=== PATIENT | female | born 1965 | race Caucasian/White ===

== ENCOUNTER 2019-04-21 13:43 | Outpatient (CLI) | payer OTHER, SELFPAY ==
[2019-04-21 14:34] LABS: Alanine Aminotransferase 67 U/L (4-35); Albumin Level 4.1 g/dL (3.5-5.1); Alkaline Phosphatase 57 U/L (38-126); Aspartate Amino Transferase 37 U/L (14-36); Bilirubin,Total 0.2 mg/dL (0.2-1.3); Blood Urea Nitrogen 25 mg/dL (7-17); Calcium 8.8 mg/dL (8.4-10.2); Carbon Dioxide 23 mmol/L (22-30); Chloride 107 mmol/L (98-107); Cholesterol 290 mg/dL (0-200); Estimated Glomerular Filt Rate > 60; Glucose 117 mg/dL (65-105); HDL Direct 56 mg/dL; Potassium 4.4 mmol/L (3.4-5.0); Sodium 137 mmol/L (137-145); Triglycerides 234 mg/dL (<150)
[2019-04-21 14:45] LABS: LDL Cholesterol Direct 186 mg/dL
== END 2019-04-21 13:44 | disposition home or self-care (01) ==
PROVIDERS: PCP Emergency Medicine; Visit Provider Internal Medicine Cardiovascular Disease
DX: E78.2 Mixed hyperlipidemia (principal)
CPT/HCPCS: 36415; 80053; 80061

== ENCOUNTER 2019-06-13 10:34 | Outpatient (CLI) | payer OTHER, SELFPAY ==
--- NOTE | 2019-06-13 10:36 | EST_ITS ---
Patient Info Name: Liliana Ruelas Age: 54 years : 1965 Gender: Female Ht: 62 in Wt: 150 lbs BSA: 1.74 m2 HR: 72 bpm BP: 126 / 76 mmHg Heart Rhythm: Sinus Rhythm Exam Date: 06/13/2019 11:26 AM Exam Location: [facility] Stress Admit Date: 06/13/2019 Staff Attending Provider: MATHEUS POLK DO Referring Physician: VANESSA Doyle; Exercise Technologist: Darcie Lehman RDCS Exercise Physician: Matheus Polk DO Exam Type: CA stress test treadmill Study Info Indications R07.9 - Chest pain, unspecified A treadmill exercise stress test was performed. Summary 1. 1. Negative Mane exercise stress test for ischemic ST changes by ECG criteria. 2. 2. Good functional capacity, achieving 10 METs of workload. 3. 3. Appropriate HR response to exercise. 4. 4. Appropriate HR recovery at 1 minute post exercise. 5. 5. No imaging with stress testing. 6. 6. Patient informed of the above results. Protocol: Mane Stress ECG Details Stage: REST Duration (min): 5 min : 24 sec Speed (mph): 0.0 Grade (%): 0 HR (bpm): 71 SBP (mmHg): 126 DBP (mmHg): 76 METS: --- Stage: REST Duration (min): 20 min : 33 sec Speed (mph): 0.0 Grade (%): 0 HR (bpm): 75 SBP (mmHg): 126 DBP (mmHg): 76 METS: --- Stage: STAGE 1 Duration (min): 1 min : 0 sec Speed (mph): 1.7 Grade (%): 10 HR (bpm): 103 SBP (mmHg): 126 DBP (mmHg): 76 METS: --- Stage: STAGE 1 Duration (min): 2 min : 0 sec Speed (mph): 1.7 Grade (%): 10 HR (bpm): 107 SBP (mmHg): 126 DBP (mmHg): 76 METS: --- Stage: STAGE 1 Duration (min): 3 min : 0 sec Speed (mph): 1.7 Grade (%): 10 HR (bpm): 111 SBP (mmHg): 145 DBP (mmHg): 87 METS: --- Stage: STAGE 2 Duration (min): 1 min : 0 sec Speed (mph): 2.5 Grade (%): 12 HR (bpm): 117 SBP (mmHg): 145 DBP (mmHg): 87 METS: --- Stage: STAGE 2 Duration (min): 2 min : 0 sec Speed (mph): 2.5 Grade (%): 12 HR (bpm): 122 SBP (mmHg): 151 DBP (mmHg): 88 METS: --- Stage: STAGE 2 Duration (min): 3 min : 0 sec Speed (mph): 2.5 Grade (%): 12 HR (bpm): 128 SBP (mmHg): 151 DBP (mmHg): 88 METS: --- Stage: STAGE 3 Duration (min): 1 min : 0 sec Speed (mph): 3.4 Grade (%): 14 HR (bpm): 136 SBP (mmHg): 174 DBP (mmHg): 97 METS: --- Stage: STAGE 3 Duration (min): 1 min : 59 sec Speed (mph): 3.4 Grade (%): 14 HR (bpm): 141 SBP (mmHg): 174 DBP (mmHg): 97 METS: --- Stage: RECOVERY Duration (min): 1 min : 0 sec Speed (mph): 0.0 Grade (%): 0 HR (bpm): 120 SBP (mmHg): 174 DBP (mmHg): 97 METS: --- Stage: RECOVERY Duration (min): 2 min : 0 sec Speed (mph): 0.0 Grade (%): 0 HR (bpm): 102 SBP (mmHg): 180 DBP (mmHg): 83 METS: --- Stage: RECOVERY Duration (min): 3 min : 0 sec Sp
[2019-06-13 11:04] LABS: Alanine Aminotransferase 32 U/L (4-35); Albumin Level 4.3 g/dL (3.5-5.1); Alkaline Phosphatase 57 U/L (38-126); Aspartate Amino Transferase 27 U/L (14-36); Bilirubin,Total 0.2 mg/dL (0.2-1.3); Blood Urea Nitrogen 24 mg/dL (7-17); Calcium 9.3 mg/dL (8.4-10.2); Carbon Dioxide 27 mmol/L (22-30); Chloride 107 mmol/L (98-107); Cholesterol 265 mg/dL (0-200); Estimated Glomerular Filt Rate > 60; Glucose 126 mg/dL (65-105); HDL Direct 52 mg/dL; Potassium 4.2 mmol/L (3.4-5.0); Sodium 138 mmol/L (137-145); Triglycerides 121 mg/dL (<150)
[2019-06-13 11:15] LABS: LDL Cholesterol Direct 168 mg/dL
== END 2019-06-13 10:35 | disposition home or self-care (01) ==
PROVIDERS: PCP Emergency Medicine; Visit Provider Internal Medicine Cardiovascular Disease
DX: E78.2 Mixed hyperlipidemia (principal); R07.9 Chest pain, unspecified
CPT/HCPCS: 36415; 80053; 80061; 93017

== ENCOUNTER 2019-12-02 13:52 | Outpatient (CLI) | payer OTHER, SELFPAY | END 2019-12-02 13:53 | disposition home or self-care (01) | LOC: ANHLAB 13:55 | PROVIDERS: PCP Emergency Medicine; Visit Provider Internal Medicine Cardiovascular Disease | DX: E66.3 Overweight (principal) | CPT/HCPCS: 36415; 84443 ==

== ENCOUNTER 2020-01-24 14:18 | Outpatient (CLI) | payer OTHER, SELFPAY ==
--- NOTE | 2020-02-06 15:17 | WPDPFTINT ---
PFT Interpretation PFT Interpretation: DOS: 01/24/2020 REQUESTING: Dr Matheus Mckinnon REASON FOR TESTING: Dyspnea PULMONARY FUNCTION TESTS Results are reliable. Spirometry: FEV1 is 84%, normal. FVC is 89%, normal. FEV/FVC is 71%, normal. XAT86-49% is 50%, decreased. No bronchodilator was given. Lung volumes: TLC 94%, and RV is 100%, both normal. RV/TLC ratio is increased at 38% consistent with mild air trapping. Airway resistance is increased 141%. Diffusion: DLCO is 61%, mildly decreased. Flow volume loop: Inspiratory loop terminates earlier than expected. Nonspecific pattern. IMPRESSION: Small airways pattern, mild air trapping, mild increase in airway resistance, and mild decrease in diffusion. No bronchodilator was given. This is a nonspecific pattern. Clinical correlation is advised. Casandra Morillo MD
== END 2020-01-24 14:19 | disposition home or self-care (01) ==
LOC: ANHPFT 14:19
PROVIDERS: PCP Emergency Medicine; Visit Provider Internal Medicine Cardiovascular Disease
DX: R06.00 Dyspnea, unspecified (principal)
CPT/HCPCS: 94375; 94726; 94729

== ENCOUNTER 2020-03-19 14:24 | Outpatient (CLI) | payer OTHER, SELFPAY ==
[2020-03-19 15:16] LABS: Hemoglobin A1C 6.2 % (<5.7)
[2020-03-19 15:19] LABS: Alanine Aminotransferase 62 U/L (4-35); Albumin Level 4.5 g/dL (3.5-5.1); Alkaline Phosphatase 65 U/L (38-126); Anion Gap 6 mmol/L (8-16); Aspartate Amino Transferase 40 U/L (14-36); Bilirubin,Total 0.3 mg/dL (0.2-1.3); Blood Urea Nitrogen 20 mg/dL (7-17); Calcium 9.6 mg/dL (8.4-10.2); Carbon Dioxide 27 mmol/L (22-30); Chloride 109 mmol/L (98-107); Cholesterol 199 mg/dL (0-200); Estimated Glomerular Filt Rate > 60; Glucose 123 mg/dL (65-105); HDL Direct 46 mg/dL; Potassium 4.3 mmol/L (3.4-5.0); Sodium 142 mmol/L (137-145); Triglycerides 187 mg/dL (<150)
[2020-03-19 15:21] LABS: Rheumatoid Factor < 8.6 IU/ML (<12)
[2020-03-19 15:34] LABS: LDL Cholesterol Direct 115 mg/dL
[2020-03-19 15:42] LABS: Erythrocyte Sedimentation Rate 20 mm/hr (0-20)
[2020-03-22 20:14] LABS: CRP, High Sensitivity 1.3 mg/L (***)
[2020-03-22 22:08] LABS: Anti Cyclic Citrullinated Pept <16 Units (<20)
== END 2020-03-19 14:25 | disposition home or self-care (01) ==
PROVIDERS: PCP Internal Medicine; Referring Provider Internal Medicine Cardiovascular Disease; Visit Provider Nurse Practitioner
DX: E78.5 Hyperlipidemia, unspecified (principal); M25.50 Pain in unspecified joint; Z68.32 Body mass index [BMI] 32.0-32.9, adult
CPT/HCPCS: 36415; 80053; 80061; 83036; 85652; 86038; 86039; 86141; 86200; 86430

== ENCOUNTER 2020-04-23 13:18 | Outpatient (CLI) | payer OTHER, SELFPAY | END 2020-04-23 13:19 | disposition home or self-care (01) | LOC: ANHCOVIDVC 13:18 | PROVIDERS: PCP Internal Medicine | DX: Z23 Encounter for immunization (principal) | CPT/HCPCS: 0001A; 91300 ==

== ENCOUNTER 2020-05-14 13:14 | Outpatient (CLI) | payer OTHER, SELFPAY | END 2020-05-14 13:15 | disposition home or self-care (01) | LOC: ANHCOVIDVC 13:14 | PROVIDERS: PCP Internal Medicine | DX: Z23 Encounter for immunization (principal) | CPT/HCPCS: 0002A; 91300 ==

== ENCOUNTER 2020-08-01 12:57 | Outpatient (CLI) | payer OTHER, SELFPAY ==
--- NOTE | ~2020-08-01 | CT_ITS ---
EXAMINATION: CT abdomen pelvis wo con DATE: 08/01/2020 13:13 INDICATION: Low abdominal pain. TECHNIQUE: Computed tomography (CT) of the abdomen and pelvis was performed without intravenous contr ast. Automated exposure control and iterative reconstruction technique were employed. The dose-length product was 710.61 mGy-cm. COMPARISON: None. FINDINGS: The visualized portions of the lung bases demonstrate minimal atelectasis. No pleural effus ion. The heart size is normal. No pericardial effusion. The liver and gallbladder are normal. Calcifi cations in the spleen are consistent with old granulomatous disease. The pancreas, adrenal glands, an d kidneys are normal. There is no urolithiasis. There are no dilated loops of bowel. The appendix is not visualized. There is focal fat stranding adjacent to the sigmoid colon. There are no pathological ly enlarged lymph nodes. There is no free intraperitoneal fluid. There is severe lower lumbar spondyl osis. IMPRESSION: 1. Focal fat stranding adjacent to the sigmoid colon, consistent with diverticulitis versus epiploic appendagitis. Reviewed, dictated and finalized at location A. IMPRESSION: 1. Focal fat stranding adjacent to the sigmoid colon, consistent with diverticu litis versus epiploic appendagitis.
== END 2020-08-01 12:58 | disposition home or self-care (01) ==
LOC: ANHIMG 12:57
PROVIDERS: PCP Internal Medicine; Visit Provider Internal Medicine
DX: R10.9 Unspecified abdominal pain (principal); R93.5 Abnormal findings on diagnostic imaging of other abdominal regions, including retroperitoneum
CPT/HCPCS: 74176

== ENCOUNTER 2020-08-22 02:02 | Day surgery (SDC) | payer OTHER, SELFPAY ==
[2020-08-10 11:25] VITALS: BMI 30.6
--- NOTE | 2020-08-22 08:36 | WPDANESEPPF ---
Anes - Initial Pre Proc Eval Procedure: Operation Date: 08/22/20 10:30 Proposed Procedures p Colonoscopy - Fredrick Evans MD Date/Time: 08/22/20 08:36 Surgeon: Fredrick Evans MD Pre Op Diagnosis: abdominal pain Patient Data Age: 55 Gender: F Height: 1.57 m Weight: 76 kg Allergies Allergy/AdvReac Type Severity Reaction Status Date / Time cephalexin AdvReac Severe vomiting Verified 08/10/20 11:26 and diarrhea Home Medications Medication Instructions Recorded Confirmed Type omega-3 fatty acids 1,000 mg 1,000 mg PO DAILY 04/26/19 08/10/20 History capsule escitalopram oxalate 20 mg tablet 20 mg PO DAILY #30 tablet 06/04/20 08/10/20 Rx ciprofloxacin HCl 500 mg tablet 500 mg PO Q12H #20 tablet 08/02/20 08/10/20 Rx metronidazole 500 mg tablet 500 mg PO Q8H #30 tablet 08/02/20 08/10/20 Rx diclofenac sodium 75 mg PO TID 08/10/20 08/10/20 History ezetimibe 10 mg PO DAILY 08/10/20 08/10/20 History rosuvastatin 10 mg PO DAILY 08/10/20 08/10/20 History alprazolam 0.5 mg tablet 1 mg PO QHS #30 tablet 08/14/20 Rx Patient hx anesthesia problems: none Family hx anesthesia problems: none PMFSH Past Medical History Medical History (Updated 08/22/20 @ 08:39 by Geremias Ricketts MD) Abnormal mammogram Acute bronchitis, unspecified Anxiety and depression Breast microcalcification, mammographic Essential hypertension Female climacteric state FHx: migraine headaches 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 Generalized arthritis Herpes zoster without complication History of Ania-Unger virus infection Mixed hyperlipidemia Sclerosing adenosis of right breast Tobacco use disorder Surgical History Surgical History (Updated 03/07/20 @ 13:11 by Shaun Byrd APRN) History of appendectomy History of History of carpal tunnel release History of hysterectomy Family History Family History (Updated 05/09/20 @ 07:05 by Ira Ferrer CMA) Mother Family history of diabetes mellitus in first degree relative Sibling Family history of diabetes mellitus in first degree relative Father Alcoholism Grandparent Cancer Social History Social History Smoking packs per day: 1 Smoking cigarettes per day: 20.0 Years smoked: 40 Smoking pack-years: 40.00 Smoking status: Current every day smoker Tobacco type: cigarettes Alcohol intake: never Alcohol use details: Alcoholic. No alcohol in 13 months Substance use: never Substance use type: does not use Living arrangements: with family Gender identity (if verbalized by the patient): Female Spiritual care concerns: No Anes - Eval Final PreProcedure Day of Procedure 08/22/20 08:36 Patient weight: obese Heart: regular rate and rhythm Lungs: clear to auscultation and normal air movement Airway: Mallampati scale class II Neurological: alert and oriented Last oral intake: >/= 8 hours ASA classification: III Emergent: no Anesthetic plan: proceed Anesthesia type and monitoring: general GIVS Informed Consent: The patient's anesthetic plan and its attendant risks and benefits were discussed with the patient/family/POA. Questions were solicited and answers provided to the satisfaction of the patient/family/POA.
[2020-08-22 09:34] VITALS: BP 125/80; PULSE 82; RESP 20; TEMP 35.5; O2SAT 99; BMI 29.9
[2020-08-22] MEDS: LACTATED RINGERS 1,000 ML 150 ML IV CONT (09:47)
--- NOTE | 2020-08-22 10:19 | WPDGICN ---
Assessment and Plan Assessment and plan (1) Encounter for screening colonoscopy: Code(s): Z12.11 - Encounter for screening for malignant neoplasm of colon Status: Acute Assessment and Plan: Patient has never had colonoscopy. Screening colonoscopy advised because of her age this will be performed. (2) Abdominal pain in female: Code(s): R10.9 - Unspecified abdominal pain Status: Acute Assessment and Plan: Patient had recent abdominal pain that is resolved. May be related to irritable bowel syndrome. She was treated empirically for possible diverticulitis. Plan to assess at time of colonoscopy. High-fiber diet advised. Subsequently. GI Consult Note Consult date/time: 08/22/20 10:19 HPI: Liliana Ruelas is a 55 year old female Presents for screening colonoscopy. Patient has never had prior colonoscopy. Patient reports having several month interval of discomfort in her abdomen. Appears rather diffuse. Associated with altered bowel habits. Somewhat worse perhaps with anxiety. Patient was treated for diverticulitis with antibiotics. She feels that pain may have improved after this. Currently abdominal pain has subsided to a great deal. She denies any blood in her stools. Her weight has remained stable. Bowel habits have tended to return point more towards normal. 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 Generalized arthritis Herpes zoster without complication History of Ania-Unger virus infection Mixed hyperlipidemia Sclerosing adenosis of right breast Tobacco use disorder Surgical History Surgical History (Updated 03/07/20 @ 13:11 by Shaun Byrd APRN) History of appendectomy History of History of carpal tunnel release History of hysterectomy Family History Family History (Updated 05/09/20 @ 07:05 by Ira Ferrer [facility]) Mother Family history of diabetes mellitus in first degree relative Sibling Family history of diabetes mellitus in first degree relative Father Alcoholism Grandparent Cancer Social History Social History Smoking packs per day: 1 Smoking cigarettes per day: 20.0 Years smoked: 40 Smoking pack-years: 40.00 Smoking status: Current every day smoker Tobacco type: cigarettes Alcohol intake: never Alcohol use details: Alcoholic. No alcohol in 13 months Substance use: never Substance use type: does not use Living arrangements: with family Gender identity (if verbalized by the patient): Female Spiritual care concerns: No Meds Home Medications and Allergies Home Medications Medication Instructions Recorded Confirmed Type omega-3 fatty acids 1,000 mg 1,000 mg PO DAILY 04/26/19 08/10/20 History capsule escitalopram oxalate 20 mg tablet 20 mg PO DAILY #30 tablet 06/04/20 08/10/20 Rx metronidazole 500 mg tablet 500 mg PO Q8H #30 tablet 08/02/20 08/10/20 Rx diclofenac sodium 75 mg PO TID 08/10/20 08/10/20 History ezetimibe 10 mg PO DAILY 08/10/20 08/10/20 History rosuvastatin 10 mg PO DAILY 08/10/20 08/10/20 History alprazolam 0.5 mg tablet 1 mg PO QHS #30 tablet 08/14/20 08/22/20 Rx Allergies Allergy/AdvReac Type Severity Reaction Status Date / Time cephalexin AdvReac Severe vomiting Verified 08/10/20 11:26 and diarrhea Vital Signs Vital Signs - 24 hr 08/22/20 09:34 Temperature 95.9 F L Pulse Rate 82 Respiratory Rate 20 Blood Pressure 125/80 Pulse Oximetry 99 Exam Narrative: Exam Narrative: Physical exam revea
[2020-08-22 10:47] VITALS: BP 140/85; PULSE 87; RESP 22; O2SAT 95
[2020-08-22 10:57] VITALS: BP 133/81; PULSE 84; RESP 25; O2SAT 100
[2020-08-22 11:07] VITALS: BP 131/88; PULSE 69; RESP 16; O2SAT 98
== END 2020-08-22 11:21 | disposition home or self-care (01) ==
PROVIDERS: PCP Internal Medicine; Visit Provider Internal Medicine Gastroenterology
PROC: 0DJD8ZZ Inspection of Lower Intestinal Tract, Via Natural or Artificial Opening Endoscopic (ICD-10-PCS; CPT 45378; principal; 2020-08-22 10:30)
DX: Z12.11 Encounter for screening for malignant neoplasm of colon (principal); K63.89 Other specified diseases of intestine; R10.84 Generalized abdominal pain; F41.8 Other specified anxiety disorders; I10 Essential (primary) hypertension; E78.2 Mixed hyperlipidemia; F17.210 Nicotine dependence, cigarettes, uncomplicated; F10.21 Alcohol dependence, in remission; E66.9 Obesity, unspecified; Z68.30 Body mass index [BMI] 30.0-30.9, adult
CPT/HCPCS: 45378; J2704; J7120

== ENCOUNTER 2020-09-28 15:43 | Outpatient (CLI) | payer OTHER, SELFPAY ==
[2020-09-28 16:31] LABS: Alanine Aminotransferase 61 U/L (4-35); Albumin Level 4.7 g/dL (3.5-5.1); Alkaline Phosphatase 67 U/L (38-126); Anion Gap 11 mmol/L (8-16); Aspartate Amino Transferase 34 U/L (14-36); Bilirubin,Total 0.2 mg/dL (0.2-1.3); Blood Urea Nitrogen 13 mg/dL (7-17); Calcium 9.9 mg/dL (8.4-10.2); Carbon Dioxide 23 mmol/L (22-30); Chloride 101 mmol/L (98-107); Cholesterol 230 mg/dL (0-200); Estimated Glomerular Filt Rate > 60; Glucose 142 mg/dL (65-110); HDL Direct 53 mg/dL; Potassium 3.9 mmol/L (3.4-5.0); Sodium 135 mmol/L (137-145); Triglycerides 267 mg/dL (<150)
[2020-09-28 16:43] LABS: LDL Cholesterol Direct 117 mg/dL
== END 2020-09-28 15:44 | disposition home or self-care (01) ==
PROVIDERS: PCP Internal Medicine; Visit Provider Internal Medicine
DX: E78.2 Mixed hyperlipidemia (principal); I10 Essential (primary) hypertension
CPT/HCPCS: 36415; 80053; 80061

== ENCOUNTER 2021-01-02 14:07 | Outpatient (CLI) | payer OTHER, SELFPAY | END 2021-01-02 14:08 | disposition home or self-care (01) | LOC: ANHLAB 14:09 | PROVIDERS: PCP Internal Medicine; Visit Provider Internal Medicine | DX: R73.01 Impaired fasting glucose (principal) | CPT/HCPCS: 36415; 83036 ==

== ENCOUNTER → 2021-02-20 02:54 | Outpatient (CLI) | payer OTHER, SELFPAY ==
[2021-02-20 21:18] LABS: SARS-CoV-2 RNA PCR Negative
== END ==
LOC: ANHCOVIDDT 02:54
PROVIDERS: PCP Internal Medicine; Visit Provider Internal Medicine
DX: R68.89 Other general symptoms and signs (principal); Z20.822 Contact with and (suspected) exposure to COVID-19
CPT/HCPCS: C9803; U0003; U0005

== ENCOUNTER 2022-10-28 14:59 | Outpatient (CLI) | payer OTHER, SELFPAY ==
[2022-10-28 15:24] LABS: Basophils Absolute Auto 0.1 K/mm3 (0.0-0.1); Basophils Percent Auto 0.7 % (0.2-1.2); Eosinophils Absolute Auto 0.1 K/mm3 (0-0.3); Eosinophils Percent Auto 0.9 % (0-4.4); Hemoglobin 13.8 g/dL (12.0-15.0); Immature Granulocyte Absolute 0.06 K/mm3 (0.00-0.031); Immature Granulocyte Percent A 0.6 % (0-0.5); Lymphocytes Absolute Auto 2.85 K/mm3 (0.9-3.2); Lymphocytes Percent Auto 28.7 % (18.3-44.2); Mean Corpuscular HGB Conc 33.7 g/dl (32-36); Mean Corpuscular Hemoglobin 31.7 pg (26-34); Mean Corpuscular Volume 94.3 fl (80-100); Mean Platelet Volume 10.3 fl (7.4-10.4); Monocytes Absolute Auto 0.5 K/mm3 (0.1-0.6); Monocytes Percent Auto 5.1 % (2.6-8.5); Neutrophils Absolute Auto 6.3 K/mm3 (1.3-6.7); Platelet Count Result 313 k/mm3 (150-375); Red Blood Count 4.35 M/mm3 (4.2-5.4); Red Cell Distribution Width 12.9 % (11.5-14.5); White Blood Count 9.9 K/mm3 (4.5-10.0)
[2022-10-28 15:41] LABS: Alanine Aminotransferase 34 U/L (6-35); Albumin Level 4.6 g/dL (3.5-5.1); Alkaline Phosphatase 63 U/L (38-126); Anion Gap 9 mmol/L (8-16); Aspartate Amino Transferase 26 U/L (14-36); Bilirubin,Total 0.5 mg/dL (0.2-1.3); Blood Urea Nitrogen 18 mg/dL (7-17); Calcium 9.6 mg/dL (8.4-10.2); Carbon Dioxide 24 mmol/L (22-30); Chloride 108 mmol/L (98-107); Estimated Glomerular Filt Rate > 60; Glucose 104 mg/dL (65-110); HDL Direct 58 mg/dL; Sodium 141 mmol/L (137-145); Triglycerides 318 mg/dL (<150)
[2022-10-28 15:47] LABS: LDL Cholesterol Direct 178 mg/dL
[2022-10-28 21:03] LABS: Hemoglobin A1C 6.1 % (<5.7)
[2022-10-30 03:54] LABS: Cholesterol 338 mg/dL (0-200)
== END 2022-10-28 15:00 | disposition home or self-care (01) ==
LOC: ANHLAB 15:01
PROVIDERS: PCP Nurse Practitioner Family; Visit Provider Nurse Practitioner Family
DX: E78.2 Mixed hyperlipidemia (principal); F32.9 Major depressive disorder, single episode, unspecified; F41.9 Anxiety disorder, unspecified; G47.00 Insomnia, unspecified; I10 Essential (primary) hypertension; R73.03 Prediabetes
CPT/HCPCS: 36415; 80053; 80061; 83036; 84443; 85025

== ENCOUNTER 2023-05-02 17:20 | Emergency (ER) | payer OTHER, SELFPAY ==
[2023-05-02] VITALS (14 sets, daily range): BP systolic 132–157; BP diastolic 84–101; PULSE 84–99; RESP 11–22; TEMP 36.7; O2SAT 98–100
--- NOTE | ~2023-05-02 | CT_ITS ---
EXAMINATION: CTA brain carotid DATE: 05/02/2023 17:42 INDICATION: CVA LT SIDED FACIAL DROOP TECHNIQUE: Computed tomographic angiography (CTA) of the head and neck was performed with 100 mL Omni paque-350 intravenous contrast. Automated exposure control and iterative reconstruction technique wer e employed. The dose-length product was 989.13 mGy-cm. Maximum intensity projection and volume rende red 3D-reconstructions were created by the technologist on a separate workstation. COMPARISON: CT brain, same date. FINDINGS: CT BRAIN: No acute large vessel infarct, intracranial hemorrhage, mass, or hydrocephalus. 2.4 cm heterogeneousl y enhancing right posterior frontal mass. CTA HEAD: No large vessel occlusion, aneurysm, high flow vascular malformation, nidus or extravasation. CTA NECK: Aortic arch and proximal great vessels: Normal arch anatomy. Severe short segment stenosis at the silvio gin of the right vertebral artery. Right common carotid, carotid bifurcation, and internal carotid artery: Calcified and noncalcified pl aque at the bifurcation.There is 0% stenosis of the proximal right internal carotid artery relative t o normal distal artery lumen diameter (NASCET criteria). Left common carotid, carotid bifurcation, and internal carotid artery: Calcified and noncalcified jimena que at the bifurcation.There is 26% stenosis of the proximal left internal carotid artery relative to normal distal artery lumen diameter (NASCET criteria). Vertebral arteries: No significant plaque. No dissection. Vertebral arteries co-dominant. Other findings: Marked mediastinal lymph node enlargement. IMPRESSION: No large vessel intracranial occlusion, high-grade intracranial stenosis, or aneurysm. No carotid artery occlusion, dissection, or significant stenosis. Severe short segment stenosis at the origin of the right vertebral artery. 2.4 cm heterogeneously enhancing right posterior frontal lobe mass, prior recommendation for MRI with out and with contrast is unchanged. Reviewed, dictated and finalized at location K. IMPRESSION: No large vessel intracranial occlusion, high-grade intracranial stenosis, or an eurysm. No carotid artery occlusion, dissection, or significant stenosis. Severe short segment stenosis at the origin of the right vertebral artery. 2.4 cm heterogeneously enhancing right posterior frontal lobe mass, prior recom mendation for MRI without and with contrast is unchanged.
--- NOTE | ~2023-05-02 | XR_ITS ---
EXAMINATION: XR chest 1V portable Exam Date/Time: 05/02/2023 17:45 CDT HISTORY: cva Comparison: CTA brain carotid, same date. RESULT: Lines, tubes, and devices: None. Lungs and pleura: 3.1 cm mass projecting over the right lower lung. Cardiomediastinal silhouette: Fullness to the right paratracheal stripe. Other: No acute osseous or upper abdominal finding. IMPRESSION: Suspected 3.1 cm right lower lung mass. Right paratracheal lymphadenopathy, seen better in the inferi or portions of the prior CTA brain carotid.. Reviewed, dictated and finalized at location K. IMPRESSION: Suspected 3.1 cm right lower lung mass. Right paratracheal lymphadenopathy, see n better in the inferior portions of the prior CTA brain carotid..
--- NOTE | ~2023-05-02 | CT_ITS ---
EXAMINATION: CT brain wo con DATE: 05/02/2023 17:31 INDICATION: cva, LT SIDED FACIAL DROOP . TECHNIQUE: Computed tomography (CT) of the head was performed with intravenous contrast. The mA was a djusted according to patient size. Iterative reconstruction technique was employed. The dose-length p roduct was 605.33 mGy-cm. COMPARISON: None. FINDINGS: No acute intracranial hemorrhage or extra-axial fluid collection. 2.3 x 2.4 x 2.4 cm smoothly marginated, hyperdense, round mass in the right posterior frontal lobe, w ith central low density and surrounding vasogenic edema. No hydrocephalus or herniation. No acute ischemic infarct. Unremarkable dural venous sinus attenuation. No acute osseous abnormality. The aerated spaces are clear. IMPRESSION: 2.4 cm right posterior frontal lobe mass with surrounding vasogenic edema, may represent a meningioma . An intra-axial brain mass is considered less likely but remains possible. Recommend brain MRI witho ut and with contrast for further evaluation. Findings discussed with Dr. Horne at 5:47 PM on 05/02/2023. Reviewed, dictated and finalized at location K. IMPRESSION: 2.4 cm right posterior frontal lobe mass with surrounding vasogenic edema, may represent a meningioma. An intra-axial brain mass is considered less likely but remains possible. Recommend brain MRI without and with contrast for further ev aluation. Findings discussed with Dr. Horne at 5:47 PM on 05/02/2023.
--- NOTE | 2023-05-02 17:23 | ECG_ITS ---
Measurements Intervals [place] Rate: 83 P: 42 [place]: 171 QRS: 70 QRSD: 97 T: 40 QT: 371 QTc: 437 Interpretive Statements SINUS RHYTHM POSSIBLE LEFT ATRIAL ENLARGEMENT BORDERLINE ST-T WAVE ABNORMALITY- INFERIOR LEADS BASELINE ARTIFACT- I, II, III BORDERLINE ECG COMPARED TO ECG 02/14/2019 16:53:38 NO SIGNIFICANT CHANGES Electronically Signed On 05-02-2023 19:17:46 CDT by Matheus Mckinnon D.O.
[2023-05-02 17:42] LABS: Basophils Absolute Auto 0.1 K/mm3 (0.0-0.1); Basophils Percent Auto 1.1 % (0.2-1.2); Eosinophils Absolute Auto 0.1 K/mm3 (0-0.3); Eosinophils Percent Auto 1.6 % (0-4.4); Hematocrit 39.2 % (37.0-47.0); Hemoglobin 13.1 g/dL (12.0-15.0); Immature Granulocyte Absolute 0.03 K/mm3 (0.00-0.031); Immature Granulocyte Percent A 0.4 % (0-0.5); Lymphocytes Absolute Auto 2.43 K/mm3 (0.9-3.2); Mean Corpuscular HGB Conc 33.4 g/dl (32-36); Mean Corpuscular Hemoglobin 32.4 pg (26-34); Mean Platelet Volume 9.7 fl (7.4-10.4); Monocytes Absolute Auto 0.6 K/mm3 (0.1-0.6); Monocytes Percent Auto 6.8 % (2.6-8.5); Neutrophils Absolute Auto 4.9 K/mm3 (1.3-6.7); Neutrophils Percent Auto 60.1 % (45.5-73.1); Platelet Count Result 282 k/mm3 (150-375); Red Blood Count 4.04 M/mm3 (4.2-5.4); Red Cell Distribution Width 13.2 % (11.5-14.5); White Blood Count 8.1 K/mm3 (4.5-10.0)
[2023-05-02 17:45] LABS: Estimated Glomerular Filt Rate > 60
[2023-05-02 17:55] LABS: Alanine Aminotransferase 20 U/L (6-35); Albumin Level 4.6 g/dL (3.5-5.1); Alkaline Phosphatase 48 U/L (38-126); Anion Gap 1 mmol/L (8-16); Aspartate Amino Transferase 30 U/L (14-36); Bilirubin,Total 0.5 mg/dL (0.2-1.3); Blood Urea Nitrogen 15 mg/dL (7-17); Calcium 9.8 mg/dL (8.4-10.2); Carbon Dioxide 31 mmol/L (22-30); Chloride 99 mmol/L (98-107); Estimated Glomerular Filt Rate > 60; Glucose 91 mg/dL (65-110); Potassium 4.7 mmol/L (3.4-5.0); Sodium 131 mmol/L (137-145)
[2023-05-02 17:59] LABS: INR 0.9; Prothrombin Time 12.8 Seconds (11.1-14.7)
[2023-05-02 18:00] LABS: Partial Thromboplastin Time 28.7 Seconds (22.3-36.8)
[2023-05-02 18:06] LABS: Troponin I < 0.012 ng/mL (0.000-0.034)
--- NOTE | 2023-05-02 18:21 | ED.NEUROSD ---
HPI - Neuro Symptoms/Deficit General Chief Complaint: Suspected CVA <Pan Horne MD - Last Filed: 05/02/23 18:37> Stated Complaint: cva <Pan Horne MD - Last Filed: 05/02/23 18:37> Time Seen by Provider: 05/02/23 17:34 <Pan Horne MD - Last Filed: 05/02/23 18:37> Source: patient <Pan Horne MD - Last Filed: 05/02/23 18:37> Mode of arrival: EMS <Pan Horne MD - Last Filed: 05/02/23 18:37> Limitations: no limitations <Pan Horne MD - Last Filed: 05/02/23 18:37> History of Present Illness HPI Narrative: 57-year-old with a history of anxiety, presents to the ER from home with complaints of left-sided facial numbness and tingling sensation which started about 1300 this afternoon, she stated her symptoms lasted for few minutes and again reoccurred while she was walking into her kitchen, she call of conde fluid noticed that she has been having left-sided facial droop call 911 and was brought here to the ER. Patient presently denies having any headache or any motor weakness. No previous history of strokes or TIAs. <Pan Horne MD - Last Filed: 05/02/23 18:37> Onset (ago): minute(s) (5) <Pan Horne MD - Last Filed: 05/02/23 18:37> Location: left face <Pan Horne MD - Last Filed: 05/02/23 18:37> History of same: Yes <Pan Horne MD - Last Filed: 05/02/23 18:37> Context: sudden onset <Pan Horne MD - Last Filed: 05/02/23 18:37> Associated symptoms: denies other symptoms <MD Carmen Joe Last Filed: 05/02/23 18:37> Treatments Prior to Arrival: none <MD Carmen Joe Last Filed: 05/02/23 18:37> Related Data Allergies/Adverse Reactions: Allergies Allergy/AdvReac Type Severity Reaction Status Date / Time cephalexin AdvReac Severe vomiting Verified 10/28/22 13:18 and diarrhea <Pna Horne MD - Last Filed: 05/02/23 18:37> Review of Systems Review of Systems: All systems reviewed & are unremarkable except as noted in HPI and below <Pan Horne MD - Last Filed: 05/02/23 18:37> Constitutional: Constitutional: Reports no additional constitutional complaints <Pan Horne MD - Last Filed: 05/02/23 18:37> Eyes: Eyes: Reports no additional eye complaints <Pan Horne MD - Last Filed: 05/02/23 18:37> ENT: Reports system reviewed and no additional complaints, except as documented <Pan Horne MD - Last Filed: 05/02/23 18:37> Cardiovascular: Cardiovascular: Reports no additional cardiovascular complaints <Pan Horne MD - Last Filed: 05/02/23 18:37> Respiratory: Respiratory: Reports no additional respiratory complaints <Pan Horne MD - Last Filed: 05/02/23 18:37> Gastrointestinal: Gastrointestinal: Reports no additional gastrointestinal complaints <Pan Horne MD - Last Filed: 05/02/23 18:37> Musculoskeletal: Musculoskeletal: Reports no additional musculoskeletal complaints <Pan Horne MD - Last Filed: 05/02/23 18:37> Neurologic: Reports as per HPI <Pan Horne MD - Last Filed: 05/02/23 18:37> Psychiatric: Psychiatric: Reports no additional psychiatric complaints <Pan Horne MD - Last Filed: 05/02/23 18:37> Hematologic/Lymphatic: Hematologic/Lymphatic: Reports no additional hematologic/lymphatic complaints <Pan Horne MD - Last Filed: 05/02/23 18:37> PMFSH Past Medical History Medical History: Medical History Abnormal mammogram Acute bronchitis, unspecified Anxiety and depression Breast microcalcification, mammographic Essential hypertension Female climacteric state FHx: migraine headaches 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
[2023-05-02] MEDS: levETIRAcetam 1000MG/NACL100ML 1,000 MG/100 ML BAG 400 MG IVPB (18:45)
[2023-05-02] MEDS: LORazepam (*CRX) 1 MG TABLET PO (18:45)
--- NOTE | 2023-05-02 18:45 | PC.NURSE ---
Pt extremely anxious about being away from her disabled son. Pt has never been away from her son. This RN spoke with family member currently at home with pt and she states that they do not know how to fully take of him. This RN has attempted to speak with Care coordination but they were gone for the day, spoke with lodging house keeper who was unable to help, and called Rachel in an attempt to help pt plan for care of her son.
--- NOTE | 2023-05-02 19:09 | PC.NURSE ---
Spoke with Nela from Care Coordination and she states she will attempt to help find some resources for family
[2023-05-04 16:49] LABS: Glucose Point of Care 89 mg/dl (65-105)
== END 2023-05-02 21:11 | disposition short-term general hospital (02) ==
PROVIDERS: Emergency Medicine; Family Medicine; Emergency Provider Preventive Medicine Aerospace Medicine; PCP Nurse Practitioner Family
DX: G93.89 Other specified disorders of brain (principal); R91.8 Other nonspecific abnormal finding of lung field; I10 Essential (primary) hypertension; E78.2 Mixed hyperlipidemia; B27.00 Gammaherpesviral mononucleosis without complication; M19.90 Unspecified osteoarthritis, unspecified site; F17.210 Nicotine dependence, cigarettes, uncomplicated; Z90.710 Acquired absence of both cervix and uterus; Z79.85 Long-term (current) use of injectable non-insulin antidiabetic drugs; R94.31 Abnormal electrocardiogram [ECG] [EKG]
CPT/HCPCS: 36415; 70450; 70496; 70498; 71045; 80053; 82948; 84484; 85025; 85610; 85730; 93005; 96365; 99285; A9270; J1953; Q9967

== ENCOUNTER 2024-03-18 16:33 | Emergency (ER) | payer OTHER, SELFPAY ==
--- OUTSIDE RECORDS SUMMARY | 2024-03-18 16:36 | XMS_ITS | Encounter Summary ---
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 Radiation Oncology [address] [facility] Advanced [place] [address] Magi Sands MA Social History Tobacco Use Types Packs/Day Years Used Date Smoking Tobacco: Every Day Smokeless Tobacco: Never Personal Safety Answer Date Recorded Have you ever been in or are you currently in a harmful physical or emotional relationship or is someone making you feel afraid or unsafe? 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 difficile suspected 12/24/2023 12/24/202312/23 6:41 PM LOGGING SHOVEL OPERATOR documented as of this encounter Care Teams Airconditioning Plant Operator Relationship Specialty Start Date End Date Cristela Lei NP [address] [place] [address] PCP - General Nurse Practitioner 05/15/23 [place] [id number] [facility] [address] [place] [address] Rheumatology 11/05/16 Rosy Lyons MD [address] [facility] [address] IM MEDICAL ONCOLOGY, [address] [place] [address] Medical Oncologist/Pharmaceutical Compounding Supervisor Medical Oncology 05/11/23 Jessika Richter, RN [address] [place] [address] Nurse Navigator 09/04/23 10/24/23 Wayne Griffin MD [address] [place] [address] Consulting Physician Neurosurgery 09/04/23 Venu Alejo MD PhD [phone] [facility] [address] [place] [address] Consulting Physician Radiation Oncology 09/04/23 documented as of this encounter
--- OUTSIDE RECORDS SUMMARY | 2024-03-18 16:36 | XMS_ITS | Clinical Summary ---
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 Name Role Phone Unavailable Primary Care Provider Unavailabl e Social History Tobacco Use Types Packs/Day Years Used Date Smoking Tobacco: Never Assessed Comments Unknown Sex and Gender Information Value Date Recorded Sex Assigned at Not on file Legal Sex Female 7:17 PM CDT Gender Identity Not on file Sexual Orientation Not on file Plan of Treatment Health Maintenance Due Date Last Done Comments Cervical Cancer Screening Pa p Smear (Age 30 to 64) Every 3 Years 1965 Colorectal Cancer Screening Colonoscopy (10 Years) 1965 Annual Physical 1968 Hepatitis C 05/26/1983 DTaP, Tdap and Td Vaccines ( 1 - Tdap) 1984 Hepatitis B Vaccines (1 of 3 - 19+ 3-dose series) 1984 Cervical Cancer Screening Pa p with HPV Testing (Age 30 to 64) Every 5 Years 05/26/1995 Cervical Cancer Screening with HPV 05/26/1995 Mammogram Screening 2005 Zoster Vaccines (1 of 2) 05/26/2015 COVID-19 Vaccine (2023-2 5 season) 2023 Influenza Adult (#1) 2023 Meningococcal B Vaccine Aged Out No l onger eligible based on patient's age to complete this topic Meningococcal Vaccine Aged Out No jack dash eligible based on patient's age to complete this topic Pneumococcal Vaccine: Pediat rics (0 to 5 Years) and At-Risk Patients (6 to 64 Years) Aged Out No longer eligible b ased on patient's age to complete this topic RSV Immunizations Under 20 Months Aged Out No longer eligible based on patient's age to complete this topic
--- OUTSIDE RECORDS SUMMARY | 2024-03-18 16:37 | XMS_ITS | Referral Summary ---
Author Organization [facility] [address] Address [address] [place] [address] Phone Care Team Providers Care Wardrobe Specialist Name Role Phone Regina Calderon MD Unavailable Rosy Lyons MD Unavailable Cristela Lei NP Primary Care Provider [phone] Wayne Griffin MD Unavailable Venu Alejo MD PhD Unavailable [phone] Encounters Date Type Department Care Team Description 03/18/2024 Telephone [facility] Radiation Oncology [address] [facility] [place] [address] Lelo Chowdhury RN 03/18/2024 Telephone [facility] Oncology [address] [place] [address] [address] [facility] [place] [address] Tyesha Dan CMA Bloating and swollen 03/14/2024 Telephone [facility] Radiation Oncology [address] [facility] [place] [address] Darrel Hill MD 03/14/2024 Telephone [facility] Oncology [address] [place] [address] [address] [place] [phone] Chloe Martin, JOCELYNN 03/08/2024 10:00 AM EQUIPMENT SCHEDULER Office Visit [facility] Gastroenterology [address] [place] [address] Ce Navarro MD Chronic diarrhea (Primary Dx); Abdominal cramping; Drug-induced constipation 03/03/2024 11:30 AM EQUIPMENT SCHEDULER Office Visit [facility] Radiation Oncology [address] [facility] [place] [address] Venu Alejo MD PhD Malignant neoplasm metastatic to left adrenal gland (HCC) (Primary Dx); Small cell lung cancer, right lower lobe (HCC) 03/03/2024 12:40 PM EQUIPMENT SCHEDULER - 03/03/2024 11:59 PM EQUIPMENT SCHEDULER Hospital Encounter [facility] Radiation Oncology [address] [place] [address] Venu Alejo MD PhD Discharge Disposition: Discharge to home or self care 02/22/2024 Telephone [facility] Gastroenterology [address] [facility] 12th [place] [address] [place] [address] Nery Garrido RMA 02/22/2024 Telephone [facility] Oncology [address] [facility] [address] [place] [address] Bolivar Soares 02/22/2024 Telephone [facility] Radiation Oncology [address] [place] [address] Jacque Garner RN 02/21/2024 Telephone [facility] Gastroenterology [address] [facility] 12th [place] [address] [place] [address] Sadie Frost CMA 02/19/2024 10:45 AM EQUIPMENT SCHEDULER Lab [facility] at [address] [address] Small cell lung cancer, right lower lobe (HCC); Malignant neoplasm metastatic to brain (HCC); Diarrhea, unspecified type 02/19/2024 10:45 AM EQUIPMENT SCHEDULER Lab [facility] Oncology [address] [facility] [address] [place] [phone] Small cell lung cancer, right lower lobe (HCC); Malignant neoplasm metastatic to brain (HCC); Diarrhea, unspecified type 02/19/2024 11:40 AM EQUIPMENT SCHEDULER Office Visit [facility] Oncology [address] [facility] [address] [place] [phone] Rosy Lyons MD Malignant neoplasm metastatic to left adrenal gland (HCC) (Primary Dx); Small cell lung cancer, right lower lobe (HCC); Malignant neoplasm metastatic to brain (HCC); Diarrhea due to drug 02/18/2024 Telephone [facility] Gastroenterology [address] [facility] 12th [place] [address] [place] [address] Allegra Mayers RN 02/16/2024 Orders Only [facility] Oncology [address] [facility] Floor 5 [place] [phone] Janey Mendez NP Diarrhea, unspecified type (Primary Dx) 02/16/2024 Telephone [facility] [address] [place] [address] Catalina Hwang, JOCELYNN 02/09/2024 12:43 PM EQUIPMENT SCHEDULER Anesthesia Event [facility] [address] [address] Johnny Newton MD McCormick, Molly Ann, MD 02/09/2024 2:40 PM EQUIPMENT SCHEDULER - 02/09/2024 3:30 PM EQUIPMENT SCHEDULER Surgery [facility] [address] [address] Julieth Giraldo MD COLON BIOPSY 02/07/2024 3:48 PM EQUIPMENT SCHEDULER - 02/09/2024 4:57 PM EQUIPMENT SCHEDULER Hospital Encounter [address] [address] Rosy Lyons MD Tabagari, David, MD Patel, Rushin Mahesh, MD Ahmed, Marwa Mustafa Mohammed, MD Diarrhea, unspecified type (Primary Dx) Discharge Disposition: Left Against Medical Advice 02/07/2024 3:05 PM EQUIPMENT SCHEDULER - 02/07/2024 11:59 PM EQUIPMENT SCHEDULER Hospital Encounter [facility] ([facility]) [address] [place] [address] Elevated liver enzymes (Primary Dx); Small cell lung cancer, right lower lobe (HCC); Malignant neoplasm metastatic to left adrenal gland (HCC); Diarrhea, unspecified type Discharge Disposition: Discharge to home or self care 02/06/2024 8:38 AM EQUIPMENT SCHEDULER - 02/06/2024 11:59 PM EQUIPMENT SCHEDULER Hospital Encounter [facility] ([facility]) [address] [place] [address] Elevated liver enzymes (Primary Dx); Small cell lung cancer, right lower lobe (HCC); Malignant neoplasm metastatic to left adrenal gland (HCC); Diarrhea, unspecified type Discharge Disposition: Discharge to home or self care 02/05/2024 Telephone [facility] Oncology [address] [place] [address] [place] [phone] Tyesha Dan CMA Admit Questions 02/05/2024 Telephone [facility] Oncology [address] [place] [address] [place] [phone] Chloe Martin RN 02/05/2024 12:30 PM EQUIPMENT SCHEDULER Infusion [facility] at [address] [place] [address] Elevated liver enzymes (Primary Dx); Small cell lung cancer, right lower lobe (HCC); Malignant neoplasm metastatic to brain (HCC); Diarrhea, unspecified type 02/05/2024 10:30 AM EQUIPMENT SCHEDULER Lab [address] [place] [address] Small cell lung cancer, right lower lobe (HCC); Metastasis to brain (HCC); Malignant neoplasm metastatic to left adrenal gland (HCC) 02/05/2024 11:30 AM EQUIPMENT SCHEDULER Office Visit [facility] Oncology [address] [place] [address] [place] [address] Rosy Lyons MD Small cell lung cancer, right lower lobe (HCC) (Primary Dx); Malignant neoplasm metastatic to brain (HCC); Malignant neoplasm metastatic to left adrenal gland (HCC); Metastasis to brain (HCC); Diarrhea, unspecified type; Left adrenal mass (HCC) 02/05/2024 10:30 AM EQUIPMENT SCHEDULER Lab [facility] Oncology [address] [place] [address] [place] [phone] Small cell lung cancer, right lower lobe (HCC); Metastasis to brain (HCC); Malignant neoplasm metastatic to left adrenal gland (HCC) 02/05/2024 9:20 AM EQUIPMENT SCHEDULER - 02/05/2024 11:59 PM EQUIPMENT SCHEDULER [facility] [address] [place] [address] Small cell lung cancer, right lower lobe (HCC); Metastasis to brain (HCC); Malignant neoplasm metastatic to left adrenal gland (HCC) Discharge Disposition: Discharge to home or self care 02/01/2024 Telephone [facility] Oncology [address] [place] [address] [place] [phone] Bolivar Soares 01/29/2024 1:00 PM EQUIPMENT SCHEDULER Lab [facility] at [address] [place] [address] Small cell lung cancer, right lower lobe (HCC); Malignant neoplasm metastatic to brain (HCC) 01/29/2024 2:00 PM EQUIPMENT SCHEDULER Office Visit [facility] On[facility] [address] [place] [address] [place] [phone] Rosy Lyons MD Small cell lung cancer, right lower lobe (HCC) (Primary Dx); Metastasis to brain (HCC); Malignant neoplasm metastatic to left adrenal gland (HCC); Diarrhea, unspecified type 01/29/2024 1:00 PM EQUIPMENT SCHEDULER Lab [facility] [address] [place] [address] [place] [phone] Small cell lung cancer, right lower lobe (HCC); Malignant neoplasm metastatic to brain (HCC) 01/25/2024 12:56 PM EQUIPMENT SCHEDULER - 01/25/2024 11:59 PM EQUIPMENT SCHEDULER Hospital Encounter [facility] [address] [facility] [address], [address] [place] [address] Other chronic pain (Primary Dx); Chronic use of opiate drug for therapeutic purpose Discharge Disposition: Discharge to home or self care 01/22/2024 Telephone [facility] Radiation Oncology [facility] [place] [address] Nimco Torrez RN 01/22/2024 Telephone [facility] [address] [facility] [address] [address], [address] [place] [phone] Julio Cesar Ocampo MD requesting a call back 01/21/2024 6:35 AM EQUIPMENT SCHEDULER - 01/21/2024 11:59 PM EQUIPMENT SCHEDULER Hospital Encounter [facility] Radiation Oncology [address] [place] [address] Venu Alejo MD PhD Discharge Disposition: Discharge to home or self care 01/21/2024 Orders Only RAD ONC TREATMENTS Miscellaneous, Not In File 01/21/2024 Orders Only RAD ONC TREATMENTS Miscellaneous, Not In File 01/21/2024 Orders Only RAD ONC TREATMENTS Miscellaneous, Not In File 01/21/2024 6:29 AM EQUIPMENT SCHEDULER - 01/21/2024 11:59 PM EQUIPMENT SCHEDULER Hospital Encounter [facility] Radiation Oncology [address] [place] [address] Venu Alejo MD PhD Discharge Disposition: Discharge to home or self care 01/21/2024 6:30 AM EQUIPMENT SCHEDULER Procedure visit [facility] Radiation Oncology [address] [place] [address] Venu Alejo MD PhD Rex Moura MD Malignant neoplasm metastatic to brain (HCC) (Primary Dx) 01/20/2024 Telephone [facility] [address] [place] [address] [address], [address] [place] [phone] Julio Cesar Ocampo MD Med Management 01/20/2024 Telephone [facility] Radiation Oncology [address] [facility] [place] [address] Reina Coelho RN 01/18/2024 9:28 AM EQUIPMENT SCHEDULER - 01/18/2024 11:59 PM EQUIPMENT SCHEDULER Hospital Encounter [facility] [address] [facility] 4, [address] [place] [phone] Julio Cesar Ocampo MD High risk medication use (Primary Dx); Chronic bilateral low back pain with right-sided sciatica Discharge Disposition: Discharge to home or self care 01/15/2024 Documentation [facility] Radiation Oncology [address] [facility] [place] [address] Reina Coelho, JOCELYNN [employer] insurance pre-auth 01/15/2024 Telephone [facility] Neurosurgery [facility] 6th [place] [address] [place] [address] Rex Moura MD 01/15/2024 Orders Only [facility] Neurosurgery [address] [place] [address] 6th [place] [address] [place] [address] Jyoti Westbrook NP Brain mass (Primary Dx) 01/15/2024 12:45 PM EQUIPMENT SCHEDULER Lab [facility] at [address] [place] [phone] Diarrhea, unspecified type; Small cell lung cancer, right lower lobe (HCC) 01/15/2024 1:40 PM EQUIPMENT SCHEDULER Office Visit [facility] Oncology [address] [place] [address] [address] [place] [phone] Janey Mendez NP Small cell lung cancer, right lower lobe (HCC) (Primary Dx); Malignant neoplasm metastatic to brain (HCC); Diarrhea, unspecified type; Metastasis to brain (HCC); Adjustment disorder with mixed anxiety and depressed mood 01/15/2024 12:45 PM EQUIPMENT SCHEDULER Lab [facility] On[facility] [address] [facility] [address] [place] [address] Diarrhea, unspecified type; Small cell lung cancer, right lower lobe (HCC) 01/12/2024 1:30 PM EQUIPMENT SCHEDULER Office Visit [facility] Radiation Oncology [address] [facility] [place] [address] Venu Alejo MD PhD Malignant neoplasm metastatic to brain (HCC) (Primary Dx) 01/12/2024 10:15 AM EQUIPMENT SCHEDULER - 01/12/2024 11:59 PM EQUIPMENT SCHEDULER Hospital Encounter [facility] Radiology [address] [place] [address] Brain mass Discharge Disposition: Discharge to home or self care 01/11/2024 Telephone [facility] Oncology [address] [place] [address] [address] [place] [phone] Chloe Martin, RN 01/11/2024 Telephone [facility] On[facility] [address] [facility] [address] [place] [address] Chloe Martin, RN 01/06/2024 Telephone [facility] Gastroenterology [address] [facility] 12th [place] [address] [place] [address] Frida Ruiz, JOCELYNN Gi Pre procedure assessment 01/06/2024 Telephone [facility] [address] [facility] 4, [address] [place] [address] Julio Cesar Ocampo MD 2 WEEK POST PROC CALL 12/29/2023 Telephone [facility] On[facility] [address] [facility] [address] [place] [phone] Sowmya Ruiz CMA 12/29/2023 Telephone [facility] Oncology [address] [facility] Floor 5 [place] [address] Chloe Martin, RN 12/29/2023 Orders Only [facility] Oncology [facility] Floor 5 [place] [phone] Chloe Martin, RN Diarrhea, unspecified type (Primary Dx); Small cell lung cancer, right lower lobe (HCC) 12/29/2023 Telephone [facility] Oncology [address] [place] [address] [address] [place] [phone] Tyesha Dan CMA Diarrhea/Weight loss 12/25/2023 10:20 AM EQUIPMENT SCHEDULER Office Visit [facility] Oncology [address] [place] [address] [place] [phone] Rosy Lyons MD Small cell lung cancer, right lower lobe (HCC) (Primary Dx); Malignant neoplasm metastatic to left adrenal gland (HCC); Malignant neoplasm metastatic to brain (HCC); Diarrhea, unspecified type 12/25/2023 9:15 AM EQUIPMENT SCHEDULER Lab [facility] at [address] [place] [phone] Malignant neoplasm metastatic to left adrenal gland (HCC); Small cell lung cancer, right lower lobe (HCC) 12/24/2023 1:45 PM EQUIPMENT SCHEDULER Lab [facility] at [address] [place] [phone] Malignant neoplasm metastatic to left adrenal gland (HCC); Small cell lung cancer, right lower lobe (HCC) 12/24/2023 1:47 PM EQUIPMENT SCHEDULER - 12/24/2023 11:59 PM EQUIPMENT SCHEDULER Hospital Encounter [facility] [address] [facility] 4, [address] [place] [phone] Julio Cesar Ocampo MD Lumbar radiculopathy Discharge Disposition: Discharge to home or self care 12/21/2023 Telephone [facility] Oncology [address] [place] [address] [address] [place] [phone] Chloe Martin RN 12/18/2023 Telephone [facility] [address] [facility] [address], [address] [place] [phone] Julio Cesar Ocampo MD 12/18/2023 10:30 AM EQUIPMENT SCHEDULER Lab [facility] [address] [facility] [place] [phone] Malignant neoplasm metastatic to left adrenal gland (HCC); Small cell lung cancer, right lower lobe (HCC) 12/18/2023 11:20 AM EQUIPMENT SCHEDULER Office Visit [facility] Oncology [address] [facility] [address] [place] [phone] Rosy Lyons MD Small cell lung cancer, right lower lobe (HCC) (Primary Dx); Malignant neoplasm metastatic to brain (HCC); Malignant neoplasm metastatic to left adrenal gland (HCC); Diarrhea, unspecified type; Opioid withdrawal (HCC) from Last 3 Months Allergies Active Allergy Reactions Criticality Noted Date Comments Cephalexin Nausea & Vomiting Low 05/13/2023 Violent N/V Medications acetaminophen (TYLENOL) 325 mg tablet Take 2 tablets (650 mg total) by mouth every 4 (four) hours as needed for fever or headaches (temperature greater than 38.5 C) 05/05/19 24 Active levETIRAcetam (KEPPRA) 1,000 mg tablet Take 1 tablet (1,000 mg total) by mouth 2 (two) times a day 60 tablet 11 05/21/19 24 025 Active hyoscyamine (LEVSIN) 0.125 mg SL tabletIndication s:Urinary Incontinence Take 1 tablet (0.125 mg total) by mouth every 4 (four) hours as needed for cramping 60 tablet 1 08/14/19 24 Active zolpidem (AMBIEN) 5 mg tabletIndication s:Sleep-Onset Insomnia Take 1 tablet (5 mg total) by mouth nightly as needed for sleep 10 tablet 10/27/19 24 025 Active prochlorperazine (COMPAZINE) 10 mg tablet Take 1 tablet (10 mg total) by mouth every 6 (six) hours as needed for nausea or vomiting 385 tablet 11/13/19 24 Active tiZANidine (ZANAFLEX) 2 mg tablet Take 1 tablet (2 mg total) by mouth every 6 (six) hours as needed for muscle spasms 120 tablet 1 12/18/19 24 Active loperamide (IMODIUM) 2 mg capsule TAKE 1 TABLET BY MOUTH FOUR TIMES DAILY FOR UP TO 10 DAYS NEEDED FOR DIARRHEA 12/18/19 24 Active busPIRone (BUSPAR) 5 mg tablet Take 1 tablet (5 mg total) by mouth 2 (two) times a day 01/27/20 24 Active oxyCODONE (ROXICODONE) 5 mg immediate release tablet Take by mouth every 6 (six) hours as needed 01/27/20 24 Active sulfamethoxazole -trimethoprim (BACTRIM DS) 800-160 mg per tablet Take 1 tablet (160 mg of trimethoprim total) by mouth 3 (three) times a week 12 tablet 1 02/05/20 24 Active Additional Information Patient not taking.Reported on 03/08/2024 escitalopram (LEXAPRO) 20 mg tablet Take 1 tablet (20 mg total) by mouth daily 30 tablet 2 02/15/19 25 Active Additional Information Patient not taking.Reported on 03/08/2024 predniSONE (DELTASONE) 10 mg tablet Take 2 tablets (20 mg) by mouth 2 (two) times a day 120 tablet 1 03/02/19 25 Active predniSONE (DELTASONE) 5 mg tablet Take 8 tablets (40 mg) by mouth 2 (two) times a day for 3 days, THEN 6 tablets (30 mg) 2 (two) times a day for 3 days, THEN 4 tablets (20 mg) 2 (two) times a day for 3 days, THEN 2 tablets (10 mg) 2 (two) times a day for 3 days, THEN 1 tablet (5 mg) 2 (two) times a day for 3 days, THEN 1 tablet (5 mg) daily for 3 days. 129 tablet 02/09/19 25 025 predniSONE (DELTASONE) 10 mg tablet TAKE 6 TABLETS BY MOUTH DAILY X 7 DAYS THEN DECREASE BY 1 TABLET EVERY 7 DAYS UNTIL COMPLETE 147 tablet 03/01/19 25 025 Discontinu ed(Reorder ) Active Problems Problem Noted Date Diagnosed Date Chronic diarrhea 03/08/2024 Small cell lung cancer in adult 02/07/2024 Assessment & Plan (02/09/2024 11:33 AM EQUIPMENT SCHEDULER): Presented in April 2023 after presenting with seizure and was found to have brain metastases. Was diagnosed with small-cell lung cancer on 05/11/2023. She received 4 cycles of treatment with carboplatin, etoposide, atezolizumab followed by maintenance atezolizumab with her last dose on 11/27/2023, following that treatment was held due to concern for immune mediated colitis. -Restaging CT imaging from on 02/04 was notable for interval increase in nodule involving the left adrenal gland, now measuring up to 4.2 cm. Given that there has been interval decrease of previously seen adjacent left adrenal metastasis, this could represent hemorrhage versus additional metastatic lesion. Stable biliary ductal dilatation, recommend correlation with liver function tests. -medical oncology consulted and following -continue Bactrim for PJP prophylaxis -MRI abdomen 02/08- Similar size of a left adrenal gland mass most consistent with an additional site of metastatic disease. Similar mild intrahepatic and extrahepatic biliary duct dilation without underlying mass Left adrenal mass 02/05/2024 Adjustment disorder with mixed anxiety and depre ssed mood 01/18/2024 Screening for colorectal cancer 01/06/2024 Opioid withdrawal 12/18/2023 Abdominal cramping 08/14/2023 Drug-induced constipation 08/14/2023 Elevated liver enzymes 07/17/2023 Skin rash 06/05/2023 Cancer related pain 05/18/2023 Small cell lung cancer, right lower lobe 024 Metastasis to adrenal gland 05/11/2023 Malignant neoplasm metastatic to brain Assessment & Plan (02/07/2024 5:39 PM EQUIPMENT SCHEDULER): Patient reports history of seizure that led to the diagnosis of cancer Per Oncology notes: S/p SRS to the right frontal lobe lesion 05/13/[address] Alejo and Dr. Moura. Follow-up brain MRI on 09/09/2023 showed a 4 mm left cerebellar metastatic lesion and she underwent GK SRS to left cerebellar and left parietal lesions on 10/08/23. MRI on 01/12/2024:new left paramedian frontal lobe lesion treated with GK on 01/21/2024 to the left frontal and right frontal lesions. -Denies any recent seizure episodes -Continue home Keppra -Next brain MRI is scheduled for 04/28/2024 Dermatitis 10/31/2016 Assessment & Plan (10/31/2016 4:57 PM CDT): Likely due to plaquenil. Has stopped med. On prednisone taper. Discussed with Dr. Cabrera but before Dr Cabrera could see patient, she had left the office. Will have MA call patient to have her avoid hcq and diclofenac for now as we are uncertain as to which medication is responsible for her rash. Anxiety 10/31/2016 Assessment & Plan (02/07/2024 5:40 PM EQUIPMENT SCHEDULER): Continue home Lexapro 20 mg daily (recently increased per Onc notes) Assessment & Plan (10/31/2016 5:00 PM CDT): Pt states she has had suicidal ideation but is not currently having those thoughts. Pt left before Dr. Cabrera had a chance to see her but will encourage her to see her pcp about this issue. She had declined to see psychaitry when asked. Improved with alprazolam but may need ssri treatment per pcp or psychiatry. Inflammatory polyarthropathy (CMS/HCC) 7 Assessment & Plan (10/31/2016 4:45 PM CDT): Generalized joint and muscle pain for about 1.5 years. Prolonged morning stiffness, also nighttime awakenings due to pain. Negative serologies. Mild synovitis on ultrasound and DJD on xrays of hands and spine. At the last visit we started plaquenil and I had also given her samples of zorvolex. She felt that the zorvolex was helping and called for prescription but our phones and internet were down and did not get the message. Subsequently she developed diffuse rash and severe anxiety and went to urgent care. Thought to be drug reaction to plaquenil and was given prednisone taper. Chronic pain of multiple joints 09/11/2016 Assessment & Plan (10/31/2016 4:45 PM CDT): Was referred for PT for back pain. She came in for steroid injection in hip under ultrasound and she does report decreased tenderness in the hip. Assessment & Plan (10/03/2016 5:38 PM CDT): Generalized joint and muscle pain for about 1.5 years. Prolonged morning stiffness, also nighttime awakenings due to pain. Hx DDD and saw pain mgmt for injections but ended up not being covered by insurance. Test results for this pt show: This patient currently has normal liver, kidney, and muscle enzymes. The CBC was noted to be normal except her WBC was slightly elevated at 11.1. The ESR and CRP were noted to be normal. There was no evidence of hepatitis B or C. The rheumatoid factor and anti CCP were negative. The HLA B 27 was negative. The uric acid and the ASIYA level were noted to be normal. The JACOBO and the profile were noted to be negative. The ANCA panel was negative. The myositis panel was negative. The antiphospholipid profile was negative. The x rays revealed mild lumbar DDD and facet djd, mild cervical spine DDD, mild djd to the DIP joints of hands, small R heel spur. She had normal xrays of her hips, knees, and SI joints. Also had a probable calcified granuloma in R lung. The US revealed mild synovitis with effusions, synovial thickening on examination which will have to be correlated clinically. In the 5th MCP volar view a foreign object was noted in the form of a plastic tube which maybe consistent with history of previous instrumentation. Discussed that she appears to have a mild inflammatory arthritis along with degenerative arthritis in multiple joints. Will begin plaquenil 200mg BID after checking with her eye doctor. Reviewed ophthalmology guidelines for retinal screening. I also gave her samples of zorvolex 35mg to try in the meantime since I advised that plaquenil takes several months to work. We also discussed trying steroid injections under ultrasound for lateral hip pain which I suspect is bursitis or tendinitis. Will refer to PT for her neck and back pain as she said this helped in the past. We also discussed her poor sleep and that it will be harder to manage pain when she is not sleeping well. Answered all of pt's questions. F/u 1 month. Assessment & Plan (09/11/2016 2:49 PM CDT): Generalized joint and muscle pain for about 1.5 years. Prolonged morning stiffness, also nighttime awakenings due to pain. Hx DDD and saw pain mgmt for injections but ended up not being covered by insurance. She also gives a history of dry eyes and eye redness which could be due to autoimmune process. Discussed differential including RA, connective tissue diseases, osteoarthritis, fibromyalgia. Will check serologies, xrays, and ultrasound of R hand/wrist. F/u 2 weeks to review results. Seen with Dr. Calderon. Chronic bilateral low back pain with bilateral s ciatica 09/11/2016 Assessment & Plan (02/07/2024 5:56 PM EQUIPMENT SCHEDULER): MRI with no evidence of metastases to the spine which showed multilevel DDD She had been on Lyrica which was discontinued -Continue home oxycodone 5 mg q.6 hours -Add lidocaine patch Assessment & Plan (10/30/2016 9:51 PM CDT): Hx DDD but with some inflammatory symptoms. Neg HLA-B27. Xray showed mild lumbar DDD. Will try PT and nsaids. Assessment & Plan (10/03/2016 5:39 PM CDT): Hx DDD but with some inflammatory symptoms. Neg HLA-B27. Xray showed mild lumbar DDD. Will try PT and nsaids. Assessment & Plan (09/11/2016 2:51 PM CDT): Hx DDD but with some inflammatory symptoms. Will check HLA-B27. Consider PT. Pain of both hip joints 09/11/2016 Assessment & Plan (10/30/2016 9:52 PM CDT): Symptoms consistent with trochanteric bursitis. Had ultrasound guided steroid injection of R hip. Can do L side next if desired. Assessment & Plan (10/03/2016 5:40 PM CDT): Symptoms consistent with trochanteric bursitis. Will schedule ultrasound guided steroid injection of R hip since this is a little worse than the L. Can do L side next if desired. Assessment & Plan (09/11/2016 2:51 PM CDT): Appears to be trochanteric bursitis, could also be referred from spine. Consider injections into the bursas. Fatigue 09/11/2016 Assessment & Plan (10/30/2016 9:51 PM CDT): Frequent interruptions in sleep due to pain and taking care of her son. Can contribute to daytime fatigue and chronic pain. Assessment & Plan (10/03/2016 5:40 PM CDT): Frequent interruptions in sleep due to pain and taking care of her son. Can contribute to daytime fatigue and chronic pain. Assessment & Plan (09/11/2016 2:50 PM CDT): Poor sleep due to pain. Myalgia 09/11/2016 Assessment & Plan (10/03/2016 5:40 PM CDT): Normal muscle enzymes and myositis panel. Assessment & Plan (09/11/2016 2:50 PM CDT): Consider fibromyalgia. Check muscle enzymes and myositis panel. Chronic sinusitis 09/11/2016 Assessment & Plan (10/03/2016 5:41 PM CDT): Normal immune globulin level. Still consider seeing ENT due to frequent infections. Assessment & Plan (09/11/2016 2:50 PM CDT): Pt c/o constant sinus drainage and frequent abx. Consider seeing ENT or sonar subsystem equipment operator for eval. We check IgG as part of our workup to look for low immune globulins. Dry eyes 09/11/2016 Assessment & Plan (10/03/2016 5:41 PM CDT): Neg serologies. Assessment & Plan (09/11/2016 2:50 PM CDT): Noted by eye doctor. Using otc drops. 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 -initially treated with prednisone (1 milligram/kilogram daily) with some improvement but her symptoms got worse upon tapering steroids. Symptoms are persistent despite taking Imodium multiple times per day -She was recently started on budesonide 9 mg daily without improvement -DC budesonide -Seen in Oncology office on 02/04, received IV Solu-Medrol 1 milligram/kilogram for the subsequent 2 days (including today) -GI consulted and planning on colonoscopy on 02/08 with biopsy -Continue Imodium and consider adding Lomotil PRN -Start solumedrol 2mg/kg -T-spot test Immunizations Name Administration Dates Next Due Influenza, Trivalent, Preservative Free, Intramu scular 12/27/2015 Social History Tobacco Use Types Packs/Day Years Used Date Smoking Tobacco: Every Day Smokeless Tobacco: Never Tobacco Cessation:Ready to Q uit: Not Asked; Counseling Given: Not Answered [facility] Answer Date Recorded In the past 12 months has [employer], [employer] ([employer]OO[employer]), or water [employer] threatened to shut off services in your home? No 02/08/2024 Social Connection and Isolat ion Panel [NHANES] Answer Date Recorded In a typical week, how many times do you talk on the phone with family, friends, or neighbors? More than three times a week 02/08/2024 How often do you get togethe r with friends or relatives? More than three times a week 02/08/2024 How often do you attend [facility] or latter-day services? Patient declined 02/08/2024 Do you belong to any clubs o r organizations such as judaism groups, unions, fraternal or athletic groups, or school groups? Patient declined 02/08/2024 How often do you attend meet ings of the clubs or organizations you belong to? Patient declined 02/08/2024 Are you , , di vorced, , never , or living with a partner? 02/08/2024 AUDIT-C Answer Date Recorded Q1: How often do you have a drink containing alcohol? Never 01/18/2024 Q2: How many drinks containi ng alcohol do you have on a typical day when you are drinking? Patient does not drink Q3: How often do you have si x or more drinks on one occasion? Never 01/18/2024 Overall Financial Resource Strain (CARDIA) Answe r Date Recorded How hard is it for you to pa y for the very basics like food, housing, medical care, and heating? Not hard at all 02/08/2024 Hunger Vital Sign Answer Date Recorded Within the past 12 months, y ou worried that your food would run out before you got the money to buy more. Never true 02/08/20 24 Within the past 12 months, t he food you bought just didn't last and you didn't have money to get more. Never true 02/08/2024 PRAPARE - Transportation Answer Date Re corded In the past 12 months, has l ack of transportation kept you from medical appointments or from getting medications? No 01/11 In the past 12 months, has l ack of transportation kept you from meetings, work, or from getting things needed for daily living? No 02/08/2024 Housing Stability Vital Sign Answer Ean e Recorded In the last 12 months, was t here a time when you were not able to pay the mortgage or rent on time? No 02/08/2024 In the past 12 months, how m any times have you moved where you were living? 0 02/08/2024 At any time in the past 12 m [facility], were you homeless or living in a longterm (including now)? No 02/08/2024 Personal Safety Answer Date Recorded Have you ever been in or are you currently in a harmful physical or emotional relationship or is someone making you feel afraid or unsafe? Denies 02/09/2024 Comments No Sex and Gender Information Value Date Recorded Sex Assigned at Not on file Legal Sex Female 10:13 AM EQUIPMENT SCHEDULER Gender Identity Female 05/13/2023 6:07 AM CDT Sexual Orientation Straight 05/13/2023 6: 07 AM CDT Last Filed Vital Signs Vital Sign Reading Time Taken Comments Blood Pressure 169/101 03/08/2024 9:57 AM EQUIPMENT SCHEDULER Pulse 78 03/08/2024 9:57 AM EQUIPMENT SCHEDULER Temperature 36.7 C (98 F) 03/08/2024 9:57 AM EQUIPMENT SCHEDULER Respiratory Rate 16 02/19/2024 12:15 PM EQUIPMENT SCHEDULER Oxygen Saturation 98% 03/08/2024 9:57 AM EQUIPMENT SCHEDULER Inhaled Oxygen Concentration - - Weight 68 kg (150 lb) 03/08/2024 9:57 AM EQUIPMENT SCHEDULER Height 157.5 cm (5' 2 ) 03/08/2024 9:57 AM EQUIPMENT SCHEDULER Body Mass Index 27.44 03/08/2024 9:57 AM EQUIPMENT SCHEDULER Plan of Treatment Scheduled Procedures Name Priority Associated Diagnoses Date/Ti me CRANIOTOMY EXCISION TUMOR Metastasis to brain (HCC) SPINAL CORD MONITORING Metastasis to brain (HCC) Goals Goal Patient Goal Type Associated Problems Recent Progress Patient-Stated? Author CCM Chronic Pain Care Plan Chronic Care Management No Lizz Danielson, RN Note: Problem: Chronic Pain Goals: 1. Minimize further functional decline 2. Maximize quality of life 3. Control pain Strategies: - Activity/exercise program recommendation - Conservative stepwise pain medicine strategy with multi-disciplinary approach - Recommend healthy lifestyle strategies and compensatory methods as needed Reduce the likelihood of falling Lifestyle No Lizz Danielson, JOCELYNN Note: Below are four things you can do to prevent falls: Begin an exercise program to improve your leg strength & balance Ask your doctor or pharmacist to review your medicines Get annual eye check-ups & update your eyeglasses Make your home safer by: Removing clutter & tripping hazards Putting railings on all stairs & adding grab bars in the bathroom Having good lighting, especially on stairs Contact your local community or senior center for information on exercise, fall prevention programs, or options for improving home safety. Procedures Procedure Name Priority Date/Time Associated Diagnosis Comments EGFR STAT 02/19/2024 10:49 AM EQUIPMENT SCHEDULER Small cell lung cancer, right lower lobe (HCC) Malignant neoplasm metastatic to brain (HCC) Diarrhea, unspecified type DIFFERENTIAL AUTO Routine 02/19/2024 10:49 AM EQUIPMENT SCHEDULER Small cell lung cancer, right lower lobe (HCC) Malignant neoplasm metastatic to brain (HCC) Diarrhea, unspecified type CBC WITH AUTO DIFFERENTIAL Routine 02/19/2024 10:49 AM EQUIPMENT SCHEDULER Small cell lung cancer, right lower lobe (HCC) Malignant neoplasm metastatic to brain (HCC) Diarrhea, unspecified type COMPREHENSIVE METABOLIC PANEL STAT 02/19/2024 10:49 AM EQUIPMENT SCHEDULER Small cell lung cancer, right lower lobe (HCC) Malignant neoplasm metastatic to brain (HCC) Diarrhea, unspecified type SURGICAL PATHOLOGY Routine 02/09/2024 12:58 PM EQUIPMENT SCHEDULER Diarrhea, unspecified type COLONOSCOPY 02/09/2024 12:48 PM EQUIPMENT SCHEDULER COLON BIOPSY 02/09/2024 12:44 PM EQUIPMENT SCHEDULER Diarrhea, unspecified type EGFR Routine 02/09/2024 1:23 AM EQUIPMENT SCHEDULER DIFFERENTIAL AUTO Routine 02/09/2024 1:2 3 AM EQUIPMENT SCHEDULER PHOSPHORUS Routine 02/09/2024 1:23 AM EQUIPMENT SCHEDULER COMPREHENSIVE METABOLIC PANEL Routine 02/09/2024 1:23 AM EQUIPMENT SCHEDULER MAGNESIUM Routine 02/09/2024 1:23 AM EQUIPMENT SCHEDULER CBC WITH AUTO DIFFERENTIAL Routine 02/09/2024 1:23 AM EQUIPMENT SCHEDULER RPR Routine 02/09/2024 1:23 AM EQUIPMENT SCHEDULER HEPATITIS C ANTIBODY Routine 02/09/2024 1:23 AM EQUIPMENT SCHEDULER HEPATITIS B SURFACE ANTIGEN Routine 02/09/2024 1:23 AM EQUIPMENT SCHEDULER HIV 1/2 ANTIBODY PLUS P24 ANTIGEN Routine 02/09/2024 1:23 AM EQUIPMENT SCHEDULER T-SPOT.TB Routine 02/08/2024 5:05 PM EQUIPMENT SCHEDULER MRI ABDOMEN ADRENALS W CONTRAST IP Routine 02/08/2024 4:04 PM EQUIPMENT SCHEDULER EGFR Routine 02/08/2024 12:47 AM EQUIPMENT SCHEDULER DIFFERENTIAL AUTO Routine 02/08/2024 12:47 AM EQUIPMENT SCHEDULER PROTIME-INR Routine 02/08/2024 12:47 AM EQUIPMENT SCHEDULER APTT Routine 02/08/2024 12:47 AM EQUIPMENT SCHEDULER LACTATE DEHYDROGENASE Routine 02/08/2024 12:47 AM EQUIPMENT SCHEDULER URIC ACID Routine 02/08/2024 12:47 AM EQUIPMENT SCHEDULER TYPE AND SCREEN Timed 02/08/2024 12:47 AM EQUIPMENT SCHEDULER PHOSPHORUS Routine 02/08/2024 12:47 AM EQUIPMENT SCHEDULER COMPREHENSIVE METABOLIC PANEL Routine 02/08/2024 12:47 AM EQUIPMENT SCHEDULER MAGNESIUM Routine 02/08/2024 12:47 AM EQUIPMENT SCHEDULER CBC WITH AUTO DIFFERENTIAL Routine 02/08/2024 12:47 AM EQUIPMENT SCHEDULER EGFR STAT 02/07/2024 5:49 PM EQUIPMENT SCHEDULER DIFFERENTIAL AUTO STAT 02/07/2024 5:4 9 PM EQUIPMENT SCHEDULER TYPE AND SCREEN STAT 02/07/2024 5:49 PM EQUIPMENT SCHEDULER PHOSPHORUS STAT 02/07/2024 5:49 PM EQUIPMENT SCHEDULER MAGNESIUM STAT 02/07/2024 5:49 PM EQUIPMENT SCHEDULER COMPREHENSIVE METABOLIC PANEL STAT 02/07/2024 5:49 PM EQUIPMENT SCHEDULER CBC WITH AUTO DIFFERENTIAL STAT 02/07/2024 5:49 PM EQUIPMENT SCHEDULER EGFR STAT 02/05/2024 10:14 AM EQUIPMENT SCHEDULER Small cell lung cancer, right lower lobe (HCC) Metastasis to brain (HCC) Malignant neoplasm metastatic to left adrenal gland (HCC) DIFFERENTIAL AUTO Routine 02/05/2024 10:14 AM EQUIPMENT SCHEDULER Small cell lung cancer, right lower lobe (HCC) Metastasis to brain (HCC) Malignant neoplasm metastatic to left adrenal gland (HCC) CBC WITH AUTO DIFFERENTIAL Routine 02/05/2024 10:14 AM EQUIPMENT SCHEDULER Small cell lung cancer, right lower lobe (HCC) Metastasis to brain (HCC) Malignant neoplasm metastatic to left adrenal gland (HCC) COMPREHENSIVE METABOLIC PANEL STAT 02/05/2024 10:14 AM EQUIPMENT SCHEDULER Small cell lung cancer, right lower lobe (HCC) Metastasis to brain (HCC) Malignant neoplasm metastatic to left adrenal gland (HCC) CT CHEST ABDOMEN PELVIS W CONTRAST Schedule MARY BETH, Read MARY BETH (Appt Today, Awaiting Results) 02/05/2024 9:52 AM EQUIPMENT SCHEDULER Small cell lung cancer, right lower lobe (HCC) Metastasis to brain (HCC) Malignant neoplasm metastatic to left adrenal gland (HCC) EGFR STAT 01/29/2024 1:04 PM EQUIPMENT SCHEDULER Small cell lung cancer, right lower lobe (HCC) Malignant neoplasm metastatic to brain (HCC) DIFFERENTIAL AUTO Routine 01/29/2024 1:0 4 PM EQUIPMENT SCHEDULER Small cell lung cancer, right lower lobe (HCC) Malignant neoplasm metastatic to brain (HCC) CBC WITH AUTO DIFFERENTIAL Routine 01/29/2024 1:04 PM EQUIPMENT SCHEDULER Small cell lung cancer, right lower lobe (HCC) Malignant neoplasm metastatic to brain (HCC) COMPREHENSIVE METABOLIC PANEL STAT 01/29/2024 1:04 PM EQUIPMENT SCHEDULER Small cell lung cancer, right lower lobe (HCC) Malignant neoplasm metastatic to brain (HCC) TARGET OPIOID SCREEN BY BLEACHER PULP Routine 01/25/2024 10:07 AM EQUIPMENT SCHEDULER DRUGS OF ABUSE SCREEN, URINE WITH REFLEX CONFIRMATION Routine 01/25/2024 10:07 AM EQUIPMENT SCHEDULER RAD ONC ARIA COURSE SUMMARY 01/21/2024 11:58 AM EQUIPMENT SCHEDULER RAD ONC ARIA COURSE SUMMARY 01/21/2024 11:58 AM EQUIPMENT SCHEDULER RAD ONC ARIA COURSE SUMMARY 01/21/2024 11:58 AM EQUIPMENT SCHEDULER RAD ONC ARIA SESSION SUMMARY 01/21/2024 11:55 AM EQUIPMENT SCHEDULER TARGET OPIOID SCREEN BY BLEACHER PULP Routine 01/18/2024 4:38 PM EQUIPMENT SCHEDULER High risk medication use DRUGS OF ABUSE SCREEN, URINE WITH REFLEX CONFIRMATION Routine 01/18/2024 4:38 PM EQUIPMENT SCHEDULER High risk medication use PAIN MANAGEMENT PROFILE Routine 01/18/2024 4:38 PM EQUIPMENT SCHEDULER High risk medication use EGFR STAT 01/15/2024 1:14 PM EQUIPMENT SCHEDULER Diarrhea, unspecified type Small cell lung cancer, right lower lobe (HCC) DIFFERENTIAL AUTO Routine 01/15/2024 1:1 4 PM EQUIPMENT SCHEDULER Diarrhea, unspecified type Small cell lung cancer, right lower lobe (HCC) COMPREHENSIVE METABOLIC PANEL STAT 01/15/2024 1:14 PM EQUIPMENT SCHEDULER Diarrhea, unspecified type Small cell lung cancer, right lower lobe (HCC) CBC WITH AUTO DIFFERENTIAL Routine 01/15/2024 1:14 PM EQUIPMENT SCHEDULER Diarrhea, unspecified type Small cell lung cancer, right lower lobe (HCC) MRI BRAIN TUMOR W WO CONTRAST Schedule Routine, Read Routine (OP Routine) 01/12/2024 11:06 AM EQUIPMENT SCHEDULER Brain mass EGFR STAT 12/25/2023 9:19 AM EQUIPMENT SCHEDULER Malignant neoplasm metastatic to left adrenal gland (HCC) Small cell lung cancer, right lower lobe (HCC) DIFFERENTIAL AUTO STAT 12/25/2023 9:1 9 AM EQUIPMENT SCHEDULER Malignant neoplasm metastatic to left adrenal gland (HCC) Small cell lung cancer, right lower lobe (HCC) CBC WITH AUTO DIFFERENTIAL STAT 12/25/2023 9:19 AM EQUIPMENT SCHEDULER Malignant neoplasm metastatic to left adrenal gland (HCC) Small cell lung cancer, right lower lobe (HCC) THYROID FUNCTION CASCADE Routine 12/25/2023 9:19 AM EQUIPMENT SCHEDULER Malignant neoplasm metastatic to left adrenal gland (HCC) Small cell lung cancer, right lower lobe (HCC) COMPREHENSIVE METABOLIC PANEL STAT 12/25/2023 9:19 AM EQUIPMENT SCHEDULER Malignant neoplasm metastatic to left adrenal gland (HCC) Small cell lung cancer, right lower lobe (HCC) PAIN MGMT IMAGING LUMBAR/CAUDAL EPIDURAL STEROID INJ Schedule Routine, Read Routine (OP Routine) 12/24/2023 3:03 PM EQUIPMENT SCHEDULER Lumbar radiculopathy C. DIFFICILE TESTING Routine 12/24/2023 2:01 PM EQUIPMENT SCHEDULER EGFR STAT 12/18/2023 10:40 AM EQUIPMENT SCHEDULER Malignant neoplasm metastatic to left adrenal gland (HCC) Small cell lung cancer, right lower lobe (HCC) DIFFERENTIAL AUTO STAT 12/18/2023 10:40 AM EQUIPMENT SCHEDULER Malignant neoplasm metastatic to left adrenal gland (HCC) Small cell lung cancer, right lower lobe (HCC) CBC WITH AUTO DIFFERENTIAL STAT 12/18/2023 10:40 AM EQUIPMENT SCHEDULER Malignant neoplasm metastatic to left adrenal gland (HCC) Small cell lung cancer, right lower lobe (HCC) COMPREHENSIVE METABOLIC PANEL STAT 12/18/2023 10:40 AM EQUIPMENT SCHEDULER Malignant neoplasm metastatic to left adrenal gland (HCC) Small cell lung cancer, right lower lobe (HCC) THYROID FUNCTION CASCADE Routine 12/18/2023 10:40 AM EQUIPMENT SCHEDULER Malignant neoplasm metastatic to left adrenal gland (HCC) Small cell lung cancer, right lower lobe (HCC) from Last 3 Months Results * eGFR (02/19/2024 10:49 AM EQUIPMENT SCHEDULER) eGFR 85 >=60 mL/min/1. 73 m2 Comment: Interpretive Data Reference Interval Normal >/= 90 mL/min/1.73m2 Mildly decreased* 60 - 89 mL/min/1.73m2 Mildly to moderately decreased 45 - 59 mL/min/1.73m2 Moderately to severely decreased 30 - 44 mL/min/1.73m2 Severely decreased 15 - 29 mL/min/1.73m2 Kidney Failure < 15 mL/min/1.73m2 *Relative to young adult level Estimated glomerular filtration rate is determined by the 2020 CKD-EPI equation recommended by the National Kidney Foundation (A Unifying Approach to GFR Estimation: Recommendations of the NKF-ASK Task Force on Reassessing the Inclusion of Race in Diagnosing Kidney Disease, JASN 2020). The CKD-EPI equation should not be used for patients with unstable renal function and has not been validated in children and those over 70. Current interpretive data was last reviewed 2020. Testing performed by: [facility], [address] [place] [address] Blood 02/19/2024 10:4 9 AM EQUIPMENT SCHEDULER 02/19/2024 11:04 AM EQUIPMENT SCHEDULER us Rosy Lyons MD LAB BLOOD ORDERABLES Maribell l Result [facility] [id number] Department of Laboratories [place], [place] [id number] * (ABNORMAL) Differential, auto (02/19/2024 10:49 AM EQUIPMENT SCHEDULER) Neutrophil abs 11.8(H) 1.5 - 6.5 K/cumm Comment:Testing performed by : [facility], [facility], [address] [place] [address] Imm gran abs 0.6(H) 0.0 - 0.1 K/cumm AUTUMN MANJARREZ Comment:Testing performed by : [facility], [facility], [address] [place] [address] Lymphocyte abs 1.7 0.8 - 3.3 K/cumm AUTUMN MANJARREZ Comment:Testing performed by : [facility], [facility], [address] [place] [address] Monocyte abs 0.7 0.2 - 0.8 K/cumm CERNER BJWCH Comment:Testing performed by : [facility], [facility], [address] [place] [address] Eosinophil abs 0.0 0.0 - 0.5 K/cumm CERNER BJWCH Comment:Testing performed by : [facility], [facility], [address] [place] [address] Basophil abs 0.1 0.0 - 0.1 K/cumm CERNER BJWCH Comment:Testing performed by : [facility], [facility], [address] [place] [address] Neutrophil pct 79.7 % CERNER BJWCH Comment: Interpretive Data Percent cell count reference ranges are not reported, since discordance with absolute values may lead to misinterpretation of CBC data. Current Interpretive Data was last revised on 2017. Testing performed by: [facility], [facility], [address] [place] [address] Imm gran pct 4.2 % CERNER BJWCH Comment: Interpretive Data Percent cell count reference ranges are not reported, since discordance with absolute values may lead to misinterpretation of CBC data. Current Interpretive Data was last revised on 2017. Testing performed by: [facility], [facility], [address] [place] [address] Lymphocyte pct 11.3 % CERNER BJWCH Comment: Interpretive Data Percent cell count reference ranges are not reported, since discordance with absolute values may lead to misinterpretation of CBC data. Current Interpretive Data was last revised on 2017. Testing performed by: [facility], [facility], [address] [place] [address] Monocyte pct 4.4 % CERNER BJWCH Comment: Interpretive Data Percent cell count reference ranges are not reported, since discordance with absolute values may lead to misinterpretation of CBC data. Current Interpretive Data was last revised on 2017. Testing performed by: [facility], [facility], [address] [place] [address] Eosinophil pct 0.1 % AUTUMN MANJARREZ Comment: Interpretive Data Percent cell count reference ranges are not reported, since discordance with absolute values may lead to misinterpretation of CBC data. Current Interpretive Data was last revised on 2017. Testing performed by: [facility], [address] [place] [address] Basophil pct 0.3 % AUTUMN MANJARREZ Comment: Interpretive Data Percent cell count reference ranges are not reported, since discordance with absolute values may lead to misinterpretation of CBC data. Current Interpretive Data was last revised on 2017. Testing performed by: [facility], [address] [place] [address] Blood 02/19/2024 10:4 9 AM EQUIPMENT SCHEDULER 02/19/2024 10:49 AM EQUIPMENT SCHEDULER Rosy Lyons MD LAB BLOOD ORDERABLES Maribell l Result [facility] [address] [facility]. Department [place] [address] * (ABNORMAL) CBC with auto differential (02/19/2024 10:49 AM EQUIPMENT SCHEDULER) [facility] Signature WBC 14.8(H) 3.8 - 9.9 K/cumm Comment:Testing performed by : [facility], [address] [place] [address] Hgb 14.0 11.9 - 15.5 g/dL AUTUMN MANJARREZ Comment:Testing performed by : [facility], [address] [place] [address] Hct 40.4 35.6 - 45.5 % AUTUMN MANJARREZ Comment:Testing performed by : [facility], [address] [place] [address] Plt 246 150 - 400 K/cumm AUTUMN MANJARREZ Comment:Testing performed by : [facility] 2, [address] [place] [address] MPV 8.9(L) 9.1 - 12.3 fL AUTUMN MANJARREZ Comment:Testing performed by : [facility], [address] [place] [address] RBC 4.32 3.90 - 5.20 M/cumm AUTUMN LYONCH Comment:Testing performed by : [place] [id number], [place] [address] MCV 94 81 - 96 fL AUTUMN LYONCH Comment:Testing performed by : [place] [address] [place] [address] MCH 32.4 27.1 - 33.3 pg AUTUMN MANJARREZ Comment:Testing performed by : [place] [address] [place] [address] MCHC 34.7 32.3 - 35.7 g/dL AUTUMN MANJARREZ Comment:Testing performed by : [place] [address] [place] [address] RDW CV 15.0(H) 11.1 - 14.9 % AUTUMN MANJARREZ Comment:Testing performed by : [address] [place] [address] RDW SD 52.1(H) 35.7 - 48.1 fL AUTUMN MANJARREZ Comment:Testing performed by : [place] [address] [place] [address] Blood 02/19/2024 10:4 9 AM EQUIPMENT SCHEDULER 02/19/2024 10:49 AM EQUIPMENT SCHEDULER us Rosy Lyons MD LAB BLOOD ORDERABLES Maribell quintin Result [facility] [address] [facility] Department [place] [address] * (ABNORMAL) Comprehensive metabolic panel (02/19/2024 10:49 AM EQUIPMENT SCHEDULER) Sodium 136 135 - 145 mmol/L Comment:Testing performed by : [facility], [address], [place] [address] Potassium, pl 4.5 3.3 - 4.9 mmol/L CERNER BJWCH Comment:Testing performed by : [facility], [address], [place] [address] Chloride 95(L) 97 - 110 mmol/L CERNER BJWCH Comment:Testing performed by : [facility], [address], [place] [address] CO2 28 22 - 32 mmol/L C[facility]ER BJWCH Comment:Testing performed by : [facility], [address], [place] [address] Anion gap 13 2 - 15 mmol/L CERNER BJWCH Comment:Testing performed by : [facility], [address], [place] [address] BUN 20 6 - 25 mg/dL CERNER BJWCH Comment:Testing performed by : [facility], [address], [place] [address] Creatinine 0.80 0.60 - 1.10 mg/dL CERNER BJWCH Comment:Testing performed by : [facility], [address], [place] [address] Glucose 123 70 - 199 mg/dL CERNER BJW Comment: Interpretive Data Fasting glucose >/= 126 mg/dl is diagnostic for diabetes. Fasting is defined as no caloric intake for at least 8 hours. Fasting glucose between 100 mg/dl to 125 mg/dl is diagnostic of prediabetes. In a patient with classic symptoms of hyperglycemia or hyperglycemic crisis, a random glucose >/= 200 mg/dl is diagnostic for diabetes. In the absence of unequivocal hyperglycemia, results should be confirmed by repeat testing. The classification and Diagnosis of Diabetes Diabetes Care 2021; 46: S19-S40. Current interpretive data was last revised 2022. Testing performed by: [facility], [address], [place] [address] Calcium 10.3 8.5 - 10.3 mg/dL CERNER BJWCH Comment:Testing performed by : [facility], [address], [place] [address] Bilirubin, total 0.2 0.1 - 1.2 mg/dL CERNER BJWCH Comment:Testing performed by : [facility], [address], [place] [address] Protein, pl 7.0 6.5 - 8.5 g/dL CERNER BJWCH Comment:Testing performed by : [facility], [address], [place] [address] Albumin 4.5 3.5 - 5.0 g/dL CERNER BJWCH Comment:Testing performed by : [facility], [address], [place] [address] Alk phos 59 40 - 130 Units/L [facility]ER [facility] Comment:Testing performed by : [facility], [address], [place] [address] ALT 23 7 - 45 Units/L [facility]ER [facility] Comment:Testing performed by : [facility], [address], [place] [address] AST 19 10 - 45 Units/L CERNER BJWCH Comment:Testing performed by : [facility], [address], [place] [address] Blood 02/19/2024 10:4 9 AM EQUIPMENT SCHEDULER 02/19/2024 11:04 AM EQUIPMENT SCHEDULER us Rosy Lyons MD LAB BLOOD ORDERABLES Maribell l Result [facility] [address] Department [place] [address] * Surgical pathology (02/09/2024 12:58 PM EQUIPMENT SCHEDULER) Tissue (Ileum, Biopsy) 02/09/2024 12:58 PM EQUIPMENT SCHEDULER Tissue (Colon, Biopsy) 02/09/2024 1:01 PM EQUIPMENT SCHEDULER Tissue (Colon, Biopsy) 02/09/2024 1:01 PM EQUIPMENT SCHEDULER Narrative PATHOLOGY [facility] - 02/12/2024 9:36 AM EQUIPMENT SCHEDULER EPIC results best viewed via link to PDF [facility] [place] [address] Note to Patients: This report may contain a detailed description of human tissue sent by a health care provider to the laboratory for pathologic evaluation. The content of this report is essential for diagnosis and may provide important critical findings. This information may be unfamiliar to patients to review without a medical professional present. It is advised that the patient review this report in the presence of a health care provider who can answer questions and explain the details. SURGICAL PATHOLOGY REPORT FINAL Patient Name: LILIANA SUAREZ Gender: F : 1965 (Age: 58) Address: [address] [place], [place] [address] Hospital #: [id number] Taken:02/09/2024 Received:02/09/2024 Reported: 02/12/2024 Patient Type: [facility] Inpatient Service: Oncology Location: [place] [address] Physician(s): Brent Moeller NP Diagnosis: A. Terminal ileum, biopsy - Small intestinal mucosa with diffuse mild intraepithelial lymphocytosis, otherwise unremarkable - Preserved villous architecture and no acute inflammation B. Right colon, biopsies - Scant colonic mucosa with mild reactive changes - The significant acute or chronic inflammation C. Left colon, biopsies - Colonic mucosa with mild intraepithelial lymphocytosis, mildly increased crypt apoptosis, and focal crypt destruction (see comment) - No viral cytopathic changes or infectious microorganisms identified (H&E) cox monett/02/12/2024 09:36 By this signature, I attest that the above diagnosis is based upon my personal examination of the slides(and/or other material indicated in the diagnosis). Marshal Cramer M.D. Report Electronically Reviewed and Signed Out By Marshal Cramer M.D. 02/12/2024 09:36:58 Diagnosis Comment Overall findings demonstrate mild intraepithelial lymphocytosis of the terminal ileum and left colon mucosa along with mildly increased crypt apoptosis and evidence of focal crypt destruction. 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 Additional differential diagnosis for a lymphocytic colitis pattern of injury includes celiac disease, other drug-associated colitis (e.g., H2 blockers, PPIs and statins), viral infection, postinfectious colitis and autoimmune colitis. Clinical correlation is recommended. History: The patient is a 58-year-old woman presenting with diarrhea, unspecified type. Operative procedure: Colon biopsy. Specimen(s) Received: A: Cold biopsies- terminal ileum B: Cold biopsies- right colon C: Cold biopsies- left colon Gross Description: Received in three formalin jars labeled with the patient's identifiers. A. Labeled terminal ileum and consists of three pink-conde fragment(s) of soft tissue measuring 0.3-0.4 cm each in greatest dimension. Labeled A1. Jar 0. B. Labeled right colon and consists of three conde fragment(s) of soft tissue measuring 0.3-0.8 cm each in greatest dimension. Labeled B1. Jar 0. C. Labeled left colon and consists of multiple conde-pink fragment(s) of soft tissue measuring 1.0 x 0.5 x 0.1 cm in aggregate. Labeled C1. Jar 0. sxst/02/09/2024 15:26 PA(s): Sharmaine Rodriguez By this signature, I attest that the above diagnosis is based upon my personal examination of the slides(and/or other material). Addenda/Procedures The performance characteristics of some immunohistochemical stains, fluorescence in-situ hybridization tests and immunophenotyping by flow cytometry cited in this report (if any) were determined by the Surgical Pathology and Flow Cytometry Departments at [facility] as part of an ongoing quality control projectionist program and in compliance with federally mandated regulations drawn from the Clinical Laboratory Improvement Act of 1988 (CLIA '88). Some of these tests rely on the use of analyte specific reagents and are subject to specific labeling requirements by the US Food and Drug Administration. Such diagnostic tests may only be performed in a facility that is certified by the Department of Health and Human Services as a high complexity laboratory under CLIA '88. The FDA has determined that such clearance or approval is not necessary. This test is used for clinical purposes. It should not be regarded as investigational or for research. Nevertheless, federal rules concerning the medical use of analyte specific reagents require that the following disclaimer be attached to the report: This test was developed and its performance characteristics determined by the Surgical Pathology and Flow Cytometry Departments of [facility]. It has not been cleared or approved by the U. S. Food and Drug Administration. IMAGES AND SCANNED DOCUMENTS, IF INCLUDED, ONLY VIEWABLE IN PDF VERSION OF REPORT us Julieth Giraldo MD LAB PATHOLOGY ORDERABLES Final Result PATHOLOGY [facility] 3rd Floor [place], [place] [phone] * Colonoscopy (02/09/2024 12:48 PM EQUIPMENT SCHEDULER) Anatomical Region Laterality Modality Other Narrative Procedure Note Julieth Giraldo MD - 02/09/2024 12:48 PM CST GI ENDOSCOPY [facility] Patient Name: Liliana Suarez Procedure Date: 02/09/2024 12:48PM Date of : 1965 Admit Type: Inpatient Age: 58 Gender: Female Attending MD: Julieth Giraldo M.D. Room: [facility] ENDOSCOPY ROOM 3 Note Status: Finalized Procedure: Colonoscopy Indications: Clinically significant diarrhea of unexplainedorigin Referring MD: Providers: Julieth Giraldo M.D. Medicines: Monitored Anesthesia Care Complications: No immediate complications. Estimated Blood Loss: Estimated blood loss was minimal. Procedure: Pre-Anesthesia Assessment: - Immediately prior to administration ofmedications, the patient was re-assessed for adequacy to receive sedatives. - The risks and benefits of the procedure and the sedation options and risks were discussed with the patient. All questions were answered and informed consent was obtained. The benefits, risks and alternatives of theprocedure and sedation were discussed and informed consentwas obtained. All questions were answered. Please referto the signed informed consent document in the medical record. The scope was passed under direct vision.The [facility] [id number] endoscope was introducedthrough the anus and advanced to the terminal ileum. The colonoscopy was performed without difficulty. The patient tolerated the procedure well. The qualityof the bowel preparation was inadequate. The bowel preparation used was GoLYTELY via split dose instruction. Bowel prep was administered using asplit dose. Findings: The perianal and digital rectal examinations were normal. A moderate amount of stool was found in the entire colon, interfering with visualization. Visualization was limited due to inadequate prep but the colon mucosa appeared normal. Biopsies for histology were taken with a coldforceps from the right colon and left colon. The terminal ileum appeared normal. Biopsies were taken with a cold forceps for histology. The retroflexed view of the distal rectum and anal verge was normaland showed no anal or rectal abnormalities. Impression: - Preparation of the colon was inadequate. - Stool in the entire examined colon. - The entire examined colon is normal. Biopsied. - The examined portion of the ileum was normal. Biopsied. - The distal rectum and anal verge are normal on retroflexion view. Recommendation: - [facility] - Await pathology results. - Can start CLD as tolerated, monitor for melena, trend h/h, Further plan per inpatient GI team Attending Participation: I personally performed the entire procedure. Electronically signed by Julieth Giraldo MD Julieth Giraldo M.D. 02/09/2024 1:10:33 PM . Number of Addenda: 0 Note Initiated On: 02/09/2024 12:48 PM us Julieth Giraldo MD ENDOSCOPY PROCEDURES Final Res ult * eGFR (02/09/2024 1:23 AM EQUIPMENT SCHEDULER) eGFR >90 >=60 mL/min/1. 73 m2 Comment: Interpretive Data Reference Interval Normal >/= 90 mL/min/1.73m2 Mildly decreased* 60 - 89 mL/min/1.73m2 Mildly to moderately decreased 45 - 59 mL/min/1.73m2 Moderately to severely decreased 30 - 44 mL/min/1.73m2 Severely decreased 15 - 29 mL/min/1.73m2 Kidney Failure < 15 mL/min/1.73m2 *Relative to young adult level Estimated glomerular filtration rate is determined by the 2020 CKD-EPI equation recommended by the National Kidney Foundation (A Unifying Approach to GFR Estimation: Recommendations of the NKF-ASK Task Force on Reassessing the Inclusion of Race in Diagnosing Kidney Disease, JASN 202). The CKD-EPI equation should not be used for patients with unstable renal function and has not been validated in children and those over 70. Current interpretive data was last reviewed 2020. Blood 02/09/2024 1:23 AM EQUIPMENT SCHEDULER 02/09/2024 1:39 AM EQUIPMENT SCHEDULER us Monalisa Hernandez MD LAB BLOOD ORDERA BLES Final Result AUTUMN TREJO [facility] Department [place] [address] * (ABNORMAL) Differential, auto (02/09/2024 1:23 AM EQUIPMENT SCHEDULER) Neutrophil abs 7.4(H) 1.5 - 6.5 K/cumm Imm gran abs 0.1 0.0 - 0.1 K/cumm [facility] Lymphocyte abs 1.5 0.8 - 3.3 K/cumm [facility] Monocyte abs 0.6 0.2 - 0.8 K/cumm [facility] Eosinophil abs 0.0 0.0 - 0.5 K/cumm [facility] Basophil abs 0.0 0.0 - 0.1 K/cumm [facility] Neutrophil pct 77.0 % [facility] Comment: Interpretive Data Percent cell count reference ranges are not reported, since discordance with absolute values may lead to misinterpretation of CBC data. Current Interpretive Data was last revised on 2017. Imm gran pct 1.0 % [facility] Comment: Interpretive Data Percent cell count reference ranges are not reported, since discordance with absolute values may lead to misinterpretation of CBC data. Current Interpretive Data was last revised on 2017. Lymphocyte pct 15.2 % [facility] Comment: Interpretive Data Percent cell count reference ranges are not reported, since discordance with absolute values may lead to misinterpretation of CBC data. Current Interpretive Data was last revised on 2017. Monocyte pct 6.6 % [facility] Comment: Interpretive Data Percent cell count reference ranges are not reported, since discordance with absolute values may lead to misinterpretation of CBC data. Current Interpretive Data was last revised on 2017. Eosinophil pct 0.0 % [facility] Comment: Interpretive Data Percent cell count reference ranges are not reported, since discordance with absolute values may lead to misinterpretation of CBC data. Current Interpretive Data was last revised on 2017. Basophil pct 0.2 % [facility] Comment: Interpretive Data Percent cell count reference ranges are not reported, since discordance with absolute values may lead to misinterpretation of CBC data. Current Interpretive Data was last revised on 2017. Blood 02/09/2024 1:23 AM EQUIPMENT SCHEDULER 02/09/2024 1:39 AM EQUIPMENT SCHEDULER us Monalisa Hernandez MD LAB BLOOD ORDERA BLES Final Result [facility] Department [place] [address] * HIV 1/2 Antibody plus p24 Antigen Blood (02/09/2024 1:23 AM EQUIPMENT SCHEDULER) [facility] HIV 1/2 ab + p24 ag Nonreactive Nonreactive Comment:Nonreactive for HIV- 1 antigen and HIV-1/HIV-2 antibodies. No laboratory evidence of HIV infection. If acute HIV infection is suspected, consider testing for HIV-1 RNA. Current interpretive data was last revised on 21. Blood 02/09/2024 1:23 AM EQUIPMENT SCHEDULER 02/09/2024 1:40 AM EQUIPMENT SCHEDULER Shaun Wilkins MD LAB MICROBIOLOGY - GENERAL ORD ERABLES Final Result [facility] [place] [address] * (ABNORMAL) CBC with auto differential (02/09/2024 1:23 AM EQUIPMENT SCHEDULER) [facility] WBC 9.6 3.8 - 9.9 K/cumm Hgb 12.7 11.9 - 15.5 g/dL [facility] Hct 37.2 35.6 - 45.5 % [facility] Plt 259 150 - 400 K/cumm [facility] MPV 9.4 9.1 - 12.3 fL [facility] RBC 3.96 3.90 - 5.20 M/cumm [facility] MCV 93.9 81.3 - 96.4 fL [facility] MCH 32.1 27.1 - 33.3 pg [facility] MCHC 34.1 32.3 - 35.7 g/dL [facility] RDW CV 14.4 11.1 - 14.9 % [facility] RDW SD 50.1(H) 35.7 - 48.1 fL [facility] NRBC abs 0.00 0.00 - 0.01 K/cumm [facility] Blood 02/09/2024 1:23 AM EQUIPMENT SCHEDULER 02/09/2024 1:39 AM EQUIPMENT SCHEDULER us Monalisa Hernandez MD LAB BLOOD ORDERA BLES Final Result Performing Organization Address [facility] Co de Phone Number [facility] [place] [address] * Hepatitis C antibody Blood (02/09/2024 1:23 AM EQUIPMENT SCHEDULER) Hep C Ab Nonreactive Nonreactive Comment:Antibodies to HCV no t detected. Does NOT exclude the possibility of recent exposure to HCV. Current interpretive data was last revised on 21 Blood 02/09/2024 1:23 AM EQUIPMENT SCHEDULER 02/09/2024 1:40 AM EQUIPMENT SCHEDULER us Shaun Wilkins MD LAB MICROBIOLOGY - GENERAL ORD ERABLES Final Result Performing Organization Address [facility] de Phone Number [facility] Department [place] [address] * RPR Blood (02/09/2024 1:23 AM EQUIPMENT SCHEDULER) Pathologist [facility] RPR Nonreactive Nonreactive Blood 02/09/2024 1:23 AM EQUIPMENT SCHEDULER 02/09/2024 1:40 AM EQUIPMENT SCHEDULER Shaun Wilkins MD LAB MICROBIOLOGY - GENERAL ORD ERABLES Final Result Performing Organization Address [facility] Co de Phone Number [facility] [place] [address] * Hepatitis B Surface Antigen Blood (02/09/2024 1:23 AM EQUIPMENT SCHEDULER) Pathologist [facility] HepBsAg Nonreactive Nonreactive Blood 02/09/2024 1:23 AM EQUIPMENT SCHEDULER 02/09/2024 1:40 AM EQUIPMENT SCHEDULER Shaun Wilkins MD LAB MICROBIOLOGY - GENERAL ORD ERABLES Final Result Performing Organization Address City/[facility] Co de Phone Number [facility] Department [place] [address] * Phosphorus (02/09/2024 1:23 AM EQUIPMENT SCHEDULER) [facility] Phosphorus, pl 2.3 2.3 - 4.5 mg/dL Blood 02/09/2024 1:23 AM EQUIPMENT SCHEDULER 02/09/2024 1:39 AM EQUIPMENT SCHEDULER Monalisa Hernandez MD LAB BLOOD ORDERA BLES Final Result Performing Organization Address City/[facility]/ZIP Co de Phone Number [facility] [place] [address] * Magnesium (02/09/2024 1:23 AM EQUIPMENT SCHEDULER) [facility] Magnesium 2.2 1.4 - 2.5 mg/dL Blood 02/09/2024 1:23 AM EQUIPMENT SCHEDULER 02/09/2024 1:39 AM EQUIPMENT SCHEDULER Monalisa Hernandez MD LAB BLOOD ORDERA BLES Final Result Performing Organization Address City/[facility] Co de Phone Number [facility] Department [place] [address] * Comprehensive metabolic panel (02/09/2024 1:23 AM EQUIPMENT SCHEDULER) [facility] Sodium 138 135 - 145 mmol/L Potassium, pl 3.7 3.3 - 4.9 mmol/L [facility] Chloride 104 97 - 110 mmol/L [facility] CO2 23 22 - 32 mmol/L [facility] Anion gap 11 2 - 15 mmol/L [facility] BUN 16 6 - 25 mg/dL [facility] Creatinine 0.64 0.60 - 1.10 mg/dL [facility] Glucose 104 70 - 199 mg/dL [facility] Comment: Interpretive Data Fasting glucose >/= 126 mg/dl is diagnostic for diabetes. Fasting is defined as no caloric intake for at least 8 hours. Fasting glucose between 100 mg/dl to 125 mg/dl is diagnostic of prediabetes. In a patient with classic symptoms of hyperglycemia or hyperglycemic crisis, a random glucose >/= 200 mg/dl is diagnostic for diabetes. In the absence of unequivocal hyperglycemia, results should be confirmed by repeat testing. The classification and Diagnosis of Diabetes Diabetes Care 2021; 46: S19-S40. Current interpretive data was last revised 2022. Calcium 9.0 8.5 - 10.3 mg/dL [facility] Bilirubin, total 0.2 0.1 - 1.2 mg/dL [facility] Comment:Reviewed Protein, pl 6.8 6.5 - 8.5 g/dL [facility] Albumin 4.1 3.5 - 5.0 g/dL [facility] Alk phos 60 40 - 130 Units/L [facility] ALT 19 7 - 45 Units/L [facility] AST 19 10 - 45 Units/L [facility] Blood 02/09/2024 1:23 AM EQUIPMENT SCHEDULER 02/09/2024 1:39 AM EQUIPMENT SCHEDULER Monalisa Hernandez MD LAB BLOOD ORDERA BLES Final Result [facility] Department [place] [address] * T-SPOT.TB Blood (02/08/2024 5:05 PM EQUIPMENT SCHEDULER) [facility] T-SPOT.TB Negative SeeBelow Comment: Normal Value: Negative A negative test result does not exclude the possibility of exposure to or infection with Mycobacterium tuberculosis (M. tuberculosis). Patients with recent exposure to TB infected individuals exhibiting a negative T-SPOT.TB result should be considered for retesting within 6 weeks or if other relevant clinical symptoms indicate. Results from T-SPOT.TB testing must be used in conjunction with each individual's epidemiological history, current medical status, and results of other diagnostic evaluations. The T-SPOT.TB test is qualitative and results are reported as positive, borderline or negative, given that the test controls perform as expected. In line with the Centers for Disease Control and Prevention's 2010 recommendation to report quantitative measurements alongside the qualitative result, the laboratory provides spot counts for informational purposes only. The T-SPOT.TB test should not be interpreted as a quantitative test. T-SPOT.TB Panel A Spot Count 0 [facility] T-SPOT.TB Panel B Spot Count 0 [facility] T-SPOT.TB Negative Control Passed [facility] T-SPOT.TB Positive Control Passed [facility] Comment: Test Performed at: [facility] [address] [place] [phone] KEYUR HARRIS,PHD Blood 02/08/2024 5:05 PM EQUIPMENT SCHEDULER 02/08/2024 7:17 PM EQUIPMENT SCHEDULER us Shaun Wilkins MD LAB MICROBIOLOGY - GENERAL ORD ERABLES Final Result [facility] Department [place] [address] * MRI Abdomen Adrenals W Contrast (02/08/2024 4:04 PM EQUIPMENT SCHEDULER) Anatomical Region Laterality Modality Body N/A Magnetic Resonan ce 02/09/2024 8:22 AM EQUIPMENT SCHEDULER Impressions 02/09/2024 9:18 AM EQUIPMENT SCHEDULER 1. Similar size of a left adrenal gland mass most consistent with an additional site of metastatic disease. 2. Similar mild intrahepatic and extrahepatic biliary duct dilation without underlying mass Dictated by: Olvin Chauhan MD, PHD The radiology attending physician has personally reviewed this study, and had reviewed and/or edited this written report and agrees with it. Electronically signed by: Darrel Sarabia M.D. Narrative 02/09/2024 9:18 AM EQUIPMENT SCHEDULER EXAMINATION: MAGNETIC RESONANCE IMAGING OF THE ABDOMEN WITH AND WITHOUT CONTRAST HISTORY: Small cell lung cancer with enlarging left adrenal mass TECHNIQUE: Magnetic resonance imaging of the abdomen was performed prior to and following the uneventful administration of intravenous Gadolinium contrast. Protocol: Adrenal Contrast: gadoterate 15 mL COMPARISON: CT chest abdomen pelvis 02/05/2024 FINDINGS: Liver: Normal morphology. No steatosis or iron deposition. - Bile ducts: Mild intrahepatic and extrahepatic biliary duct dilation unchanged from prior. There no mass, diffusion restriction, or abnormal enhancement. - Focal liver lesions: None - Vasculature: Patent portal and hepatic veins. Gallbladder: Normal Pancreas: Normal Spleen: Normal Adrenals: In the left adrenal gland, a site of metastatic disease in the lateral limb of the gland measures approximately 2.0 cm (series 22 image 38), with the larger medial limb demonstrating T2, diffusion, and enhancement characteristics which are nearly identical to the existing metastasis, approximately 4.4 x 2.9 cm, not significant changed from prior CT (series 22 image 35). Internally, there is a 12 mm focus of intrinsic T1 hyperintensity and T2 hypointensity (series 17 image 39 and series 12 image 9) that could represent internal hemorrhage. Normal right adrenal gland. Kidneys: Simple cysts, no hydronephrosis. Other Findings: No lymphadenopathy. No ascites. No suspicious osseous lesion. Procedure Note Darrel Sarabia MD - 02/09/2024 EXAMINATION: MAGNETIC RESONANCE IMAGING OF THE ABDOMEN WITH AND WITHOUT CONTRAST HISTORY: Small cell lung cancer with enlarging left adrenal mass TECHNIQUE: Magnetic resonance imaging of the abdomen was performed prior to and following the uneventful administration of intravenous Gadolinium contrast. Protocol: Adrenal Contrast: gadoterate 15 mL COMPARISON: CT chest abdomen pelvis 02/05/2024 FINDINGS: Liver: Normal morphology. No steatosis or iron deposition. - Bile ducts: Mild intrahepatic and extrahepatic biliary duct dilation unchanged from prior. There no mass, diffusion restriction, or abnormal enhancement. - Focal liver lesions: None - Vasculature: Patent portal and hepatic veins. Gallbladder: Normal Pancreas: Normal Spleen: Normal Adrenals: In the left adrenal gland, a site of metastatic disease in the lateral limb of the gland measures approximately 2.0 cm (series 22 image 38), with the larger medial limb demonstrating T2, diffusion, and enhancement characteristics which are nearly identical to the existing metastasis, approximately 4.4 x 2.9 cm, not significant changed from prior CT (series 22 image 35). Internally, there is a 12 mm focus of intrinsic T1 hyperintensity and T2 hypointensity (series 17 image 39 and series 12 image 9) that could represent internal hemorrhage. Normal right adrenal gland. Kidneys: Simple cysts, no hydronephrosis. Other Findings: No lymphadenopathy. No ascites. No suspicious osseous lesion. IMPRESSION: 1. Similar size of a left adrenal gland mass most consistent with an additional site of metastatic disease. 2. Similar mild intrahepatic and extrahepatic biliary duct dilation without underlying mass Dictated by: Olvin Chauhan MD, PHD The radiology attending physician has personally reviewed this study, and had reviewed and/or edited this written report and agrees with it. Electronically signed by: Darrel Sarabia M.D. us Shaun Wilkins MD IMG MRI PROCEDURES Final Resul t * eGFR (02/08/2024 12:47 AM EQUIPMENT SCHEDULER) eGFR >90 >=60 mL/min/1. 73 m2 Comment: Interpretive Data Reference Interval Normal >/= 90 mL/min/1.73m2 Mildly decreased* 60 - 89 mL/min/1.73m2 Mildly to moderately decreased 45 - 59 mL/min/1.73m2 Moderately to severely decreased 30 - 44 mL/min/1.73m2 Severely decreased 15 - 29 mL/min/1.73m2 Kidney Failure < 15 mL/min/1.73m2 *Relative to young adult level Estimated glomerular filtration rate is determined by the 2020 CKD-EPI equation recommended by the National Kidney Foundation (A Unifying Approach to GFR Estimation: Recommendations of the NKF-ASK Task Force on Reassessing the Inclusion of Race in Diagnosing Kidney Disease, JASN 2020). The CKD-EPI equation should not be used for patients with unstable renal function and has not been validated in children and those over 70. Current interpretive data was last reviewed 2020. Blood 02/08/2024 12:4 7 AM EQUIPMENT SCHEDULER 02/08/2024 1:02 AM EQUIPMENT SCHEDULER us Monalisa Hernandez MD LAB BLOOD ORDERA BLES Final Result [facility] Department [place] [address] * (ABNORMAL) Differential, auto (02/08/2024 12:47 AM EQUIPMENT SCHEDULER) Neutrophil abs 6.0 1.5 - 6.5 K/cumm Imm gran abs 0.1 0.0 - 0.1 K/cumm [facility] Lymphocyte abs 0.7(L) 0.8 - 3.3 K/cumm [facility] Monocyte abs 0.2 0.2 - 0.8 K/cumm [facility] Eosinophil abs 0.0 0.0 - 0.5 K/cumm [facility] Basophil abs 0.0 0.0 - 0.1 K/cumm [facility] Neutrophil pct 85.0 % [facility] Comment: Interpretive Data Percent cell count reference ranges are not reported, since discordance with absolute values may lead to misinterpretation of CBC data. Current Interpretive Data was last revised on 2017. Imm gran pct 1.3 % [facility] Comment: Interpretive Data Percent cell count reference ranges are not reported, since discordance with absolute values may lead to misinterpretation of CBC data. Current Interpretive Data was last revised on 2017. Lymphocyte pct 10.4 % [facility] Comment: Interpretive Data Percent cell count reference ranges are not reported, since discordance with absolute values may lead to misinterpretation of CBC data. Current Interpretive Data was last revised on 2017. Monocyte pct 3.0 % [facility] Comment: Interpretive Data Percent cell count reference ranges are not reported, since discordance with absolute values may lead to misinterpretation of CBC data. Current Interpretive Data was last revised on 2017. Eosinophil pct 0.0 % [facility] Comment: Interpretive Data Percent cell count reference ranges are not reported, since discordance with absolute values may lead to misinterpretation of CBC data. Current Interpretive Data was last revised on 2017. Basophil pct 0.3 % [facility] Comment: Interpretive Data Percent cell count reference ranges are not reported, since discordance with absolute values may lead to misinterpretation of CBC data. Current Interpretive Data was last revised on 2017. Blood 02/08/2024 12:4 7 AM EQUIPMENT SCHEDULER 02/08/2024 1:02 AM EQUIPMENT SCHEDULER us Monalisa Hernandez MD LAB BLOOD ORDERA BLES Final Result [facility] Department [place] [address] * (ABNORMAL) CBC with auto differential (02/08/2024 12:47 AM EQUIPMENT SCHEDULER) [facility] WBC 7.1 3.8 - 9.9 K/cumm Hgb 12.8 11.9 - 15.5 g/dL [facility] Hct 37.8 35.6 - 45.5 % [facility] Plt 257 150 - 400 K/cumm [facility] MPV 9.7 9.1 - 12.3 fL [facility] RBC 4.06 3.90 - 5.20 M/cumm [facility] MCV 93.1 81.3 - 96.4 fL [facility] MCH 31.5 27.1 - 33.3 pg [facility] MCHC 33.9 32.3 - 35.7 g/dL [facility] RDW CV 14.6 11.1 - 14.9 % [facility] RDW SD 50.1(H) 35.7 - 48.1 fL [facility] NRBC abs 0.00 0.00 - 0.01 K/cumm [facility] Blood 02/08/2024 12:4 7 AM EQUIPMENT SCHEDULER 02/08/2024 1:02 AM EQUIPMENT SCHEDULER Monalisa Hernandez MD LAB BLOOD ORDERA BLES Final Result [facility] Department [place] [address] * aPTT (02/08/2024 12:47 AM EQUIPMENT SCHEDULER) [facility] aPTT 29 28 - 38 sec Comment: Interpretive Data Heparin therapeutic range: 66.0 - 100.0 seconds. Range based on correlation with therapeutic heparin activity range of 0.3 - 0.7 Units/mL. Current interpretive data was last revised on 2022. Blood 02/08/2024 12:4 7 AM EQUIPMENT SCHEDULER 02/08/2024 1:12 AM EQUIPMENT SCHEDULER Monalisa Hernandez MD LAB BLOOD ORDERA BLES Final Result Performing Organization Address [facility] Co de Phone Number [facility] [place] [address] * Protime-INR (02/08/2024 12:47 AM EQUIPMENT SCHEDULER) PT 9.9 9.7 - 13.0 sec INR 0.92 0.90 - 1.20 [facility] Comment: Interpretive data Oral anticoagulant therapeutic ranges: Venous thromboembolism prophylaxis or treatment: 2.0-3.0 CARDIOLOGY Standard range: 2.0-3.0 High-intensity range: 2.5-3.5 Refer to indication-specific guidelines for appropriate target ranges for prosthetic heart valve replacement. Current interpretive data was last revised on 2019. Blood 02/08/2024 12:4 7 AM EQUIPMENT SCHEDULER 02/08/2024 1:12 AM EQUIPMENT SCHEDULER Monalisa Hernandez MD LAB BLOOD ORDERA BLES Final Result Performing Organization Address [facility] de Phone Number [facility] [place] [address] * Type and screen (02/08/2024 12:47 AM EQUIPMENT SCHEDULER) ABO Rh A Positive Rachel, indirect Negative [facility] Blood 02/08/2024 12:4 7 AM EQUIPMENT SCHEDULER 02/08/2024 1:03 AM EQUIPMENT SCHEDULER Narrative [facility] - 02/08/2024 2:02 AM EQUIPMENT SCHEDULER Has the patient had Daratumumab or Isatuximab in the past 6 months?->Unknown Monalisa Hernandez MD LAB BLOOD BANK T EST ORDERABLES Final Result Performing Organization Address [facility] Co de Phone Number [facility] [place] [address] * Uric acid (02/08/2024 12:47 AM EQUIPMENT SCHEDULER) Uric acid 4.6 2.5 - 7.0 mg/dL Blood 02/08/2024 12:4 7 AM EQUIPMENT SCHEDULER 02/08/2024 1:02 AM EQUIPMENT SCHEDULER Narrative [facility] - 02/08/2024 2:09 AM EQUIPMENT SCHEDULER Thursday and only. Morning draw. . Monalisa Hernandez MD LAB BLOOD ORDERA BLES Final Result [facility] [place] [address] * Phosphorus (02/08/2024 12:47 AM EQUIPMENT SCHEDULER) Phosphorus, pl 2.6 2.3 - 4.5 mg/dL Blood 02/08/2024 12:4 7 AM EQUIPMENT SCHEDULER 02/08/2024 1:02 AM EQUIPMENT SCHEDULER Monalisa Hernandez MD LAB BLOOD ORDERA BLES Final Result Performing Organization Address City/[facility]/ZIP Co de Phone Number [facility] [place] [address] * Magnesium (02/08/2024 12:47 AM EQUIPMENT SCHEDULER) Pathologist [facility] Magnesium 2.4 1.4 - 2.5 mg/dL Blood 02/08/2024 12:4 7 AM EQUIPMENT SCHEDULER 02/08/2024 1:02 AM EQUIPMENT SCHEDULER Monalisa Hernandez MD LAB BLOOD ORDERA BLES Final Result [facility] [place] [address] * Lactate dehydrogenase (LD) (02/08/2024 12:47 AM EQUIPMENT SCHEDULER) Pathologist [facility] Lactate dehydrogenase (LDH) 231 100 - 250 Units/L Blood 02/08/2024 12:4 7 AM EQUIPMENT SCHEDULER 02/08/2024 1:02 AM EQUIPMENT SCHEDULER Narrative [facility] - 02/08/2024 2:09 AM EQUIPMENT SCHEDULER Thursday and only. Morning draw. Monalisa Hernandez MD LAB BLOOD ORDERA BLES Final Result [facility] Department [place] [address] * Comprehensive metabolic panel (02/08/2024 12:47 AM EQUIPMENT SCHEDULER) Pathologist [facility] Sodium 140 135 - 145 mmol/L Potassium, pl 4.5 3.3 - 4.9 mmol/L [facility] Chloride 104 97 - 110 mmol/L [facility] CO2 23 22 - 32 mmol/L [facility] Anion gap 13 2 - 15 mmol/L [facility] BUN 16 6 - 25 mg/dL [facility] Creatinine 0.68 0.60 - 1.10 mg/dL [facility] Glucose 125 70 - 199 mg/dL [facility] Comment: Interpretive Data Fasting glucose >/= 126 mg/dl is diagnostic for diabetes. Fasting is defined as no caloric intake for at least 8 hours. Fasting glucose between 100 mg/dl to 125 mg/dl is diagnostic of prediabetes. In a patient with classic symptoms of hyperglycemia or hyperglycemic crisis, a random glucose >/= 200 mg/dl is diagnostic for diabetes. In the absence of unequivocal hyperglycemia, results should be confirmed by repeat testing. The classification and Diagnosis of Diabetes Diabetes Care 2021; 46: S19-S40. Current interpretive data was last revised 2022. Calcium 8.8 8.5 - 10.3 mg/dL [facility] Bilirubin, total <0.2 0.1 - 1.2 mg/dL [facility] Comment:Reviewed Protein, pl 6.7 6.5 - 8.5 g/dL [facility] Albumin 4.3 3.5 - 5.0 g/dL [facility] Alk phos 65 40 - 130 Units/L [facility] ALT 14 7 - 45 Units/L [facility] AST 16 10 - 45 Units/L [facility] Blood 02/08/2024 12:4 7 AM EQUIPMENT SCHEDULER 02/08/2024 1:02 AM EQUIPMENT SCHEDULER Monalisa Hernandez MD LAB BLOOD ORDERA BLES Final Result Performing Organization Address City/[facility]/ZIP Co de Phone Number [facility] Department [place] [address] * eGFR (02/07/2024 5:49 PM EQUIPMENT SCHEDULER) eGFR >90 >=60 mL/min/1. 73 m2 Comment: Interpretive Data Reference Interval Normal >/= 90 mL/min/1.73m2 Mildly decreased* 60 - 89 mL/min/1.73m2 Mildly to moderately decreased 45 - 59 mL/min/1.73m2 Moderately to severely decreased 30 - 44 mL/min/1.73m2 Severely decreased 15 - 29 mL/min/1.73m2 Kidney Failure < 15 mL/min/1.73m2 *Relative to young adult level Estimated glomerular filtration rate is determined by the 2020 CKD-EPI equation recommended by the National Kidney Foundation (A Unifying Approach to GFR Estimation: Recommendations of the NKF-ASK Task Force on Reassessing the Inclusion of Race in Diagnosing Kidney Disease, JASN 202). The CKD-EPI equation should not be used for patients with unstable renal function and has not been validated in children and those over 70. Current interpretive data was last reviewed 2020. Blood 02/07/2024 5:49 PM EQUIPMENT SCHEDULER 02/07/2024 6:30 PM EQUIPMENT SCHEDULER Monalisa Hernandez MD LAB BLOOD ORDERA BLES Final Result Performing Organization Address City/[facility]/ZIP Co de Phone Number [facility] Department [place] [address] * (ABNORMAL) Differential, auto (02/07/2024 5:49 PM EQUIPMENT SCHEDULER) Neutrophil abs 9.0(H) 1.5 - 6.5 K/cumm Imm gran abs 0.1 0.0 - 0.1 K/cumm [facility] Lymphocyte abs 0.8 0.8 - 3.3 K/cumm [facility] Monocyte abs 0.3 0.2 - 0.8 K/cumm [facility] Eosinophil abs 0.0 0.0 - 0.5 K/cumm [facility] Basophil abs 0.1 0.0 - 0.1 K/cumm [facility] Neutrophil pct 87.4 % [facility] Comment: Interpretive Data Percent cell count reference ranges are not reported, since discordance with absolute values may lead to misinterpretation of CBC data. Current Interpretive Data was last revised on 2017. Imm gran pct 0.9 % [facility] Comment: Interpretive Data Percent cell count reference ranges are not reported, since discordance with absolute values may lead to misinterpretation of CBC data. Current Interpretive Data was last revised on 2017. Lymphocyte pct 7.9 % [facility] Comment: Interpretive Data Percent cell count reference ranges are not reported, since discordance with absolute values may lead to misinterpretation of CBC data. Current Interpretive Data was last revised on 2017. Monocyte pct 3.0 % [facility] Comment: Interpretive Data Percent cell count reference ranges are not reported, since discordance with absolute values may lead to misinterpretation of CBC data. Current Interpretive Data was last revised on 2017. Eosinophil pct 0.2 % [facility] Comment: Interpretive Data Percent cell count reference ranges are not reported, since discordance with absolute values may lead to misinterpretation of CBC data. Current Interpretive Data was last revised on 2017. Basophil pct 0.6 % [facility] Comment: Interpretive Data Percent cell count reference ranges are not reported, since discordance with absolute values may lead to misinterpretation of CBC data. Current Interpretive Data was last revised on 2017. Blood 02/07/2024 5:49 PM EQUIPMENT SCHEDULER 02/07/2024 6:30 PM EQUIPMENT SCHEDULER Monalisa Hernandez MD LAB BLOOD ORDERA BLES Final Result [facility] Department [place] [address] * (ABNORMAL) CBC with auto differential (02/07/2024 5:49 PM EQUIPMENT SCHEDULER) WBC 10.3(H) 3.8 - 9.9 K/cumm Hgb 13.3 11.9 - 15.5 g/dL [facility] Hct 38.6 35.6 - 45.5 % [facility] Plt 242 150 - 400 K/cumm [facility] MPV 9.7 9.1 - 12.3 fL [facility] RBC 4.14 3.90 - 5.20 M/cumm [facility] MCV 93.2 81.3 - 96.4 fL [facility] MCH 32.1 27.1 - 33.3 pg [facility] MCHC 34.5 32.3 - 35.7 g/dL [facility] RDW CV 14.6 11.1 - 14.9 % [facility] RDW SD 50.3(H) 35.7 - 48.1 fL [facility] NRBC abs 0.00 0.00 - 0.01 K/cumm [facility] Blood 02/07/2024 5:49 PM EQUIPMENT SCHEDULER 02/07/2024 6:30 PM EQUIPMENT SCHEDULER Monalisa Hernandez MD LAB BLOOD ORDERA BLES Final Result [facility] Department [place] [address] * Type and screen (02/07/2024 5:49 PM EQUIPMENT SCHEDULER) Rachel, indirect Negative ABO Rh A Positive [facility] Blood 02/07/2024 5:49 PM EQUIPMENT SCHEDULER 02/07/2024 6:30 PM EQUIPMENT SCHEDULER Narrative [facility] - 02/07/2024 7:10 PM EQUIPMENT SCHEDULER Has the patient had Daratumumab or Isatuximab in the past 6 months?->Unknown Monalisa Hernandez MD LAB BLOOD BANK T EST ORDERABLES Final Result Performing Organization Address [facility] Co de Phone Number [facility] [place] [address] * (ABNORMAL) Phosphorus (02/07/2024 5:49 PM EQUIPMENT SCHEDULER) Pathologist [facility] Phosphorus, pl 1.7(L) 2.3 - 4.5 mg/dL Blood 02/07/2024 5:49 PM EQUIPMENT SCHEDULER 02/07/2024 6:30 PM EQUIPMENT SCHEDULER Monalisa Hernandez MD LAB BLOOD ORDERA BLES Final Result Performing Organization Address [facility] Co de Phone Number [facility] Department [place] [address] * Magnesium (02/07/2024 5:49 PM EQUIPMENT SCHEDULER) [facility] Magnesium 2.1 1.4 - 2.5 mg/dL Blood 02/07/2024 5:49 PM EQUIPMENT SCHEDULER 02/07/2024 6:30 PM EQUIPMENT SCHEDULER Monalisa Hernandez MD LAB BLOOD ORDERA BLES Final Result Performing Organization Address City/[facility] Co de Phone Number [facility] [place] [address] * Comprehensive metabolic panel (02/07/2024 5:49 PM EQUIPMENT SCHEDULER) [facility] Sodium 140 135 - 145 mmol/L Potassium, pl 4.1 3.3 - 4.9 mmol/L [facility] Chloride 103 97 - 110 mmol/L [facility] CO2 23 22 - 32 mmol/L [facility] Anion gap 14 2 - 15 mmol/L [facility] BUN 16 6 - 25 mg/dL [facility] Creatinine 0.74 0.60 - 1.10 mg/dL [facility] Glucose 115 70 - 199 mg/dL [facility] Comment: Interpretive Data Fasting glucose >/= 126 mg/dl is diagnostic for diabetes. Fasting is defined as no caloric intake for at least 8 hours. Fasting glucose between 100 mg/dl to 125 mg/dl is diagnostic of prediabetes. In a patient with classic symptoms of hyperglycemia or hyperglycemic crisis, a random glucose >/= 200 mg/dl is diagnostic for diabetes. In the absence of unequivocal hyperglycemia, results should be confirmed by repeat testing. The classification and Diagnosis of Diabetes Diabetes Care 2021; 46: S19-S40. Current interpretive data was last revised 2022. Calcium 9.0 8.5 - 10.3 mg/dL [facility] Bilirubin, total 0.2 0.1 - 1.2 mg/dL [facility] Protein, pl 7.0 6.5 - 8.5 g/dL [facility] Albumin 4.3 3.5 - 5.0 g/dL [facility] Alk phos 65 40 - 130 Units/L [facility] ALT 20 7 - 45 Units/L [facility] AST 12 10 - 45 Units/L [facility] Blood 02/07/2024 5:49 PM EQUIPMENT SCHEDULER 02/07/2024 6:30 PM EQUIPMENT SCHEDULER Monalisa Hernandez MD LAB BLOOD ORDERA BLES Final Result [facility] Department [place] [address] * eGFR (02/05/2024 10:14 AM EQUIPMENT SCHEDULER) eGFR >90 >=60 mL/min/1. 73 m2 Comment: Interpretive Data Reference Interval Normal >/= 90 mL/min/1.73m2 Mildly decreased* 60 - 89 mL/min/1.73m2 Mildly to moderately decreased 45 - 59 mL/min/1.73m2 Moderately to severely decreased 30 - 44 mL/min/1.73m2 Severely decreased 15 - 29 mL/min/1.73m2 Kidney Failure < 15 mL/min/1.73m2 *Relative to young adult level Estimated glomerular filtration rate is determined by the 2020 CKD-EPI equation recommended by the National Kidney Foundation (A Unifying Approach to GFR Estimation: Recommendations of the NKF-ASK Task Force on Reassessing the Inclusion of Race in Diagnosing Kidney Disease, JASN 2020). The CKD-EPI equation should not be used for patients with unstable renal function and has not been validated in children and those over 70. Current interpretive data was last reviewed 2020. Testing performed by: [facility], [address] [place] [address] Blood 02/05/2024 10:1 4 AM EQUIPMENT SCHEDULER 02/05/2024 10:42 AM EQUIPMENT SCHEDULER us Rosy Lyons MD LAB BLOOD ORDERABLES Maribell ribeiro Result [facility] [address] Department [place] [address] * (ABNORMAL) Differential, auto (02/05/2024 10:14 AM EQUIPMENT SCHEDULER) Neutrophil abs 7.9(H) 1.5 - 6.5 K/cumm Comment:Testing performed by : [facility], [facility] , [address] [place] [address] Imm gran abs 0.1 0.0 - 0.1 K/cumm [facility] Comment:Testing performed by : [facility], [address] [place] [address] Lymphocyte abs 2.2 0.8 - 3.3 K/cumm [facility] Comment:Testing performed by : [facility] 2, [address] [place] [address] Monocyte abs 0.8 0.2 - 0.8 K/cumm [facility] Comment:Testing performed by : [facility] 2, [address] [place] [address] [address] Eosinophil abs 0.1 0.0 - 0.5 K/cumm CERNER BJWCH Comment:Testing performed by : [facility], [facility], [address] [place] [address] Basophil abs 0.1 0.0 - 0.1 K/cumm CERNER BJWCH Comment:Testing performed by : [facility], [facility], [address] [place] [address] Neutrophil pct 71.1 % CERNER BJWCH Comment: Interpretive Data Percent cell count reference ranges are not reported, since discordance with absolute values may lead to misinterpretation of CBC data. Current Interpretive Data was last revised on 2017. Testing performed by: [facility], [facility], [address] [place] [address] Imm gran pct 1.0 % CERNER BJWCH Comment: Interpretive Data Percent cell count reference ranges are not reported, since discordance with absolute values may lead to misinterpretation of CBC data. Current Interpretive Data was last revised on 2017. Testing performed by: [facility], [facility], [address] [place] [address] Lymphocyte pct 19.5 % CERNER BJWCH Comment: Interpretive Data Percent cell count reference ranges are not reported, since discordance with absolute values may lead to misinterpretation of CBC data. Current Interpretive Data was last revised on 2017. Testing performed by: [facility], [facility], [address] [place] [address] Monocyte pct 7.3 % CERNER BJWCH Comment: Interpretive Data Percent cell count reference ranges are not reported, since discordance with absolute values may lead to misinterpretation of CBC data. Current Interpretive Data was last revised on 2017. Testing performed by: [facility], [facility], [address] [place] [address] Eosinophil pct 0.5 % CERNER BJWCH Comment: Interpretive Data Percent cell count reference ranges are not reported, since discordance with absolute values may lead to misinterpretation of CBC data. Current Interpretive Data was last revised on 2017. Testing performed by: [place] [address], [address] [place] [address] Basophil pct 0.6 % [facility] MANJARREZ Comment: Interpretive Data Percent cell count reference ranges are not reported, since discordance with absolute values may lead to misinterpretation of CBC data. Current Interpretive Data was last revised on 2017. Testing performed by: [facility] 2, [address] [place] [address] Blood 02/05/2024 10:1 4 AM EQUIPMENT SCHEDULER 02/05/2024 10:15 AM EQUIPMENT SCHEDULER Rosy Lyons MD LAB BLOOD ORDERABLES Maribell ribeiro Result [facility] [id number] [facility] Department [place] [address] * (ABNORMAL) CBC with auto differential (02/05/2024 10:14 AM EQUIPMENT SCHEDULER) WBC 11.1(H) 3.8 - 9.9 K/cumm Comment:Testing performed by : [facility] 2, [address] [place] [address] Hgb 14.4 11.9 - 15.5 g/dL [facility] MANJARREZ Comment:Testing performed by : [place] [address], [address] [place] [address] Hct 42.0 35.6 - 45.5 % [facility]UMN MANJARREZ Comment:Testing performed by : [place] [address], [address] [place] [address] Plt 262 150 - 400 K/cumm [facility] MANJARREZ Comment:Testing performed by : [place] [address], [address] [place] [address] MPV 9.2 9.1 - 12.3 fL [facility] MANJARREZ Comment:Testing performed by : [facility], [facility], [address] [place] [address] RBC 4.47 3.90 - 5.20 M/cumm [facility] MANJARREZ Comment:Testing performed by : [facility], [facility], [address] [place] [address] MCV 94 81 - 96 fL [facility] MANJAR[facility] Comment:Testing performed by : [facility], [facility], [address] [place] [address] MCH 32.2 27.1 - 33.3 pg [facility] MANJARREZ Comment:Testing performed by : [facility], [facility], [address] [place] [address] MCHC 34.3 32.3 - 35.7 g/dL [facility] MANJARREZ Comment:Testing performed by : [facility] 2, [address] [place] [address] RDW CV 14.2 11.1 - 14.9 % [facility]UMN MANJARREZ Comment:Testing performed by : [facility], [facility], [address] [place] [address] RDW SD 48.9(H) 35.7 - 48.1 fL [facility] MANJARRE[facility] Comment:Testing performed by : [facility], [facility], [address] [place] [address] Blood 02/05/2024 10:1 4 AM EQUIPMENT SCHEDULER 02/05/2024 10:15 AM EQUIPMENT SCHEDULER us Rosy Lyons MD LAB BLOOD ORDERABLES Maribell ribeiro Result [facility] [address] [address] Department of Laboratories [place], [place] [id number] * Comprehensive metabolic panel (02/05/2024 10:14 AM EQUIPMENT SCHEDULER) Sodium 136 135 - 145 mmol/L Comment:Testing performed by : [facility], [address], [place] [address] Potassium, pl 4.2 3.3 - 4.9 mmol/L CERNER BJWCH Comment:Testing performed by : [facility], [address], [place] [address] Chloride 98 97 - 110 mmol/L CERNER BJWCH Comment:Testing performed by : [facility], [address], [place] [address] CO2 25 22 - 32 mmol/L CERNER BJWCH Comment:Testing performed by : [facility], [address], [place] [address] Anion gap 14 2 - 15 mmol/L CERNER BJWCH Comment:Testing performed by : [facility], [address], [place] [address] BUN 16 6 - 25 mg/dL CERNER BJWCH Comment:Testing performed by : [facility], [address], [place] [address] Creatinine 0.72 0.60 - 1.10 mg/dL CERNER BJWCH Comment:Testing performed by : [facility], [address], [place] [address] Glucose 91 70 - 199 mg/dL CERNER BJWCH Comment: Interpretive Data Fasting glucose >/= 126 mg/dl is diagnostic for diabetes. Fasting is defined as no caloric intake for at least 8 hours. Fasting glucose between 100 mg/dl to 125 mg/dl is diagnostic of prediabetes. In a patient with classic symptoms of hyperglycemia or hyperglycemic crisis, a random glucose >/= 200 mg/dl is diagnostic for diabetes. In the absence of unequivocal hyperglycemia, results should be confirmed by repeat testing. The classification and Diagnosis of Diabetes Diabetes Care 2021; 46: S19-S40. Current interpretive data was last revised 2022. Testing performed by: [facility], [address], [place] [address] Calcium 10.3 8.5 - 10.3 mg/dL CERNER BJWCH Comment:Testing performed by : [facility], [address], [place] [address] Bilirubin, total 0.3 0.1 - 1.2 mg/dL CERNER BJWCH Comment:Testing performed by : [facility], [address], [place] [address] Protein, pl 7.2 6.5 - 8.5 g/dL CERNER BJWCH Comment:Testing performed by : [facility], [address], [place] [address] Albumin 4.2 3.5 - 5.0 g/dL CERNER BJWCH Comment:Testing performed by : [facility], [address], [place] [address] Alk phos 69 40 - 130 Units/L CERNER BJWCH Comment:Testing performed by : [facility], [address], [place] [address] ALT 20 7 - 45 Units/L CERNER BJWCH Comment:Testing performed by : [facility], [address], [place] [address] AST 16 10 - 45 Units/L CERNER BJWCH Comment:Testing performed by : [facility], [address], [place] [address] Blood 02/05/2024 10:1 4 AM EQUIPMENT SCHEDULER 02/05/2024 10:42 AM EQUIPMENT SCHEDULER Narrative [facility] MANJAR[facility] - 02/05/2024 11:02 AM EQUIPMENT SCHEDULER Has the patient fasted?->No us Rosy Lyons MD LAB BLOOD ORDERABLES Maribell l Result [facility] [address] Department [place] [address] * CT Chest Abdomen Pelvis W Contrast (02/05/2024 9:52 AM EQUIPMENT SCHEDULER) Anatomical Region Laterality Modality Body N/A Computed Tomogra phy 02/05/2024 10:1 3 AM EQUIPMENT SCHEDULER Addenda Addendum by Fredrick Coker MD PhD on 02/17/2024 6:54 AM EQUIPMENT SCHEDULER Follow up adrenal MRI completed 02/08/24. Pearl SWAIN RN. Edited by: Pearl Freeman Electronically signed by: Fredrick Coker M.D., Ph.D Impressions 02/05/2024 2:05 PM EQUIPMENT SCHEDULER 1. Interval increase in nodule involving the left adrenal gland, now measuring up to 4.2 cm. Given that there has been interval decrease of previously seen adjacent left adrenal metastasis, this could represent hemorrhage versus additional metastatic lesion. MRI abdomen can be performed with and without contrast for further evaluation. 2. Stable biliary ductal dilatation, recommend correlation with liver function tests. 3. No metastatic disease within the chest. Recommend follow up of the Incidental adrenal nodule Additional Imaging less than 1 month with MRI abdomen with and without contrast. Dictated by: Wilber Obrien MD The radiology attending physician has personally reviewed this study, and had reviewed and/or edited this written report and agrees with it. Electronically signed by: Fredrick Coker M.D., Ph.D Narrative 02/05/2024 2:05 PM EQUIPMENT SCHEDULER EXAMINATION: Computed tomography of the chest, abdomen and pelvis with intravenous contrast HISTORY: Small cell lung cancer, restaging TECHNIQUE: Transaxial computed tomographic images of the chest, abdomen and pelvis were obtained with intravenous contrast according to the standard protocol after the uneventful administration of 90 mL Opti-Ray 350 intravenous contrast. COMPARISON: Multiple, most recently 11/26/2023 FINDINGS: Chest: Normal thyroid gland. No suspicious thoracic lymphadenopathy. Heart size is normal. No pericardial effusion. Calcified pulmonary nodule within the right lung measures 9 mm (series 3, image 70). No suspicious pulmonary nodule. No consolidation, pleural effusion, or pneumothorax. Abdomen/Pelvis: Liver is normal shape, contour, size. Stable biliary ductal dilatation. No suspicious hepatic lesion. Normal gallbladder. Calcified granulomas seen within the spleen. The right adrenal gland is normal. Enlarged left adrenal gland with interval increase in nodule within the right aspect of the left adrenal gland now measuring 4.2 x 3.1 cm, previously 2.6 x 1.8 cm (series 2, image 137). 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 Pancreas is normal. Kidneys enhance symmetrically. Left renal cyst. Normal urinary bladder. Normal caliber bowel. No bowel wall thickening. No bowel obstruction. No pneumoperitoneum. Normal caliber abdominal aorta with vascular calcifications. No suspicious abdominopelvic lymphadenopathy. No suspicious osseous lesion. Procedure Note Fredrick Coker MD PhD - 02/05/2024 EXAMINATION: Computed tomography of the chest, abdomen and pelvis with intravenous contrast HISTORY: Small cell lung cancer, restaging TECHNIQUE: Transaxial computed tomographic images of the chest, abdomen and pelvis were obtained with intravenous contrast according to the standard protocol after the uneventful administration of 90 mL Opti-Ray 350 intravenous contrast. COMPARISON: Multiple, most recently 11/26/2023 FINDINGS: Chest: Normal thyroid gland. No suspicious thoracic lymphadenopathy. Heart size is normal. No pericardial effusion. Calcified pulmonary nodule within the right lung measures 9 mm (series 3, image 70). No suspicious pulmonary nodule. No consolidation, pleural effusion, or pneumothorax. Abdomen/Pelvis: Liver is normal shape, contour, size. Stable biliary ductal dilatation. No suspicious hepatic lesion. Normal gallbladder. Calcified granulomas seen within the spleen. The right adrenal gland is normal. Enlarged left adrenal gland with interval increase in nodule within the right aspect of the left adrenal gland now measuring 4.2 x 3.1 cm, previously 2.6 x 1.8 cm (series 2, image 137). 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 Pancreas is normal. Kidneys enhance symmetrically. Left renal cyst. Normal urinary bladder. Normal caliber bowel. No bowel wall thickening. No bowel obstruction. No pneumoperitoneum. Normal caliber abdominal aorta with vascular calcifications. No suspicious abdominopelvic lymphadenopathy. No suspicious osseous lesion. IMPRESSION: 1. Interval increase in nodule involving the left adrenal gland, now measuring up to 4.2 cm. Given that there has been interval decrease of previously seen adjacent left adrenal metastasis, this could represent hemorrhage versus additional metastatic lesion. MRI abdomen can be performed with and without contrast for further evaluation. 2. Stable biliary ductal dilatation, recommend correlation with liver function tests. 3. No metastatic disease within the chest. Recommend follow up of the Incidental adrenal nodule Additional Imaging less than 1 month with MRI abdomen with and without contrast. Dictated by: Wilber Obrien MD The radiology attending physician has personally reviewed this study, and had reviewed and/or edited this written report and agrees with it. Electronically signed by: Fredrick Coker M.D., Ph.D Rosy Lyons MD IMG CT PROCEDURES Edited Result - Final * eGFR (01/29/2024 1:04 PM EQUIPMENT SCHEDULER) eGFR 85 >=60 mL/min/1. 73 m2 Comment: Interpretive Data Reference Interval Normal >/= 90 mL/min/1.73m2 Mildly decreased* 60 - 89 mL/min/1.73m2 Mildly to moderately decreased 45 - 59 mL/min/1.73m2 Moderately to severely decreased 30 - 44 mL/min/1.73m2 Severely decreased 15 - 29 mL/min/1.73m2 Kidney Failure < 15 mL/min/1.73m2 *Relative to young adult level Estimated glomerular filtration rate is determined by the 2020 CKD-EPI equation recommended by the National [employer] (A Unifying Approach to GFR Estimation: Recommendations of the NKF-ASK Task Force on Reassessing the Inclusion of Race in Diagnosing Kidney Disease, JASN 2020). The CKD-EPI equation should not be used for patients with unstable renal function and has not been validated in children and those over 70. Current interpretive data was last reviewed 2020. Testing performed by: [facility], [address] [facility], [place] [address] Blood 01/29/2024 1:04 PM EQUIPMENT SCHEDULER 01/29/2024 1:46 PM EQUIPMENT SCHEDULER Rosy Lyons MD LAB BLOOD ORDERABLES Maribell l Result [facility] [address] [facility]. Department [place] [address] * (ABNORMAL) Differential, auto (01/29/2024 1:04 PM EQUIPMENT SCHEDULER) Neutrophil abs 11.9(H) 1.5 - 6.5 K/cumm Comment:Testing performed by : [facility], [facility], [address] [place] [address] Imm gran abs 0.3(H) 0.0 - 0.1 K/cumm CERNER BJWCH Comment:Testing performed by : [facility], [facility], [address] [place] [address] Lymphocyte abs 1.5 0.8 - 3.3 K/cumm CERNER BJWCH Comment:Testing performed by : [facility], [facility], [address] [place] [address] Monocyte abs 0.5 0.2 - 0.8 K/cumm CERNER BJWCH Comment:Testing performed by : [facility], [facility], [address] [place] [address] Eosinophil abs 0.0 0.0 - 0.5 K/cumm CERNER BJWCH Comment:Testing performed by : [facility], [facility], [address] [place] [address] Basophil abs 0.1 0.0 - 0.1 K/cumm CERNER BJWCH Comment:Testing performed by : [facility], [facility], [address] [place] [address] Neutrophil pct 83.6 % CERNER BJWCH Comment: Interpretive Data Percent cell count reference ranges are not reported, since discordance with absolute values may lead to misinterpretation of CBC data. Current Interpretive Data was last revised on 2017. Testing performed by: [facility], [facility], [address] [place] [address] Imm gran pct 2.0 % CERNER BJWCH Comment: Interpretive Data Percent cell count reference ranges are not reported, since discordance with absolute values may lead to misinterpretation of CBC data. Current Interpretive Data was last revised on 2017. Testing performed by: [facility], [facility], [address] [place] [address] Lymphocyte pct 10.3 % CERNER BJWCH Comment: Interpretive Data Percent cell count reference ranges are not reported, since discordance with absolute values may lead to misinterpretation of CBC data. Current Interpretive Data was last revised on 2017. Testing performed by: [facility], [facility], [address] [place] [address] Monocyte pct 3.6 % CERCHEVY MANJARREZ Comment: Interpretive Data Percent cell count reference ranges are not reported, since discordance with absolute values may lead to misinterpretation of CBC data. Current Interpretive Data was last revised on 2017. Testing performed by: [facility], [facility], [address] [place] [address] Eosinophil pct 0.1 % CERCHEVY MANJARREZ Comment: Interpretive Data Percent cell count reference ranges are not reported, since discordance with absolute values may lead to misinterpretation of CBC data. Current Interpretive Data was last revised on 2017. Testing performed by: [facility] 2, [address] [place] [address] Basophil pct 0.4 % [facility]UM[facility] MANJARREZ Comment: Interpretive Data Percent cell count reference ranges are not reported, since discordance with absolute values may lead to misinterpretation of CBC data. Current Interpretive Data was last revised on 2017. Testing performed by: [facility], [facility], [address] [place] [address] Blood 01/29/2024 1:04 PM EQUIPMENT SCHEDULER 01/29/2024 1:08 PM EQUIPMENT SCHEDULER Rosy Lyons MD LAB BLOOD ORDERABLES Maribell l Result [facility] [address] [facility]. Department [place] [address] * (ABNORMAL) CBC with auto differential (01/29/2024 1:04 PM EQUIPMENT SCHEDULER) WBC 14.3(H) 3.8 - 9.9 K/cumm Comment:Testing performed by : [facility] 2, [address], [place] [address] Hgb 13.7 11.9 - 15.5 g/dL CERNER BJWCH Comment:Testing performed by : [facility] 2, [address], [place] [address] Hct 40.9 35.6 - 45.5 % CERNER BJWCH Comment:Testing performed by : [facility] 2, [address], [place] [address] Plt 237 150 - 400 K/cumm CERNER BJWCH Comment:Testing performed by : [facility] 2, [address] [place] [address] MPV 9.0(L) 9.1 - 12.3 fL CERNER BJWCH Comment:Testing performed by : [facility] 2, [address], [place] [address] RBC 4.30 3.90 - 5.20 M/cumm CERNER BJWCH Comment:Testing performed by : [facility] 2, [address] [place] [address] MCV 95 81 - 96 fL CERNER BJWCH Comment:Testing performed by : [place] [address], [address], [place] [address] MCH 31.9 27.1 - 33.3 pg CERNER BJWCH Comment:Testing performed by : [place] [address], [address], [place] [address] MCHC 33.5 32.3 - 35.7 g/dL CERNER BJWCH Comment:Testing performed by : [facility] 2, [address] [place] [address] RDW CV 14.4 11.1 - 14.9 % CERNER BJWCH Comment:Testing performed by : [facility] 2, [address], [place] [address] RDW SD 50.1(H) 35.7 - 48.1 fL CERNER BJWCH Comment:Testing performed by : [facility] 2, [address] [place] [address] Blood 01/29/2024 1:04 PM EQUIPMENT SCHEDULER 01/29/2024 1:08 PM EQUIPMENT SCHEDULER Rosy Lyons MD LAB BLOOD ORDERABLES Maribell ribeiro Result [facility] [address] Department [place] [address] * (ABNORMAL) Comprehensive metabolic panel (01/29/2024 1:04 PM EQUIPMENT SCHEDULER) Sodium 135 135 - 145 mmol/L Comment:Testing performed by : [facility], [address] [place] [address] Potassium, pl 4.6 3.3 - 4.9 mmol/L CERHCEVY BJW Comment:Testing performed by : [facility], [address] [place] [address] Chloride 96(L) 97 - 110 mmol/L CERCHEVY BJW Comment:Testing performed by : [facility], [address] [place] [address] CO2 26 22 - 32 mmol/L CERCHEVY BJW Comment:Testing performed by : [facility], [address] [place] [address] Anion gap 13 2 - 15 mmol/L CERCHEVY BJWCH Comment:Testing performed by : [facility], [address] [place] [address] BUN 15 6 - 25 mg/dL CERNER BJWCH Comment:Testing performed by : [facility], [address] [place] [address] Creatinine 0.80 0.60 - 1.10 mg/dL CERNER BJWCH Comment:Testing performed by : [facility], [address] [place] [address] Glucose 119 70 - 199 mg/dL CERNER BJWCH Comment: Interpretive Data Fasting glucose >/= 126 mg/dl is diagnostic for diabetes. Fasting is defined as no caloric intake for at least 8 hours. Fasting glucose between 100 mg/dl to 125 mg/dl is diagnostic of prediabetes. In a patient with classic symptoms of hyperglycemia or hyperglycemic crisis, a random glucose >/= 200 mg/dl is diagnostic for diabetes. In the absence of unequivocal hyperglycemia, results should be confirmed by repeat testing. The classification and Diagnosis of Diabetes Diabetes Care 2021; 46: S19-S40. Current interpretive data was last revised 2022. Testing performed by: [facility], [address], [place] [address] Calcium 10.3 8.5 - 10.3 mg/dL CERNER BJWCH Comment:Testing performed by : [facility], [address], [place] [address] Bilirubin, total <0.1 0.1 - 1.2 mg/dL CERNER BJWCH Comment:Testing performed by : [facility], [address], [place] [address] Protein, pl 7.2 6.5 - 8.5 g/dL CERNER BJWCH Comment:Testing performed by : [facility], [address], [place] [address] Albumin 4.5 3.5 - 5.0 g/dL CERNER BJWCH Comment:Testing performed by : [facility], [address], [place] [address] Alk phos 67 40 - 130 Units/L CERNER BJWCH Comment:Testing performed by : [facility], [address], [place] [address] ALT 20 7 - 45 Units/L CERNER BJWCH Comment:Testing performed by : [facility], [address], [place] [address] AST 21 10 - 45 Units/L CERNER BJWCH Comment: Hemolyzed; result may be falsely elevated. Testing performed by: [facility], [address], [place] [address] Blood 01/29/2024 1:04 PM EQUIPMENT SCHEDULER 01/29/2024 1:46 PM EQUIPMENT SCHEDULER Narrative [facility] - 01/29/2024 2:08 PM EQUIPMENT SCHEDULER Has the patient fasted?->No Rosy Lyons MD LAB BLOOD ORDERABLES Maribell quintin Result [facility] [address] [facility] [place] [address] * Targeted Opioid Screen, Ur (01/25/2024 10:07 AM EQUIPMENT SCHEDULER) [facility] Pain mgt 6-Acetylmorphine, Ur Not Detected CutOff 10 ng/mL Comment:Testing performed by : [facility], [address] [place] [address]., [address] Pain mgt Buprenorphine, Ur Not Detected CutOff 5 ng/mL [facility] MANJARREZ Comment:Testing performed by : [facility], [address] [place] [address]., [address] Pain mgt Buprenorphine metabolite (Norbuprenorphine), Ur Not Detected CutOff 5 ng/mL [facility] MANJARREZ Comment:Testing performed by : [facility], [address] [place] [address]., [address] Pain mgt Codeine, Ur Not Detected CutOff 25 ng/mL AUTUMN MANJARREZ Comment:Testing performed by : [facility], [address] [place] [address]., [id number] Pain mgt Hydrocodone, Ur Not Detected CutOff 25 ng/mL AUTUMN MANJARREZ Comment:Testing performed by : [facility], [address] [place] [address]., [id number] Pain mgt Hydromorphone, Ur Not Detected CutOff 25 ng/mL AUTUMN MANJARREZ Comment:Testing performed by : [facility], [address] [place] [address]., [id number] Pain mgt Methadone, Ur Not Detected CutOff 25 ng/mL AUTUMN MANJARREZ Comment:Testing performed by : [facility], [address] [place] [address]., [id number] Pain mgt Methadone Metabolite (EDDP), Ur Not Detected CutOff 25 ng/mL CERNER BJWCH Comment:Testing performed by : [facility], [address] [place]., [address] Pain mgt Morphine, Ur Not Detected CutOff 25 ng/mL CERNER BJWCH Comment:Testing performed by : [facility], [address] [place]., [address] Pain mgt Oxycodone, Ur Not Detected CutOff 25 ng/mL CERNER BJWCH Comment:Testing performed by : [facility], [address] [place]., [address] Pain mgt Oxymorphone, Ur Not Detected CutOff 25 ng/mL CERNER BJWCH Comment:Testing performed by : [facility], [address] [place]., [address] Pain mgt Tapentadol, Ur Not Detected CutOff 25 ng/mL CERNER BJWCH Comment:Testing performed by : [facility], [address] [place]., [address] Pain mgt Tramadol, Ur Not Detected CutOff 25 ng/mL CERNER BJWCH Comment:Testing performed by : [facility], [address] [place]., [address] Pain mgt Tramadol metabolite (O-desmethyltramado l), Ur Not Detected CutOff 25 ng/mL CERNER BJWCH Comment: Interpretive Data This test only detects free, unconjugated drugs. The absence of expected drug(s) and/or metabolite(s) may indicate non-compliance, inappropriate timing of specimen collection relative to the time of dosing, variability in absorption, diluted or adulterated urine, or other testing limitations. Questions concerning interpretation should be directed to the laboratory. The results of this test are to be used only for medical purposes and are not suitable for forensic use. This test was developed and its performance characteristics determined by [facility]. It has not been cleared or approved by the U.S. Food and Drug Administration. Current interpretive data was last revised 18. Testing performed by: [facility], [address] [place] [address] [place]., [address] Pain mgt Naloxone, ur Not Detected cutoff 20 ng/ml AUTUMN MANJARREZ Comment:Testing performed by : [facility], [address] [place]., [address] Urine 01/25/2024 10:0 7 AM EQUIPMENT SCHEDULER 01/25/2024 6:55 PM EQUIPMENT SCHEDULER us Notinfile Unknown LAB URINE ORDERABLES Final Res ult FRANKCHEVY LOKI [address] [facility]. [place] [address] * (ABNORMAL) Drugs of Abuse Screen, Urine with Reflex Confirmation (01/25/2024 10:07 AM EQUIPMENT SCHEDULER) Pathologist [facility] Amphetamine, ur Not Detected CutOff 500ng/mL Comment: Interpretive Data - Amphetamines: Samples containing greater than 500 ng/mL d-methamphetamine or other cross-reacting amphetamine compounds are reported as positive. Amphetamine immunoassays are subject to significant false positive rates due to cross-reactivity of non-amphetamine drugs. Confirmatory testing required for definitive results. Current Interpretive Data was last reviewed 2022. Barbiturates, ur Not Detected CutOff 200ng/mL AUTUMN MANJARREZ Comment: Interpretive Data - Barbiturates: Samples containing greater than 200 ng/mL secobarbital or other cross-reacting barbiturate compounds are reported as positive. False positive and false negative results are possible. Confirmatory testing required for definitive results. Current Interpretive Data was last reviewed 2022. Benzodiazepines, ur Screen Positive, presumptive (A) CutOff 100ng/mL AUTUMN MANJARREZ Comment: Interpretive Data - Benzodiazepines: Samples containing greater than 100 ng/mL nordiazepam or other cross-reacting compounds are reported as positive. False positive and false negative results are possible. Confirmatory testing required for definitive results. Current Interpretive Data was last reviewed 2022. Cannabinoids, ur Not Detected CutOff 50 ng/mL AUTUMN MANJARREZ Comment: Interpretive Data - Cannabinoids: Samples containing greater than 50 ng/mL delta-9 THC -COOH or other cross- reacting compounds are reported as positive. False positive and false negative results are possible. Confirmatory testing required for definitive results. Current Interpretive Data was last reviewed 2022. Cocaine, ur Not Detected CutOff 150ng/mL CERCHEVY MANJARREZ Comment: Interpretive Data - Cocaine: Samples containing greater than 150 ng/mL benzoylecgonine or other cross- reacting compounds are reported as positive. False positive and false negative results are possible. Confirmatory testing required for definitive results. Current Interpretive Data was last reviewed 2022. Fentanyl, Ur Not Detected Cutoff 1 ng/mL CERCHEVY MANJARREZ Comment: Interpretive Data - Fentanyl: Samples containing greater than 1 ng/mL fentanyl or other cross-reacting fentanyl compounds are reported as positive. False positive and false negative results are possible. Confirmatory testing required for definitive results. Current Interpretive Data was last reviewed 2022. Methadone, ur Not Detected CutOff 300ng/mL CERCHEVY LYONCH Comment: Interpretive Data - Methadone: Samples containing greater than 300 ng/mL d,l-methadone or other cross-reacting compounds are reported as positive. False positive and false negative results are possible. Confirmatory testing required for definitive results. Current Interpretive Data was last reviewed 2022. Opiates, ur Not Detected CutOff 300ng/mL CERCHEVY MANJARREZ Comment: Interpretive Data - Opiates: Samples containing greater than 300 ng/mL morphine or other cross-reacting compounds are reported as positive. False positive and false negative results are possible. Confirmatory testing required for definitive results. Current Interpretive Data was last reviewed 2022. Oxycodone, ur Not Detected CutOff 100ng/mL CERCHEVY MANJARREZ Comment: Interpretive Data - Oxycodone: Samples containing greater than 100 ng/mL oxycodone or other cross-reacting compounds are reported as positive. False positive and false negative results are possible. Confirmatory testing required for definitive results. Current Interpretive Data was last reviewed 2022. Phencyclidine, ur Not Detected CutOff 25 ng/mL CERCHEVY MANJARREZ Comment: Interpretive Data - Phencyclidine: Samples containing greater than 25 ng/mL phencyclidine or other cross-reacting compounds are reported as positive. False positive and false negative results are possible. Confirmatory testing required for definitive results. Current Interpretive Data was last reviewed 2022. Urine Creatinine 19 mg/dL AUTUMN MANJARREZ Comment: Interpretive Data Urine Creatinine: < 10 mg/dL is extremely dilute = or > 10 but < 20 mg/dL is dilute = or > 20 mg/dL is normal Current Interpretive Data was last revised on 2017. Urine 01/25/2024 10:0 7 AM EQUIPMENT SCHEDULER 01/25/2024 4:47 PM EQUIPMENT SCHEDULER Narrative AUTUMN MANJARREZ - 01/25/2024 5:59 PM EQUIPMENT SCHEDULER Drug of Abuse screening is performed by immunoassay for medical purposes only. This is not to be used for Pain Management purposes. If Detected, confirmation testing will be performed for Amphetamines, Cocaine, Fentanyl, Methadone, Opiates, Oxycodone or Phencyclidine. us Notinfile Unknown LAB URINE ORDERABLES Final Res ult AUTUMN TREJOCH [address] [facility]. [place] [address] * RAD ONC ARIA COURSE SUMMARY (01/21/2024 11:58 AM EQUIPMENT SCHEDULER) Course Name C2 GK 09/2023 ARIA Course Plan Date 10/08/2023 7:21 AM ARIA Elapsed Days 0 ARIA Course Intent Unknown ARIA Treatment Start Date 10/08/2023 ARIA Treatment Site A: GTV3_LtCere be ARIA Dose Given To Date (cGy) 2,000 ARIA Session Dosage Given (cGy) 0 ARIA Treatment Site B: GTV4_LtPari et ARIA Dose Given To Date (cGy) 2,000 ARIA Session Dosage Given (cGy) 0 ARIA Plan ID A: GTV3_LtCer ARIA Fractions Treated 1 ARIA Prescribed Dose Per Fraction (cGy) 2,000 ARIA Prescribed Total Dose (cGy) 2,000 ARIA Plan ID B: GTV4_LtPar ARIA Fractions Treated 1 ARIA Prescribed Dose Per Fraction (cGy) 2,000 ARIA Prescribed Total Dose (cGy) 2,000 ARIA 01/21/2024 11:5 8 AM EQUIPMENT SCHEDULER us Not In File Miscellaneous RADIATION ONCOLOGY ORD ERABLES Edited Result - Final ARIA * RAD ONC ARIA COURSE SUMMARY (01/21/2024 11:58 AM EQUIPMENT SCHEDULER) Course Name C1 GK 05/2023 ARIA Course Plan Date 05/13/2023 9:04 AM ARIA Elapsed Days 0 ARIA Course Intent Unknown ARIA Treatment Start Date 05/13/2023 ARIA Treatment Site A:GTV2_RtCe elba ARIA Dose Given To Date (cGy) 2,000 ARIA Session Dosage Given (cGy) 0 ARIA Treatment Site B:GTV1_RtFr ontal ARIA Dose Given To Date (cGy) 1,600 ARIA Session Dosage Given (cGy) 0 ARIA Plan ID A:GTV2_RtCe re ARIA Fractions Treated 1 ARIA Prescribed Dose Per Fraction (cGy) 2,000 ARIA Prescribed Total Dose (cGy) 2,000 ARIA Plan ID B:GTV1_RtFr on ARIA Fractions Treated 1 ARIA Prescribed Dose Per Fraction (cGy) 1,600 ARIA Prescribed Total Dose (cGy) 1,600 ARIA 01/21/2024 11:5 8 AM EQUIPMENT SCHEDULER us Not In File Miscellaneous RADIATION ONCOLOGY ORD ERABLES Final Result Performing Organization Address City/[facility]/ZIP Co de Phone Number ARIA * RAD ONC ARIA COURSE SUMMARY (01/21/2024 11:58 AM EQUIPMENT SCHEDULER) Course Name C3 01/2024 ARIA Course Plan Date 01/21/2024 9:24 AM ARIA Elapsed Days 0 ARIA Course Intent Unknown ARIA Treatment Start Date 01/21/2024 ARIA Treatment Site A:GTV5_LtFr ontal ARIA Dose Given To Date (cGy) 2,000 ARIA Session Dosage Given (cGy) 0 ARIA Plan ID GTV 5-6 ARIA Fractions Treated 1 ARIA Prescribed Dose Per Fraction (cGy) 2,000 ARIA Prescribed Total Dose (cGy) 2,000 ARIA 01/21/2024 11:5 8 AM EQUIPMENT SCHEDULER us Not In File Miscellaneous RADIATION ONCOLOGY ORD ERABLES Final Result BASSAM * RAD ONC ARIA SESSION SUMMARY (01/21/2024 11:55 AM EQUIPMENT SCHEDULER) Course Name C3 GK 01/2024 ARIA Course Plan Date 01/21/2024 9:24 AM ARIA Elapsed Days 0 ARIA Course Intent Unknown ARIA Treatment Start Date 01/21/2024 ARIA Treatment Site A:GTV5_LtFr ontal ARIA Dose Given To Date (cGy) 2,000 ARIA Session Dosage Given (cGy) 2,000 ARIA Plan ID GTV 5-6 ARIA Fractions Treated 1 ARIA Prescribed Dose Per Fraction (cGy) 2,000 ARIA Prescribed Total Dose (cGy) 2,000 ARIA 01/21/2024 11:5 5 AM EQUIPMENT SCHEDULER us Not In File Miscellaneous RADIATION ONCOLOGY ORD ERABLES Final Result Performing Organization Address [facility] Co de Phone Number BASSAM * Targeted Opioid Screen, Ur (01/18/2024 4:38 PM EQUIPMENT SCHEDULER) Pain mgt 6-Acetylmorphine, Ur Not Detected CutOff 10 ng/mL Comment:Testing performed by : [facility], [address] [place] [address], [place]., [address] Pain mgt Buprenorphine, Ur Not Detected CutOff 5 ng/mL AUTUMN MANJARREZ Comment:Testing performed by : [facility], [address] [facility] [place]., [address] Pain mgt Buprenorphine metabolite (Norbuprenorphine), Ur Not Detected CutOff 5 ng/mL AUTUMN MANJARREZ Comment:Testing performed by : [facility], [address] [place]., [address] Pain mgt Codeine, Ur Not Detected CutOff 25 ng/mL AUTUMN MANJARREZ Comment:Testing performed by : [facility], [address] [facility] [place] [address] Pain mgt Hydrocodone, Ur Not Detected CutOff 25 ng/mL CERNER BJWCH Comment:Testing performed by : [facility], [address] [place]., [address] Pain mgt Hydromorphone, Ur Not Detected CutOff 25 ng/mL CERNER BJWCH Comment:Testing performed by : [facility], [address] [place]., [address] Pain mgt Methadone, Ur Not Detected CutOff 25 ng/mL CERNER BJWCH Comment:Testing performed by : [facility], [address] [facility], [address] Pain mgt Methadone Metabolite (EDDP), Ur Not Detected CutOff 25 ng/mL CERNER BJWCH Comment:Testing performed by : [facility], [address] [place]., [address] Pain mgt Morphine, Ur Not Detected CutOff 25 ng/mL CERNER BJWCH Comment:Testing performed by : [facility], [address] [place]., [address] Pain mgt Oxycodone, Ur Not Detected CutOff 25 ng/mL CERNER BJWCH Comment:Testing performed by : [facility], [address] [place]., [address] Pain mgt Oxymorphone, Ur Not Detected CutOff 25 ng/mL CERNER BJWCH Comment:Testing performed by : [facility], [address] [place]., [address] Pain mgt Tapentadol, Ur Not Detected CutOff 25 ng/mL CERNER BJWCH Comment:Testing performed by : [facility], [address] [place] [address]., [address] Pain mgt Tramadol, Ur Not Detected CutOff 25 ng/mL CERNER BJWCH Comment:Testing performed by : [facility], [address] [place]., [address] Pain mgt Tramadol metabolite (O-desmethyltramado l), Ur Not Detected CutOff 25 ng/mL CERNER BJWCH Comment: Interpretive Data This test only detects free, unconjugated drugs. The absence of expected drug(s) and/or metabolite(s) may indicate non-compliance, inappropriate timing of specimen collection relative to the time of dosing, variability in absorption, diluted or adulterated urine, or other testing limitations. Questions concerning interpretation should be directed to the laboratory. The results of this test are to be used only for medical purposes and are not suitable for forensic use. This test was developed and its performance characteristics determined by [facility]. It has not been cleared or approved by the U.S. Food and Drug Administration. Current interpretive data was last revised 18. Testing performed by: [facility], [address] [place]., [address] Pain mgt Naloxone, ur Not Detected cutoff 20 ng/ml AUTUMN MANJARREZ Comment:Testing performed by : [facility], [address] [place]., [address] Urine 01/18/2024 4:38 PM EQUIPMENT SCHEDULER 01/18/2024 6:32 PM EQUIPMENT SCHEDULER us Jluio Cesar Ocampo MD LAB URINE YAN DERAS Final Result FRANKCHEVY TREJOWCH [address] [facility]. Department [place] [address] * (ABNORMAL) Drugs of Abuse Screen, Urine with Reflex Confirmation (01/18/2024 4:38 PM EQUIPMENT SCHEDULER) [facility] Amphetamine, ur Not Detected CutOff 500ng/mL Comment: Interpretive Data - Amphetamines: Samples containing greater than 500 ng/mL d-methamphetamine or other cross-reacting amphetamine compounds are reported as positive. Amphetamine immunoassays are subject to significant false positive rates due to cross-reactivity of non-amphetamine drugs. Confirmatory testing required for definitive results. Current Interpretive Data was last reviewed 2022. Barbiturates, ur Not Detected CutOff 200ng/mL AUTUMN MANJARREZ Comment: Interpretive Data - Barbiturates: Samples containing greater than 200 ng/mL secobarbital or other cross-reacting barbiturate compounds are reported as positive. False positive and false negative results are possible. Confirmatory testing required for definitive results. Current Interpretive Data was last reviewed 2022. Benzodiazepines, ur Screen Positive, presumptive (A) CutOff 100ng/mL CERNER SONALICH Comment: Interpretive Data - Benzodiazepines: Samples containing greater than 100 ng/mL nordiazepam or other cross-reacting compounds are reported as positive. False positive and false negative results are possible. Confirmatory testing required for definitive results. Current Interpretive Data was last reviewed 2022. Cannabinoids, ur Not Detected CutOff 50 ng/mL CERNER MAYAWCH Comment: Interpretive Data - Cannabinoids: Samples containing greater than 50 ng/mL delta-9 THC -COOH or other cross- reacting compounds are reported as positive. False positive and false negative results are possible. Confirmatory testing required for definitive results. Current Interpretive Data was last reviewed 2022. Cocaine, ur Not Detected CutOff 150ng/mL CERCHEVY MANJARREZ Comment: Interpretive Data - Cocaine: Samples containing greater than 150 ng/mL benzoylecgonine or other cross- reacting compounds are reported as positive. False positive and false negative results are possible. Confirmatory testing required for definitive results. Current Interpretive Data was last reviewed 2022. Fentanyl, Ur Not Detected Cutoff 1 ng/mL CERCHEVY MANJARREZ Comment: Interpretive Data - Fentanyl: Samples containing greater than 1 ng/mL fentanyl or other cross-reacting fentanyl compounds are reported as positive. False positive and false negative results are possible. Confirmatory testing required for definitive results. Current Interpretive Data was last reviewed 2022. Methadone, ur Not Detected CutOff 300ng/mL CERNER SONALICH Comment: Interpretive Data - Methadone: Samples containing greater than 300 ng/mL d,l-methadone or other cross-reacting compounds are reported as positive. False positive and false negative results are possible. Confirmatory testing required for definitive results. Current Interpretive Data was last reviewed 2022. Opiates, ur Not Detected CutOff 300ng/mL CERNER MAYAWCH Comment: Interpretive Data - Opiates: Samples containing greater than 300 ng/mL morphine or other cross-reacting compounds are reported as positive. False positive and false negative results are possible. Confirmatory testing required for definitive results. Current Interpretive Data was last reviewed 2022. Oxycodone, ur Not Detected CutOff 100ng/mL AUTUMN MANJARREZ Comment: Interpretive Data - Oxycodone: Samples containing greater than 100 ng/mL oxycodone or other cross-reacting compounds are reported as positive. False positive and false negative results are possible. Confirmatory testing required for definitive results. Current Interpretive Data was last reviewed 2022. Phencyclidine, ur Not Detected CutOff 25 ng/mL AUTUMN MANJARREZ Comment: Interpretive Data - Phencyclidine: Samples containing greater than 25 ng/mL phencyclidine or other cross-reacting compounds are reported as positive. False positive and false negative results are possible. Confirmatory testing required for definitive results. Current Interpretive Data was last reviewed 2022. Urine Creatinine 12 mg/dL AUTUMN MANJARREZ Comment: Interpretive Data Urine Creatinine: < 10 mg/dL is extremely dilute = or > 10 but < 20 mg/dL is dilute = or > 20 mg/dL is normal Current Interpretive Data was last revised on 2017. Urine 01/18/2024 4:38 PM EQUIPMENT SCHEDULER 01/18/2024 4:47 PM EQUIPMENT SCHEDULER Narrative [facility] - 01/18/2024 5:52 PM EQUIPMENT SCHEDULER Drug of Abuse screening is performed by immunoassay for medical purposes only. This is not to be used for Pain Management purposes. If Detected, confirmation testing will be performed for Amphetamines, Cocaine, Fentanyl, Methadone, Opiates, Oxycodone or Phencyclidine. us Julio Cesar Ocampo MD LAB URINE YAN DERAS Final Result FRANKCHEVY MAYANYU [facility] [address] [facility]. Department [place] [address] * eGFR (01/15/2024 1:14 PM EQUIPMENT SCHEDULER) eGFR 67 >=60 mL/min/1. 73 m2 Comment: Interpretive Data Reference Interval Normal >/= 90 mL/min/1.73m2 Mildly decreased* 60 - 89 mL/min/1.73m2 Mildly to moderately decreased 45 - 59 mL/min/1.73m2 Moderately to severely decreased 30 - 44 mL/min/1.73m2 Severely decreased 15 - 29 mL/min/1.73m2 Kidney Failure < 15 mL/min/1.73m2 *Relative to young adult level Estimated glomerular filtration rate is determined by the 2020 CKD-EPI equation recommended by the National Kidney Foundation (A Unifying Approach to GFR Estimation: Recommendations of the NKF-ASK Task Force on Reassessing the Inclusion of Race in Diagnosing Kidney Disease, JASN 202). The CKD-EPI equation should not be used for patients with unstable renal function and has not been validated in children and those over 70. Current interpretive data was last reviewed 2020. Testing performed by: [facility], [address] [place] [address] Blood 01/15/2024 1:14 PM EQUIPMENT SCHEDULER 01/15/2024 1:34 PM EQUIPMENT SCHEDULER us Rosy Lyons MD LAB BLOOD ORDERABLES Maribell l Result AUTUMN TREJONYU [facility] [id number] [address]. Department [place] [address] * (ABNORMAL) Differential, auto (01/15/2024 1:14 PM EQUIPMENT SCHEDULER) Neutrophil abs 11.3(H) 1.5 - 6.5 K/cumm Comment:Testing performed by : [facility], [facility], [address] [place] [address] Imm gran abs 0.2(H) 0.0 - 0.1 K/cumm AUTUMN MANJARREZ Comment:Testing performed by : [facility], [facility], [address] [place] [address] Lymphocyte abs 0.8 0.8 - 3.3 K/cumm AUTUMN MANJARREZ Comment:Testing performed by : [facility], [address] [place] [address] Monocyte abs 0.4 0.2 - 0.8 K/cumm AUTUMN MANJARREZ Comment:Testing performed by : [facility] 2, [address] [place] [address] Eosinophil abs 0.0 0.0 - 0.5 K/cumm CERNER BJWCH Comment:Testing performed by : [facility], [facility], [address] [place] [address] Basophil abs 0.0 0.0 - 0.1 K/cumm CERNER BJWCH Comment:Testing performed by : [facility], [facility], [address] [place] [address] Neutrophil pct 88.7 % CERNER BJWCH Comment: Interpretive Data Percent cell count reference ranges are not reported, since discordance with absolute values may lead to misinterpretation of CBC data. Current Interpretive Data was last revised on 2017. Testing performed by: [facility], [facility], [address] [place] [address] Imm gran pct 1.2 % CERNER BJWCH Comment: Interpretive Data Percent cell count reference ranges are not reported, since discordance with absolute values may lead to misinterpretation of CBC data. Current Interpretive Data was last revised on 2017. Testing performed by: [facility], [facility], [address] [place] [address] Lymphocyte pct 6.4 % CERNER BJWCH Comment: Interpretive Data Percent cell count reference ranges are not reported, since discordance with absolute values may lead to misinterpretation of CBC data. Current Interpretive Data was last revised on 2017. Testing performed by: [facility], [facility], [address] [place] [address] Monocyte pct 3.3 % CERNER BJWCH Comment: Interpretive Data Percent cell count reference ranges are not reported, since discordance with absolute values may lead to misinterpretation of CBC data. Current Interpretive Data was last revised on 2017. Testing performed by: [facility], [facility], [address] [place] [address] Eosinophil pct 0.2 % CERNER BJWCH Comment: Interpretive Data Percent cell count reference ranges are not reported, since discordance with absolute values may lead to misinterpretation of CBC data. Current Interpretive Data was last revised on 2017. Testing performed by: [place] [address] [place] [address] Basophil pct 0.2 % AUTUMN MANJARREZ Comment: Interpretive Data Percent cell count reference ranges are not reported, since discordance with absolute values may lead to misinterpretation of CBC data. Current Interpretive Data was last revised on 2017. Testing performed by: [place] [address] [place] [address] Blood 01/15/2024 1:14 PM EQUIPMENT SCHEDULER 01/15/2024 1:14 PM EQUIPMENT SCHEDULER Rosy Lyons MD LAB BLOOD ORDERABLES Maribell ribeiro Result AUTUMN TREJONYU [facility] [address] [facility] Department [place] [address] * (ABNORMAL) CBC with auto differential (01/15/2024 1:14 PM EQUIPMENT SCHEDULER) WBC 12.7(H) 3.8 - 9.9 K/cumm Comment:Testing performed by : [place] [address] [place] [address] Hgb 13.4 11.9 - 15.5 g/dL AUTUMN MANJARREZ Comment:Testing performed by : [address] [place] [address] Hct 40.1 35.6 - 45.5 % AUTUMN MANJARREZ Comment:Testing performed by : [place] [address] [place] [address] Plt 219 150 - 400 K/cumm AUTUMN MANJARREZ Comment:Testing performed by : [place] [address] [place] [address] MPV 9.1 9.1 - 12.3 fL AUTUMN MANJARREZ Comment:Testing performed by : [facility], [facility], [address] [place] [address] RBC 4.22 3.90 - 5.20 M/cumm AUTUMN LYONCH Comment:Testing performed by : [facility], [facility], [address] [place] [address] MCV 95 81 - 96 fL AUTUMN LYONCH Comment:Testing performed by : [place] [address], [address] [place] [address] MCH 31.8 27.1 - 33.3 pg [facility] Comment:Testing performed by : [facility], [facility], [address] [place] [address] MCHC 33.4 32.3 - 35.7 g/dL AUTUMN TREJOCH Comment:Testing performed by : [place] [address], [address] [place] [address] RDW CV 13.5 11.1 - 14.9 % [facility] Comment:Testing performed by : [facility], [facility], [address] [place] [address] RDW SD 47.1 35.7 - 48.1 fL [facility] Comment:Testing performed by : [facility] 2, [address] [place] [address] Blood 01/15/2024 1:14 PM EQUIPMENT SCHEDULER 01/15/2024 1:14 PM EQUIPMENT SCHEDULER us Rosy Lyons MD LAB BLOOD ORDERABLES Maribell l Result [facility] [id number] Department of Laboratories [place], [place] [id number] * (ABNORMAL) Comprehensive metabolic panel (01/15/2024 1:14 PM EQUIPMENT SCHEDULER) Sodium 140 135 - 145 mmol/L Comment:Testing performed by : [facility], [address], [place] [address] Potassium, pl 4.9 3.3 - 4.9 mmol/L CERNER BJWCH Comment:Testing performed by : [facility], [address], [place] [address] Chloride 99 97 - 110 mmol/L CERNER BJWCH Comment:Testing performed by : [facility], [address], [place] [address] CO2 30 22 - 32 mmol/L CERNER BJWCH Comment:Testing performed by : [facility], [address], [place] [address] Anion gap 11 2 - 15 mmol/L CERNER BJWCH Comment:Testing performed by : [facility], [address], [place] [address] BUN 19 6 - 25 mg/dL CERNER BJWCH Comment:Testing performed by : [facility], [address], [place] [address] Creatinine 0.98 0.60 - 1.10 mg/dL CERNER BJWCH Comment:Testing performed by : [facility], [address], [place] [address] Glucose 135 70 - 199 mg/dL CERNER BJWCH Comment: Interpretive Data Fasting glucose >/= 126 mg/dl is diagnostic for diabetes. Fasting is defined as no caloric intake for at least 8 hours. Fasting glucose between 100 mg/dl to 125 mg/dl is diagnostic of prediabetes. In a patient with classic symptoms of hyperglycemia or hyperglycemic crisis, a random glucose >/= 200 mg/dl is diagnostic for diabetes. In the absence of unequivocal hyperglycemia, results should be confirmed by repeat testing. The classification and Diagnosis of Diabetes Diabetes Care 2021; 46: S19-S40. Current interpretive data was last revised 2022. Testing performed by: [facility], [address], [place] [address] Calcium 10.4(H) 8.5 - 10.3 mg/dL CERNER BJWCH Comment:Testing performed by : [facility], [address], [place] [address] Bilirubin, total 0.2 0.1 - 1.2 mg/dL CERNER BJWCH Comment:Testing performed by : [facility], [address], [place] [address] Protein, pl 7.1 6.5 - 8.5 g/dL CERNER BJWCH Comment:Testing performed by : [facility], [address], [place] [address] Albumin 4.1 3.5 - 5.0 g/dL CERNER BJWCH Comment:Testing performed by : [facility], [address], [place] [address] Alk phos 60 40 - 130 Units/L CERNER BJWCH Comment:Testing performed by : [facility], [address], [place] [address] ALT 21 7 - 45 Units/L CERNER BJWCH Comment:Testing performed by : [facility], [address], [place] [address] AST 13 10 - 45 Units/L CERNER BJWCH Comment:Testing performed by : [facility], [address], [place] [address] Blood 01/15/2024 1:14 PM EQUIPMENT SCHEDULER 01/15/2024 1:34 PM EQUIPMENT SCHEDULER Narrative AUTUMN MANJARREZ - 01/15/2024 2:04 PM EQUIPMENT SCHEDULER Has the patient fasted?->No us Rosy Lyons MD LAB BLOOD ORDERABLES Maribell l Result [facility] [address] Department [place] [address] * MRI Brain Tumor W WO Contrast (01/12/2024 11:06 AM EQUIPMENT SCHEDULER) Anatomical Region Laterality Modality Head and Neck N/A Magnetic Resonan ce 01/12/2024 12:3 0 PM EQUIPMENT SCHEDULER Addenda Addendum by Sedrick Alaniz MD PhD on 01/20/2024 9:28 AM EQUIPMENT SCHEDULER Upon further review, there is a focus of enhancement along the right cerebral convexity measuring 6 mm (series 92601, image 137). There is superimposed intrinsic T1 hyperintensity and susceptibility artifact. 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 Dictated by: Abe Pagan D.O. The radiology attending physician has personally reviewed this study, and had reviewed and/or edited this written report and agrees with it. Electronically signed by: Sedrick Alaniz M.D. Impressions 01/12/2024 1:20 PM EQUIPMENT SCHEDULER 1. Left paramedian frontal lobe intraparenchymal hemorrhage measuring 18 x 16 mm in transaxial dimension. Mild surrounding FLAIR hyperintense vasogenic edema. Intrinsic T1 hyperintensity limits evaluation for enhancement although central enhancement is suggested. Findings are concerning for hemorrhagic metastasis. 2. Post treatment changes consistent with Gamma knife radiosurgery as described above. Treated lesions demonstrate no significant residual enhancement. Decreased conspicuity of blood products associated with a right frontal lobe treated lesion. No new enhancing lesions are identified. The Critical results were discussed with [place] by Dr. Pagan on 01/12/2024 at 12:30 PM. Dictated by: Abe Pagan D.O. The radiology attending physician has personally reviewed this study, and had reviewed and/or edited this written report and agrees with it. Electronically signed by: Sedrick Alaniz M.D. Narrative 01/12/2024 1:20 PM EQUIPMENT SCHEDULER EXAMINATION: Magnetic resonance imaging (MRI) of the brain and brainstem without and with contrast HISTORY: Small cell lung cancer the right lower lobe initially diagnosed with intracranial metastatic disease 04/2023, adrenal metastatic disease diagnosed 05/11/2023, treated with chemotherapy and immunotherapy with carboplatin, etoposide, and atezolizumab completed 07/26/2023, then maintenance atezolizumab, most recently with cycle 7 on 09/25/2023. Gamma knife 10/08/2023 left cerebellar and left parietal lesions. Gamma knife to right frontal and right cerebellar lesion 05/13/2023. TECHNIQUE: Multiplanar multi-weighted MRI of the brain and brainstem was performed without and with intravenous contrast using the brain tumor protocol. This included high-resolution 3D T1-weighted images without and with intravenous contrast and dynamic susceptibility contrast data for perfusion analysis. Contrast information: 11 mL Gadoterate Meglumine COMPARISON: MRI brain gamma knife 09/29/2023. MRI brain without and with contrast 09/09/2023. FINDINGS: Post treatment changes consistent with Gamma knife radiosurgery to posterior right frontal, right inferior cerebellar, left cerebellar and left parietal lesions. There is no significant enhancement associated with the cerebellar lesions. These lesions demonstrate susceptibility artifact suggestive of blood products. Interval decrease in conspicuity of right frontal lobe lesion and associated intrinsic T1 hyperintense blood products. Interval development of a hemorrhagic focus in the left paramedian frontal lobe measuring 18 x 16 mm in transaxial dimension (series [id number], image 17). Central enhancement is suggested. There is mild associated surrounding are hyperintense vasogenic edema. The scalp and calvarium are normal. The superior sagittal sinus demonstrates normal venous flow. The corpus callosum is normal in shape and signal intensity. The pituitary and sella are normal. The brainstem and craniocervical junction are unremarkable. Diffusion weighted images reveal no hyperintensities to suggest acute cerebral infarction. Mild T2/FLAIR signal hyperintensity in the periventricular deep white matter, nonspecific and most commonly seen with chronic small vessel ischemic disease. The ventricles are normal in size and position without evidence of hydrocephalus. The paranasal sinuses are normal. Trace left greater than right mastoid fluid. The orbits appear normal. Normal flow voids are demonstrated in the carotid arteries and basilar artery. 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 Gamma knife 10/08/2023 left cerebellar and left parietal lesions. Gamma knife to right frontal and right cerebellar lesion 05/13/2023. TECHNIQUE: Multiplanar multi-weighted MRI of the brain and brainstem was performed without and with intravenous contrast using the brain tumor protocol. This included high-resolution 3D T1-weighted images without and with intravenous contrast and dynamic susceptibility contrast data for perfusion analysis. Contrast information: 11 mL Gadoterate Meglumine COMPARISON: MRI brain gamma knife 09/29/2023. MRI brain without and with contrast 09/09/2023. FINDINGS: Post treatment changes consistent with Gamma knife radiosurgery to posterior right frontal, right inferior cerebellar, left cerebellar and left parietal lesions. There is no significant enhancement associated with the cerebellar lesions. These lesions demonstrate susceptibility artifact suggestive of blood products. Interval decrease in conspicuity of right frontal lobe lesion and associated intrinsic T1 hyperintense blood products. Interval development of a hemorrhagic focus in the left paramedian frontal lobe measuring 18 x 16 mm in transaxial dimension (series [id number], image 17). Central enhancement is suggested. There is mild associated surrounding are hyperintense vasogenic edema. The scalp and calvarium are normal. The superior sagittal sinus demonstrates normal venous flow. The corpus callosum is normal in shape and signal intensity. The pituitary and sella are normal. The brainstem and craniocervical junction are unremarkable. Diffusion weighted images reveal no hyperintensities to suggest acute cerebral infarction. Mild T2/FLAIR signal hyperintensity in the periventricular deep white matter, nonspecific and most commonly seen with chronic small vessel ischemic disease. The ventricles are normal in size and position without evidence of hydrocephalus. The paranasal sinuses are normal. Trace left greater than right mastoid fluid. The orbits appear normal. Normal flow voids are demonstrated in the carotid arteries and basilar artery. IMPRESSION: 1. Left paramedian frontal lobe intraparenchymal hemorrhage measuring 18 x 16 mm in transaxial dimension. Mild surrounding FLAIR hyperintense vasogenic edema. Intrinsic T1 hyperintensity limits evaluation for enhancement although central enhancement is suggested. Findings are concerning for hemorrhagic metastasis. 2. Post treatment changes consistent with Gamma knife radiosurgery as described above. Treated lesions demonstrate no significant residual enhancement. Decreased conspicuity of blood products associated with a right frontal lobe treated lesion. No new enhancing lesions are identified. The Critical results were discussed with Zeny by Dr. Pagan on 01/12/2024 at 12:30 PM. Dictated by: Abe aPgan D.O. The radiology attending physician has personally reviewed this study, and had reviewed and/or edited this written report and agrees with it. Electronically signed by: Sedrick Alaniz M.D. Rex Moura MD IMG MRI PROCEDURES Donaldo marsha Result - Final * eGFR (12/25/2023 9:19 AM EQUIPMENT SCHEDULER) eGFR >90 >=60 mL/min/1. 73 m2 Comment: Interpretive Data Reference Interval Normal >/= 90 mL/min/1.73m2 Mildly decreased* 60 - 89 mL/min/1.73m2 Mildly to moderately decreased 45 - 59 mL/min/1.73m2 Moderately to severely decreased 30 - 44 mL/min/1.73m2 Severely decreased 15 - 29 mL/min/1.73m2 Kidney Failure < 15 mL/min/1.73m2 *Relative to young adult level Estimated glomerular filtration rate is determined by the 2020 CKD-EPI equation recommended by the National Kid[employer] (A Unifying Approach to GFR Estimation: Recommendations of the NKF-ASK Task Force on Reassessing the Inclusion of Race in Diagnosing Kidney Disease, JASN 2020). The CKD-EPI equation should not be used for patients with unstable renal function and has not been validated in children and those over 70. Current interpretive data was last reviewed 2020. Testing performed by: [facility], [address] [place] [address] Blood 12/25/2023 9:19 AM EQUIPMENT SCHEDULER 12/25/2023 9:36 AM EQUIPMENT SCHEDULER Janey Mendez NP LAB BLOOD ORDERABLES Final Result [facility] [address] Department of Laboratories [place], [place] [id number] * (ABNORMAL) Differential, auto (12/25/2023 9:19 AM EQUIPMENT SCHEDULER) Pathologist [facility] Neutrophil abs 8.1(H) 1.5 - 6.5 K/cumm Comment:Testing performed by : [facility], [facility], [address] [place] [address] Imm gran abs 0.1 0.0 - 0.1 K/cumm AUTUMN MANJARREZ Comment:Testing performed by : [facility], [facility], [address] [place] [address] Lymphocyte abs 1.8 0.8 - 3.3 K/cumm CERNER BJWCH Comment:Testing performed by : [facility], [facility], [address] [place] [address] Monocyte abs 0.9(H) 0.2 - 0.8 K/cumm CERNER BJWCH Comment:Testing performed by : [facility], [facility], [address] [place] [address] Eosinophil abs 0.0 0.0 - 0.5 K/cumm CERNER BJWCH Comment:Testing performed by : [facility], [facility], [address] [place] [address] Basophil abs 0.0 0.0 - 0.1 K/cumm CERNER BJWCH Comment:Testing performed by : [facility], [facility], [address] [place] [address] Neutrophil pct 74.4 % CERNER BJWCH Comment: Interpretive Data Percent cell count reference ranges are not reported, since discordance with absolute values may lead to misinterpretation of CBC data. Current Interpretive Data was last revised on 2017. Testing performed by: [facility], [facility], [address] [place] [address] Imm gran pct 0.5 % CERNER BJWCH Comment: Interpretive Data Percent cell count reference ranges are not reported, since discordance with absolute values may lead to misinterpretation of CBC data. Current Interpretive Data was last revised on 2017. Testing performed by: [facility], [facility], [address] [place] [address] Lymphocyte pct 16.1 % CERNER BJWCH Comment: Interpretive Data Percent cell count reference ranges are not reported, since discordance with absolute values may lead to misinterpretation of CBC data. Current Interpretive Data was last revised on 2017. Testing performed by: [facility], [facility], [address] [place] [address] Monocyte pct 8.5 % CERNER BJWCH Comment: Interpretive Data Percent cell count reference ranges are not reported, since discordance with absolute values may lead to misinterpretation of CBC data. Current Interpretive Data was last revised on 2017. Testing performed by: [facility], [facility], [address] [place] [address] Eosinophil pct 0.2 % [facility] Comment: Interpretive Data Percent cell count reference ranges are not reported, since discordance with absolute values may lead to misinterpretation of CBC data. Current Interpretive Data was last revised on 2017. Testing performed by: [facility], [facility], [address] [place] [address] Basophil pct 0.3 % [facility] Comment: Interpretive Data Percent cell count reference ranges are not reported, since discordance with absolute values may lead to misinterpretation of CBC data. Current Interpretive Data was last revised on 2017. Testing performed by: [facility], [facility], [address] [place] [address] Blood 12/25/2023 9:19 AM EQUIPMENT SCHEDULER 12/25/2023 9:20 AM EQUIPMENT SCHEDULER Janey eMndez LAP REGULATOR LAB BLOOD ORDERABLES Final Result Performing Organization Address City/[facility]/ZIP Co de Phone Number AUTUM[facility] [address] [facility]. [place] [address] * Thyroid Function Kiel (12/25/2023 9:19 AM EQUIPMENT SCHEDULER) TSH 0.63 0.30 - 4.20 mcIUnit/mL Comment:Testing performed by : [facility], [address] [place] [address] Blood 12/25/2023 9:19 AM EQUIPMENT SCHEDULER 12/25/2023 9:36 AM EQUIPMENT SCHEDULER Janey Mendez LAP REGULATOR LAB BLOOD ORDERABLES Final Result [facility] [address] [facility]. [facility] [place] [address] * (ABNORMAL) CBC with auto differential (12/25/2023 9:19 AM EQUIPMENT SCHEDULER) [facility] Signature WBC 10.9(H) 3.8 - 9.9 K/cumm Comment:Testing performed by : [place] [address], [address], [place] [address] Hgb 12.7 11.9 - 15.5 g/dL CERNER BJWCH Comment:Testing performed by : [place] [address], [address], [place] [address] Hct 37.6 35.6 - 45.5 % CERNER BJWCH Comment:Testing performed by : [place] [address], [address], [place] [address] Plt 243 150 - 400 K/cumm CERNER BJWCH Comment:Testing performed by : [place] [address] [place] [address] MPV 9.6 9.1 - 12.3 fL CERNER BJWCH Comment:Testing performed by : [place] [address] [place] [address] RBC 4.02 3.90 - 5.20 M/cumm CERNER BJWCH Comment:Testing performed by : [place] [address], [address], [place] [address] MCV 94 81 - 96 fL CERNER BJWCH Comment:Testing performed by : [place] [address], [address], [place] [address] MCH 31.6 27.1 - 33.3 pg CERNER BJWCH Comment:Testing performed by : [place] [address], [address] [place] [address] MCHC 33.8 32.3 - 35.7 g/dL CERNER BJWCH Comment:Testing performed by : [place] [address], [address] [place] [address] RDW CV 12.6 11.1 - 14.9 % CERNER BJWCH Comment:Testing performed by : [facility], [facility], [address] [place] [address] RDW SD 43.6 35.7 - 48.1 fL AUTUMN MANJARREZ Comment:Testing performed by : [facility], [facility], [address] [place] [address] Blood 12/25/2023 9:19 AM EQUIPMENT SCHEDULER 12/25/2023 9:20 AM EQUIPMENT SCHEDULER us Janey Mendez LAP REGULATOR LAB BLOOD ORDERABLES Final Result [facility]N [facility] [address]. Department [place] [address] * Comprehensive metabolic panel (12/25/2023 9:19 AM EQUIPMENT SCHEDULER) Sodium 138 135 - 145 mmol/L Comment:Testing performed by : [facility], [address], [place] [address] Potassium, pl 4.3 3.3 - 4.9 mmol/L AUTUMN MANJARREZ Comment:Testing performed by : [facility], [address] [place] [address] Chloride 103 97 - 110 mmol/L AUTUMN MANJARREZ Comment:Testing performed by : [facility], [address], [place] [address] CO2 26 22 - 32 mmol/L AUTUMN MANJARREZ Comment:Testing performed by : [facility], [address], [place] [address] Anion gap 10 2 - 15 mmol/L AUTUMN MANJARREZ Comment:Testing performed by : [facility], [address], [place] [address] BUN 19 6 - 25 mg/dL AUTUMN LYONCH Comment:Testing performed by : [facility], [address], [place] [address] Creatinine 0.75 0.60 - 1.10 mg/dL AUTUMN TREJOWCH Comment:Testing performed by : [facility], [address], [place] [address] Glucose 98 70 - 199 mg/dL CERNER BJWCH Comment: Interpretive Data Fasting glucose >/= 126 mg/dl is diagnostic for diabetes. Fasting is defined as no caloric intake for at least 8 hours. Fasting glucose between 100 mg/dl to 125 mg/dl is diagnostic of prediabetes. In a patient with classic symptoms of hyperglycemia or hyperglycemic crisis, a random glucose >/= 200 mg/dl is diagnostic for diabetes. In the absence of unequivocal hyperglycemia, results should be confirmed by repeat testing. The classification and Diagnosis of Diabetes Diabetes Care 2021; 46: S19-S40. Current interpretive data was last revised 2022. Testing performed by: [facility], [address], [place] [address] Calcium 9.4 8.5 - 10.3 mg/dL CERNER BJWCH Comment:Testing performed by : [facility], [address], [place] [address] Bilirubin, total 0.2 0.1 - 1.2 mg/dL CERNER BJWCH Comment:Testing performed by : [facility], [address], [place] [address] Protein, pl 7.1 6.5 - 8.5 g/dL CERNER BJWCH Comment:Testing performed by : [facility], [address], [place] [address] Albumin 4.4 3.5 - 5.0 g/dL CERNER BJWCH Comment:Testing performed by : [facility], [address], [place] [address] Alk phos 64 40 - 130 Units/L CERNER BJWCH Comment:Testing performed by : [facility], [address], [place] [address] ALT 13 7 - 45 Units/L CERNER BJWCH Comment:Testing performed by : [facility], [address], [place] [address] AST 14 10 - 45 Units/L CERNER BJWCH Comment:Testing performed by : [facility], [address] [place] [address] Blood 12/25/2023 9:19 AM EQUIPMENT SCHEDULER 12/25/2023 9:36 AM EQUIPMENT SCHEDULER Janey Mendez LAP REGULATOR LAB BLOOD ORDERABLES Final Result Performing Organization Address City/[facility]/ZIP Co de Phone Number AUT[facility] [address] [facility]. Department [place] [address] * Imaging Lumbar/Caudal Epidural Steroid INJ ([id number]) (12/24/2023 3:03 PM EQUIPMENT SCHEDULER) Narrative RAD_PACS_BJWCH - 12/24/2023 3:03 PM EQUIPMENT SCHEDULER The images from this study are not interpreted by Radiology. Please refer to the physician's procedure / OR operative note. Julio Cesar Ocampo MD IMG PAIN MGMT PROCEDURES Final Result Performing Organization Address [facility] Co de Phone Number RAD_PACS_BJWCH * C. difficile testing Stool (12/24/2023 2:01 PM EQUIPMENT SCHEDULER) [facility] Result Negative Negative Comment:Testing performed by : [facility], [address] [place] [address]., [id number] Toxin Result Negative Negative AUTUMN MANJARREZ Comment:Testing performed by : [facility], [address] [place] [address]., [address] C. diff result Negative, free toxin Negative, free toxin AUTUMN MANJARREZ Comment:Testing performed by : [facility], [address] [place] [address]., [address] C. diff interp Negative for toxigenic Clostridioides (Clostridium) difficile. Analysis was performed using a glutamate dehydrogenase antigen detection assay combined with a C. difficile toxin detection assay. AUTUMN MANJARREZ Comment:Testing performed by : [facility], [address] [place] [address]., [address] Stool 12/24/2023 2:01 PM EQUIPMENT SCHEDULER 12/24/2023 5:16 PM EQUIPMENT SCHEDULER Rosy Lyons MD LAB MICROBIOLOGY - GENERA L ORDERABLES Final Result Performing Organization Address City/[facility]/ZIP Co de Phone Number AUTUMN TREJONYU [facility] [address] [address]. Department [place] [address] * eGFR (12/18/2023 10:40 AM EQUIPMENT SCHEDULER) eGFR 83 >=60 mL/min/1. 73 m2 Comment: Interpretive Data Reference Interval Normal >/= 90 mL/min/1.73m2 Mildly decreased* 60 - 89 mL/min/1.73m2 Mildly to moderately decreased 45 - 59 mL/min/1.73m2 Moderately to severely decreased 30 - 44 mL/min/1.73m2 Severely decreased 15 - 29 mL/min/1.73m2 Kidney Failure < 15 mL/min/1.73m2 *Relative to young adult level Estimated glomerular filtration rate is determined by the 2020 CKD-EPI equation recommended by the National Kidney Foundation (A Unifying Approach to GFR Estimation: Recommendations of the NKF-ASK Task Force on Reassessing the Inclusion of Race in Diagnosing Kidney Disease, JASN 2020). The CKD-EPI equation should not be used for patients with unstable renal function and has not been validated in children and those over 70. Current interpretive data was last reviewed 2020. Testing performed by: [facility], [address] [place] [address] Blood 12/18/2023 10:4 0 AM EQUIPMENT SCHEDULER 12/18/2023 11:03 AM EQUIPMENT SCHEDULER us Janey Mendez LAP REGULATOR LAB BLOOD ORDERABLES Final Result Performing Organization Address City/[facility]/ZIP Co de Phone Number AUTUMN TREJOCH [address] [facility] [place] [address] * Differential, auto (12/18/2023 10:40 AM EQUIPMENT SCHEDULER) Neutrophil abs 6.1 1.5 - 6.5 K/cumm Comment:Testing performed by : [facility], [facility], [address] [place] [address] Imm gran abs 0.0 0.0 - 0.1 K/cumm CERNER BJWCH Comment:Testing performed by : [facility], [facility], [address] [place] [address] Lymphocyte abs 1.5 0.8 - 3.3 K/cumm CERNER BJWCH Comment:Testing performed by : [facility], [facility], [address], [place] [address] Monocyte abs 0.7 0.2 - 0.8 K/cumm CERNER BJWCH Comment:Testing performed by : [facility], [facility], [address] [place] [address] Eosinophil abs 0.1 0.0 - 0.5 K/cumm CERNER BJWCH Comment:Testing performed by : [facility], [facility], [address] [place] [address] Basophil abs 0.1 0.0 - 0.1 K/cumm CERNER BJWCH Comment:Testing performed by : [facility], [facility], [address] [place] [address] Neutrophil pct 71.2 % CERNER BJWCH Comment: Interpretive Data Percent cell count reference ranges are not reported, since discordance with absolute values may lead to misinterpretation of CBC data. Current Interpretive Data was last revised on 2017. Testing performed by: [facility], [facility], [address] [place] [address] Imm gran pct 0.5 % CERNER BJWCH Comment: Interpretive Data Percent cell count reference ranges are not reported, since discordance with absolute values may lead to misinterpretation of CBC data. Current Interpretive Data was last revised on 2017. Testing performed by: [facility], [facility], [address] [place] [address] Lymphocyte pct 18.1 % CERNER BJWCH Comment: Interpretive Data Percent cell count reference ranges are not reported, since discordance with absolute values may lead to misinterpretation of CBC data. Current Interpretive Data was last revised on 2017. Testing performed by: [facility], [facility], [address] [place] [address] Monocyte pct 7.7 % AUTUMN MANJARREZ Comment: Interpretive Data Percent cell count reference ranges are not reported, since discordance with absolute values may lead to misinterpretation of CBC data. Current Interpretive Data was last revised on 2017. Testing performed by: [facility], [facility], [address] [place] [address] Eosinophil pct 1.6 % AUTUMN MANJARREZ Comment: Interpretive Data Percent cell count reference ranges are not reported, since discordance with absolute values may lead to misinterpretation of CBC data. Current Interpretive Data was last revised on 2017. Testing performed by: [facility], [facility], [address] [place] [address] Basophil pct 0.9 % AUTUMN MANJARREZ Comment: Interpretive Data Percent cell count reference ranges are not reported, since discordance with absolute values may lead to misinterpretation of CBC data. Current Interpretive Data was last revised on 2017. Testing performed by: [facility], [facility], [address] [place] [address] Blood 12/18/2023 10:4 0 AM EQUIPMENT SCHEDULER 12/18/2023 10:42 AM EQUIPMENT SCHEDULER Janey Mendez LAP REGULATOR LAB BLOOD ORDERABLES Final Result AUTUMN TREJOWCH [id number] [address]. Department [place] [address] * Thyroid Function Kiel (12/18/2023 10:40 AM EQUIPMENT SCHEDULER) TSH 2.77 0.30 - 4.20 mcIUnit/mL Comment:Testing performed by : [facility], [address] [place] [address] Blood 12/18/2023 10:4 0 AM EQUIPMENT SCHEDULER 12/18/2023 11:03 AM EQUIPMENT SCHEDULER us Janey Mendez LAP REGULATOR LAB BLOOD ORDERABLES Final Result AUTUMN LYON [address] [facility]. Department [place] [address] * CBC with auto differential (12/18/2023 10:40 AM EQUIPMENT SCHEDULER) WBC 8.5 3.8 - 9.9 K/cumm Comment:Testing performed by : [place] [address], [address] [place] [address] Hgb 13.4 11.9 - 15.5 g/dL AUTUMN MANJARREZ Comment:Testing performed by : [place] [address], [address] [place] [address] Hct 39.9 35.6 - 45.5 % AUTUMN MANJARREZ Comment:Testing performed by : [place] [address], [address] [place] [address] Plt 269 150 - 400 K/cumm AUTUMN MANJARREZ Comment:Testing performed by : [place] [address], [address] [place] [address] MPV 9.5 9.1 - 12.3 fL AUTUMN MANJARREZ Comment:Testing performed by : [place] [address], [address] [place] [address] RBC 4.21 3.90 - 5.20 M/cumm AUTUMN TREJOWDELTA Comment:Testing performed by : [place] [address], [address] [place] [address] MCV 95 81 - 96 fL AUTUMN MANJARREZ Comment:Testing performed by : [facility], [address] [place] [address] MCH 31.8 27.1 - 33.3 pg AUTUMN LYONCH Comment:Testing performed by : [place] [address], [address] [place] [address] MCHC 33.6 32.3 - 35.7 g/dL AUTUMN MANJARREZ Comment:Testing performed by : [facility], [facility], [address] [place] [address] RDW CV 12.7 11.1 - 14.9 % AUTUMN MANJARREZ Comment:Testing performed by : [facility], [facility], [address] [place] [address] RDW SD 43.8 35.7 - 48.1 fL AUTUMN TREJOWDELTA Comment:Testing performed by : [facility], [facility], [address] [place] [address] Blood 12/18/2023 10:4 0 AM EQUIPMENT SCHEDULER 12/18/2023 10:42 AM EQUIPMENT SCHEDULER Janey Mendez LAP REGULATOR LAB BLOOD ORDERABLES Final Result AUTUMN MANJARREZ [id number] [address]. Department [place] [address] * Comprehensive metabolic panel (12/18/2023 10:40 AM EQUIPMENT SCHEDULER) Sodium 138 135 - 145 mmol/L Comment:Testing performed by : [facility], [address] [place] [address] Potassium, pl 4.2 3.3 - 4.9 mmol/L AUTUMN MANJARREZ Comment:Testing performed by : [facility], [address] [place] [address] Chloride 101 97 - 110 mmol/L AUTUMN MANJARREZ Comment:Testing performed by : [facility], [address] [place] [address] CO2 28 22 - 32 mmol/L AUTUMN MANJARREZ Comment:Testing performed by : [facility], [address] [place] [address] Anion gap 9 2 - 15 mmol/L AUTUMN MANJARREZ Comment:Testing performed by : [facility], [address], [place] [address] BUN 14 6 - 25 mg/dL CERNER BJWCH Comment:Testing performed by : [facility], [address], [place] [address] Creatinine 0.82 0.60 - 1.10 mg/dL CERNER BJWCH Comment:Testing performed by : [facility], [address], [place] [address] Glucose 93 70 - 199 mg/dL CERNER BJWCH Comment: Interpretive Data Fasting glucose >/= 126 mg/dl is diagnostic for diabetes. Fasting is defined as no caloric intake for at least 8 hours. Fasting glucose between 100 mg/dl to 125 mg/dl is diagnostic of prediabetes. In a patient with classic symptoms of hyperglycemia or hyperglycemic crisis, a random glucose >/= 200 mg/dl is diagnostic for diabetes. In the absence of unequivocal hyperglycemia, results should be confirmed by repeat testing. The classification and Diagnosis of Diabetes Diabetes Care 2021; 46: S19-S40. Current interpretive data was last revised 2022. Testing performed by: [facility], [address], [place] [address] Calcium 9.3 8.5 - 10.3 mg/dL CERNER BJWCH Comment:Testing performed by : [facility], [address], [place] [address] Bilirubin, total 0.2 0.1 - 1.2 mg/dL CERNER BJWCH Comment:Testing performed by : [facility], [address], [place] [address] Protein, pl 7.0 6.5 - 8.5 g/dL CERNER BJWCH Comment:Testing performed by : [facility], [address], [place] [address] Albumin 4.3 3.5 - 5.0 g/dL CERNER BJWCH Comment:Testing performed by : [facility], [address], [place] [address] Alk phos 73 40 - 130 Units/L CERNER BJWCH Comment:Testing performed by : [facility], [address], [place] [address] ALT 15 7 - 45 Units/L AUTUMN MANJARREZ Comment:Testing performed by : [facility], [address] [place] [address] AST 15 10 - 45 Units/L AUTUMN MANJARREZ Comment:Testing performed by : [facility], [address] [place] [address] Blood 12/18/2023 10:4 0 AM EQUIPMENT SCHEDULER 12/18/2023 11:03 AM EQUIPMENT SCHEDULER us Janey Mendez LAP REGULATOR LAB BLOOD ORDERABLES Final Result AUTUMN MANJARREZ [address] [address]. Department of Laboratories [place] [id number] from Last 3 Months Insurance [employer] PPO POS [employer] OPEN ACCESS [employer] OPEN ACCESS [employer] OPEN ACCESS Advance Directives For more information, please contact: [phone] * Full Code (Latest Code Status on File) Date Activated Date Inactivated Comments 02/09/2024 11:28 AM 02/09/2024 9:03 PM * Full Code Date Activated Date Inactivated Comments 02/07/2024 5:19 PM 02/09/2024 11:28 AM * Full Code Date Activated Date Inactivated Comments 05/05/2023 6:30 AM 05/05/2023 6:26 PM Care Teams Wardrobe Specialist Relationship Specialty Start Date End Date Cristela Lei NP [address] [address] PCP - General Nurse Practitioner 05/15/23 [place] [address] [facility] [address] [place] [address] Rheumatology 11/05/16 Rosy Lyons MD [address] DIV MEDICAL ONCOLOGY, [facility] [address], [address], [address] [place] [address] Medical Oncologist/Operations And Maintenance Manager Medical Oncology 05/11/23 Wayne Griffin MD [address] [facility] [address] [place] [address] Consulting Physician Neurosurgery 09/04/23 Venu Alejo MD PhD [address] [place] [address] Consulting Physician Radiation Oncology 09/04/23
--- OUTSIDE RECORDS SUMMARY | 2024-03-18 16:37 | XMS_ITS | Clinical Summary ---
Author Organization [facility] [employer] Address [address] [place] [address] Care Team Providers Care Floor Broker Name Role Phone Jair Marie MD Primary Care Provider [phone] Source Comments [facility] [employer],non-owned Affiliates and Associated Physician Practices is amultiple site organization consisting of ambulatory clinics and hospital sitesin [place], [place], [place] and [place]. This disclosure is being madepursuant to the Care Everywhere program and may not contain all information available regarding this patient. Last updated 17.[facility] [employer] Social History Tobacco Use Types Packs/Day Years Used Date Smoking Tobacco: Never Assessed Sex and Gender Information Value Date Recorded Sex Assigned at Not on file Gender Identity Not on file Sexual Orientation Not on file Plan of Treatment Health Maintenance Due Date Last Done Comments COLOGUARD (AGES 45-75) - COL ON CA SCREENING 1965 COLON MONITORING 1965 COLONOSCOPY - COLON CA SCREENING 1965 CT COLONOGRAPHY - COLON CA SCREENING 1965 Colorectal Cancer Screening 1965 FIT - COLON CA SCREENING 1965 FLEX SIG - COLON CA SCREENING 1965 LIPID TESTING 1965 MAMMOGRAM 1965 PAP SMEAR 1965 HIV SCREENING 1980 HEPATITIS C SCREENING 05/21/1983 DTAP/TDAP/TD VACCINES (1 - Tdap) 1984 HEPATITIS B VACCINE (1 of 3 - 19+ 3-dose series) 1984 PNEUMOCOCCAL VACCINE 50+ (1 of 1 - PCV) 05/26/2015 ZOSTER VACCINE (1 of 2) 05/26/2015 COVID-19 VACCINE (2023-2 5 season) 2023 INFLUENZA VACCINE (#1) 2023 DEPRESSION SCREENING 02/10/2024 HIB VACCINE Aged Out No longer eligi ble based on patient's age to complete this topic HPV VACCINE Aged Out No longer eligi ble based on patient's age to complete this topic MENINGOCOCCAL (Group B) VACCINE Aged Out No longer eligible based on patient's age to complete this topic MENINGOCOCCAL VACCINE Aged Out No jack dash eligible based on patient's age to complete this topic PNEUMOCOCCAL VACCINE Aged Out No long er eligible based on patient's age to complete this topic Care Teams Floor Broker Relationship Specialty Start Date End Date Jair Marie MD [address] [place] [id number] PCP - General Internal Medicine 09/11/16
--- OUTSIDE RECORDS SUMMARY | 2024-03-18 16:37 | XMS_ITS | Referral Summary ---
Author Organization [facility] Address [address] [place] [address] Care Team Providers Care Hplc Chemist Name Role Phone Jair Marie MD Primary Care Provider [phone] Source Comments [facility],non-owned Affiliates and Associated Physician Practices is amultiple site organization consisting of ambulatory clinics and hospital sitesin [place], [place], [place] and [place]. This disclosure is being madepursuant to the Care Everywhere program and may not contain all information available regarding this patient. Last updated 17.[facility] Social History Tobacco Use Types Packs/Day Years Used Date Smoking Tobacco: Never Assessed Sex and Gender Information Value Date Recorded Sex Assigned at Not on file Gender Identity Not on file Sexual Orientation Not on file Plan of Treatment Not on file Care Teams Hplc Chemist Relationship Specialty Start Date End Date Jair Marie MD [address] [address] PCP - General Internal Medicine 09/11/16
--- OUTSIDE RECORDS SUMMARY | 2024-03-18 16:37 | XMS_ITS | Patient Health Summary ---
Author Organization [facility] Address [address] [place] [address] Care Team Providers Care Java Developer Architect Name Role Phone Jair Marie MD Primary Care Provider [phone] Note from Formerly named [facility],non-owned Affiliates and Associated Physician Practices is amultiple site organization consisting of ambulatory clinics and hospital sitesin [place], [place], [place] and [place]. This disclosure is being madepursuant to the Care Everywhere program and may not contain all information available regarding this patient. Last updated 17.[facility] Social History Tobacco Use Types Packs/Day Years Used Date Smoking Tobacco: Never Assessed Sex and Gender Information Value Date Recorded Sex Assigned at Not on file Gender Identity Not on file Sexual Orientation Not on file Procedures * XR CERVICAL SPINE 2 OR 3VW(Performed 09/11/2016) Performed for Chronic pain of multiple joints * XR ANKLE BILAT 2VW(Performed 09/11/2016) Performed for Chronic pain of multiple joints * XR FOOT BILAT 2VW(Performed 09/11/2016) Performed for Chronic pain of multiple joints * XR HAND BILAT 2VW(Performed 09/11/2016) Performed for Chronic pain of multiple joints * XR WRIST BILAT 2VW(Performed 09/11/2016) Performed for Chronic pain of multiple joints * XR PELVIS W BILAT HIP 2VW(Performed 09/11/2016) Performed for Chronic pain of multiple joints * XR SI JOINTS 2VW OR LESS(Performed 09/11/2016) Performed for Chronic pain of multiple joints * XR CHEST 2VW(Performed 09/11/2016) Performed for Chronic pain of multiple joints Results * XR HANDS BILATERAL 2 VIEWS (09/11/2016 4:41 PM CDT) Anatomical Region Laterality Modality Wrist / Hand, Upper Extremity Ra diographic Imaging 09/11/2016 4:4 4 PM CDT Addenda Addendum by Humza Baker MD on 09/30/2016 2:55 PM CDT Examination: 1. Chest 2 views 2. Sacroiliac joints 3 views 3. Bilateral hips 2 views each with AP pelvis 4. Bilateral wrists 2 views each 5. Bilateral hands 2 views each 6. Bilateral feet 2 views each 7. Bilateral ankles 2 views each 8. Cervical spine 2 or 3 views 9. Lumbar spine 2 or 3 views 10. Bilateral knees AP standing History: Polyarticular joint pain, arthritis Findings: An AP standing view both knees was performed without prior comparison. Medial and lateral compartment joint spaces of both knees are normal. 2 views of each hip and an AP view of the pelvis were performed. Joint spaces of both hips are normal. There is no acute fracture of the pelvis. There is no acute fracture of either hip. 3 views of the sacroiliac joints were performed. The sacroiliac joints are normal. No osseous erosion or evidence of bony ankylosis is noted. AP and lateral views of the lumbar spine were performed. Alignment is normal. There is no lumbar spine compression deformity. There is mild L4-5 as well as L3-4 and L5-S1 degenerative disc disease. Facet osteoarthritis is noted. AP, lateral, and open-mouth views of the cervical spine were performed without comparison. No prevertebral soft tissue swelling is noted. There is mild C5-6 and C6-7 degenerative disc disease. Alignment of C1 on C2 appears normal. 2 views of the chest demonstrated a possible calcified right lung granuloma. There is no pneumonic consolidation, pleural effusion, or pneumothorax. Heart size appears normal. 2 views of both hands were performed. Alignment of both hands is normal. Metacarpophalangeal joint spaces are normal without erosion. There is very mild distal interphalangeal joint osteoarthritis of the hands. 2 views of both wrists were performed. Alignment of the left wrist is normal. There is no osseous erosion. The joint spaces appear normal. Alignment of the right wrist is normal. Joint spaces are normal. No erosion is noted. 2 views of both feet were performed. Left forefoot joint spaces are normal. There is no erosion. Right forefoot joint spaces are normal. There is no erosion. There is a small right heel spur. 2 views of both ankles were performed. The left ankle and posterior subtalar joint spaces appear normal without erosion. Right ankle and posterior subtalar joint spaces appear normal without erosion. There is a right heel spur. Impression: Mild cervical and lumbar spine degenerative disc disease. Mild osteoarthritis of the hands. Addended on 09/16/2016 10:10:10 AM by Humza Baker. Examination: 1. Chest 2 views 2. Sacroiliac joints 3 views 3. Bilateral hips 2 views each with AP pelvis 4. Bilateral wrists 2 views each 5. Bilateral hands 2 views each 6. Bilateral feet 2 views each 7. Bilateral ankles 2 views each 8. Cervical spine 2 or 3 views 9. Lumbar spine 2 or 3 views 10. Bilateral knees AP standing History: Polyarticular joint pain, arthritis Findings: An AP standing view both knees was performed without prior comparison. Medial and lateral compartment joint spaces of both knees are normal. 2 views of each hip and an AP view of the pelvis were performed. Joint spaces of both hips are normal. There is no acute fracture of the pelvis. There is no acute fracture of either hip. 3 views of the sacroiliac joints were performed. The sacroiliac joints are normal. No osseous erosion or evidence of bony ankylosis is noted. AP and lateral views of the lumbar spine were performed. Alignment is normal. There is no lumbar spine compression deformity. There is mild L4-5 as well as L3-4 and L5-S1 degenerative disc disease. Facet osteoarthritis is noted. AP, lateral, and open-mouth views of the cervical spine were performed without comparison. No prevertebral soft tissue swelling is noted. There is mild C5-6 and C6-7 degenerative disc disease. Alignment of C1 on C2 appears normal. 2 views of the chest demonstrated a possible calcified right lung granuloma. There is no pneumonic consolidation, pleural effusion, or pneumothorax. Heart size appears normal. 2 views of both hands were performed. Alignment of both hands is normal. Metacarpophalangeal joint spaces are normal without erosion. There is very mild distal interphalangeal joint osteoarthritis of the hands. 2 views of both wrists were performed. Alignment of the left wrist is normal. There is no osseous erosion. The joint spaces appear normal. Alignment of the right wrist is normal. Joint spaces are normal. No erosion is noted. 2 views of both feet were performed. Left forefoot joint spaces are normal. There is no erosion. Right forefoot joint spaces are normal. There is no erosion. There is a small right heel spur. 2 views of both ankles were performed. The left ankle and posterior subtalar joint spaces appear normal without erosion. Right ankle and posterior subtalar joint spaces appear normal without erosion. There is a right heel spur. Impression: Mild cervical and lumbar spine degenerative disc disease. Mild osteoarthritis of the hands. Addended on 09/17/2016 1:31:57 PM by Humza Baker. Examination: 1. Chest 2 views 2. Sacroiliac joints 3 views 3. Bilateral hips 2 views each with AP pelvis 4. Bilateral wrists 2 views each 5. Bilateral hands 2 views each 6. Bilateral feet 2 views each 7. Bilateral ankles 2 views each 8. Cervical spine 2 or 3 views 9. Lumbar spine 2 or 3 views 10. Bilateral knees AP standing History: Polyarticular joint pain, arthritis Findings: An AP standing view both knees was performed without prior comparison. Medial and lateral compartment joint spaces of both knees are normal. 2 views of each hip and an AP view of the pelvis were performed. Joint spaces of both hips are normal. There is no acute fracture of the pelvis. There is no acute fracture of either hip. 3 views of the sacroiliac joints were performed. The sacroiliac joints are normal. No osseous erosion or evidence of bony ankylosis is noted. AP and lateral views of the lumbar spine were performed. Alignment is normal. There is no lumbar spine compression deformity. There is mild L4-5 as well as L3-4 and L5-S1 degenerative disc disease. Facet osteoarthritis is noted. AP, lateral, and open-mouth views of the cervical spine were performed without comparison. No prevertebral soft tissue swelling is noted. There is mild C5-6 and C6-7 degenerative disc disease. Alignment of C1 on C2 appears normal. 2 views of the chest demonstrated a possible calcified right lung granuloma. There is no pneumonic consolidation, pleural effusion, or pneumothorax. Heart size appears normal. 2 views of both hands were performed. Alignment of both hands is normal. Metacarpophalangeal joint spaces are normal without erosion. There is very mild distal interphalangeal joint osteoarthritis of the hands. 2 views of both wrists were performed. Alignment of the left wrist is normal. There is no osseous erosion. The joint spaces appear normal. Alignment of the right wrist is normal. Joint spaces are normal. No erosion is noted. 2 views of both feet were performed. Left forefoot joint spaces are normal. There is no erosion. Right forefoot joint spaces are normal. There is no erosion. There is a small right heel spur. 2 views of both ankles were performed. The left ankle and posterior subtalar joint spaces appear normal without erosion. Right ankle and posterior subtalar joint spaces appear normal without erosion. There is a right heel spur. Impression: Mild cervical and lumbar spine degenerative disc disease. Mild osteoarthritis of the hands. Addended on 09/16/2016 10:10:10 AM by Humza Baker. Examination: 1. Chest 2 views 2. Sacroiliac joints 3 views 3. Bilateral hips 2 views each with AP pelvis 4. Bilateral wrists 2 views each 5. Bilateral hands 2 views each 6. Bilateral feet 2 views each 7. Bilateral ankles 2 views each 8. Cervical spine 2 or 3 views 9. Lumbar spine 2 or 3 views 10. Bilateral knees AP standing History: Polyarticular joint pain, arthritis Findings: An AP standing view both knees was performed without prior comparison. Medial and lateral compartment joint spaces of both knees are normal. 2 views of each hip and an AP view of the pelvis were performed. Joint spaces of both hips are normal. There is no acute fracture of the pelvis. There is no acute fracture of either hip. 3 views of the sacroiliac joints were performed. The sacroiliac joints are normal. No osseous erosion or evidence of bony ankylosis is noted. AP and lateral views of the lumbar spine were performed. Alignment is normal. There is no lumbar spine compression deformity. There is mild L4-5 as well as L3-4 and L5-S1 degenerative disc disease. Facet osteoarthritis is noted. AP, lateral, and open-mouth views of the cervical spine were performed without comparison. No prevertebral soft tissue swelling is noted. There is mild C5-6 and C6-7 degenerative disc disease. Alignment of C1 on C2 appears normal. 2 views of the chest demonstrated a possible calcified right lung granuloma. There is no pneumonic consolidation, pleural effusion, or pneumothorax. Heart size appears normal. 2 views of both hands were performed. Alignment of both hands is normal. Metacarpophalangeal joint spaces are normal without erosion. There is very mild distal interphalangeal joint osteoarthritis of the hands. 2 views of both wrists were performed. Alignment of the left wrist is normal. There is no osseous erosion. The joint spaces appear normal. Alignment of the right wrist is normal. Joint spaces are normal. No erosion is noted. 2 views of both feet were performed. Left forefoot joint spaces are normal. There is no erosion. Right forefoot joint spaces are normal. There is no erosion. There is a small right heel spur. 2 views of both ankles were performed. The left ankle and posterior subtalar joint spaces appear normal without erosion. Right ankle and posterior subtalar joint spaces appear normal without erosion. There is a right heel spur. Impression: Mild cervical and lumbar spine degenerative disc disease. Mild osteoarthritis of the hands. Addendum by Humza Baker MD on 09/17/2016 1:35 PM CDT Examination: 1. Chest 2 views 2. Sacroiliac joints 3 views 3. Bilateral hips 2 views each with AP pelvis 4. Bilateral wrists 2 views each 5. Bilateral hands 2 views each 6. Bilateral feet 2 views each 7. Bilateral ankles 2 views each 8. Cervical spine 2 or 3 views 9. Lumbar spine 2 or 3 views 10. Bilateral knees AP standing History: Polyarticular joint pain, arthritis Findings: An AP standing view both knees was performed without prior comparison. Medial and lateral compartment joint spaces of both knees are normal. 2 views of each hip and an AP view of the pelvis were performed. Joint spaces of both hips are normal. There is no acute fracture of the pelvis. There is no acute fracture of either hip. 3 views of the sacroiliac joints were performed. The sacroiliac joints are normal. No osseous erosion or evidence of bony ankylosis is noted. AP and lateral views of the lumbar spine were performed. Alignment is normal. There is no lumbar spine compression deformity. There is mild L4-5 as well as L3-4 and L5-S1 degenerative disc disease. Facet osteoarthritis is noted. AP, lateral, and open-mouth views of the cervical spine were performed without comparison. No prevertebral soft tissue swelling is noted. There is mild C5-6 and C6-7 degenerative disc disease. Alignment of C1 on C2 appears normal. 2 views of the chest demonstrated a possible calcified right lung granuloma. There is no pneumonic consolidation, pleural effusion, or pneumothorax. Heart size appears normal. 2 views of both hands were performed. Alignment of both hands is normal. Metacarpophalangeal joint spaces are normal without erosion. There is very mild distal interphalangeal joint osteoarthritis of the hands. 2 views of both wrists were performed. Alignment of the left wrist is normal. There is no osseous erosion. The joint spaces appear normal. Alignment of the right wrist is normal. Joint spaces are normal. No erosion is noted. 2 views of both feet were performed. Left forefoot joint spaces are normal. There is no erosion. Right forefoot joint spaces are normal. There is no erosion. There is a small right heel spur. 2 views of both ankles were performed. The left ankle and posterior subtalar joint spaces appear normal without erosion. Right ankle and posterior subtalar joint spaces appear normal without erosion. There is a right heel spur. Impression: Mild cervical and lumbar spine degenerative disc disease. Mild osteoarthritis of the hands. Addended on 09/16/2016 10:10:10 AM by Humza Baker. Examination: 1. Chest 2 views 2. Sacroiliac joints 3 views 3. Bilateral hips 2 views each with AP pelvis 4. Bilateral wrists 2 views each 5. Bilateral hands 2 views each 6. Bilateral feet 2 views each 7. Bilateral ankles 2 views each 8. Cervical spine 2 or 3 views 9. Lumbar spine 2 or 3 views 10. Bilateral knees AP standing History: Polyarticular joint pain, arthritis Findings: An AP standing view both knees was performed without prior comparison. Medial and lateral compartment joint spaces of both knees are normal. 2 views of each hip and an AP view of the pelvis were performed. Joint spaces of both hips are normal. There is no acute fracture of the pelvis. There is no acute fracture of either hip. 3 views of the sacroiliac joints were performed. The sacroiliac joints are normal. No osseous erosion or evidence of bony ankylosis is noted. AP and lateral views of the lumbar spine were performed. Alignment is normal. There is no lumbar spine compression deformity. There is mild L4-5 as well as L3-4 and L5-S1 degenerative disc disease. Facet osteoarthritis is noted. AP, lateral, and open-mouth views of the cervical spine were performed without comparison. No prevertebral soft tissue swelling is noted. There is mild C5-6 and C6-7 degenerative disc disease. Alignment of C1 on C2 appears normal. 2 views of the chest demonstrated a possible calcified right lung granuloma. There is no pneumonic consolidation, pleural effusion, or pneumothorax. Heart size appears normal. 2 views of both hands were performed. Alignment of both hands is normal. Metacarpophalangeal joint spaces are normal without erosion. There is very mild distal interphalangeal joint osteoarthritis of the hands. 2 views of both wrists were performed. Alignment of the left wrist is normal. There is no osseous erosion. The joint spaces appear normal. Alignment of the right wrist is normal. Joint spaces are normal. No erosion is noted. 2 views of both feet were performed. Left forefoot joint spaces are normal. There is no erosion. Right forefoot joint spaces are normal. There is no erosion. There is a small right heel spur. 2 views of both ankles were performed. The left ankle and posterior subtalar joint spaces appear normal without erosion. Right ankle and posterior subtalar joint spaces appear normal without erosion. There is a right heel spur. Impression: Mild cervical and lumbar spine degenerative disc disease. Mild osteoarthritis of the hands. Addendum by Humza Baker MD on 09/16/2016 10:13 AM CDT Examination: 1. Chest 2 views 2. Sacroiliac joints 3 views 3. Bilateral hips 2 views each with AP pelvis 4. Bilateral wrists 2 views each 5. Bilateral hands 2 views each 6. Bilateral feet 2 views each 7. Bilateral ankles 2 views each 8. Cervical spine 2 or 3 views 9. Lumbar spine 2 or 3 views 10. Bilateral knees AP standing History: Polyarticular joint pain, arthritis Findings: An AP standing view both knees was performed without prior comparison. Medial and lateral compartment joint spaces of both knees are normal. 2 views of each hip and an AP view of the pelvis were performed. Joint spaces of both hips are normal. There is no acute fracture of the pelvis. There is no acute fracture of either hip. 3 views of the sacroiliac joints were performed. The sacroiliac joints are normal. No osseous erosion or evidence of bony ankylosis is noted. AP and lateral views of the lumbar spine were performed. Alignment is normal. There is no lumbar spine compression deformity. There is mild L4-5 as well as L3-4 and L5-S1 degenerative disc disease. Facet osteoarthritis is noted. AP, lateral, and open-mouth views of the cervical spine were performed without comparison. No prevertebral soft tissue swelling is noted. There is mild C5-6 and C6-7 degenerative disc disease. Alignment of C1 on C2 appears normal. 2 views of the chest demonstrated a possible calcified right lung granuloma. There is no pneumonic consolidation, pleural effusion, or pneumothorax. Heart size appears normal. 2 views of both hands were performed. Alignment of both hands is normal. Metacarpophalangeal joint spaces are normal without erosion. There is very mild distal interphalangeal joint osteoarthritis of the hands. 2 views of both wrists were performed. Alignment of the left wrist is normal. There is no osseous erosion. The joint spaces appear normal. Alignment of the right wrist is normal. Joint spaces are normal. No erosion is noted. 2 views of both feet were performed. Left forefoot joint spaces are normal. There is no erosion. Right forefoot joint spaces are normal. There is no erosion. There is a small right heel spur. 2 views of both ankles were performed. The left ankle and posterior subtalar joint spaces appear normal without erosion. Right ankle and posterior subtalar joint spaces appear normal without erosion. There is a right heel spur. Impression: Mild cervical and lumbar spine degenerative disc disease. Mild osteoarthritis of the hands. Impressions 09/11/2016 4:51 PM CDT Mild cervical and lumbar spine degenerative disc disease. Mild osteoarthritis of the hands. Narrative 09/11/2016 4:51 PM CDT Examination: 1. Chest 2 views 2. Sacroiliac joints 3 views 3. Bilateral hips 2 views each with AP pelvis 4. Bilateral wrists 2 views each 5. Bilateral hands 2 views each 6. Bilateral feet 2 views each 7. Bilateral ankles 2 views each 8. Cervical spine 2 or 3 views 9. Lumbar spine 2 or 3 views 10. Bilateral knees AP standing History: Polyarticular joint pain, arthritis Findings: An AP standing view both knees was performed without prior comparison. Medial and lateral compartment joint spaces of both knees are normal. 2 views of each hip and an AP view of the pelvis were performed. Joint spaces of both hips are normal. There is no acute fracture of the pelvis. There is no acute fracture of either hip. 3 views of the sacroiliac joints were performed. The sacroiliac joints are normal. No osseous erosion or evidence of bony ankylosis is noted. AP and lateral views of the lumbar spine were performed. Alignment is normal. There is no lumbar spine compression deformity. There is mild L4-5 as well as L3-4 and L5-S1 degenerative disc disease. Facet osteoarthritis is noted. AP, lateral, and open-mouth views of the cervical spine were performed without comparison. No prevertebral soft tissue swelling is noted. There is mild C5-6 and C6-7 degenerative disc disease. Alignment of C1 on C2 appears normal. 2 views of the chest demonstrated a possible calcified right lung granuloma. There is no pneumonic consolidation, pleural effusion, or pneumothorax. Heart size appears normal. 2 views of both hands were performed. Alignment of both hands is normal. Metacarpophalangeal joint spaces are normal without erosion. There is very mild distal interphalangeal joint osteoarthritis of the hands. 2 views of both wrists were performed. Alignment of the left wrist is normal. There is no osseous erosion. The joint spaces appear normal. Alignment of the right wrist is normal. Joint spaces are normal. No erosion is noted. 2 views of both feet were performed. Left forefoot joint spaces are normal. There is no erosion. Right forefoot joint spaces are normal. There is no erosion. There is a small right heel spur. 2 views of both ankles were performed. The left ankle and posterior subtalar joint spaces appear normal without erosion. Right ankle and posterior subtalar joint spaces appear normal without erosion. There is a right heel spur. Procedure Note Humza Baker MD - 09/11/2016 Examination: 1. Chest 2 views 2. Sacroiliac joints 3 views 3. Bilateral hips 2 views each with AP pelvis 4. Bilateral wrists 2 views each 5. Bilateral hands 2 views each 6. Bilateral feet 2 views each 7. Bilateral ankles 2 views each 8. Cervical spine 2 or 3 views 9. Lumbar spine 2 or 3 views 10. Bilateral knees AP standing History: Polyarticular joint pain, arthritis Findings: An AP standing view both knees was performed without prior comparison. Medial and lateral compartment joint spaces of both knees are normal. 2 views of each hip and an AP view of the pelvis were performed. Joint spaces of both hips are normal. There is no acute fracture of the pelvis. There is no acute fracture of either hip. 3 views of the sacroiliac joints were performed. The sacroiliac joints are normal. No osseous erosion or evidence of bony ankylosis is noted. AP and lateral views of the lumbar spine were performed. Alignment is normal. There is no lumbar spine compression deformity. There is mild L4-5 as well as L3-4 and L5-S1 degenerative disc disease. Facet osteoarthritis is noted. AP, lateral, and open-mouth views of the cervical spine were performed without comparison. No prevertebral soft tissue swelling is noted. There is mild C5-6 and C6-7 degenerative disc disease. Alignment of C1 on C2 appears normal. 2 views of the chest demonstrated a possible calcified right lung granuloma. There is no pneumonic consolidation, pleural effusion, or pneumothorax. Heart size appears normal. 2 views of both hands were performed. Alignment of both hands is normal. Metacarpophalangeal joint spaces are normal without erosion. There is very mild distal interphalangeal joint osteoarthritis of the hands. 2 views of both wrists were performed. Alignment of the left wrist is normal. There is no osseous erosion. The joint spaces appear normal. Alignment of the right wrist is normal. Joint spaces are normal. No erosion is noted. 2 views of both feet were performed. Left forefoot joint spaces are normal. There is no erosion. Right forefoot joint spaces are normal. There is no erosion. There is a small right heel spur. 2 views of both ankles were performed. The left ankle and posterior subtalar joint spaces appear normal without erosion. Right ankle and posterior subtalar joint spaces appear normal without erosion. There is a right heel spur. IMPRESSION Mild cervical and lumbar spine degenerative disc disease. Mild osteoarthritis of the hands. [facility] NG ORDERABLES * XR FOOT BILAT 2 VIEWS (09/11/2016 4:41 PM CDT) Anatomical Region Laterality Modality Lower Extremity, Ankle / Foot Ra diographic Imaging 09/11/2016 4:44 PM CDT Addenda Addendum by Humza Baker MD on 09/30/2016 2:55 PM CDT Examination: 1. Chest 2 views 2. Sacroiliac joints 3 views 3. Bilateral hips 2 views each with AP pelvis 4. Bilateral wrists 2 views each 5. Bilateral hands 2 views each 6. Bilateral feet 2 views each 7. Bilateral ankles 2 views each 8. Cervical spine 2 or 3 views 9. Lumbar spine 2 or 3 views 10. Bilateral knees AP standing History: Polyarticular joint pain, arthritis Findings: An AP standing view both knees was performed without prior comparison. Medial and lateral compartment joint spaces of both knees are normal. 2 views of each hip and an AP view of the pelvis were performed. Joint spaces of both hips are normal. There is no acute fracture of the pelvis. There is no acute fracture of either hip. 3 views of the sacroiliac joints were performed. The sacroiliac joints are normal. No osseous erosion or evidence of bony ankylosis is noted. AP and lateral views of the lumbar spine were performed. Alignment is normal. There is no lumbar spine compression deformity. There is mild L4-5 as well as L3-4 and L5-S1 degenerative disc disease. Facet osteoarthritis is noted. AP, lateral, and open-mouth views of the cervical spine were performed without comparison. No prevertebral soft tissue swelling is noted. There is mild C5-6 and C6-7 degenerative disc disease. Alignment of C1 on C2 appears normal. 2 views of the chest demonstrated a possible calcified right lung granuloma. There is no pneumonic consolidation, pleural effusion, or pneumothorax. Heart size appears normal. 2 views of both hands were performed. Alignment of both hands is normal. Metacarpophalangeal joint spaces are normal without erosion. There is very mild distal interphalangeal joint osteoarthritis of the hands. 2 views of both wrists were performed. Alignment of the left wrist is normal. There is no osseous erosion. The joint spaces appear normal. Alignment of the right wrist is normal. Joint spaces are normal. No erosion is noted. 2 views of both feet were performed. Left forefoot joint spaces are normal. There is no erosion. Right forefoot joint spaces are normal. There is no erosion. There is a small right heel spur. 2 views of both ankles were performed. The left ankle and posterior subtalar joint spaces appear normal without erosion. Right ankle and posterior subtalar joint spaces appear normal without erosion. There is a right heel spur. Impression: Mild cervical and lumbar spine degenerative disc disease. Mild osteoarthritis of the hands. Addended on 09/16/2016 10:10:10 AM by Humza Baker. Examination: 1. Chest 2 views 2. Sacroiliac joints 3 views 3. Bilateral hips 2 views each with AP pelvis 4. Bilateral wrists 2 views each 5. Bilateral hands 2 views each 6. Bilateral feet 2 views each 7. Bilateral ankles 2 views each 8. Cervical spine 2 or 3 views 9. Lumbar spine 2 or 3 views 10. Bilateral knees AP standing History: Polyarticular joint pain, arthritis Findings: An AP standing view both knees was performed without prior comparison. Medial and lateral compartment joint spaces of both knees are normal. 2 views of each hip and an AP view of the pelvis were performed. Joint spaces of both hips are normal. There is no acute fracture of the pelvis. There is no acute fracture of either hip. 3 views of the sacroiliac joints were performed. The sacroiliac joints are normal. No osseous erosion or evidence of bony ankylosis is noted. AP and lateral views of the lumbar spine were performed. Alignment is normal. There is no lumbar spine compression deformity. There is mild L4-5 as well as L3-4 and L5-S1 degenerative disc disease. Facet osteoarthritis is noted. AP, lateral, and open-mouth views of the cervical spine were performed without comparison. No prevertebral soft tissue swelling is noted. There is mild C5-6 and C6-7 degenerative disc disease. Alignment of C1 on C2 appears normal. 2 views of the chest demonstrated a possible calcified right lung granuloma. There is no pneumonic consolidation, pleural effusion, or pneumothorax. Heart size appears normal. 2 views of both hands were performed. Alignment of both hands is normal. Metacarpophalangeal joint spaces are normal without erosion. There is very mild distal interphalangeal joint osteoarthritis of the hands. 2 views of both wrists were performed. Alignment of the left wrist is normal. There is no osseous erosion. The joint spaces appear normal. Alignment of the right wrist is normal. Joint spaces are normal. No erosion is noted. 2 views of both feet were performed. Left forefoot joint spaces are normal. There is no erosion. Right forefoot joint spaces are normal. There is no erosion. There is a small right heel spur. 2 views of both ankles were performed. The left ankle and posterior subtalar joint spaces appear normal without erosion. Right ankle and posterior subtalar joint spaces appear normal without erosion. There is a right heel spur. Impression: Mild cervical and lumbar spine degenerative disc disease. Mild osteoarthritis of the hands. Addended on 09/17/2016 1:31:57 PM by Humza Baker. Examination: 1. Chest 2 views 2. Sacroiliac joints 3 views 3. Bilateral hips 2 views each with AP pelvis 4. Bilateral wrists 2 views each 5. Bilateral hands 2 views each 6. Bilateral feet 2 views each 7. Bilateral ankles 2 views each 8. Cervical spine 2 or 3 views 9. Lumbar spine 2 or 3 views 10. Bilateral knees AP standing History: Polyarticular joint pain, arthritis Findings: An AP standing view both knees was performed without prior comparison. Medial and lateral compartment joint spaces of both knees are normal. 2 views of each hip and an AP view of the pelvis were performed. Joint spaces of both hips are normal. There is no acute fracture of the pelvis. There is no acute fracture of either hip. 3 views of the sacroiliac joints were performed. The sacroiliac joints are normal. No osseous erosion or evidence of bony ankylosis is noted. AP and lateral views of the lumbar spine were performed. Alignment is normal. There is no lumbar spine compression deformity. There is mild L4-5 as well as L3-4 and L5-S1 degenerative disc disease. Facet osteoarthritis is noted. AP, lateral, and open-mouth views of the cervical spine were performed without comparison. No prevertebral soft tissue swelling is noted. There is mild C5-6 and C6-7 degenerative disc disease. Alignment of C1 on C2 appears normal. 2 views of the chest demonstrated a possible calcified right lung granuloma. There is no pneumonic consolidation, pleural effusion, or pneumothorax. Heart size appears normal. 2 views of both hands were performed. Alignment of both hands is normal. Metacarpophalangeal joint spaces are normal without erosion. There is very mild distal interphalangeal joint osteoarthritis of the hands. 2 views of both wrists were performed. Alignment of the left wrist is normal. There is no osseous erosion. The joint spaces appear normal. Alignment of the right wrist is normal. Joint spaces are normal. No erosion is noted. 2 views of both feet were performed. Left forefoot joint spaces are normal. There is no erosion. Right forefoot joint spaces are normal. There is no erosion. There is a small right heel spur. 2 views of both ankles were performed. The left ankle and posterior subtalar joint spaces appear normal without erosion. Right ankle and posterior subtalar joint spaces appear normal without erosion. There is a right heel spur. Impression: Mild cervical and lumbar spine degenerative disc disease. Mild osteoarthritis of the hands. Addended on 09/16/2016 10:10:10 AM by Humza Baker. Examination: 1. Chest 2 views 2. Sacroiliac joints 3 views 3. Bilateral hips 2 views each with AP pelvis 4. Bilateral wrists 2 views each 5. Bilateral hands 2 views each 6. Bilateral feet 2 views each 7. Bilateral ankles 2 views each 8. Cervical spine 2 or 3 views 9. Lumbar spine 2 or 3 views 10. Bilateral knees AP standing History: Polyarticular joint pain, arthritis Findings: An AP standing view both knees was performed without prior comparison. Medial and lateral compartment joint spaces of both knees are normal. 2 views of each hip and an AP view of the pelvis were performed. Joint spaces of both hips are normal. There is no acute fracture of the pelvis. There is no acute fracture of either hip. 3 views of the sacroiliac joints were performed. The sacroiliac joints are normal. No osseous erosion or evidence of bony ankylosis is noted. AP and lateral views of the lumbar spine were performed. Alignment is normal. There is no lumbar spine compression deformity. There is mild L4-5 as well as L3-4 and L5-S1 degenerative disc disease. Facet osteoarthritis is noted. AP, lateral, and open-mouth views of the cervical spine were performed without comparison. No prevertebral soft tissue swelling is noted. There is mild C5-6 and C6-7 degenerative disc disease. Alignment of C1 on C2 appears normal. 2 views of the chest demonstrated a possible calcified right lung granuloma. There is no pneumonic consolidation, pleural effusion, or pneumothorax. Heart size appears normal. 2 views of both hands were performed. Alignment of both hands is normal. Metacarpophalangeal joint spaces are normal without erosion. There is very mild distal interphalangeal joint osteoarthritis of the hands. 2 views of both wrists were performed. Alignment of the left wrist is normal. There is no osseous erosion. The joint spaces appear normal. Alignment of the right wrist is normal. Joint spaces are normal. No erosion is noted. 2 views of both feet were performed. Left forefoot joint spaces are normal. There is no erosion. Right forefoot joint spaces are normal. There is no erosion. There is a small right heel spur. 2 views of both ankles were performed. The left ankle and posterior subtalar joint spaces appear normal without erosion. Right ankle and posterior subtalar joint spaces appear normal without erosion. There is a right heel spur. Impression: Mild cervical and lumbar spine degenerative disc disease. Mild osteoarthritis of the hands. Addendum by Humza Baker MD on 09/17/2016 1:35 PM CDT Examination: 1. Chest 2 views 2. Sacroiliac joints 3 views 3. Bilateral hips 2 views each with AP pelvis 4. Bilateral wrists 2 views each 5. Bilateral hands 2 views each 6. Bilateral feet 2 views each 7. Bilateral ankles 2 views each 8. Cervical spine 2 or 3 views 9. Lumbar spine 2 or 3 views 10. Bilateral knees AP standing History: Polyarticular joint pain, arthritis Findings: An AP standing view both knees was performed without prior comparison. Medial and lateral compartment joint spaces of both knees are normal. 2 views of each hip and an AP view of the pelvis were performed. Joint spaces of both hips are normal. There is no acute fracture of the pelvis. There is no acute fracture of either hip. 3 views of the sacroiliac joints were performed. The sacroiliac joints are normal. No osseous erosion or evidence of bony ankylosis is noted. AP and lateral views of the lumbar spine were performed. Alignment is normal. There is no lumbar spine compression deformity. There is mild L4-5 as well as L3-4 and L5-S1 degenerative disc disease. Facet osteoarthritis is noted. AP, lateral, and open-mouth views of the cervical spine were performed without comparison. No prevertebral soft tissue swelling is noted. There is mild C5-6 and C6-7 degenerative disc disease. Alignment of C1 on C2 appears normal. 2 views of the chest demonstrated a possible calcified right lung granuloma. There is no pneumonic consolidation, pleural effusion, or pneumothorax. Heart size appears normal. 2 views of both hands were performed. Alignment of both hands is normal. Metacarpophalangeal joint spaces are normal without erosion. There is very mild distal interphalangeal joint osteoarthritis of the hands. 2 views of both wrists were performed. Alignment of the left wrist is normal. There is no osseous erosion. The joint spaces appear normal. Alignment of the right wrist is normal. Joint spaces are normal. No erosion is noted. 2 views of both feet were performed. Left forefoot joint spaces are normal. There is no erosion. Right forefoot joint spaces are normal. There is no erosion. There is a small right heel spur. 2 views of both ankles were performed. The left ankle and posterior subtalar joint spaces appear normal without erosion. Right ankle and posterior subtalar joint spaces appear normal without erosion. There is a right heel spur. Impression: Mild cervical and lumbar spine degenerative disc disease. Mild osteoarthritis of the hands. Addended on 09/16/2016 10:10:10 AM by Humza Baker. Examination: 1. Chest 2 views 2. Sacroiliac joints 3 views 3. Bilateral hips 2 views each with AP pelvis 4. Bilateral wrists 2 views each 5. Bilateral hands 2 views each 6. Bilateral feet 2 views each 7. Bilateral ankles 2 views each 8. Cervical spine 2 or 3 views 9. Lumbar spine 2 or 3 views 10. Bilateral knees AP standing History: Polyarticular joint pain, arthritis Findings: An AP standing view both knees was performed without prior comparison. Medial and lateral compartment joint spaces of both knees are normal. 2 views of each hip and an AP view of the pelvis were performed. Joint spaces of both hips are normal. There is no acute fracture of the pelvis. There is no acute fracture of either hip. 3 views of the sacroiliac joints were performed. The sacroiliac joints are normal. No osseous erosion or evidence of bony ankylosis is noted. AP and lateral views of the lumbar spine were performed. Alignment is normal. There is no lumbar spine compression deformity. There is mild L4-5 as well as L3-4 and L5-S1 degenerative disc disease. Facet osteoarthritis is noted. AP, lateral, and open-mouth views of the cervical spine were performed without comparison. No prevertebral soft tissue swelling is noted. There is mild C5-6 and C6-7 degenerative disc disease. Alignment of C1 on C2 appears normal. 2 views of the chest demonstrated a possible calcified right lung granuloma. There is no pneumonic consolidation, pleural effusion, or pneumothorax. Heart size appears normal. 2 views of both hands were performed. Alignment of both hands is normal. Metacarpophalangeal joint spaces are normal without erosion. There is very mild distal interphalangeal joint osteoarthritis of the hands. 2 views of both wrists were performed. Alignment of the left wrist is normal. There is no osseous erosion. The joint spaces appear normal. Alignment of the right wrist is normal. Joint spaces are normal. No erosion is noted. 2 views of both feet were performed. Left forefoot joint spaces are normal. There is no erosion. Right forefoot joint spaces are normal. There is no erosion. There is a small right heel spur. 2 views of both ankles were performed. The left ankle and posterior subtalar joint spaces appear normal without erosion. Right ankle and posterior subtalar joint spaces appear normal without erosion. There is a right heel spur. Impression: Mild cervical and lumbar spine degenerative disc disease. Mild osteoarthritis of the hands. Addendum by Humza Bkaer MD on 09/16/2016 10:13 AM CDT Examination: 1. Chest 2 views 2. Sacroiliac joints 3 views 3. Bilateral hips 2 views each with AP pelvis 4. Bilateral wrists 2 views each 5. Bilateral hands 2 views each 6. Bilateral feet 2 views each 7. Bilateral ankles 2 views each 8. Cervical spine 2 or 3 views 9. Lumbar spine 2 or 3 views 10. Bilateral knees AP standing History: Polyarticular joint pain, arthritis Findings: An AP standing view both knees was performed without prior comparison. Medial and lateral compartment joint spaces of both knees are normal. 2 views of each hip and an AP view of the pelvis were performed. Joint spaces of both hips are normal. There is no acute fracture of the pelvis. There is no acute fracture of either hip. 3 views of the sacroiliac joints were performed. The sacroiliac joints are normal. No osseous erosion or evidence of bony ankylosis is noted. AP and lateral views of the lumbar spine were performed. Alignment is normal. There is no lumbar spine compression deformity. There is mild L4-5 as well as L3-4 and L5-S1 degenerative disc disease. Facet osteoarthritis is noted. AP, lateral, and open-mouth views of the cervical spine were performed without comparison. No prevertebral soft tissue swelling is noted. There is mild C5-6 and C6-7 degenerative disc disease. Alignment of C1 on C2 appears normal. 2 views of the chest demonstrated a possible calcified right lung granuloma. There is no pneumonic consolidation, pleural effusion, or pneumothorax. Heart size appears normal. 2 views of both hands were performed. Alignment of both hands is normal. Metacarpophalangeal joint spaces are normal without erosion. There is very mild distal interphalangeal joint osteoarthritis of the hands. 2 views of both wrists were performed. Alignment of the left wrist is normal. There is no osseous erosion. The joint spaces appear normal. Alignment of the right wrist is normal. Joint spaces are normal. No erosion is noted. 2 views of both feet were performed. Left forefoot joint spaces are normal. There is no erosion. Right forefoot joint spaces are normal. There is no erosion. There is a small right heel spur. 2 views of both ankles were performed. The left ankle and posterior subtalar joint spaces appear normal without erosion. Right ankle and posterior subtalar joint spaces appear normal without erosion. There is a right heel spur. Impression: Mild cervical and lumbar spine degenerative disc disease. Mild osteoarthritis of the hands. Impressions 09/11/2016 4:51 PM CDT Mild cervical and lumbar spine degenerative disc disease. Mild osteoarthritis of the hands. Narrative 09/11/2016 4:51 PM CDT Examination: 1. Chest 2 views 2. Sacroiliac joints 3 views 3. Bilateral hips 2 views each with AP pelvis 4. Bilateral wrists 2 views each 5. Bilateral hands 2 views each 6. Bilateral feet 2 views each 7. Bilateral ankles 2 views each 8. Cervical spine 2 or 3 views 9. Lumbar spine 2 or 3 views 10. Bilateral knees AP standing History: Polyarticular joint pain, arthritis Findings: An AP standing view both knees was performed without prior comparison. Medial and lateral compartment joint spaces of both knees are normal. 2 views of each hip and an AP view of the pelvis were performed. Joint spaces of both hips are normal. There is no acute fracture of the pelvis. There is no acute fracture of either hip. 3 views of the sacroiliac joints were performed. The sacroiliac joints are normal. No osseous erosion or evidence of bony ankylosis is noted. AP and lateral views of the lumbar spine were performed. Alignment is normal. There is no lumbar spine compression deformity. There is mild L4-5 as well as L3-4 and L5-S1 degenerative disc disease. Facet osteoarthritis is noted. AP, lateral, and open-mouth views of the cervical spine were performed without comparison. No prevertebral soft tissue swelling is noted. There is mild C5-6 and C6-7 degenerative disc disease. Alignment of C1 on C2 appears normal. 2 views of the chest demonstrated a possible calcified right lung granuloma. There is no pneumonic consolidation, pleural effusion, or pneumothorax. Heart size appears normal. 2 views of both hands were performed. Alignment of both hands is normal. Metacarpophalangeal joint spaces are normal without erosion. There is very mild distal interphalangeal joint osteoarthritis of the hands. 2 views of both wrists were performed. Alignment of the left wrist is normal. There is no osseous erosion. The joint spaces appear normal. Alignment of the right wrist is normal. Joint spaces are normal. No erosion is noted. 2 views of both feet were performed. Left forefoot joint spaces are normal. There is no erosion. Right forefoot joint spaces are normal. There is no erosion. There is a small right heel spur. 2 views of both ankles were performed. The left ankle and posterior subtalar joint spaces appear normal without erosion. Right ankle and posterior subtalar joint spaces appear normal without erosion. There is a right heel spur. Procedure Note Humza Baker MD - 09/11/2016 Examination: 1. Chest 2 views 2. Sacroiliac joints 3 views 3. Bilateral hips 2 views each with AP pelvis 4. Bilateral wrists 2 views each 5. Bilateral hands 2 views each 6. Bilateral feet 2 views each 7. Bilateral ankles 2 views each 8. Cervical spine 2 or 3 views 9. Lumbar spine 2 or 3 views 10. Bilateral knees AP standing History: Polyarticular joint pain, arthritis Findings: An AP standing view both knees was performed without prior comparison. Medial and lateral compartment joint spaces of both knees are normal. 2 views of each hip and an AP view of the pelvis were performed. Joint spaces of both hips are normal. There is no acute fracture of the pelvis. There is no acute fracture of either hip. 3 views of the sacroiliac joints were performed. The sacroiliac joints are normal. No osseous erosion or evidence of bony ankylosis is noted. AP and lateral views of the lumbar spine were performed. Alignment is normal. There is no lumbar spine compression deformity. There is mild L4-5 as well as L3-4 and L5-S1 degenerative disc disease. Facet osteoarthritis is noted. AP, lateral, and open-mouth views of the cervical spine were performed without comparison. No prevertebral soft tissue swelling is noted. There is mild C5-6 and C6-7 degenerative disc disease. Alignment of C1 on C2 appears normal. 2 views of the chest demonstrated a possible calcified right lung granuloma. There is no pneumonic consolidation, pleural effusion, or pneumothorax. Heart size appears normal. 2 views of both hands were performed. Alignment of both hands is normal. Metacarpophalangeal joint spaces are normal without erosion. There is very mild distal interphalangeal joint osteoarthritis of the hands. 2 views of both wrists were performed. Alignment of the left wrist is normal. There is no osseous erosion. The joint spaces appear normal. Alignment of the right wrist is normal. Joint spaces are normal. No erosion is noted. 2 views of both feet were performed. Left forefoot joint spaces are normal. There is no erosion. Right forefoot joint spaces are normal. There is no erosion. There is a small right heel spur. 2 views of both ankles were performed. The left ankle and posterior subtalar joint spaces appear normal without erosion. Right ankle and posterior subtalar joint spaces appear normal without erosion. There is a right heel spur. IMPRESSION Mild cervical and lumbar spine degenerative disc disease. Mild osteoarthritis of the hands. [facility] NG ORDERABLES * XR WRIST BILAT 2 VIEWS (09/11/2016 4:41 PM CDT) Anatomical Region Laterality Modality Wrist / Hand, Upper Extremity Ra diographic Imaging 09/11/2016 4:44 PM CDT Addenda Addendum by Humza Baker MD on 09/30/2016 2:55 PM CDT Examination: 1. Chest 2 views 2. Sacroiliac joints 3 views 3. Bilateral hips 2 views each with AP pelvis 4. Bilateral wrists 2 views each 5. Bilateral hands 2 views each 6. Bilateral feet 2 views each 7. Bilateral ankles 2 views each 8. Cervical spine 2 or 3 views 9. Lumbar spine 2 or 3 views 10. Bilateral knees AP standing History: Polyarticular joint pain, arthritis Findings: An AP standing view both knees was performed without prior comparison. Medial and lateral compartment joint spaces of both knees are normal. 2 views of each hip and an AP view of the pelvis were performed. Joint spaces of both hips are normal. There is no acute fracture of the pelvis. There is no acute fracture of either hip. 3 views of the sacroiliac joints were performed. The sacroiliac joints are normal. No osseous erosion or evidence of bony ankylosis is noted. AP and lateral views of the lumbar spine were performed. Alignment is normal. There is no lumbar spine compression deformity. There is mild L4-5 as well as L3-4 and L5-S1 degenerative disc disease. Facet osteoarthritis is noted. AP, lateral, and open-mouth views of the cervical spine were performed without comparison. No prevertebral soft tissue swelling is noted. There is mild C5-6 and C6-7 degenerative disc disease. Alignment of C1 on C2 appears normal. 2 views of the chest demonstrated a possible calcified right lung granuloma. There is no pneumonic consolidation, pleural effusion, or pneumothorax. Heart size appears normal. 2 views of both hands were performed. Alignment of both hands is normal. Metacarpophalangeal joint spaces are normal without erosion. There is very mild distal interphalangeal joint osteoarthritis of the hands. 2 views of both wrists were performed. Alignment of the left wrist is normal. There is no osseous erosion. The joint spaces appear normal. Alignment of the right wrist is normal. Joint spaces are normal. No erosion is noted. 2 views of both feet were performed. Left forefoot joint spaces are normal. There is no erosion. Right forefoot joint spaces are normal. There is no erosion. There is a small right heel spur. 2 views of both ankles were performed. The left ankle and posterior subtalar joint spaces appear normal without erosion. Right ankle and posterior subtalar joint spaces appear normal without erosion. There is a right heel spur. Impression: Mild cervical and lumbar spine degenerative disc disease. Mild osteoarthritis of the hands. Addended on 09/16/2016 10:10:10 AM by Humza Baker. Examination: 1. Chest 2 views 2. Sacroiliac joints 3 views 3. Bilateral hips 2 views each with AP pelvis 4. Bilateral wrists 2 views each 5. Bilateral hands 2 views each 6. Bilateral feet 2 views each 7. Bilateral ankles 2 views each 8. Cervical spine 2 or 3 views 9. Lumbar spine 2 or 3 views 10. Bilateral knees AP standing History: Polyarticular joint pain, arthritis Findings: An AP standing view both knees was performed without prior comparison. Medial and lateral compartment joint spaces of both knees are normal. 2 views of each hip and an AP view of the pelvis were performed. Joint spaces of both hips are normal. There is no acute fracture of the pelvis. There is no acute fracture of either hip. 3 views of the sacroiliac joints were performed. The sacroiliac joints are normal. No osseous erosion or evidence of bony ankylosis is noted. AP and lateral views of the lumbar spine were performed. Alignment is normal. There is no lumbar spine compression deformity. There is mild L4-5 as well as L3-4 and L5-S1 degenerative disc disease. Facet osteoarthritis is noted. AP, lateral, and open-mouth views of the cervical spine were performed without comparison. No prevertebral soft tissue swelling is noted. There is mild C5-6 and C6-7 degenerative disc disease. Alignment of C1 on C2 appears normal. 2 views of the chest demonstrated a possible calcified right lung granuloma. There is no pneumonic consolidation, pleural effusion, or pneumothorax. Heart size appears normal. 2 views of both hands were performed. Alignment of both hands is normal. Metacarpophalangeal joint spaces are normal without erosion. There is very mild distal interphalangeal joint osteoarthritis of the hands. 2 views of both wrists were performed. Alignment of the left wrist is normal. There is no osseous erosion. The joint spaces appear normal. Alignment of the right wrist is normal. Joint spaces are normal. No erosion is noted. 2 views of both feet were performed. Left forefoot joint spaces are normal. There is no erosion. Right forefoot joint spaces are normal. There is no erosion. There is a small right heel spur. 2 views of both ankles were performed. The left ankle and posterior subtalar joint spaces appear normal without erosion. Right ankle and posterior subtalar joint spaces appear normal without erosion. There is a right heel spur. Impression: Mild cervical and lumbar spine degenerative disc disease. Mild osteoarthritis of the hands. Addended on 09/17/2016 1:31:57 PM by Humza Baker. Examination: 1. Chest 2 views 2. Sacroiliac joints 3 views 3. Bilateral hips 2 views each with AP pelvis 4. Bilateral wrists 2 views each 5. Bilateral hands 2 views each 6. Bilateral feet 2 views each 7. Bilateral ankles 2 views each 8. Cervical spine 2 or 3 views 9. Lumbar spine 2 or 3 views 10. Bilateral knees AP standing History: Polyarticular joint pain, arthritis Findings: An AP standing view both knees was performed without prior comparison. Medial and lateral compartment joint spaces of both knees are normal. 2 views of each hip and an AP view of the pelvis were performed. Joint spaces of both hips are normal. There is no acute fracture of the pelvis. There is no acute fracture of either hip. 3 views of the sacroiliac joints were performed. The sacroiliac joints are normal. No osseous erosion or evidence of bony ankylosis is noted. AP and lateral views of the lumbar spine were performed. Alignment is normal. There is no lumbar spine compression deformity. There is mild L4-5 as well as L3-4 and L5-S1 degenerative disc disease. Facet osteoarthritis is noted. AP, lateral, and open-mouth views of the cervical spine were performed without comparison. No prevertebral soft tissue swelling is noted. There is mild C5-6 and C6-7 degenerative disc disease. Alignment of C1 on C2 appears normal. 2 views of the chest demonstrated a possible calcified right lung granuloma. There is no pneumonic consolidation, pleural effusion, or pneumothorax. Heart size appears normal. 2 views of both hands were performed. Alignment of both hands is normal. Metacarpophalangeal joint spaces are normal without erosion. There is very mild distal interphalangeal joint osteoarthritis of the hands. 2 views of both wrists were performed. Alignment of the left wrist is normal. There is no osseous erosion. The joint spaces appear normal. Alignment of the right wrist is normal. Joint spaces are normal. No erosion is noted. 2 views of both feet were performed. Left forefoot joint spaces are normal. There is no erosion. Right forefoot joint spaces are normal. There is no erosion. There is a small right heel spur. 2 views of both ankles were performed. The left ankle and posterior subtalar joint spaces appear normal without erosion. Right ankle and posterior subtalar joint spaces appear normal without erosion. There is a right heel spur. Impression: Mild cervical and lumbar spine degenerative disc disease. Mild osteoarthritis of the hands. Addended on 09/16/2016 10:10:10 AM by Humza Baker. Examination: 1. Chest 2 views 2. Sacroiliac joints 3 views 3. Bilateral hips 2 views each with AP pelvis 4. Bilateral wrists 2 views each 5. Bilateral hands 2 views each 6. Bilateral feet 2 views each 7. Bilateral ankles 2 views each 8. Cervical spine 2 or 3 views 9. Lumbar spine 2 or 3 views 10. Bilateral knees AP standing History: Polyarticular joint pain, arthritis Findings: An AP standing view both knees was performed without prior comparison. Medial and lateral compartment joint spaces of both knees are normal. 2 views of each hip and an AP view of the pelvis were performed. Joint spaces of both hips are normal. There is no acute fracture of the pelvis. There is no acute fracture of either hip. 3 views of the sacroiliac joints were performed. The sacroiliac joints are normal. No osseous erosion or evidence of bony ankylosis is noted. AP and lateral views of the lumbar spine were performed. Alignment is normal. There is no lumbar spine compression deformity. There is mild L4-5 as well as L3-4 and L5-S1 degenerative disc disease. Facet osteoarthritis is noted. AP, lateral, and open-mouth views of the cervical spine were performed without comparison. No prevertebral soft tissue swelling is noted. There is mild C5-6 and C6-7 degenerative disc disease. Alignment of C1 on C2 appears normal. 2 views of the chest demonstrated a possible calcified right lung granuloma. There is no pneumonic consolidation, pleural effusion, or pneumothorax. Heart size appears normal. 2 views of both hands were performed. Alignment of both hands is normal. Metacarpophalangeal joint spaces are normal without erosion. There is very mild distal interphalangeal joint osteoarthritis of the hands. 2 views of both wrists were performed. Alignment of the left wrist is normal. There is no osseous erosion. The joint spaces appear normal. Alignment of the right wrist is normal. Joint spaces are normal. No erosion is noted. 2 views of both feet were performed. Left forefoot joint spaces are normal. There is no erosion. Right forefoot joint spaces are normal. There is no erosion. There is a small right heel spur. 2 views of both ankles were performed. The left ankle and posterior subtalar joint spaces appear normal without erosion. Right ankle and posterior subtalar joint spaces appear normal without erosion. There is a right heel spur. Impression: Mild cervical and lumbar spine degenerative disc disease. Mild osteoarthritis of the hands. Addendum by Humza Baker MD on 09/17/2016 1:35 PM CDT Examination: 1. Chest 2 views 2. Sacroiliac joints 3 views 3. Bilateral hips 2 views each with AP pelvis 4. Bilateral wrists 2 views each 5. Bilateral hands 2 views each 6. Bilateral feet 2 views each 7. Bilateral ankles 2 views each 8. Cervical spine 2 or 3 views 9. Lumbar spine 2 or 3 views 10. Bilateral knees AP standing History: Polyarticular joint pain, arthritis Findings: An AP standing view both knees was performed without prior comparison. Medial and lateral compartment joint spaces of both knees are normal. 2 views of each hip and an AP view of the pelvis were performed. Joint spaces of both hips are normal. There is no acute fracture of the pelvis. There is no acute fracture of either hip. 3 views of the sacroiliac joints were performed. The sacroiliac joints are normal. No osseous erosion or evidence of bony ankylosis is noted. AP and lateral views of the lumbar spine were performed. Alignment is normal. There is no lumbar spine compression deformity. There is mild L4-5 as well as L3-4 and L5-S1 degenerative disc disease. Facet osteoarthritis is noted. AP, lateral, and open-mouth views of the cervical spine were performed without comparison. No prevertebral soft tissue swelling is noted. There is mild C5-6 and C6-7 degenerative disc disease. Alignment of C1 on C2 appears normal. 2 views of the chest demonstrated a possible calcified right lung granuloma. There is no pneumonic consolidation, pleural effusion, or pneumothorax. Heart size appears normal. 2 views of both hands were performed. Alignment of both hands is normal. Metacarpophalangeal joint spaces are normal without erosion. There is very mild distal interphalangeal joint osteoarthritis of the hands. 2 views of both wrists were performed. Alignment of the left wrist is normal. There is no osseous erosion. The joint spaces appear normal. Alignment of the right wrist is normal. Joint spaces are normal. No erosion is noted. 2 views of both feet were performed. Left forefoot joint spaces are normal. There is no erosion. Right forefoot joint spaces are normal. There is no erosion. There is a small right heel spur. 2 views of both ankles were performed. The left ankle and posterior subtalar joint spaces appear normal without erosion. Right ankle and posterior subtalar joint spaces appear normal without erosion. There is a right heel spur. Impression: Mild cervical and lumbar spine degenerative disc disease. Mild osteoarthritis of the hands. Addended on 09/16/2016 10:10:10 AM by Humza Baker. Examination: 1. Chest 2 views 2. Sacroiliac joints 3 views 3. Bilateral hips 2 views each with AP pelvis 4. Bilateral wrists 2 views each 5. Bilateral hands 2 views each 6. Bilateral feet 2 views each 7. Bilateral ankles 2 views each 8. Cervical spine 2 or 3 views 9. Lumbar spine 2 or 3 views 10. Bilateral knees AP standing History: Polyarticular joint pain, arthritis Findings: An AP standing view both knees was performed without prior comparison. Medial and lateral compartment joint spaces of both knees are normal. 2 views of each hip and an AP view of the pelvis were performed. Joint spaces of both hips are normal. There is no acute fracture of the pelvis. There is no acute fracture of either hip. 3 views of the sacroiliac joints were performed. The sacroiliac joints are normal. No osseous erosion or evidence of bony ankylosis is noted. AP and lateral views of the lumbar spine were performed. Alignment is normal. There is no lumbar spine compression deformity. There is mild L4-5 as well as L3-4 and L5-S1 degenerative disc disease. Facet osteoarthritis is noted. AP, lateral, and open-mouth views of the cervical spine were performed without comparison. No prevertebral soft tissue swelling is noted. There is mild C5-6 and C6-7 degenerative disc disease. Alignment of C1 on C2 appears normal. 2 views of the chest demonstrated a possible calcified right lung granuloma. There is no pneumonic consolidation, pleural effusion, or pneumothorax. Heart size appears normal. 2 views of both hands were performed. Alignment of both hands is normal. Metacarpophalangeal joint spaces are normal without erosion. There is very mild distal interphalangeal joint osteoarthritis of the hands. 2 views of both wrists were performed. Alignment of the left wrist is normal. There is no osseous erosion. The joint spaces appear normal. Alignment of the right wrist is normal. Joint spaces are normal. No erosion is noted. 2 views of both feet were performed. Left forefoot joint spaces are normal. There is no erosion. Right forefoot joint spaces are normal. There is no erosion. There is a small right heel spur. 2 views of both ankles were performed. The left ankle and posterior subtalar joint spaces appear normal without erosion. Right ankle and posterior subtalar joint spaces appear normal without erosion. There is a right heel spur. Impression: Mild cervical and lumbar spine degenerative disc disease. Mild osteoarthritis of the hands. Addendum by Humza Baker MD on 09/16/2016 10:13 AM CDT Examination: 1. Chest 2 views 2. Sacroiliac joints 3 views 3. Bilateral hips 2 views each with AP pelvis 4. Bilateral wrists 2 views each 5. Bilateral hands 2 views each 6. Bilateral feet 2 views each 7. Bilateral ankles 2 views each 8. Cervical spine 2 or 3 views 9. Lumbar spine 2 or 3 views 10. Bilateral knees AP standing History: Polyarticular joint pain, arthritis Findings: An AP standing view both knees was performed without prior comparison. Medial and lateral compartment joint spaces of both knees are normal. 2 views of each hip and an AP view of the pelvis were performed. Joint spaces of both hips are normal. There is no acute fracture of the pelvis. There is no acute fracture of either hip. 3 views of the sacroiliac joints were performed. The sacroiliac joints are normal. No osseous erosion or evidence of bony ankylosis is noted. AP and lateral views of the lumbar spine were performed. Alignment is normal. There is no lumbar spine compression deformity. There is mild L4-5 as well as L3-4 and L5-S1 degenerative disc disease. Facet osteoarthritis is noted. AP, lateral, and open-mouth views of the cervical spine were performed without comparison. No prevertebral soft tissue swelling is noted. There is mild C5-6 and C6-7 degenerative disc disease. Alignment of C1 on C2 appears normal. 2 views of the chest demonstrated a possible calcified right lung granuloma. There is no pneumonic consolidation, pleural effusion, or pneumothorax. Heart size appears normal. 2 views of both hands were performed. Alignment of both hands is normal. Metacarpophalangeal joint spaces are normal without erosion. There is very mild distal interphalangeal joint osteoarthritis of the hands. 2 views of both wrists were performed. Alignment of the left wrist is normal. There is no osseous erosion. The joint spaces appear normal. Alignment of the right wrist is normal. Joint spaces are normal. No erosion is noted. 2 views of both feet were performed. Left forefoot joint spaces are normal. There is no erosion. Right forefoot joint spaces are normal. There is no erosion. There is a small right heel spur. 2 views of both ankles were performed. The left ankle and posterior subtalar joint spaces appear normal without erosion. Right ankle and posterior subtalar joint spaces appear normal without erosion. There is a right heel spur. Impression: Mild cervical and lumbar spine degenerative disc disease. Mild osteoarthritis of the hands. Impressions 09/11/2016 4:51 PM CDT Mild cervical and lumbar spine degenerative disc disease. Mild osteoarthritis of the hands. Narrative 09/11/2016 4:51 PM CDT Examination: 1. Chest 2 views 2. Sacroiliac joints 3 views 3. Bilateral hips 2 views each with AP pelvis 4. Bilateral wrists 2 views each 5. Bilateral hands 2 views each 6. Bilateral feet 2 views each 7. Bilateral ankles 2 views each 8. Cervical spine 2 or 3 views 9. Lumbar spine 2 or 3 views 10. Bilateral knees AP standing History: Polyarticular joint pain, arthritis Findings: An AP standing view both knees was performed without prior comparison. Medial and lateral compartment joint spaces of both knees are normal. 2 views of each hip and an AP view of the pelvis were performed. Joint spaces of both hips are normal. There is no acute fracture of the pelvis. There is no acute fracture of either hip. 3 views of the sacroiliac joints were performed. The sacroiliac joints are normal. No osseous erosion or evidence of bony ankylosis is noted. AP and lateral views of the lumbar spine were performed. Alignment is normal. There is no lumbar spine compression deformity. There is mild L4-5 as well as L3-4 and L5-S1 degenerative disc disease. Facet osteoarthritis is noted. AP, lateral, and open-mouth views of the cervical spine were performed without comparison. No prevertebral soft tissue swelling is noted. There is mild C5-6 and C6-7 degenerative disc disease. Alignment of C1 on C2 appears normal. 2 views of the chest demonstrated a possible calcified right lung granuloma. There is no pneumonic consolidation, pleural effusion, or pneumothorax. Heart size appears normal. 2 views of both hands were performed. Alignment of both hands is normal. Metacarpophalangeal joint spaces are normal without erosion. There is very mild distal interphalangeal joint osteoarthritis of the hands. 2 views of both wrists were performed. Alignment of the left wrist is normal. There is no osseous erosion. The joint spaces appear normal. Alignment of the right wrist is normal. Joint spaces are normal. No erosion is noted. 2 views of both feet were performed. Left forefoot joint spaces are normal. There is no erosion. Right forefoot joint spaces are normal. There is no erosion. There is a small right heel spur. 2 views of both ankles were performed. The left ankle and posterior subtalar joint spaces appear normal without erosion. Right ankle and posterior subtalar joint spaces appear normal without erosion. There is a right heel spur. Procedure Note Humza Baker MD - 09/11/2016 Examination: 1. Chest 2 views 2. Sacroiliac joints 3 views 3. Bilateral hips 2 views each with AP pelvis 4. Bilateral wrists 2 views each 5. Bilateral hands 2 views each 6. Bilateral feet 2 views each 7. Bilateral ankles 2 views each 8. Cervical spine 2 or 3 views 9. Lumbar spine 2 or 3 views 10. Bilateral knees AP standing History: Polyarticular joint pain, arthritis Findings: An AP standing view both knees was performed without prior comparison. Medial and lateral compartment joint spaces of both knees are normal. 2 views of each hip and an AP view of the pelvis were performed. Joint spaces of both hips are normal. There is no acute fracture of the pelvis. There is no acute fracture of either hip. 3 views of the sacroiliac joints were performed. The sacroiliac joints are normal. No osseous erosion or evidence of bony ankylosis is noted. AP and lateral views of the lumbar spine were performed. Alignment is normal. There is no lumbar spine compression deformity. There is mild L4-5 as well as L3-4 and L5-S1 degenerative disc disease. Facet osteoarthritis is noted. AP, lateral, and open-mouth views of the cervical spine were performed without comparison. No prevertebral soft tissue swelling is noted. There is mild C5-6 and C6-7 degenerative disc disease. Alignment of C1 on C2 appears normal. 2 views of the chest demonstrated a possible calcified right lung granuloma. There is no pneumonic consolidation, pleural effusion, or pneumothorax. Heart size appears normal. 2 views of both hands were performed. Alignment of both hands is normal. Metacarpophalangeal joint spaces are normal without erosion. There is very mild distal interphalangeal joint osteoarthritis of the hands. 2 views of both wrists were performed. Alignment of the left wrist is normal. There is no osseous erosion. The joint spaces appear normal. Alignment of the right wrist is normal. Joint spaces are normal. No erosion is noted. 2 views of both feet were performed. Left forefoot joint spaces are normal. There is no erosion. Right forefoot joint spaces are normal. There is no erosion. There is a small right heel spur. 2 views of both ankles were performed. The left ankle and posterior subtalar joint spaces appear normal without erosion. Right ankle and posterior subtalar joint spaces appear normal without erosion. There is a right heel spur. IMPRESSION Mild cervical and lumbar spine degenerative disc disease. Mild osteoarthritis of the hands. [facility] ORDERABLES * XR ANKLE BILAT 2 VIEWS (09/11/2016 4:41 PM CDT) Anatomical Region Laterality Modality Ankle / Foot, Lower Extremity Ra diographic Imaging 09/11/2016 4:44 PM CDT Addenda Addendum by Humza Baker MD on 09/30/2016 2:55 PM CDT Examination: 1. Chest 2 views 2. Sacroiliac joints 3 views 3. Bilateral hips 2 views each with AP pelvis 4. Bilateral wrists 2 views each 5. Bilateral hands 2 views each 6. Bilateral feet 2 views each 7. Bilateral ankles 2 views each 8. Cervical spine 2 or 3 views 9. Lumbar spine 2 or 3 views 10. Bilateral knees AP standing History: Polyarticular joint pain, arthritis Findings: An AP standing view both knees was performed without prior comparison. Medial and lateral compartment joint spaces of both knees are normal. 2 views of each hip and an AP view of the pelvis were performed. Joint spaces of both hips are normal. There is no acute fracture of the pelvis. There is no acute fracture of either hip. 3 views of the sacroiliac joints were performed. The sacroiliac joints are normal. No osseous erosion or evidence of bony ankylosis is noted. AP and lateral views of the lumbar spine were performed. Alignment is normal. There is no lumbar spine compression deformity. There is mild L4-5 as well as L3-4 and L5-S1 degenerative disc disease. Facet osteoarthritis is noted. AP, lateral, and open-mouth views of the cervical spine were performed without comparison. No prevertebral soft tissue swelling is noted. There is mild C5-6 and C6-7 degenerative disc disease. Alignment of C1 on C2 appears normal. 2 views of the chest demonstrated a possible calcified right lung granuloma. There is no pneumonic consolidation, pleural effusion, or pneumothorax. Heart size appears normal. 2 views of both hands were performed. Alignment of both hands is normal. Metacarpophalangeal joint spaces are normal without erosion. There is very mild distal interphalangeal joint osteoarthritis of the hands. 2 views of both wrists were performed. Alignment of the left wrist is normal. There is no osseous erosion. The joint spaces appear normal. Alignment of the right wrist is normal. Joint spaces are normal. No erosion is noted. 2 views of both feet were performed. Left forefoot joint spaces are normal. There is no erosion. Right forefoot joint spaces are normal. There is no erosion. There is a small right heel spur. 2 views of both ankles were performed. The left ankle and posterior subtalar joint spaces appear normal without erosion. Right ankle and posterior subtalar joint spaces appear normal without erosion. There is a right heel spur. Impression: Mild cervical and lumbar spine degenerative disc disease. Mild osteoarthritis of the hands. Addended on 09/16/2016 10:10:10 AM by Humza Baker. Examination: 1. Chest 2 views 2. Sacroiliac joints 3 views 3. Bilateral hips 2 views each with AP pelvis 4. Bilateral wrists 2 views each 5. Bilateral hands 2 views each 6. Bilateral feet 2 views each 7. Bilateral ankles 2 views each 8. Cervical spine 2 or 3 views 9. Lumbar spine 2 or 3 views 10. Bilateral knees AP standing History: Polyarticular joint pain, arthritis Findings: An AP standing view both knees was performed without prior comparison. Medial and lateral compartment joint spaces of both knees are normal. 2 views of each hip and an AP view of the pelvis were performed. Joint spaces of both hips are normal. There is no acute fracture of the pelvis. There is no acute fracture of either hip. 3 views of the sacroiliac joints were performed. The sacroiliac joints are normal. No osseous erosion or evidence of bony ankylosis is noted. AP and lateral views of the lumbar spine were performed. Alignment is normal. There is no lumbar spine compression deformity. There is mild L4-5 as well as L3-4 and L5-S1 degenerative disc disease. Facet osteoarthritis is noted. AP, lateral, and open-mouth views of the cervical spine were performed without comparison. No prevertebral soft tissue swelling is noted. There is mild C5-6 and C6-7 degenerative disc disease. Alignment of C1 on C2 appears normal. 2 views of the chest demonstrated a possible calcified right lung granuloma. There is no pneumonic consolidation, pleural effusion, or pneumothorax. Heart size appears normal. 2 views of both hands were performed. Alignment of both hands is normal. Metacarpophalangeal joint spaces are normal without erosion. There is very mild distal interphalangeal joint osteoarthritis of the hands. 2 views of both wrists were performed. Alignment of the left wrist is normal. There is no osseous erosion. The joint spaces appear normal. Alignment of the right wrist is normal. Joint spaces are normal. No erosion is noted. 2 views of both feet were performed. Left forefoot joint spaces are normal. There is no erosion. Right forefoot joint spaces are normal. There is no erosion. There is a small right heel spur. 2 views of both ankles were performed. The left ankle and posterior subtalar joint spaces appear normal without erosion. Right ankle and posterior subtalar joint spaces appear normal without erosion. There is a right heel spur. Impression: Mild cervical and lumbar spine degenerative disc disease. Mild osteoarthritis of the hands. Addended on 09/17/2016 1:31:57 PM by Humza Baker. Examination: 1. Chest 2 views 2. Sacroiliac joints 3 views 3. Bilateral hips 2 views each with AP pelvis 4. Bilateral wrists 2 views each 5. Bilateral hands 2 views each 6. Bilateral feet 2 views each 7. Bilateral ankles 2 views each 8. Cervical spine 2 or 3 views 9. Lumbar spine 2 or 3 views 10. Bilateral knees AP standing History: Polyarticular joint pain, arthritis Findings: An AP standing view both knees was performed without prior comparison. Medial and lateral compartment joint spaces of both knees are normal. 2 views of each hip and an AP view of the pelvis were performed. Joint spaces of both hips are normal. There is no acute fracture of the pelvis. There is no acute fracture of either hip. 3 views of the sacroiliac joints were performed. The sacroiliac joints are normal. No osseous erosion or evidence of bony ankylosis is noted. AP and lateral views of the lumbar spine were performed. Alignment is normal. There is no lumbar spine compression deformity. There is mild L4-5 as well as L3-4 and L5-S1 degenerative disc disease. Facet osteoarthritis is noted. AP, lateral, and open-mouth views of the cervical spine were performed without comparison. No prevertebral soft tissue swelling is noted. There is mild C5-6 and C6-7 degenerative disc disease. Alignment of C1 on C2 appears normal. 2 views of the chest demonstrated a possible calcified right lung granuloma. There is no pneumonic consolidation, pleural effusion, or pneumothorax. Heart size appears normal. 2 views of both hands were performed. Alignment of both hands is normal. Metacarpophalangeal joint spaces are normal without erosion. There is very mild distal interphalangeal joint osteoarthritis of the hands. 2 views of both wrists were performed. Alignment of the left wrist is normal. There is no osseous erosion. The joint spaces appear normal. Alignment of the right wrist is normal. Joint spaces are normal. No erosion is noted. 2 views of both feet were performed. Left forefoot joint spaces are normal. There is no erosion. Right forefoot joint spaces are normal. There is no erosion. There is a small right heel spur. 2 views of both ankles were performed. The left ankle and posterior subtalar joint spaces appear normal without erosion. Right ankle and posterior subtalar joint spaces appear normal without erosion. There is a right heel spur. Impression: Mild cervical and lumbar spine degenerative disc disease. Mild osteoarthritis of the hands. Addended on 09/16/2016 10:10:10 AM by Humza Baker. Examination: 1. Chest 2 views 2. Sacroiliac joints 3 views 3. Bilateral hips 2 views each with AP pelvis 4. Bilateral wrists 2 views each 5. Bilateral hands 2 views each 6. Bilateral feet 2 views each 7. Bilateral ankles 2 views each 8. Cervical spine 2 or 3 views 9. Lumbar spine 2 or 3 views 10. Bilateral knees AP standing History: Polyarticular joint pain, arthritis Findings: An AP standing view both knees was performed without prior comparison. Medial and lateral compartment joint spaces of both knees are normal. 2 views of each hip and an AP view of the pelvis were performed. Joint spaces of both hips are normal. There is no acute fracture of the pelvis. There is no acute fracture of either hip. 3 views of the sacroiliac joints were performed. The sacroiliac joints are normal. No osseous erosion or evidence of bony ankylosis is noted. AP and lateral views of the lumbar spine were performed. Alignment is normal. There is no lumbar spine compression deformity. There is mild L4-5 as well as L3-4 and L5-S1 degenerative disc disease. Facet osteoarthritis is noted. AP, lateral, and open-mouth views of the cervical spine were performed without comparison. No prevertebral soft tissue swelling is noted. There is mild C5-6 and C6-7 degenerative disc disease. Alignment of C1 on C2 appears normal. 2 views of the chest demonstrated a possible calcified right lung granuloma. There is no pneumonic consolidation, pleural effusion, or pneumothorax. Heart size appears normal. 2 views of both hands were performed. Alignment of both hands is normal. Metacarpophalangeal joint spaces are normal without erosion. There is very mild distal interphalangeal joint osteoarthritis of the hands. 2 views of both wrists were performed. Alignment of the left wrist is normal. There is no osseous erosion. The joint spaces appear normal. Alignment of the right wrist is normal. Joint spaces are normal. No erosion is noted. 2 views of both feet were performed. Left forefoot joint spaces are normal. There is no erosion. Right forefoot joint spaces are normal. There is no erosion. There is a small right heel spur. 2 views of both ankles were performed. The left ankle and posterior subtalar joint spaces appear normal without erosion. Right ankle and posterior subtalar joint spaces appear normal without erosion. There is a right heel spur. Impression: Mild cervical and lumbar spine degenerative disc disease. Mild osteoarthritis of the hands. Addendum by Humza Baker MD on 09/17/2016 1:35 PM CDT Examination: 1. Chest 2 views 2. Sacroiliac joints 3 views 3. Bilateral hips 2 views each with AP pelvis 4. Bilateral wrists 2 views each 5. Bilateral hands 2 views each 6. Bilateral feet 2 views each 7. Bilateral ankles 2 views each 8. Cervical spine 2 or 3 views 9. Lumbar spine 2 or 3 views 10. Bilateral knees AP standing History: Polyarticular joint pain, arthritis Findings: An AP standing view both knees was performed without prior comparison. Medial and lateral compartment joint spaces of both knees are normal. 2 views of each hip and an AP view of the pelvis were performed. Joint spaces of both hips are normal. There is no acute fracture of the pelvis. There is no acute fracture of either hip. 3 views of the sacroiliac joints were performed. The sacroiliac joints are normal. No osseous erosion or evidence of bony ankylosis is noted. AP and lateral views of the lumbar spine were performed. Alignment is normal. There is no lumbar spine compression deformity. There is mild L4-5 as well as L3-4 and L5-S1 degenerative disc disease. Facet osteoarthritis is noted. AP, lateral, and open-mouth views of the cervical spine were performed without comparison. No prevertebral soft tissue swelling is noted. There is mild C5-6 and C6-7 degenerative disc disease. Alignment of C1 on C2 appears normal. 2 views of the chest demonstrated a possible calcified right lung granuloma. There is no pneumonic consolidation, pleural effusion, or pneumothorax. Heart size appears normal. 2 views of both hands were performed. Alignment of both hands is normal. Metacarpophalangeal joint spaces are normal without erosion. There is very mild distal interphalangeal joint osteoarthritis of the hands. 2 views of both wrists were performed. Alignment of the left wrist is normal. There is no osseous erosion. The joint spaces appear normal. Alignment of the right wrist is normal. Joint spaces are normal. No erosion is noted. 2 views of both feet were performed. Left forefoot joint spaces are normal. There is no erosion. Right forefoot joint spaces are normal. There is no erosion. There is a small right heel spur. 2 views of both ankles were performed. The left ankle and posterior subtalar joint spaces appear normal without erosion. Right ankle and posterior subtalar joint spaces appear normal without erosion. There is a right heel spur. Impression: Mild cervical and lumbar spine degenerative disc disease. Mild osteoarthritis of the hands. Addended on 09/16/2016 10:10:10 AM by Humza Baker. Examination: 1. Chest 2 views 2. Sacroiliac joints 3 views 3. Bilateral hips 2 views each with AP pelvis 4. Bilateral wrists 2 views each 5. Bilateral hands 2 views each 6. Bilateral feet 2 views each 7. Bilateral ankles 2 views each 8. Cervical spine 2 or 3 views 9. Lumbar spine 2 or 3 views 10. Bilateral knees AP standing History: Polyarticular joint pain, arthritis Findings: An AP standing view both knees was performed without prior comparison. Medial and lateral compartment joint spaces of both knees are normal. 2 views of each hip and an AP view of the pelvis were performed. Joint spaces of both hips are normal. There is no acute fracture of the pelvis. There is no acute fracture of either hip. 3 views of the sacroiliac joints were performed. The sacroiliac joints are normal. No osseous erosion or evidence of bony ankylosis is noted. AP and lateral views of the lumbar spine were performed. Alignment is normal. There is no lumbar spine compression deformity. There is mild L4-5 as well as L3-4 and L5-S1 degenerative disc disease. Facet osteoarthritis is noted. AP, lateral, and open-mouth views of the cervical spine were performed without comparison. No prevertebral soft tissue swelling is noted. There is mild C5-6 and C6-7 degenerative disc disease. Alignment of C1 on C2 appears normal. 2 views of the chest demonstrated a possible calcified right lung granuloma. There is no pneumonic consolidation, pleural effusion, or pneumothorax. Heart size appears normal. 2 views of both hands were performed. Alignment of both hands is normal. Metacarpophalangeal joint spaces are normal without erosion. There is very mild distal interphalangeal joint osteoarthritis of the hands. 2 views of both wrists were performed. Alignment of the left wrist is normal. There is no osseous erosion. The joint spaces appear normal. Alignment of the right wrist is normal. Joint spaces are normal. No erosion is noted. 2 views of both feet were performed. Left forefoot joint spaces are normal. There is no erosion. Right forefoot joint spaces are normal. There is no erosion. There is a small right heel spur. 2 views of both ankles were performed. The left ankle and posterior subtalar joint spaces appear normal without erosion. Right ankle and posterior subtalar joint spaces appear normal without erosion. There is a right heel spur. Impression: Mild cervical and lumbar spine degenerative disc disease. Mild osteoarthritis of the hands. Addendum by Humza Baker MD on 09/16/2016 10:13 AM CDT Examination: 1. Chest 2 views 2. Sacroiliac joints 3 views 3. Bilateral hips 2 views each with AP pelvis 4. Bilateral wrists 2 views each 5. Bilateral hands 2 views each 6. Bilateral feet 2 views each 7. Bilateral ankles 2 views each 8. Cervical spine 2 or 3 views 9. Lumbar spine 2 or 3 views 10. Bilateral knees AP standing History: Polyarticular joint pain, arthritis Findings: An AP standing view both knees was performed without prior comparison. Medial and lateral compartment joint spaces of both knees are normal. 2 views of each hip and an AP view of the pelvis were performed. Joint spaces of both hips are normal. There is no acute fracture of the pelvis. There is no acute fracture of either hip. 3 views of the sacroiliac joints were performed. The sacroiliac joints are normal. No osseous erosion or evidence of bony ankylosis is noted. AP and lateral views of the lumbar spine were performed. Alignment is normal. There is no lumbar spine compression deformity. There is mild L4-5 as well as L3-4 and L5-S1 degenerative disc disease. Facet osteoarthritis is noted. AP, lateral, and open-mouth views of the cervical spine were performed without comparison. No prevertebral soft tissue swelling is noted. There is mild C5-6 and C6-7 degenerative disc disease. Alignment of C1 on C2 appears normal. 2 views of the chest demonstrated a possible calcified right lung granuloma. There is no pneumonic consolidation, pleural effusion, or pneumothorax. Heart size appears normal. 2 views of both hands were performed. Alignment of both hands is normal. Metacarpophalangeal joint spaces are normal without erosion. There is very mild distal interphalangeal joint osteoarthritis of the hands. 2 views of both wrists were performed. Alignment of the left wrist is normal. There is no osseous erosion. The joint spaces appear normal. Alignment of the right wrist is normal. Joint spaces are normal. No erosion is noted. 2 views of both feet were performed. Left forefoot joint spaces are normal. There is no erosion. Right forefoot joint spaces are normal. There is no erosion. There is a small right heel spur. 2 views of both ankles were performed. The left ankle and posterior subtalar joint spaces appear normal without erosion. Right ankle and posterior subtalar joint spaces appear normal without erosion. There is a right heel spur. Impression: Mild cervical and lumbar spine degenerative disc disease. Mild osteoarthritis of the hands. Impressions 09/11/2016 4:51 PM CDT Mild cervical and lumbar spine degenerative disc disease. Mild osteoarthritis of the hands. Narrative 09/11/2016 4:51 PM CDT Examination: 1. Chest 2 views 2. Sacroiliac joints 3 views 3. Bilateral hips 2 views each with AP pelvis 4. Bilateral wrists 2 views each 5. Bilateral hands 2 views each 6. Bilateral feet 2 views each 7. Bilateral ankles 2 views each 8. Cervical spine 2 or 3 views 9. Lumbar spine 2 or 3 views 10. Bilateral knees AP standing History: Polyarticular joint pain, arthritis Findings: An AP standing view both knees was performed without prior comparison. Medial and lateral compartment joint spaces of both knees are normal. 2 views of each hip and an AP view of the pelvis were performed. Joint spaces of both hips are normal. There is no acute fracture of the pelvis. There is no acute fracture of either hip. 3 views of the sacroiliac joints were performed. The sacroiliac joints are normal. No osseous erosion or evidence of bony ankylosis is noted. AP and lateral views of the lumbar spine were performed. Alignment is normal. There is no lumbar spine compression deformity. There is mild L4-5 as well as L3-4 and L5-S1 degenerative disc disease. Facet osteoarthritis is noted. AP, lateral, and open-mouth views of the cervical spine were performed without comparison. No prevertebral soft tissue swelling is noted. There is mild C5-6 and C6-7 degenerative disc disease. Alignment of C1 on C2 appears normal. 2 views of the chest demonstrated a possible calcified right lung granuloma. There is no pneumonic consolidation, pleural effusion, or pneumothorax. Heart size appears normal. 2 views of both hands were performed. Alignment of both hands is normal. Metacarpophalangeal joint spaces are normal without erosion. There is very mild distal interphalangeal joint osteoarthritis of the hands. 2 views of both wrists were performed. Alignment of the left wrist is normal. There is no osseous erosion. The joint spaces appear normal. Alignment of the right wrist is normal. Joint spaces are normal. No erosion is noted. 2 views of both feet were performed. Left forefoot joint spaces are normal. There is no erosion. Right forefoot joint spaces are normal. There is no erosion. There is a small right heel spur. 2 views of both ankles were performed. The left ankle and posterior subtalar joint spaces appear normal without erosion. Right ankle and posterior subtalar joint spaces appear normal without erosion. There is a right heel spur. Procedure Note Humza Baker MD - 09/11/2016 Examination: 1. Chest 2 views 2. Sacroiliac joints 3 views 3. Bilateral hips 2 views each with AP pelvis 4. Bilateral wrists 2 views each 5. Bilateral hands 2 views each 6. Bilateral feet 2 views each 7. Bilateral ankles 2 views each 8. Cervical spine 2 or 3 views 9. Lumbar spine 2 or 3 views 10. Bilateral knees AP standing History: Polyarticular joint pain, arthritis Findings: An AP standing view both knees was performed without prior comparison. Medial and lateral compartment joint spaces of both knees are normal. 2 views of each hip and an AP view of the pelvis were performed. Joint spaces of both hips are normal. There is no acute fracture of the pelvis. There is no acute fracture of either hip. 3 views of the sacroiliac joints were performed. The sacroiliac joints are normal. No osseous erosion or evidence of bony ankylosis is noted. AP and lateral views of the lumbar spine were performed. Alignment is normal. There is no lumbar spine compression deformity. There is mild L4-5 as well as L3-4 and L5-S1 degenerative disc disease. Facet osteoarthritis is noted. AP, lateral, and open-mouth views of the cervical spine were performed without comparison. No prevertebral soft tissue swelling is noted. There is mild C5-6 and C6-7 degenerative disc disease. Alignment of C1 on C2 appears normal. 2 views of the chest demonstrated a possible calcified right lung granuloma. There is no pneumonic consolidation, pleural effusion, or pneumothorax. Heart size appears normal. 2 views of both hands were performed. Alignment of both hands is normal. Metacarpophalangeal joint spaces are normal without erosion. There is very mild distal interphalangeal joint osteoarthritis of the hands. 2 views of both wrists were performed. Alignment of the left wrist is normal. There is no osseous erosion. The joint spaces appear normal. Alignment of the right wrist is normal. Joint spaces are normal. No erosion is noted. 2 views of both feet were performed. Left forefoot joint spaces are normal. There is no erosion. Right forefoot joint spaces are normal. There is no erosion. There is a small right heel spur. 2 views of both ankles were performed. The left ankle and posterior subtalar joint spaces appear normal without erosion. Right ankle and posterior subtalar joint spaces appear normal without erosion. There is a right heel spur. IMPRESSION Mild cervical and lumbar spine degenerative disc disease. Mild osteoarthritis of the hands. [facility] ORDERABLES * XR PELVIS W BILAT HIP 2VW (09/11/2016 4:41 PM CDT) Anatomical Region Laterality Modality Pelvis, Lower Extremity [facility] 09/11/2016 4:44 PM CDT Addenda Addendum by Humza Baker MD on 09/30/2016 2:55 PM CDT Examination: 1. Chest 2 views 2. Sacroiliac joints 3 views 3. Bilateral hips 2 views each with AP pelvis 4. Bilateral wrists 2 views each 5. Bilateral hands 2 views each 6. Bilateral feet 2 views each 7. Bilateral ankles 2 views each 8. Cervical spine 2 or 3 views 9. Lumbar spine 2 or 3 views 10. Bilateral knees AP standing History: Polyarticular joint pain, arthritis Findings: An AP standing view both knees was performed without prior comparison. Medial and lateral compartment joint spaces of both knees are normal. 2 views of each hip and an AP view of the pelvis were performed. Joint spaces of both hips are normal. There is no acute fracture of the pelvis. There is no acute fracture of either hip. 3 views of the sacroiliac joints were performed. The sacroiliac joints are normal. No osseous erosion or evidence of bony ankylosis is noted. AP and lateral views of the lumbar spine were performed. Alignment is normal. There is no lumbar spine compression deformity. There is mild L4-5 as well as L3-4 and L5-S1 degenerative disc disease. Facet osteoarthritis is noted. AP, lateral, and open-mouth views of the cervical spine were performed without comparison. No prevertebral soft tissue swelling is noted. There is mild C5-6 and C6-7 degenerative disc disease. Alignment of C1 on C2 appears normal. 2 views of the chest demonstrated a possible calcified right lung granuloma. There is no pneumonic consolidation, pleural effusion, or pneumothorax. Heart size appears normal. 2 views of both hands were performed. Alignment of both hands is normal. Metacarpophalangeal joint spaces are normal without erosion. There is very mild distal interphalangeal joint osteoarthritis of the hands. 2 views of both wrists were performed. Alignment of the left wrist is normal. There is no osseous erosion. The joint spaces appear normal. Alignment of the right wrist is normal. Joint spaces are normal. No erosion is noted. 2 views of both feet were performed. Left forefoot joint spaces are normal. There is no erosion. Right forefoot joint spaces are normal. There is no erosion. There is a small right heel spur. 2 views of both ankles were performed. The left ankle and posterior subtalar joint spaces appear normal without erosion. Right ankle and posterior subtalar joint spaces appear normal without erosion. There is a right heel spur. Impression: Mild cervical and lumbar spine degenerative disc disease. Mild osteoarthritis of the hands. Addended on 09/16/2016 10:10:10 AM by Humza Baker. Examination: 1. Chest 2 views 2. Sacroiliac joints 3 views 3. Bilateral hips 2 views each with AP pelvis 4. Bilateral wrists 2 views each 5. Bilateral hands 2 views each 6. Bilateral feet 2 views each 7. Bilateral ankles 2 views each 8. Cervical spine 2 or 3 views 9. Lumbar spine 2 or 3 views 10. Bilateral knees AP standing History: Polyarticular joint pain, arthritis Findings: An AP standing view both knees was performed without prior comparison. Medial and lateral compartment joint spaces of both knees are normal. 2 views of each hip and an AP view of the pelvis were performed. Joint spaces of both hips are normal. There is no acute fracture of the pelvis. There is no acute fracture of either hip. 3 views of the sacroiliac joints were performed. The sacroiliac joints are normal. No osseous erosion or evidence of bony ankylosis is noted. AP and lateral views of the lumbar spine were performed. Alignment is normal. There is no lumbar spine compression deformity. There is mild L4-5 as well as L3-4 and L5-S1 degenerative disc disease. Facet osteoarthritis is noted. AP, lateral, and open-mouth views of the cervical spine were performed without comparison. No prevertebral soft tissue swelling is noted. There is mild C5-6 and C6-7 degenerative disc disease. Alignment of C1 on C2 appears normal. 2 views of the chest demonstrated a possible calcified right lung granuloma. There is no pneumonic consolidation, pleural effusion, or pneumothorax. Heart size appears normal. 2 views of both hands were performed. Alignment of both hands is normal. Metacarpophalangeal joint spaces are normal without erosion. There is very mild distal interphalangeal joint osteoarthritis of the hands. 2 views of both wrists were performed. Alignment of the left wrist is normal. There is no osseous erosion. The joint spaces appear normal. Alignment of the right wrist is normal. Joint spaces are normal. No erosion is noted. 2 views of both feet were performed. Left forefoot joint spaces are normal. There is no erosion. Right forefoot joint spaces are normal. There is no erosion. There is a small right heel spur. 2 views of both ankles were performed. The left ankle and posterior subtalar joint spaces appear normal without erosion. Right ankle and posterior subtalar joint spaces appear normal without erosion. There is a right heel spur. Impression: Mild cervical and lumbar spine degenerative disc disease. Mild osteoarthritis of the hands. Addended on 09/17/2016 1:31:57 PM by Humza Baker. Examination: 1. Chest 2 views 2. Sacroiliac joints 3 views 3. Bilateral hips 2 views each with AP pelvis 4. Bilateral wrists 2 views each 5. Bilateral hands 2 views each 6. Bilateral feet 2 views each 7. Bilateral ankles 2 views each 8. Cervical spine 2 or 3 views 9. Lumbar spine 2 or 3 views 10. Bilateral knees AP standing History: Polyarticular joint pain, arthritis Findings: An AP standing view both knees was performed without prior comparison. Medial and lateral compartment joint spaces of both knees are normal. 2 views of each hip and an AP view of the pelvis were performed. Joint spaces of both hips are normal. There is no acute fracture of the pelvis. There is no acute fracture of either hip. 3 views of the sacroiliac joints were performed. The sacroiliac joints are normal. No osseous erosion or evidence of bony ankylosis is noted. AP and lateral views of the lumbar spine were performed. Alignment is normal. There is no lumbar spine compression deformity. There is mild L4-5 as well as L3-4 and L5-S1 degenerative disc disease. Facet osteoarthritis is noted. AP, lateral, and open-mouth views of the cervical spine were performed without comparison. No prevertebral soft tissue swelling is noted. There is mild C5-6 and C6-7 degenerative disc disease. Alignment of C1 on C2 appears normal. 2 views of the chest demonstrated a possible calcified right lung granuloma. There is no pneumonic consolidation, pleural effusion, or pneumothorax. Heart size appears normal. 2 views of both hands were performed. Alignment of both hands is normal. Metacarpophalangeal joint spaces are normal without erosion. There is very mild distal interphalangeal joint osteoarthritis of the hands. 2 views of both wrists were performed. Alignment of the left wrist is normal. There is no osseous erosion. The joint spaces appear normal. Alignment of the right wrist is normal. Joint spaces are normal. No erosion is noted. 2 views of both feet were performed. Left forefoot joint spaces are normal. There is no erosion. Right forefoot joint spaces are normal. There is no erosion. There is a small right heel spur. 2 views of both ankles were performed. The left ankle and posterior subtalar joint spaces appear normal without erosion. Right ankle and posterior subtalar joint spaces appear normal without erosion. There is a right heel spur. Impression: Mild cervical and lumbar spine degenerative disc disease. Mild osteoarthritis of the hands. Addended on 09/16/2016 10:10:10 AM by Humza Baker. Examination: 1. Chest 2 views 2. Sacroiliac joints 3 views 3. Bilateral hips 2 views each with AP pelvis 4. Bilateral wrists 2 views each 5. Bilateral hands 2 views each 6. Bilateral feet 2 views each 7. Bilateral ankles 2 views each 8. Cervical spine 2 or 3 views 9. Lumbar spine 2 or 3 views 10. Bilateral knees AP standing History: Polyarticular joint pain, arthritis Findings: An AP standing view both knees was performed without prior comparison. Medial and lateral compartment joint spaces of both knees are normal. 2 views of each hip and an AP view of the pelvis were performed. Joint spaces of both hips are normal. There is no acute fracture of the pelvis. There is no acute fracture of either hip. 3 views of the sacroiliac joints were performed. The sacroiliac joints are normal. No osseous erosion or evidence of bony ankylosis is noted. AP and lateral views of the lumbar spine were performed. Alignment is normal. There is no lumbar spine compression deformity. There is mild L4-5 as well as L3-4 and L5-S1 degenerative disc disease. Facet osteoarthritis is noted. AP, lateral, and open-mouth views of the cervical spine were performed without comparison. No prevertebral soft tissue swelling is noted. There is mild C5-6 and C6-7 degenerative disc disease. Alignment of C1 on C2 appears normal. 2 views of the chest demonstrated a possible calcified right lung granuloma. There is no pneumonic consolidation, pleural effusion, or pneumothorax. Heart size appears normal. 2 views of both hands were performed. Alignment of both hands is normal. Metacarpophalangeal joint spaces are normal without erosion. There is very mild distal interphalangeal joint osteoarthritis of the hands. 2 views of both wrists were performed. Alignment of the left wrist is normal. There is no osseous erosion. The joint spaces appear normal. Alignment of the right wrist is normal. Joint spaces are normal. No erosion is noted. 2 views of both feet were performed. Left forefoot joint spaces are normal. There is no erosion. Right forefoot joint spaces are normal. There is no erosion. There is a small right heel spur. 2 views of both ankles were performed. The left ankle and posterior subtalar joint spaces appear normal without erosion. Right ankle and posterior subtalar joint spaces appear normal without erosion. There is a right heel spur. Impression: Mild cervical and lumbar spine degenerative disc disease. Mild osteoarthritis of the hands. Addendum by Humza Baker MD on 09/17/2016 1:35 PM CDT Examination: 1. Chest 2 views 2. Sacroiliac joints 3 views 3. Bilateral hips 2 views each with AP pelvis 4. Bilateral wrists 2 views each 5. Bilateral hands 2 views each 6. Bilateral feet 2 views each 7. Bilateral ankles 2 views each 8. Cervical spine 2 or 3 views 9. Lumbar spine 2 or 3 views 10. Bilateral knees AP standing History: Polyarticular joint pain, arthritis Findings: An AP standing view both knees was performed without prior comparison. Medial and lateral compartment joint spaces of both knees are normal. 2 views of each hip and an AP view of the pelvis were performed. Joint spaces of both hips are normal. There is no acute fracture of the pelvis. There is no acute fracture of either hip. 3 views of the sacroiliac joints were performed. The sacroiliac joints are normal. No osseous erosion or evidence of bony ankylosis is noted. AP and lateral views of the lumbar spine were performed. Alignment is normal. There is no lumbar spine compression deformity. There is mild L4-5 as well as L3-4 and L5-S1 degenerative disc disease. Facet osteoarthritis is noted. AP, lateral, and open-mouth views of the cervical spine were performed without comparison. No prevertebral soft tissue swelling is noted. There is mild C5-6 and C6-7 degenerative disc disease. Alignment of C1 on C2 appears normal. 2 views of the chest demonstrated a possible calcified right lung granuloma. There is no pneumonic consolidation, pleural effusion, or pneumothorax. Heart size appears normal. 2 views of both hands were performed. Alignment of both hands is normal. Metacarpophalangeal joint spaces are normal without erosion. There is very mild distal interphalangeal joint osteoarthritis of the hands. 2 views of both wrists were performed. Alignment of the left wrist is normal. There is no osseous erosion. The joint spaces appear normal. Alignment of the right wrist is normal. Joint spaces are normal. No erosion is noted. 2 views of both feet were performed. Left forefoot joint spaces are normal. There is no erosion. Right forefoot joint spaces are normal. There is no erosion. There is a small right heel spur. 2 views of both ankles were performed. The left ankle and posterior subtalar joint spaces appear normal without erosion. Right ankle and posterior subtalar joint spaces appear normal without erosion. There is a right heel spur. Impression: Mild cervical and lumbar spine degenerative disc disease. Mild osteoarthritis of the hands. Addended on 09/16/2016 10:10:10 AM by Humza Baker. Examination: 1. Chest 2 views 2. Sacroiliac joints 3 views 3. Bilateral hips 2 views each with AP pelvis 4. Bilateral wrists 2 views each 5. Bilateral hands 2 views each 6. Bilateral feet 2 views each 7. Bilateral ankles 2 views each 8. Cervical spine 2 or 3 views 9. Lumbar spine 2 or 3 views 10. Bilateral knees AP standing History: Polyarticular joint pain, arthritis Findings: An AP standing view both knees was performed without prior comparison. Medial and lateral compartment joint spaces of both knees are normal. 2 views of each hip and an AP view of the pelvis were performed. Joint spaces of both hips are normal. There is no acute fracture of the pelvis. There is no acute fracture of either hip. 3 views of the sacroiliac joints were performed. The sacroiliac joints are normal. No osseous erosion or evidence of bony ankylosis is noted. AP and lateral views of the lumbar spine were performed. Alignment is normal. There is no lumbar spine compression deformity. There is mild L4-5 as well as L3-4 and L5-S1 degenerative disc disease. Facet osteoarthritis is noted. AP, lateral, and open-mouth views of the cervical spine were performed without comparison. No prevertebral soft tissue swelling is noted. There is mild C5-6 and C6-7 degenerative disc disease. Alignment of C1 on C2 appears normal. 2 views of the chest demonstrated a possible calcified right lung granuloma. There is no pneumonic consolidation, pleural effusion, or pneumothorax. Heart size appears normal. 2 views of both hands were performed. Alignment of both hands is normal. Metacarpophalangeal joint spaces are normal without erosion. There is very mild distal interphalangeal joint osteoarthritis of the hands. 2 views of both wrists were performed. Alignment of the left wrist is normal. There is no osseous erosion. The joint spaces appear normal. Alignment of the right wrist is normal. Joint spaces are normal. No erosion is noted. 2 views of both feet were performed. Left forefoot joint spaces are normal. There is no erosion. Right forefoot joint spaces are normal. There is no erosion. There is a small right heel spur. 2 views of both ankles were performed. The left ankle and posterior subtalar joint spaces appear normal without erosion. Right ankle and posterior subtalar joint spaces appear normal without erosion. There is a right heel spur. Impression: Mild cervical and lumbar spine degenerative disc disease. Mild osteoarthritis of the hands. Addendum by Humza Baker MD on 09/16/2016 10:13 AM CDT Examination: 1. Chest 2 views 2. Sacroiliac joints 3 views 3. Bilateral hips 2 views each with AP pelvis 4. Bilateral wrists 2 views each 5. Bilateral hands 2 views each 6. Bilateral feet 2 views each 7. Bilateral ankles 2 views each 8. Cervical spine 2 or 3 views 9. Lumbar spine 2 or 3 views 10. Bilateral knees AP standing History: Polyarticular joint pain, arthritis Findings: An AP standing view both knees was performed without prior comparison. Medial and lateral compartment joint spaces of both knees are normal. 2 views of each hip and an AP view of the pelvis were performed. Joint spaces of both hips are normal. There is no acute fracture of the pelvis. There is no acute fracture of either hip. 3 views of the sacroiliac joints were performed. The sacroiliac joints are normal. No osseous erosion or evidence of bony ankylosis is noted. AP and lateral views of the lumbar spine were performed. Alignment is normal. There is no lumbar spine compression deformity. There is mild L4-5 as well as L3-4 and L5-S1 degenerative disc disease. Facet osteoarthritis is noted. AP, lateral, and open-mouth views of the cervical spine were performed without comparison. No prevertebral soft tissue swelling is noted. There is mild C5-6 and C6-7 degenerative disc disease. Alignment of C1 on C2 appears normal. 2 views of the chest demonstrated a possible calcified right lung granuloma. There is no pneumonic consolidation, pleural effusion, or pneumothorax. Heart size appears normal. 2 views of both hands were performed. Alignment of both hands is normal. Metacarpophalangeal joint spaces are normal without erosion. There is very mild distal interphalangeal joint osteoarthritis of the hands. 2 views of both wrists were performed. Alignment of the left wrist is normal. There is no osseous erosion. The joint spaces appear normal. Alignment of the right wrist is normal. Joint spaces are normal. No erosion is noted. 2 views of both feet were performed. Left forefoot joint spaces are normal. There is no erosion. Right forefoot joint spaces are normal. There is no erosion. There is a small right heel spur. 2 views of both ankles were performed. The left ankle and posterior subtalar joint spaces appear normal without erosion. Right ankle and posterior subtalar joint spaces appear normal without erosion. There is a right heel spur. Impression: Mild cervical and lumbar spine degenerative disc disease. Mild osteoarthritis of the hands. Impressions 09/11/2016 4:51 PM CDT Mild cervical and lumbar spine degenerative disc disease. Mild osteoarthritis of the hands. Narrative 09/11/2016 4:51 PM CDT Examination: 1. Chest 2 views 2. Sacroiliac joints 3 views 3. Bilateral hips 2 views each with AP pelvis 4. Bilateral wrists 2 views each 5. Bilateral hands 2 views each 6. Bilateral feet 2 views each 7. Bilateral ankles 2 views each 8. Cervical spine 2 or 3 views 9. Lumbar spine 2 or 3 views 10. Bilateral knees AP standing History: Polyarticular joint pain, arthritis Findings: An AP standing view both knees was performed without prior comparison. Medial and lateral compartment joint spaces of both knees are normal. 2 views of each hip and an AP view of the pelvis were performed. Joint spaces of both hips are normal. There is no acute fracture of the pelvis. There is no acute fracture of either hip. 3 views of the sacroiliac joints were performed. The sacroiliac joints are normal. No osseous erosion or evidence of bony ankylosis is noted. AP and lateral views of the lumbar spine were performed. Alignment is normal. There is no lumbar spine compression deformity. There is mild L4-5 as well as L3-4 and L5-S1 degenerative disc disease. Facet osteoarthritis is noted. AP, lateral, and open-mouth views of the cervical spine were performed without comparison. No prevertebral soft tissue swelling is noted. There is mild C5-6 and C6-7 degenerative disc disease. Alignment of C1 on C2 appears normal. 2 views of the chest demonstrated a possible calcified right lung granuloma. There is no pneumonic consolidation, pleural effusion, or pneumothorax. Heart size appears normal. 2 views of both hands were performed. Alignment of both hands is normal. Metacarpophalangeal joint spaces are normal without erosion. There is very mild distal interphalangeal joint osteoarthritis of the hands. 2 views of both wrists were performed. Alignment of the left wrist is normal. There is no osseous erosion. The joint spaces appear normal. Alignment of the right wrist is normal. Joint spaces are normal. No erosion is noted. 2 views of both feet were performed. Left forefoot joint spaces are normal. There is no erosion. Right forefoot joint spaces are normal. There is no erosion. There is a small right heel spur. 2 views of both ankles were performed. The left ankle and posterior subtalar joint spaces appear normal without erosion. Right ankle and posterior subtalar joint spaces appear normal without erosion. There is a right heel spur. Procedure Note Humza Baker MD - 09/11/2016 Examination: 1. Chest 2 views 2. Sacroiliac joints 3 views 3. Bilateral hips 2 views each with AP pelvis 4. Bilateral wrists 2 views each 5. Bilateral hands 2 views each 6. Bilateral feet 2 views each 7. Bilateral ankles 2 views each 8. Cervical spine 2 or 3 views 9. Lumbar spine 2 or 3 views 10. Bilateral knees AP standing History: Polyarticular joint pain, arthritis Findings: An AP standing view both knees was performed without prior comparison. Medial and lateral compartment joint spaces of both knees are normal. 2 views of each hip and an AP view of the pelvis were performed. Joint spaces of both hips are normal. There is no acute fracture of the pelvis. There is no acute fracture of either hip. 3 views of the sacroiliac joints were performed. The sacroiliac joints are normal. No osseous erosion or evidence of bony ankylosis is noted. AP and lateral views of the lumbar spine were performed. Alignment is normal. There is no lumbar spine compression deformity. There is mild L4-5 as well as L3-4 and L5-S1 degenerative disc disease. Facet osteoarthritis is noted. AP, lateral, and open-mouth views of the cervical spine were performed without comparison. No prevertebral soft tissue swelling is noted. There is mild C5-6 and C6-7 degenerative disc disease. Alignment of C1 on C2 appears normal. 2 views of the chest demonstrated a possible calcified right lung granuloma. There is no pneumonic consolidation, pleural effusion, or pneumothorax. Heart size appears normal. 2 views of both hands were performed. Alignment of both hands is normal. Metacarpophalangeal joint spaces are normal without erosion. There is very mild distal interphalangeal joint osteoarthritis of the hands. 2 views of both wrists were performed. Alignment of the left wrist is normal. There is no osseous erosion. The joint spaces appear normal. Alignment of the right wrist is normal. Joint spaces are normal. No erosion is noted. 2 views of both feet were performed. Left forefoot joint spaces are normal. There is no erosion. Right forefoot joint spaces are normal. There is no erosion. There is a small right heel spur. 2 views of both ankles were performed. The left ankle and posterior subtalar joint spaces appear normal without erosion. Right ankle and posterior subtalar joint spaces appear normal without erosion. There is a right heel spur. IMPRESSION Mild cervical and lumbar spine degenerative disc disease. Mild osteoarthritis of the hands. [facility] ORDERABLES * XR SACROILIAC JOINTS < 3 VW (09/11/2016 4:41 PM CDT) Anatomical Region Laterality Modality Pelvis, Lower Extremity [facility] 09/11/2016 4:44 PM CDT Addenda Addendum by Humza Baker MD on 09/30/2016 2:55 PM CDT Examination: 1. Chest 2 views 2. Sacroiliac joints 3 views 3. Bilateral hips 2 views each with AP pelvis 4. Bilateral wrists 2 views each 5. Bilateral hands 2 views each 6. Bilateral feet 2 views each 7. Bilateral ankles 2 views each 8. Cervical spine 2 or 3 views 9. Lumbar spine 2 or 3 views 10. Bilateral knees AP standing History: Polyarticular joint pain, arthritis Findings: An AP standing view both knees was performed without prior comparison. Medial and lateral compartment joint spaces of both knees are normal. 2 views of each hip and an AP view of the pelvis were performed. Joint spaces of both hips are normal. There is no acute fracture of the pelvis. There is no acute fracture of either hip. 3 views of the sacroiliac joints were performed. The sacroiliac joints are normal. No osseous erosion or evidence of bony ankylosis is noted. AP and lateral views of the lumbar spine were performed. Alignment is normal. There is no lumbar spine compression deformity. There is mild L4-5 as well as L3-4 and L5-S1 degenerative disc disease. Facet osteoarthritis is noted. AP, lateral, and open-mouth views of the cervical spine were performed without comparison. No prevertebral soft tissue swelling is noted. There is mild C5-6 and C6-7 degenerative disc disease. Alignment of C1 on C2 appears normal. 2 views of the chest demonstrated a possible calcified right lung granuloma. There is no pneumonic consolidation, pleural effusion, or pneumothorax. Heart size appears normal. 2 views of both hands were performed. Alignment of both hands is normal. Metacarpophalangeal joint spaces are normal without erosion. There is very mild distal interphalangeal joint osteoarthritis of the hands. 2 views of both wrists were performed. Alignment of the left wrist is normal. There is no osseous erosion. The joint spaces appear normal. Alignment of the right wrist is normal. Joint spaces are normal. No erosion is noted. 2 views of both feet were performed. Left forefoot joint spaces are normal. There is no erosion. Right forefoot joint spaces are normal. There is no erosion. There is a small right heel spur. 2 views of both ankles were performed. The left ankle and posterior subtalar joint spaces appear normal without erosion. Right ankle and posterior subtalar joint spaces appear normal without erosion. There is a right heel spur. Impression: Mild cervical and lumbar spine degenerative disc disease. Mild osteoarthritis of the hands. Addended on 09/16/2016 10:10:10 AM by Humza Baker. Examination: 1. Chest 2 views 2. Sacroiliac joints 3 views 3. Bilateral hips 2 views each with AP pelvis 4. Bilateral wrists 2 views each 5. Bilateral hands 2 views each 6. Bilateral feet 2 views each 7. Bilateral ankles 2 views each 8. Cervical spine 2 or 3 views 9. Lumbar spine 2 or 3 views 10. Bilateral knees AP standing History: Polyarticular joint pain, arthritis Findings: An AP standing view both knees was performed without prior comparison. Medial and lateral compartment joint spaces of both knees are normal. 2 views of each hip and an AP view of the pelvis were performed. Joint spaces of both hips are normal. There is no acute fracture of the pelvis. There is no acute fracture of either hip. 3 views of the sacroiliac joints were performed. The sacroiliac joints are normal. No osseous erosion or evidence of bony ankylosis is noted. AP and lateral views of the lumbar spine were performed. Alignment is normal. There is no lumbar spine compression deformity. There is mild L4-5 as well as L3-4 and L5-S1 degenerative disc disease. Facet osteoarthritis is noted. AP, lateral, and open-mouth views of the cervical spine were performed without comparison. No prevertebral soft tissue swelling is noted. There is mild C5-6 and C6-7 degenerative disc disease. Alignment of C1 on C2 appears normal. 2 views of the chest demonstrated a possible calcified right lung granuloma. There is no pneumonic consolidation, pleural effusion, or pneumothorax. Heart size appears normal. 2 views of both hands were performed. Alignment of both hands is normal. Metacarpophalangeal joint spaces are normal without erosion. There is very mild distal interphalangeal joint osteoarthritis of the hands. 2 views of both wrists were performed. Alignment of the left wrist is normal. There is no osseous erosion. The joint spaces appear normal. Alignment of the right wrist is normal. Joint spaces are normal. No erosion is noted. 2 views of both feet were performed. Left forefoot joint spaces are normal. There is no erosion. Right forefoot joint spaces are normal. There is no erosion. There is a small right heel spur. 2 views of both ankles were performed. The left ankle and posterior subtalar joint spaces appear normal without erosion. Right ankle and posterior subtalar joint spaces appear normal without erosion. There is a right heel spur. Impression: Mild cervical and lumbar spine degenerative disc disease. Mild osteoarthritis of the hands. Addended on 09/17/2016 1:31:57 PM by Humza Baker. Examination: 1. Chest 2 views 2. Sacroiliac joints 3 views 3. Bilateral hips 2 views each with AP pelvis 4. Bilateral wrists 2 views each 5. Bilateral hands 2 views each 6. Bilateral feet 2 views each 7. Bilateral ankles 2 views each 8. Cervical spine 2 or 3 views 9. Lumbar spine 2 or 3 views 10. Bilateral knees AP standing History: Polyarticular joint pain, arthritis Findings: An AP standing view both knees was performed without prior comparison. Medial and lateral compartment joint spaces of both knees are normal. 2 views of each hip and an AP view of the pelvis were performed. Joint spaces of both hips are normal. There is no acute fracture of the pelvis. There is no acute fracture of either hip. 3 views of the sacroiliac joints were performed. The sacroiliac joints are normal. No osseous erosion or evidence of bony ankylosis is noted. AP and lateral views of the lumbar spine were performed. Alignment is normal. There is no lumbar spine compression deformity. There is mild L4-5 as well as L3-4 and L5-S1 degenerative disc disease. Facet osteoarthritis is noted. AP, lateral, and open-mouth views of the cervical spine were performed without comparison. No prevertebral soft tissue swelling is noted. There is mild C5-6 and C6-7 degenerative disc disease. Alignment of C1 on C2 appears normal. 2 views of the chest demonstrated a possible calcified right lung granuloma. There is no pneumonic consolidation, pleural effusion, or pneumothorax. Heart size appears normal. 2 views of both hands were performed. Alignment of both hands is normal. Metacarpophalangeal joint spaces are normal without erosion. There is very mild distal interphalangeal joint osteoarthritis of the hands. 2 views of both wrists were performed. Alignment of the left wrist is normal. There is no osseous erosion. The joint spaces appear normal. Alignment of the right wrist is normal. Joint spaces are normal. No erosion is noted. 2 views of both feet were performed. Left forefoot joint spaces are normal. There is no erosion. Right forefoot joint spaces are normal. There is no erosion. There is a small right heel spur. 2 views of both ankles were performed. The left ankle and posterior subtalar joint spaces appear normal without erosion. Right ankle and posterior subtalar joint spaces appear normal without erosion. There is a right heel spur. Impression: Mild cervical and lumbar spine degenerative disc disease. Mild osteoarthritis of the hands. Addended on 09/16/2016 10:10:10 AM by Humza Baker. Examination: 1. Chest 2 views 2. Sacroiliac joints 3 views 3. Bilateral hips 2 views each with AP pelvis 4. Bilateral wrists 2 views each 5. Bilateral hands 2 views each 6. Bilateral feet 2 views each 7. Bilateral ankles 2 views each 8. Cervical spine 2 or 3 views 9. Lumbar spine 2 or 3 views 10. Bilateral knees AP standing History: Polyarticular joint pain, arthritis Findings: An AP standing view both knees was performed without prior comparison. Medial and lateral compartment joint spaces of both knees are normal. 2 views of each hip and an AP view of the pelvis were performed. Joint spaces of both hips are normal. There is no acute fracture of the pelvis. There is no acute fracture of either hip. 3 views of the sacroiliac joints were performed. The sacroiliac joints are normal. No osseous erosion or evidence of bony ankylosis is noted. AP and lateral views of the lumbar spine were performed. Alignment is normal. There is no lumbar spine compression deformity. There is mild L4-5 as well as L3-4 and L5-S1 degenerative disc disease. Facet osteoarthritis is noted. AP, lateral, and open-mouth views of the cervical spine were performed without comparison. No prevertebral soft tissue swelling is noted. There is mild C5-6 and C6-7 degenerative disc disease. Alignment of C1 on C2 appears normal. 2 views of the chest demonstrated a possible calcified right lung granuloma. There is no pneumonic consolidation, pleural effusion, or pneumothorax. Heart size appears normal. 2 views of both hands were performed. Alignment of both hands is normal. Metacarpophalangeal joint spaces are normal without erosion. There is very mild distal interphalangeal joint osteoarthritis of the hands. 2 views of both wrists were performed. Alignment of the left wrist is normal. There is no osseous erosion. The joint spaces appear normal. Alignment of the right wrist is normal. Joint spaces are normal. No erosion is noted. 2 views of both feet were performed. Left forefoot joint spaces are normal. There is no erosion. Right forefoot joint spaces are normal. There is no erosion. There is a small right heel spur. 2 views of both ankles were performed. The left ankle and posterior subtalar joint spaces appear normal without erosion. Right ankle and posterior subtalar joint spaces appear normal without erosion. There is a right heel spur. Impression: Mild cervical and lumbar spine degenerative disc disease. Mild osteoarthritis of the hands. Addendum by Humza Baker MD on 09/17/2016 1:35 PM CDT Examination: 1. Chest 2 views 2. Sacroiliac joints 3 views 3. Bilateral hips 2 views each with AP pelvis 4. Bilateral wrists 2 views each 5. Bilateral hands 2 views each 6. Bilateral feet 2 views each 7. Bilateral ankles 2 views each 8. Cervical spine 2 or 3 views 9. Lumbar spine 2 or 3 views 10. Bilateral knees AP standing History: Polyarticular joint pain, arthritis Findings: An AP standing view both knees was performed without prior comparison. Medial and lateral compartment joint spaces of both knees are normal. 2 views of each hip and an AP view of the pelvis were performed. Joint spaces of both hips are normal. There is no acute fracture of the pelvis. There is no acute fracture of either hip. 3 views of the sacroiliac joints were performed. The sacroiliac joints are normal. No osseous erosion or evidence of bony ankylosis is noted. AP and lateral views of the lumbar spine were performed. Alignment is normal. There is no lumbar spine compression deformity. There is mild L4-5 as well as L3-4 and L5-S1 degenerative disc disease. Facet osteoarthritis is noted. AP, lateral, and open-mouth views of the cervical spine were performed without comparison. No prevertebral soft tissue swelling is noted. There is mild C5-6 and C6-7 degenerative disc disease. Alignment of C1 on C2 appears normal. 2 views of the chest demonstrated a possible calcified right lung granuloma. There is no pneumonic consolidation, pleural effusion, or pneumothorax. Heart size appears normal. 2 views of both hands were performed. Alignment of both hands is normal. Metacarpophalangeal joint spaces are normal without erosion. There is very mild distal interphalangeal joint osteoarthritis of the hands. 2 views of both wrists were performed. Alignment of the left wrist is normal. There is no osseous erosion. The joint spaces appear normal. Alignment of the right wrist is normal. Joint spaces are normal. No erosion is noted. 2 views of both feet were performed. Left forefoot joint spaces are normal. There is no erosion. Right forefoot joint spaces are normal. There is no erosion. There is a small right heel spur. 2 views of both ankles were performed. The left ankle and posterior subtalar joint spaces appear normal without erosion. Right ankle and posterior subtalar joint spaces appear normal without erosion. There is a right heel spur. Impression: Mild cervical and lumbar spine degenerative disc disease. Mild osteoarthritis of the hands. Addended on 09/16/2016 10:10:10 AM by Humza Baker. Examination: 1. Chest 2 views 2. Sacroiliac joints 3 views 3. Bilateral hips 2 views each with AP pelvis 4. Bilateral wrists 2 views each 5. Bilateral hands 2 views each 6. Bilateral feet 2 views each 7. Bilateral ankles 2 views each 8. Cervical spine 2 or 3 views 9. Lumbar spine 2 or 3 views 10. Bilateral knees AP standing History: Polyarticular joint pain, arthritis Findings: An AP standing view both knees was performed without prior comparison. Medial and lateral compartment joint spaces of both knees are normal. 2 views of each hip and an AP view of the pelvis were performed. Joint spaces of both hips are normal. There is no acute fracture of the pelvis. There is no acute fracture of either hip. 3 views of the sacroiliac joints were performed. The sacroiliac joints are normal. No osseous erosion or evidence of bony ankylosis is noted. AP and lateral views of the lumbar spine were performed. Alignment is normal. There is no lumbar spine compression deformity. There is mild L4-5 as well as L3-4 and L5-S1 degenerative disc disease. Facet osteoarthritis is noted. AP, lateral, and open-mouth views of the cervical spine were performed without comparison. No prevertebral soft tissue swelling is noted. There is mild C5-6 and C6-7 degenerative disc disease. Alignment of C1 on C2 appears normal. 2 views of the chest demonstrated a possible calcified right lung granuloma. There is no pneumonic consolidation, pleural effusion, or pneumothorax. Heart size appears normal. 2 views of both hands were performed. Alignment of both hands is normal. Metacarpophalangeal joint spaces are normal without erosion. There is very mild distal interphalangeal joint osteoarthritis of the hands. 2 views of both wrists were performed. Alignment of the left wrist is normal. There is no osseous erosion. The joint spaces appear normal. Alignment of the right wrist is normal. Joint spaces are normal. No erosion is noted. 2 views of both feet were performed. Left forefoot joint spaces are normal. There is no erosion. Right forefoot joint spaces are normal. There is no erosion. There is a small right heel spur. 2 views of both ankles were performed. The left ankle and posterior subtalar joint spaces appear normal without erosion. Right ankle and posterior subtalar joint spaces appear normal without erosion. There is a right heel spur. Impression: Mild cervical and lumbar spine degenerative disc disease. Mild osteoarthritis of the hands. Addendum by Humza Baker MD on 09/16/2016 10:13 AM CDT Examination: 1. Chest 2 views 2. Sacroiliac joints 3 views 3. Bilateral hips 2 views each with AP pelvis 4. Bilateral wrists 2 views each 5. Bilateral hands 2 views each 6. Bilateral feet 2 views each 7. Bilateral ankles 2 views each 8. Cervical spine 2 or 3 views 9. Lumbar spine 2 or 3 views 10. Bilateral knees AP standing History: Polyarticular joint pain, arthritis Findings: An AP standing view both knees was performed without prior comparison. Medial and lateral compartment joint spaces of both knees are normal. 2 views of each hip and an AP view of the pelvis were performed. Joint spaces of both hips are normal. There is no acute fracture of the pelvis. There is no acute fracture of either hip. 3 views of the sacroiliac joints were performed. The sacroiliac joints are normal. No osseous erosion or evidence of bony ankylosis is noted. AP and lateral views of the lumbar spine were performed. Alignment is normal. There is no lumbar spine compression deformity. There is mild L4-5 as well as L3-4 and L5-S1 degenerative disc disease. Facet osteoarthritis is noted. AP, lateral, and open-mouth views of the cervical spine were performed without comparison. No prevertebral soft tissue swelling is noted. There is mild C5-6 and C6-7 degenerative disc disease. Alignment of C1 on C2 appears normal. 2 views of the chest demonstrated a possible calcified right lung granuloma. There is no pneumonic consolidation, pleural effusion, or pneumothorax. Heart size appears normal. 2 views of both hands were performed. Alignment of both hands is normal. Metacarpophalangeal joint spaces are normal without erosion. There is very mild distal interphalangeal joint osteoarthritis of the hands. 2 views of both wrists were performed. Alignment of the left wrist is normal. There is no osseous erosion. The joint spaces appear normal. Alignment of the right wrist is normal. Joint spaces are normal. No erosion is noted. 2 views of both feet were performed. Left forefoot joint spaces are normal. There is no erosion. Right forefoot joint spaces are normal. There is no erosion. There is a small right heel spur. 2 views of both ankles were performed. The left ankle and posterior subtalar joint spaces appear normal without erosion. Right ankle and posterior subtalar joint spaces appear normal without erosion. There is a right heel spur. Impression: Mild cervical and lumbar spine degenerative disc disease. Mild osteoarthritis of the hands. Impressions 09/11/2016 4:51 PM CDT Mild cervical and lumbar spine degenerative disc disease. Mild osteoarthritis of the hands. Narrative 09/11/2016 4:51 PM CDT Examination: 1. Chest 2 views 2. Sacroiliac joints 3 views 3. Bilateral hips 2 views each with AP pelvis 4. Bilateral wrists 2 views each 5. Bilateral hands 2 views each 6. Bilateral feet 2 views each 7. Bilateral ankles 2 views each 8. Cervical spine 2 or 3 views 9. Lumbar spine 2 or 3 views 10. Bilateral knees AP standing History: Polyarticular joint pain, arthritis Findings: An AP standing view both knees was performed without prior comparison. Medial and lateral compartment joint spaces of both knees are normal. 2 views of each hip and an AP view of the pelvis were performed. Joint spaces of both hips are normal. There is no acute fracture of the pelvis. There is no acute fracture of either hip. 3 views of the sacroiliac joints were performed. The sacroiliac joints are normal. No osseous erosion or evidence of bony ankylosis is noted. AP and lateral views of the lumbar spine were performed. Alignment is normal. There is no lumbar spine compression deformity. There is mild L4-5 as well as L3-4 and L5-S1 degenerative disc disease. Facet osteoarthritis is noted. AP, lateral, and open-mouth views of the cervical spine were performed without comparison. No prevertebral soft tissue swelling is noted. There is mild C5-6 and C6-7 degenerative disc disease. Alignment of C1 on C2 appears normal. 2 views of the chest demonstrated a possible calcified right lung granuloma. There is no pneumonic consolidation, pleural effusion, or pneumothorax. Heart size appears normal. 2 views of both hands were performed. Alignment of both hands is normal. Metacarpophalangeal joint spaces are normal without erosion. There is very mild distal interphalangeal joint osteoarthritis of the hands. 2 views of both wrists were performed. Alignment of the left wrist is normal. There is no osseous erosion. The joint spaces appear normal. Alignment of the right wrist is normal. Joint spaces are normal. No erosion is noted. 2 views of both feet were performed. Left forefoot joint spaces are normal. There is no erosion. Right forefoot joint spaces are normal. There is no erosion. There is a small right heel spur. 2 views of both ankles were performed. The left ankle and posterior subtalar joint spaces appear normal without erosion. Right ankle and posterior subtalar joint spaces appear normal without erosion. There is a right heel spur. Procedure Note Humza Baker MD - 09/11/2016 Examination: 1. Chest 2 views 2. Sacroiliac joints 3 views 3. Bilateral hips 2 views each with AP pelvis 4. Bilateral wrists 2 views each 5. Bilateral hands 2 views each 6. Bilateral feet 2 views each 7. Bilateral ankles 2 views each 8. Cervical spine 2 or 3 views 9. Lumbar spine 2 or 3 views 10. Bilateral knees AP standing History: Polyarticular joint pain, arthritis Findings: An AP standing view both knees was performed without prior comparison. Medial and lateral compartment joint spaces of both knees are normal. 2 views of each hip and an AP view of the pelvis were performed. Joint spaces of both hips are normal. There is no acute fracture of the pelvis. There is no acute fracture of either hip. 3 views of the sacroiliac joints were performed. The sacroiliac joints are normal. No osseous erosion or evidence of bony ankylosis is noted. AP and lateral views of the lumbar spine were performed. Alignment is normal. There is no lumbar spine compression deformity. There is mild L4-5 as well as L3-4 and L5-S1 degenerative disc disease. Facet osteoarthritis is noted. AP, lateral, and open-mouth views of the cervical spine were performed without comparison. No prevertebral soft tissue swelling is noted. There is mild C5-6 and C6-7 degenerative disc disease. Alignment of C1 on C2 appears normal. 2 views of the chest demonstrated a possible calcified right lung granuloma. There is no pneumonic consolidation, pleural effusion, or pneumothorax. Heart size appears normal. 2 views of both hands were performed. Alignment of both hands is normal. Metacarpophalangeal joint spaces are normal without erosion. There is very mild distal interphalangeal joint osteoarthritis of the hands. 2 views of both wrists were performed. Alignment of the left wrist is normal. There is no osseous erosion. The joint spaces appear normal. Alignment of the right wrist is normal. Joint spaces are normal. No erosion is noted. 2 views of both feet were performed. Left forefoot joint spaces are normal. There is no erosion. Right forefoot joint spaces are normal. There is no erosion. There is a small right heel spur. 2 views of both ankles were performed. The left ankle and posterior subtalar joint spaces appear normal without erosion. Right ankle and posterior subtalar joint spaces appear normal without erosion. There is a right heel spur. IMPRESSION Mild cervical and lumbar spine degenerative disc disease. Mild osteoarthritis of the hands. [facility] ORDERABLES * XR CERVICAL SPINE 2 OR 3 VW (09/11/2016 4:41 PM CDT) Anatomical Region Laterality Modality Spine Radiographic Yenny ging 09/11/2016 4:44 PM CDT Addenda Addendum by Humza Baker MD on 09/30/2016 2:55 PM CDT Examination: 1. Chest 2 views 2. Sacroiliac joints 3 views 3. Bilateral hips 2 views each with AP pelvis 4. Bilateral wrists 2 views each 5. Bilateral hands 2 views each 6. Bilateral feet 2 views each 7. Bilateral ankles 2 views each 8. Cervical spine 2 or 3 views 9. Lumbar spine 2 or 3 views 10. Bilateral knees AP standing History: Polyarticular joint pain, arthritis Findings: An AP standing view both knees was performed without prior comparison. Medial and lateral compartment joint spaces of both knees are normal. 2 views of each hip and an AP view of the pelvis were performed. Joint spaces of both hips are normal. There is no acute fracture of the pelvis. There is no acute fracture of either hip. 3 views of the sacroiliac joints were performed. The sacroiliac joints are normal. No osseous erosion or evidence of bony ankylosis is noted. AP and lateral views of the lumbar spine were performed. Alignment is normal. There is no lumbar spine compression deformity. There is mild L4-5 as well as L3-4 and L5-S1 degenerative disc disease. Facet osteoarthritis is noted. AP, lateral, and open-mouth views of the cervical spine were performed without comparison. No prevertebral soft tissue swelling is noted. There is mild C5-6 and C6-7 degenerative disc disease. Alignment of C1 on C2 appears normal. 2 views of the chest demonstrated a possible calcified right lung granuloma. There is no pneumonic consolidation, pleural effusion, or pneumothorax. Heart size appears normal. 2 views of both hands were performed. Alignment of both hands is normal. Metacarpophalangeal joint spaces are normal without erosion. There is very mild distal interphalangeal joint osteoarthritis of the hands. 2 views of both wrists were performed. Alignment of the left wrist is normal. There is no osseous erosion. The joint spaces appear normal. Alignment of the right wrist is normal. Joint spaces are normal. No erosion is noted. 2 views of both feet were performed. Left forefoot joint spaces are normal. There is no erosion. Right forefoot joint spaces are normal. There is no erosion. There is a small right heel spur. 2 views of both ankles were performed. The left ankle and posterior subtalar joint spaces appear normal without erosion. Right ankle and posterior subtalar joint spaces appear normal without erosion. There is a right heel spur. Impression: Mild cervical and lumbar spine degenerative disc disease. Mild osteoarthritis of the hands. Addended on 09/16/2016 10:10:10 AM by Humza Baker. Examination: 1. Chest 2 views 2. Sacroiliac joints 3 views 3. Bilateral hips 2 views each with AP pelvis 4. Bilateral wrists 2 views each 5. Bilateral hands 2 views each 6. Bilateral feet 2 views each 7. Bilateral ankles 2 views each 8. Cervical spine 2 or 3 views 9. Lumbar spine 2 or 3 views 10. Bilateral knees AP standing History: Polyarticular joint pain, arthritis Findings: An AP standing view both knees was performed without prior comparison. Medial and lateral compartment joint spaces of both knees are normal. 2 views of each hip and an AP view of the pelvis were performed. Joint spaces of both hips are normal. There is no acute fracture of the pelvis. There is no acute fracture of either hip. 3 views of the sacroiliac joints were performed. The sacroiliac joints are normal. No osseous erosion or evidence of bony ankylosis is noted. AP and lateral views of the lumbar spine were performed. Alignment is normal. There is no lumbar spine compression deformity. There is mild L4-5 as well as L3-4 and L5-S1 degenerative disc disease. Facet osteoarthritis is noted. AP, lateral, and open-mouth views of the cervical spine were performed without comparison. No prevertebral soft tissue swelling is noted. There is mild C5-6 and C6-7 degenerative disc disease. Alignment of C1 on C2 appears normal. 2 views of the chest demonstrated a possible calcified right lung granuloma. There is no pneumonic consolidation, pleural effusion, or pneumothorax. Heart size appears normal. 2 views of both hands were performed. Alignment of both hands is normal. Metacarpophalangeal joint spaces are normal without erosion. There is very mild distal interphalangeal joint osteoarthritis of the hands. 2 views of both wrists were performed. Alignment of the left wrist is normal. There is no osseous erosion. The joint spaces appear normal. Alignment of the right wrist is normal. Joint spaces are normal. No erosion is noted. 2 views of both feet were performed. Left forefoot joint spaces are normal. There is no erosion. Right forefoot joint spaces are normal. There is no erosion. There is a small right heel spur. 2 views of both ankles were performed. The left ankle and posterior subtalar joint spaces appear normal without erosion. Right ankle and posterior subtalar joint spaces appear normal without erosion. There is a right heel spur. Impression: Mild cervical and lumbar spine degenerative disc disease. Mild osteoarthritis of the hands. Addended on 09/17/2016 1:31:57 PM by Humza Baker. Examination: 1. Chest 2 views 2. Sacroiliac joints 3 views 3. Bilateral hips 2 views each with AP pelvis 4. Bilateral wrists 2 views each 5. Bilateral hands 2 views each 6. Bilateral feet 2 views each 7. Bilateral ankles 2 views each 8. Cervical spine 2 or 3 views 9. Lumbar spine 2 or 3 views 10. Bilateral knees AP standing History: Polyarticular joint pain, arthritis Findings: An AP standing view both knees was performed without prior comparison. Medial and lateral compartment joint spaces of both knees are normal. 2 views of each hip and an AP view of the pelvis were performed. Joint spaces of both hips are normal. There is no acute fracture of the pelvis. There is no acute fracture of either hip. 3 views of the sacroiliac joints were performed. The sacroiliac joints are normal. No osseous erosion or evidence of bony ankylosis is noted. AP and lateral views of the lumbar spine were performed. Alignment is normal. There is no lumbar spine compression deformity. There is mild L4-5 as well as L3-4 and L5-S1 degenerative disc disease. Facet osteoarthritis is noted. AP, lateral, and open-mouth views of the cervical spine were performed without comparison. No prevertebral soft tissue swelling is noted. There is mild C5-6 and C6-7 degenerative disc disease. Alignment of C1 on C2 appears normal. 2 views of the chest demonstrated a possible calcified right lung granuloma. There is no pneumonic consolidation, pleural effusion, or pneumothorax. Heart size appears normal. 2 views of both hands were performed. Alignment of both hands is normal. Metacarpophalangeal joint spaces are normal without erosion. There is very mild distal interphalangeal joint osteoarthritis of the hands. 2 views of both wrists were performed. Alignment of the left wrist is normal. There is no osseous erosion. The joint spaces appear normal. Alignment of the right wrist is normal. Joint spaces are normal. No erosion is noted. 2 views of both feet were performed. Left forefoot joint spaces are normal. There is no erosion. Right forefoot joint spaces are normal. There is no erosion. There is a small right heel spur. 2 views of both ankles were performed. The left ankle and posterior subtalar joint spaces appear normal without erosion. Right ankle and posterior subtalar joint spaces appear normal without erosion. There is a right heel spur. Impression: Mild cervical and lumbar spine degenerative disc disease. Mild osteoarthritis of the hands. Addended on 09/16/2016 10:10:10 AM by Humza Baker. Examination: 1. Chest 2 views 2. Sacroiliac joints 3 views 3. Bilateral hips 2 views each with AP pelvis 4. Bilateral wrists 2 views each 5. Bilateral hands 2 views each 6. Bilateral feet 2 views each 7. Bilateral ankles 2 views each 8. Cervical spine 2 or 3 views 9. Lumbar spine 2 or 3 views 10. Bilateral knees AP standing History: Polyarticular joint pain, arthritis Findings: An AP standing view both knees was performed without prior comparison. Medial and lateral compartment joint spaces of both knees are normal. 2 views of each hip and an AP view of the pelvis were performed. Joint spaces of both hips are normal. There is no acute fracture of the pelvis. There is no acute fracture of either hip. 3 views of the sacroiliac joints were performed. The sacroiliac joints are normal. No osseous erosion or evidence of bony ankylosis is noted. AP and lateral views of the lumbar spine were performed. Alignment is normal. There is no lumbar spine compression deformity. There is mild L4-5 as well as L3-4 and L5-S1 degenerative disc disease. Facet osteoarthritis is noted. AP, lateral, and open-mouth views of the cervical spine were performed without comparison. No prevertebral soft tissue swelling is noted. There is mild C5-6 and C6-7 degenerative disc disease. Alignment of C1 on C2 appears normal. 2 views of the chest demonstrated a possible calcified right lung granuloma. There is no pneumonic consolidation, pleural effusion, or pneumothorax. Heart size appears normal. 2 views of both hands were performed. Alignment of both hands is normal. Metacarpophalangeal joint spaces are normal without erosion. There is very mild distal interphalangeal joint osteoarthritis of the hands. 2 views of both wrists were performed. Alignment of the left wrist is normal. There is no osseous erosion. The joint spaces appear normal. Alignment of the right wrist is normal. Joint spaces are normal. No erosion is noted. 2 views of both feet were performed. Left forefoot joint spaces are normal. There is no erosion. Right forefoot joint spaces are normal. There is no erosion. There is a small right heel spur. 2 views of both ankles were performed. The left ankle and posterior subtalar joint spaces appear normal without erosion. Right ankle and posterior subtalar joint spaces appear normal without erosion. There is a right heel spur. Impression: Mild cervical and lumbar spine degenerative disc disease. Mild osteoarthritis of the hands. Addendum by Humza Baker MD on 09/17/2016 1:35 PM CDT Examination: 1. Chest 2 views 2. Sacroiliac joints 3 views 3. Bilateral hips 2 views each with AP pelvis 4. Bilateral wrists 2 views each 5. Bilateral hands 2 views each 6. Bilateral feet 2 views each 7. Bilateral ankles 2 views each 8. Cervical spine 2 or 3 views 9. Lumbar spine 2 or 3 views 10. Bilateral knees AP standing History: Polyarticular joint pain, arthritis Findings: An AP standing view both knees was performed without prior comparison. Medial and lateral compartment joint spaces of both knees are normal. 2 views of each hip and an AP view of the pelvis were performed. Joint spaces of both hips are normal. There is no acute fracture of the pelvis. There is no acute fracture of either hip. 3 views of the sacroiliac joints were performed. The sacroiliac joints are normal. No osseous erosion or evidence of bony ankylosis is noted. AP and lateral views of the lumbar spine were performed. Alignment is normal. There is no lumbar spine compression deformity. There is mild L4-5 as well as L3-4 and L5-S1 degenerative disc disease. Facet osteoarthritis is noted. AP, lateral, and open-mouth views of the cervical spine were performed without comparison. No prevertebral soft tissue swelling is noted. There is mild C5-6 and C6-7 degenerative disc disease. Alignment of C1 on C2 appears normal. 2 views of the chest demonstrated a possible calcified right lung granuloma. There is no pneumonic consolidation, pleural effusion, or pneumothorax. Heart size appears normal. 2 views of both hands were performed. Alignment of both hands is normal. Metacarpophalangeal joint spaces are normal without erosion. There is very mild distal interphalangeal joint osteoarthritis of the hands. 2 views of both wrists were performed. Alignment of the left wrist is normal. There is no osseous erosion. The joint spaces appear normal. Alignment of the right wrist is normal. Joint spaces are normal. No erosion is noted. 2 views of both feet were performed. Left forefoot joint spaces are normal. There is no erosion. Right forefoot joint spaces are normal. There is no erosion. There is a small right heel spur. 2 views of both ankles were performed. The left ankle and posterior subtalar joint spaces appear normal without erosion. Right ankle and posterior subtalar joint spaces appear normal without erosion. There is a right heel spur. Impression: Mild cervical and lumbar spine degenerative disc disease. Mild osteoarthritis of the hands. Addended on 09/16/2016 10:10:10 AM by Humza Baker. Examination: 1. Chest 2 views 2. Sacroiliac joints 3 views 3. Bilateral hips 2 views each with AP pelvis 4. Bilateral wrists 2 views each 5. Bilateral hands 2 views each 6. Bilateral feet 2 views each 7. Bilateral ankles 2 views each 8. Cervical spine 2 or 3 views 9. Lumbar spine 2 or 3 views 10. Bilateral knees AP standing History: Polyarticular joint pain, arthritis Findings: An AP standing view both knees was performed without prior comparison. Medial and lateral compartment joint spaces of both knees are normal. 2 views of each hip and an AP view of the pelvis were performed. Joint spaces of both hips are normal. There is no acute fracture of the pelvis. There is no acute fracture of either hip. 3 views of the sacroiliac joints were performed. The sacroiliac joints are normal. No osseous erosion or evidence of bony ankylosis is noted. AP and lateral views of the lumbar spine were performed. Alignment is normal. There is no lumbar spine compression deformity. There is mild L4-5 as well as L3-4 and L5-S1 degenerative disc disease. Facet osteoarthritis is noted. AP, lateral, and open-mouth views of the cervical spine were performed without comparison. No prevertebral soft tissue swelling is noted. There is mild C5-6 and C6-7 degenerative disc disease. Alignment of C1 on C2 appears normal. 2 views of the chest demonstrated a possible calcified right lung granuloma. There is no pneumonic consolidation, pleural effusion, or pneumothorax. Heart size appears normal. 2 views of both hands were performed. Alignment of both hands is normal. Metacarpophalangeal joint spaces are normal without erosion. There is very mild distal interphalangeal joint osteoarthritis of the hands. 2 views of both wrists were performed. Alignment of the left wrist is normal. There is no osseous erosion. The joint spaces appear normal. Alignment of the right wrist is normal. Joint spaces are normal. No erosion is noted. 2 views of both feet were performed. Left forefoot joint spaces are normal. There is no erosion. Right forefoot joint spaces are normal. There is no erosion. There is a small right heel spur. 2 views of both ankles were performed. The left ankle and posterior subtalar joint spaces appear normal without erosion. Right ankle and posterior subtalar joint spaces appear normal without erosion. There is a right heel spur. Impression: Mild cervical and lumbar spine degenerative disc disease. Mild osteoarthritis of the hands. Addendum by Humza Baker MD on 09/16/2016 10:13 AM CDT Examination: 1. Chest 2 views 2. Sacroiliac joints 3 views 3. Bilateral hips 2 views each with AP pelvis 4. Bilateral wrists 2 views each 5. Bilateral hands 2 views each 6. Bilateral feet 2 views each 7. Bilateral ankles 2 views each 8. Cervical spine 2 or 3 views 9. Lumbar spine 2 or 3 views 10. Bilateral knees AP standing History: Polyarticular joint pain, arthritis Findings: An AP standing view both knees was performed without prior comparison. Medial and lateral compartment joint spaces of both knees are normal. 2 views of each hip and an AP view of the pelvis were performed. Joint spaces of both hips are normal. There is no acute fracture of the pelvis. There is no acute fracture of either hip. 3 views of the sacroiliac joints were performed. The sacroiliac joints are normal. No osseous erosion or evidence of bony ankylosis is noted. AP and lateral views of the lumbar spine were performed. Alignment is normal. There is no lumbar spine compression deformity. There is mild L4-5 as well as L3-4 and L5-S1 degenerative disc disease. Facet osteoarthritis is noted. AP, lateral, and open-mouth views of the cervical spine were performed without comparison. No prevertebral soft tissue swelling is noted. There is mild C5-6 and C6-7 degenerative disc disease. Alignment of C1 on C2 appears normal. 2 views of the chest demonstrated a possible calcified right lung granuloma. There is no pneumonic consolidation, pleural effusion, or pneumothorax. Heart size appears normal. 2 views of both hands were performed. Alignment of both hands is normal. Metacarpophalangeal joint spaces are normal without erosion. There is very mild distal interphalangeal joint osteoarthritis of the hands. 2 views of both wrists were performed. Alignment of the left wrist is normal. There is no osseous erosion. The joint spaces appear normal. Alignment of the right wrist is normal. Joint spaces are normal. No erosion is noted. 2 views of both feet were performed. Left forefoot joint spaces are normal. There is no erosion. Right forefoot joint spaces are normal. There is no erosion. There is a small right heel spur. 2 views of both ankles were performed. The left ankle and posterior subtalar joint spaces appear normal without erosion. Right ankle and posterior subtalar joint spaces appear normal without erosion. There is a right heel spur. Impression: Mild cervical and lumbar spine degenerative disc disease. Mild osteoarthritis of the hands. Impressions 09/11/2016 4:51 PM CDT Mild cervical and lumbar spine degenerative disc disease. Mild osteoarthritis of the hands. Narrative 09/11/2016 4:51 PM CDT Examination: 1. Chest 2 views 2. Sacroiliac joints 3 views 3. Bilateral hips 2 views each with AP pelvis 4. Bilateral wrists 2 views each 5. Bilateral hands 2 views each 6. Bilateral feet 2 views each 7. Bilateral ankles 2 views each 8. Cervical spine 2 or 3 views 9. Lumbar spine 2 or 3 views 10. Bilateral knees AP standing History: Polyarticular joint pain, arthritis Findings: An AP standing view both knees was performed without prior comparison. Medial and lateral compartment joint spaces of both knees are normal. 2 views of each hip and an AP view of the pelvis were performed. Joint spaces of both hips are normal. There is no acute fracture of the pelvis. There is no acute fracture of either hip. 3 views of the sacroiliac joints were performed. The sacroiliac joints are normal. No osseous erosion or evidence of bony ankylosis is noted. AP and lateral views of the lumbar spine were performed. Alignment is normal. There is no lumbar spine compression deformity. There is mild L4-5 as well as L3-4 and L5-S1 degenerative disc disease. Facet osteoarthritis is noted. AP, lateral, and open-mouth views of the cervical spine were performed without comparison. No prevertebral soft tissue swelling is noted. There is mild C5-6 and C6-7 degenerative disc disease. Alignment of C1 on C2 appears normal. 2 views of the chest demonstrated a possible calcified right lung granuloma. There is no pneumonic consolidation, pleural effusion, or pneumothorax. Heart size appears normal. 2 views of both hands were performed. Alignment of both hands is normal. Metacarpophalangeal joint spaces are normal without erosion. There is very mild distal interphalangeal joint osteoarthritis of the hands. 2 views of both wrists were performed. Alignment of the left wrist is normal. There is no osseous erosion. The joint spaces appear normal. Alignment of the right wrist is normal. Joint spaces are normal. No erosion is noted. 2 views of both feet were performed. Left forefoot joint spaces are normal. There is no erosion. Right forefoot joint spaces are normal. There is no erosion. There is a small right heel spur. 2 views of both ankles were performed. The left ankle and posterior subtalar joint spaces appear normal without erosion. Right ankle and posterior subtalar joint spaces appear normal without erosion. There is a right heel spur. Procedure Note Humza Baker MD - 09/11/2016 Examination: 1. Chest 2 views 2. Sacroiliac joints 3 views 3. Bilateral hips 2 views each with AP pelvis 4. Bilateral wrists 2 views each 5. Bilateral hands 2 views each 6. Bilateral feet 2 views each 7. Bilateral ankles 2 views each 8. Cervical spine 2 or 3 views 9. Lumbar spine 2 or 3 views 10. Bilateral knees AP standing History: Polyarticular joint pain, arthritis Findings: An AP standing view both knees was performed without prior comparison. Medial and lateral compartment joint spaces of both knees are normal. 2 views of each hip and an AP view of the pelvis were performed. Joint spaces of both hips are normal. There is no acute fracture of the pelvis. There is no acute fracture of either hip. 3 views of the sacroiliac joints were performed. The sacroiliac joints are normal. No osseous erosion or evidence of bony ankylosis is noted. AP and lateral views of the lumbar spine were performed. Alignment is normal. There is no lumbar spine compression deformity. There is mild L4-5 as well as L3-4 and L5-S1 degenerative disc disease. Facet osteoarthritis is noted. AP, lateral, and open-mouth views of the cervical spine were performed without comparison. No prevertebral soft tissue swelling is noted. There is mild C5-6 and C6-7 degenerative disc disease. Alignment of C1 on C2 appears normal. 2 views of the chest demonstrated a possible calcified right lung granuloma. There is no pneumonic consolidation, pleural effusion, or pneumothorax. Heart size appears normal. 2 views of both hands were performed. Alignment of both hands is normal. Metacarpophalangeal joint spaces are normal without erosion. There is very mild distal interphalangeal joint osteoarthritis of the hands. 2 views of both wrists were performed. Alignment of the left wrist is normal. There is no osseous erosion. The joint spaces appear normal. Alignment of the right wrist is normal. Joint spaces are normal. No erosion is noted. 2 views of both feet were performed. Left forefoot joint spaces are normal. There is no erosion. Right forefoot joint spaces are normal. There is no erosion. There is a small right heel spur. 2 views of both ankles were performed. The left ankle and posterior subtalar joint spaces appear normal without erosion. Right ankle and posterior subtalar joint spaces appear normal without erosion. There is a right heel spur. IMPRESSION Mild cervical and lumbar spine degenerative disc disease. Mild osteoarthritis of the hands. Sharmaine Tiardo Ashok [facility] ORDERAB[facility] * XR CHEST PA AND LATERAL (09/11/2016 4:41 PM CDT) Anatomical Region Laterality Modality Chest Radiographic Yenny ging 09/11/2016 4:44 PM CDT Addenda Addendum by Humza Baker MD on 09/30/2016 2:55 PM CDT Examination: 1. Chest 2 views 2. Sacroiliac joints 3 views 3. Bilateral hips 2 views each with AP pelvis 4. Bilateral wrists 2 views each 5. Bilateral hands 2 views each 6. Bilateral feet 2 views each 7. Bilateral ankles 2 views each 8. Cervical spine 2 or 3 views 9. Lumbar spine 2 or 3 views 10. Bilateral knees AP standing History: Polyarticular joint pain, arthritis Findings: An AP standing view both knees was performed without prior comparison. Medial and lateral compartment joint spaces of both knees are normal. 2 views of each hip and an AP view of the pelvis were performed. Joint spaces of both hips are normal. There is no acute fracture of the pelvis. There is no acute fracture of either hip. 3 views of the sacroiliac joints were performed. The sacroiliac joints are normal. No osseous erosion or evidence of bony ankylosis is noted. AP and lateral views of the lumbar spine were performed. Alignment is normal. There is no lumbar spine compression deformity. There is mild L4-5 as well as L3-4 and L5-S1 degenerative disc disease. Facet osteoarthritis is noted. AP, lateral, and open-mouth views of the cervical spine were performed without comparison. No prevertebral soft tissue swelling is noted. There is mild C5-6 and C6-7 degenerative disc disease. Alignment of C1 on C2 appears normal. 2 views of the chest demonstrated a possible calcified right lung granuloma. There is no pneumonic consolidation, pleural effusion, or pneumothorax. Heart size appears normal. 2 views of both hands were performed. Alignment of both hands is normal. Metacarpophalangeal joint spaces are normal without erosion. There is very mild distal interphalangeal joint osteoarthritis of the hands. 2 views of both wrists were performed. Alignment of the left wrist is normal. There is no osseous erosion. The joint spaces appear normal. Alignment of the right wrist is normal. Joint spaces are normal. No erosion is noted. 2 views of both feet were performed. Left forefoot joint spaces are normal. There is no erosion. Right forefoot joint spaces are normal. There is no erosion. There is a small right heel spur. 2 views of both ankles were performed. The left ankle and posterior subtalar joint spaces appear normal without erosion. Right ankle and posterior subtalar joint spaces appear normal without erosion. There is a right heel spur. Impression: Mild cervical and lumbar spine degenerative disc disease. Mild osteoarthritis of the hands. Addended on 09/16/2016 10:10:10 AM by Humza Baker. Examination: 1. Chest 2 views 2. Sacroiliac joints 3 views 3. Bilateral hips 2 views each with AP pelvis 4. Bilateral wrists 2 views each 5. Bilateral hands 2 views each 6. Bilateral feet 2 views each 7. Bilateral ankles 2 views each 8. Cervical spine 2 or 3 views 9. Lumbar spine 2 or 3 views 10. Bilateral knees AP standing History: Polyarticular joint pain, arthritis Findings: An AP standing view both knees was performed without prior comparison. Medial and lateral compartment joint spaces of both knees are normal. 2 views of each hip and an AP view of the pelvis were performed. Joint spaces of both hips are normal. There is no acute fracture of the pelvis. There is no acute fracture of either hip. 3 views of the sacroiliac joints were performed. The sacroiliac joints are normal. No osseous erosion or evidence of bony ankylosis is noted. AP and lateral views of the lumbar spine were performed. Alignment is normal. There is no lumbar spine compression deformity. There is mild L4-5 as well as L3-4 and L5-S1 degenerative disc disease. Facet osteoarthritis is noted. AP, lateral, and open-mouth views of the cervical spine were performed without comparison. No prevertebral soft tissue swelling is noted. There is mild C5-6 and C6-7 degenerative disc disease. Alignment of C1 on C2 appears normal. 2 views of the chest demonstrated a possible calcified right lung granuloma. There is no pneumonic consolidation, pleural effusion, or pneumothorax. Heart size appears normal. 2 views of both hands were performed. Alignment of both hands is normal. Metacarpophalangeal joint spaces are normal without erosion. There is very mild distal interphalangeal joint osteoarthritis of the hands. 2 views of both wrists were performed. Alignment of the left wrist is normal. There is no osseous erosion. The joint spaces appear normal. Alignment of the right wrist is normal. Joint spaces are normal. No erosion is noted. 2 views of both feet were performed. Left forefoot joint spaces are normal. There is no erosion. Right forefoot joint spaces are normal. There is no erosion. There is a small right heel spur. 2 views of both ankles were performed. The left ankle and posterior subtalar joint spaces appear normal without erosion. Right ankle and posterior subtalar joint spaces appear normal without erosion. There is a right heel spur. Impression: Mild cervical and lumbar spine degenerative disc disease. Mild osteoarthritis of the hands. Addended on 09/17/2016 1:31:57 PM by Humza Baker. Examination: 1. Chest 2 views 2. Sacroiliac joints 3 views 3. Bilateral hips 2 views each with AP pelvis 4. Bilateral wrists 2 views each 5. Bilateral hands 2 views each 6. Bilateral feet 2 views each 7. Bilateral ankles 2 views each 8. Cervical spine 2 or 3 views 9. Lumbar spine 2 or 3 views 10. Bilateral knees AP standing History: Polyarticular joint pain, arthritis Findings: An AP standing view both knees was performed without prior comparison. Medial and lateral compartment joint spaces of both knees are normal. 2 views of each hip and an AP view of the pelvis were performed. Joint spaces of both hips are normal. There is no acute fracture of the pelvis. There is no acute fracture of either hip. 3 views of the sacroiliac joints were performed. The sacroiliac joints are normal. No osseous erosion or evidence of bony ankylosis is noted. AP and lateral views of the lumbar spine were performed. Alignment is normal. There is no lumbar spine compression deformity. There is mild L4-5 as well as L3-4 and L5-S1 degenerative disc disease. Facet osteoarthritis is noted. AP, lateral, and open-mouth views of the cervical spine were performed without comparison. No prevertebral soft tissue swelling is noted. There is mild C5-6 and C6-7 degenerative disc disease. Alignment of C1 on C2 appears normal. 2 views of the chest demonstrated a possible calcified right lung granuloma. There is no pneumonic consolidation, pleural effusion, or pneumothorax. Heart size appears normal. 2 views of both hands were performed. Alignment of both hands is normal. Metacarpophalangeal joint spaces are normal without erosion. There is very mild distal interphalangeal joint osteoarthritis of the hands. 2 views of both wrists were performed. Alignment of the left wrist is normal. There is no osseous erosion. The joint spaces appear normal. Alignment of the right wrist is normal. Joint spaces are normal. No erosion is noted. 2 views of both feet were performed. Left forefoot joint spaces are normal. There is no erosion. Right forefoot joint spaces are normal. There is no erosion. There is a small right heel spur. 2 views of both ankles were performed. The left ankle and posterior subtalar joint spaces appear normal without erosion. Right ankle and posterior subtalar joint spaces appear normal without erosion. There is a right heel spur. Impression: Mild cervical and lumbar spine degenerative disc disease. Mild osteoarthritis of the hands. Addended on 09/16/2016 10:10:10 AM by Humza Baker. Examination: 1. Chest 2 views 2. Sacroiliac joints 3 views 3. Bilateral hips 2 views each with AP pelvis 4. Bilateral wrists 2 views each 5. Bilateral hands 2 views each 6. Bilateral feet 2 views each 7. Bilateral ankles 2 views each 8. Cervical spine 2 or 3 views 9. Lumbar spine 2 or 3 views 10. Bilateral knees AP standing History: Polyarticular joint pain, arthritis Findings: An AP standing view both knees was performed without prior comparison. Medial and lateral compartment joint spaces of both knees are normal. 2 views of each hip and an AP view of the pelvis were performed. Joint spaces of both hips are normal. There is no acute fracture of the pelvis. There is no acute fracture of either hip. 3 views of the sacroiliac joints were performed. The sacroiliac joints are normal. No osseous erosion or evidence of bony ankylosis is noted. AP and lateral views of the lumbar spine were performed. Alignment is normal. There is no lumbar spine compression deformity. There is mild L4-5 as well as L3-4 and L5-S1 degenerative disc disease. Facet osteoarthritis is noted. AP, lateral, and open-mouth views of the cervical spine were performed without comparison. No prevertebral soft tissue swelling is noted. There is mild C5-6 and C6-7 degenerative disc disease. Alignment of C1 on C2 appears normal. 2 views of the chest demonstrated a possible calcified right lung granuloma. There is no pneumonic consolidation, pleural effusion, or pneumothorax. Heart size appears normal. 2 views of both hands were performed. Alignment of both hands is normal. Metacarpophalangeal joint spaces are normal without erosion. There is very mild distal interphalangeal joint osteoarthritis of the hands. 2 views of both wrists were performed. Alignment of the left wrist is normal. There is no osseous erosion. The joint spaces appear normal. Alignment of the right wrist is normal. Joint spaces are normal. No erosion is noted. 2 views of both feet were performed. Left forefoot joint spaces are normal. There is no erosion. Right forefoot joint spaces are normal. There is no erosion. There is a small right heel spur. 2 views of both ankles were performed. The left ankle and posterior subtalar joint spaces appear normal without erosion. Right ankle and posterior subtalar joint spaces appear normal without erosion. There is a right heel spur. Impression: Mild cervical and lumbar spine degenerative disc disease. Mild osteoarthritis of the hands. Addendum by Humza Baker MD on 09/17/2016 1:35 PM CDT Examination: 1. Chest 2 views 2. Sacroiliac joints 3 views 3. Bilateral hips 2 views each with AP pelvis 4. Bilateral wrists 2 views each 5. Bilateral hands 2 views each 6. Bilateral feet 2 views each 7. Bilateral ankles 2 views each 8. Cervical spine 2 or 3 views 9. Lumbar spine 2 or 3 views 10. Bilateral knees AP standing History: Polyarticular joint pain, arthritis Findings: An AP standing view both knees was performed without prior comparison. Medial and lateral compartment joint spaces of both knees are normal. 2 views of each hip and an AP view of the pelvis were performed. Joint spaces of both hips are normal. There is no acute fracture of the pelvis. There is no acute fracture of either hip. 3 views of the sacroiliac joints were performed. The sacroiliac joints are normal. No osseous erosion or evidence of bony ankylosis is noted. AP and lateral views of the lumbar spine were performed. Alignment is normal. There is no lumbar spine compression deformity. There is mild L4-5 as well as L3-4 and L5-S1 degenerative disc disease. Facet osteoarthritis is noted. AP, lateral, and open-mouth views of the cervical spine were performed without comparison. No prevertebral soft tissue swelling is noted. There is mild C5-6 and C6-7 degenerative disc disease. Alignment of C1 on C2 appears normal. 2 views of the chest demonstrated a possible calcified right lung granuloma. There is no pneumonic consolidation, pleural effusion, or pneumothorax. Heart size appears normal. 2 views of both hands were performed. Alignment of both hands is normal. Metacarpophalangeal joint spaces are normal without erosion. There is very mild distal interphalangeal joint osteoarthritis of the hands. 2 views of both wrists were performed. Alignment of the left wrist is normal. There is no osseous erosion. The joint spaces appear normal. Alignment of the right wrist is normal. Joint spaces are normal. No erosion is noted. 2 views of both feet were performed. Left forefoot joint spaces are normal. There is no erosion. Right forefoot joint spaces are normal. There is no erosion. There is a small right heel spur. 2 views of both ankles were performed. The left ankle and posterior subtalar joint spaces appear normal without erosion. Right ankle and posterior subtalar joint spaces appear normal without erosion. There is a right heel spur. Impression: Mild cervical and lumbar spine degenerative disc disease. Mild osteoarthritis of the hands. Addended on 09/16/2016 10:10:10 AM by Humza Baker. Examination: 1. Chest 2 views 2. Sacroiliac joints 3 views 3. Bilateral hips 2 views each with AP pelvis 4. Bilateral wrists 2 views each 5. Bilateral hands 2 views each 6. Bilateral feet 2 views each 7. Bilateral ankles 2 views each 8. Cervical spine 2 or 3 views 9. Lumbar spine 2 or 3 views 10. Bilateral knees AP standing History: Polyarticular joint pain, arthritis Findings: An AP standing view both knees was performed without prior comparison. Medial and lateral compartment joint spaces of both knees are normal. 2 views of each hip and an AP view of the pelvis were performed. Joint spaces of both hips are normal. There is no acute fracture of the pelvis. There is no acute fracture of either hip. 3 views of the sacroiliac joints were performed. The sacroiliac joints are normal. No osseous erosion or evidence of bony ankylosis is noted. AP and lateral views of the lumbar spine were performed. Alignment is normal. There is no lumbar spine compression deformity. There is mild L4-5 as well as L3-4 and L5-S1 degenerative disc disease. Facet osteoarthritis is noted. AP, lateral, and open-mouth views of the cervical spine were performed without comparison. No prevertebral soft tissue swelling is noted. There is mild C5-6 and C6-7 degenerative disc disease. Alignment of C1 on C2 appears normal. 2 views of the chest demonstrated a possible calcified right lung granuloma. There is no pneumonic consolidation, pleural effusion, or pneumothorax. Heart size appears normal. 2 views of both hands were performed. Alignment of both hands is normal. Metacarpophalangeal joint spaces are normal without erosion. There is very mild distal interphalangeal joint osteoarthritis of the hands. 2 views of both wrists were performed. Alignment of the left wrist is normal. There is no osseous erosion. The joint spaces appear normal. Alignment of the right wrist is normal. Joint spaces are normal. No erosion is noted. 2 views of both feet were performed. Left forefoot joint spaces are normal. There is no erosion. Right forefoot joint spaces are normal. There is no erosion. There is a small right heel spur. 2 views of both ankles were performed. The left ankle and posterior subtalar joint spaces appear normal without erosion. Right ankle and posterior subtalar joint spaces appear normal without erosion. There is a right heel spur. Impression: Mild cervical and lumbar spine degenerative disc disease. Mild osteoarthritis of the hands. Addendum by Humza Baker MD on 09/16/2016 10:13 AM CDT Examination: 1. Chest 2 views 2. Sacroiliac joints 3 views 3. Bilateral hips 2 views each with AP pelvis 4. Bilateral wrists 2 views each 5. Bilateral hands 2 views each 6. Bilateral feet 2 views each 7. Bilateral ankles 2 views each 8. Cervical spine 2 or 3 views 9. Lumbar spine 2 or 3 views 10. Bilateral knees AP standing History: Polyarticular joint pain, arthritis Findings: An AP standing view both knees was performed without prior comparison. Medial and lateral compartment joint spaces of both knees are normal. 2 views of each hip and an AP view of the pelvis were performed. Joint spaces of both hips are normal. There is no acute fracture of the pelvis. There is no acute fracture of either hip. 3 views of the sacroiliac joints were performed. The sacroiliac joints are normal. No osseous erosion or evidence of bony ankylosis is noted. AP and lateral views of the lumbar spine were performed. Alignment is normal. There is no lumbar spine compression deformity. There is mild L4-5 as well as L3-4 and L5-S1 degenerative disc disease. Facet osteoarthritis is noted. AP, lateral, and open-mouth views of the cervical spine were performed without comparison. No prevertebral soft tissue swelling is noted. There is mild C5-6 and C6-7 degenerative disc disease. Alignment of C1 on C2 appears normal. 2 views of the chest demonstrated a possible calcified right lung granuloma. There is no pneumonic consolidation, pleural effusion, or pneumothorax. Heart size appears normal. 2 views of both hands were performed. Alignment of both hands is normal. Metacarpophalangeal joint spaces are normal without erosion. There is very mild distal interphalangeal joint osteoarthritis of the hands. 2 views of both wrists were performed. Alignment of the left wrist is normal. There is no osseous erosion. The joint spaces appear normal. Alignment of the right wrist is normal. Joint spaces are normal. No erosion is noted. 2 views of both feet were performed. Left forefoot joint spaces are normal. There is no erosion. Right forefoot joint spaces are normal. There is no erosion. There is a small right heel spur. 2 views of both ankles were performed. The left ankle and posterior subtalar joint spaces appear normal without erosion. Right ankle and posterior subtalar joint spaces appear normal without erosion. There is a right heel spur. Impression: Mild cervical and lumbar spine degenerative disc disease. Mild osteoarthritis of the hands. Impressions 09/11/2016 4:51 PM CDT Mild cervical and lumbar spine degenerative disc disease. Mild osteoarthritis of the hands. Narrative 09/11/2016 4:51 PM CDT Examination: 1. Chest 2 views 2. Sacroiliac joints 3 views 3. Bilateral hips 2 views each with AP pelvis 4. Bilateral wrists 2 views each 5. Bilateral hands 2 views each 6. Bilateral feet 2 views each 7. Bilateral ankles 2 views each 8. Cervical spine 2 or 3 views 9. Lumbar spine 2 or 3 views 10. Bilateral knees AP standing History: Polyarticular joint pain, arthritis Findings: An AP standing view both knees was performed without prior comparison. Medial and lateral compartment joint spaces of both knees are normal. 2 views of each hip and an AP view of the pelvis were performed. Joint spaces of both hips are normal. There is no acute fracture of the pelvis. There is no acute fracture of either hip. 3 views of the sacroiliac joints were performed. The sacroiliac joints are normal. No osseous erosion or evidence of bony ankylosis is noted. AP and lateral views of the lumbar spine were performed. Alignment is normal. There is no lumbar spine compression deformity. There is mild L4-5 as well as L3-4 and L5-S1 degenerative disc disease. Facet osteoarthritis is noted. AP, lateral, and open-mouth views of the cervical spine were performed without comparison. No prevertebral soft tissue swelling is noted. There is mild C5-6 and C6-7 degenerative disc disease. Alignment of C1 on C2 appears normal. 2 views of the chest demonstrated a possible calcified right lung granuloma. There is no pneumonic consolidation, pleural effusion, or pneumothorax. Heart size appears normal. 2 views of both hands were performed. Alignment of both hands is normal. Metacarpophalangeal joint spaces are normal without erosion. There is very mild distal interphalangeal joint osteoarthritis of the hands. 2 views of both wrists were performed. Alignment of the left wrist is normal. There is no osseous erosion. The joint spaces appear normal. Alignment of the right wrist is normal. Joint spaces are normal. No erosion is noted. 2 views of both feet were performed. Left forefoot joint spaces are normal. There is no erosion. Right forefoot joint spaces are normal. There is no erosion. There is a small right heel spur. 2 views of both ankles were performed. The left ankle and posterior subtalar joint spaces appear normal without erosion. Right ankle and posterior subtalar joint spaces appear normal without erosion. There is a right heel spur. Procedure Note Humza Baker MD - 09/11/2016 Examination: 1. Chest 2 views 2. Sacroiliac joints 3 views 3. Bilateral hips 2 views each with AP pelvis 4. Bilateral wrists 2 views each 5. Bilateral hands 2 views each 6. Bilateral feet 2 views each 7. Bilateral ankles 2 views each 8. Cervical spine 2 or 3 views 9. Lumbar spine 2 or 3 views 10. Bilateral knees AP standing History: Polyarticular joint pain, arthritis Findings: An AP standing view both knees was performed without prior comparison. Medial and lateral compartment joint spaces of both knees are normal. 2 views of each hip and an AP view of the pelvis were performed. Joint spaces of both hips are normal. There is no acute fracture of the pelvis. There is no acute fracture of either hip. 3 views of the sacroiliac joints were performed. The sacroiliac joints are normal. No osseous erosion or evidence of bony ankylosis is noted. AP and lateral views of the lumbar spine were performed. Alignment is normal. There is no lumbar spine compression deformity. There is mild L4-5 as well as L3-4 and L5-S1 degenerative disc disease. Facet osteoarthritis is noted. AP, lateral, and open-mouth views of the cervical spine were performed without comparison. No prevertebral soft tissue swelling is noted. There is mild C5-6 and C6-7 degenerative disc disease. Alignment of C1 on C2 appears normal. 2 views of the chest demonstrated a possible calcified right lung granuloma. There is no pneumonic consolidation, pleural effusion, or pneumothorax. Heart size appears normal. 2 views of both hands were performed. Alignment of both hands is normal. Metacarpophalangeal joint spaces are normal without erosion. There is very mild distal interphalangeal joint osteoarthritis of the hands. 2 views of both wrists were performed. Alignment of the left wrist is normal. There is no osseous erosion. The joint spaces appear normal. Alignment of the right wrist is normal. Joint spaces are normal. No erosion is noted. 2 views of both feet were performed. Left forefoot joint spaces are normal. There is no erosion. Right forefoot joint spaces are normal. There is no erosion. There is a small right heel spur. 2 views of both ankles were performed. The left ankle and posterior subtalar joint spaces appear normal without erosion. Right ankle and posterior subtalar joint spaces appear normal without erosion. There is a right heel spur. IMPRESSION Mild cervical and lumbar spine degenerative disc disease. Mild osteoarthritis of the hands. Sharmaine BERGERON IMAGI NG ORDERABLES Care Teams Java Developer Architect Relationship Specialty Start Date End Date Jair Marie MD [address] [address] PCP - General Internal Medicine 09/11/16
--- OUTSIDE RECORDS SUMMARY | 2024-03-18 16:37 | XMS_ITS | Encounter Summary ---
Author Organization [facility] Healthcare Address [address] [place] [address] Care Team Providers Care Communications Manager Name Role Phone Regina Calderon MD Unavailable Rosy Lyons MD Unavailable Cristela Lei NP Primary Care Provider [phone] Wayne Griffin MD Unavailable [phone] Venu Alejo MD PhD Unavailable Encounter Details Date Type Department Care Team (Late st Contact Info) Description 03/18/2024 Telephone [facility] Radiation Oncology [address] [facility] [place] [address] Lelo Chowdhury RN Social History Tobacco Use Types Packs/Day Years Used Date Smoking Tobacco: Every Day Smokeless Tobacco: Never [facility] Utilities Answer Date Recorded In the past 12 months has [employer], gas, oil, or water company threatened to shut off services in your [...] week 02/08/2024 How often do you attend formerly [facility] or [facility] services? Patient declined 02/08/2024 Do you belong to any clubs o r organizations such as nondenominational groups, unions, fraternal or athletic groups, or [...] any time in the past [facility], were you homeless or living in a intermediate (including now)? No 02/08/2024 Personal Safety Answer Date Recorded Have you ever been in or are you currently in a harmful physical or emotional relationship or is someone making you feel afraid or unsafe? 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 Author CCM Chronic Pain Care Plan Chronic Care Management No Lizz Danielson RN Note: Problem: Chronic Pain Goals: 1. Minimize further functional decline 2. Maximize quality of life 3. Control pain Strategies: - Activity/exercise program recommendation - Conservative stepwise pain medicine strategy with multi-disciplinary approach - Recommend healthy lifestyle strategies and compensatory methods as needed Reduce the likelihood of falling Lifestyle No Lizz Danielson RN Note: Below are four things you can [...] stairs Contact your local community or [facility] [place] for information on exercise, fall prevention programs, or options for improving home safety. documented as of this encounter Visit Diagnoses Not on filedocumented in this encounter Care Teams Communications Manager Relationship Specialty Start Date End Date Cristela Lei NP [address] [place] [address] PCP - General Nurse Practitioner 05/15/23 [place] [address] [facility] [address] [place] [address] Rheumatology 11/05/16 Rosy Lyons MD [address] [facility] [place] [address] Medical Oncologist/Beam Carrier Hauler Pusher Medical Oncology 05/11/23 Wayne Griffin MD [address] [place] [address] Consulting Physician Neurosurgery 09/04/23 Venu Alejo MD PhD [address] [place] [address] Consulting Physician Radiation Oncology 09/04/23 documented as of this encounter
--- OUTSIDE RECORDS SUMMARY | 2024-03-18 16:37 | XMS_ITS | Data Portability ---
Author Organization [facility] [place] Address [address] [place] [address] [place] [address] Assessment No assessment recorded. Plan of Treatment Reminders Order Date Submit Date Provider Last Modified By Organization Details Last Modified Time Details Appointments None recorded. Lab None recorded. Referral None recorded. Procedures None recorded. Surgeries None recorded. Imaging None recorded. Medication Orders oxybutynin chloride ER 5 mg tablet,ext ended release 24 hr 2019 020 INTERFACE [facility] #[id number], [address] [facility], [place], [place], [id number], 0 12:50:39 Patient TargetsNo targets recorded. Patient InstructionsNo instructions recorded. Reason for Referral None Reported. Results Created Date Observation Date Name Description Value Unit Range Abnormal Flag Note LastModifiedBy Organization Detail LastModifiedTime 08/26/19 20 08/30/2019 surgi madi patho logy study surgical pathology View Report ACCES ESTELA #: [id number] Patie nt Name: GAYLA RUELAS SA Age-S ex-DO B: 54y F [birth year] Proce dure Date: 08/25 Acces estela Date: 2019 Pt Acct# : Repor t Date: 2019 Locat ion: OFFIC E Physi hannah( s): Antonio Cruz MD P A T H O L O G Y R E P O R T DIAGN OSIS: 1. Vulva , labia major a, biops y: Intra derma l nevus , excis ed. 2. Vulva , labia minor a, biops y: Squam ous mucos a with mild hyper kerat osis and hyper granu losis . No squam ous intra epith elial lesio n or malig jeannine is ident ified . Fernanda Carrasco. Mona ventura MD elect tika khan raysa d 08/29 09:45 AM Gross Descr iptio n: 1. The speci men is recei bubba in a conta iner of forma alysha label ed Gayla sa Jessenia , vulva r biops y and consi sts of a conde, eleva marsha and hair- beari ng shave biops y measu ring 0.4 x 0.4 x 0.3 cm. The base is inked blue. The speci men is secti oned and submi tted entir chano in casse tte 1A, 03/12. 2. The speci men is recei bubba in a conta iner of forma alysha label ed Gayla sa Jessenia , vulva r biops y and consi sts of a conde-b rown punch biops y measu ring 0.[address] and excis ed to a depth of 0.5 cm. The luis e ns are inked blue. The speci men is submi tted intac t in casse tte 2A, 02/09. (ANIA, AJC,m bj) Micro scopi c Descr iptio n: Micro scopi c exami natio n is perfo rmed. Proce dure: Vulva r biops y Clini madi Histo ry: Other speci fied nonin flamm atory disor ders of vulva and perin eum (N90. 89) Speci men List: 1. Labia major a 2. Labia minor a End of Repor t Techn ical servi jose juan provi ded by [facility], [address] [place] [address] Gigi Hilario MD, Labor atory Dire tor. Case revie wed and diagn osis rende red at [facility], [address], [place] [address] Mohamud Andrade MD, Labor atory Dire tor. CONFI DENTI AL Not Available [facility]) [address], [place], [address], 08/30/2019 10:47:48 Result Notes None recorded. Procedures Surgical History Date Name Laterality Status Provider Name and Address Organization Details Recorded Time 08/26/19 20 Vulvar Biopsy completed Brian Cruz MD [address], [place], [address], [facility] 08/27/2019 15:13:44 02/09/19 04 Date of Last Pap Smear completed [facility] 08/18/2019 15:54:20 02/09/19 03 section completed [facility] 08/18/2019 15:50:18 02/09/19 03 hysterectomy completed [facility] 08/18/2019 15:55:22 Appendectomy completed [facility] 08/18/2019 15:49:55 Imaging Results None recorded. Procedure Notes None recorded. Medical Equipment None Reported. Allergies No known drug allergies Medications Name Sig Start Date Stop Date Status Note LastModified by Organization Details LastModified Time oxybutynin chloride ER 5 mg tablet,extende d release 24 hr Take 1 tablet every day by oral route. 020 active Not Available Not Available Not Avai lable Effexor active Not Available Not Avail able Not Available rosuvastatin active Not Available Not Available Not Available Vitals Date Recorded Body height Body mass index (BMI) Body weight Systolic blood pressure Diastolic blood pressure Provider Name and Address Organization Details Last Updated DateTime 08/18/2019 157.48 cm 29.4 kg/m2 07436.37 g 144 mm[Hg] 91 mm[Hg] [facility] 0 15:53:29 Date Recorded Body height Body mass index (BMI) Body weight Systolic blood pressure Diastolic blood pressure Provider Name and Address Organization Details Last Updated DateTime 08/26/2019 157.48 cm 30.2 kg/m2 32448.74 g 132 mm[Hg] 88 mm[Hg] Marysol Huang [facility] 0 12:18:42 Date Recorded Body height Body mass index (BMI) Body weight Systolic blood pressure Diastolic blood pressure Provider Name and Address Organization Details Last Updated DateTime 09/03/2019 157.48 cm 30 kg/m2 24066.15 g 159 mm[Hg] 106 mm[Hg] Elizabeth Estrella [facility] 0 12:28:46 Social History None recorded. Functional Status None recorded. Mental Status None recorded. Family History Nothing Reported Notes:Infertility-Brother Medical History Condition Response Hypertension Y High Cholesterol Y Gynecological History Statement/Question Response Date of Last Pap Smear 02/09/2003 Current Control Method Hysterectom y Obstetrics History GPAL:G 2 P 2 0 0 2 Type Value Full Term 2 Living 2 Total 2 Past Encounters Encounter ID Performer Location Encounter Start Date Encounter Closed Date Diagnosis/Indication Diagnosis SNOMED-CT Code Diagnosis ICD10 Code Diagnosis Note [id number] Brian Cruz MD [place] [address] [address] 08/18/2019 15:30:12 08/18/2019 16:10:55 Lesion of vulva 667101850 N90.89 This patient is a 54-year-ol d female presents for tender vulvar lesion and hyperpigme nted area on the vaginal introitus. We agreed for her to return for biopsies of both areas. [id number] Brian Cruz MD [place] [address] [address] 08/26/2019 12:00:10 08/28/2019 12:38:45 Urgent desire to urinate [id number] R39.15 Lesion of vulva 80178972 6 N90.89 This patient is a 54-year-ol d female with 2 vulvar lesions that require biopsy. They were completed and she tolerated the procedure well. She also reports some urinary urge. She is getting up here multiple times a night. She is going to complete a trial of oxybutynin and return in 4 weeks. [id number] Brian Cruz MD [place] [address] [address] 09/03/2019 12:12:38 09/14/2019 14:07:10 Lesion of vulva 759720405 N90.89 This patient is a 54-year-ol d female presents for follow-up onexcision of vulvar lesions. Incisions are clean dry and intact. Thepatient and I discussed herpatholo gy results. She will follow-up as needed Health Concerns Section Related Observation LastModified by Organization Detai ls LastModified Time None Recorded Concern Status LastModified by Organization Details LastModified Time None Recorded Advance Directives Directive None Recorded Payers Encounter Date Sequence Insurance Name Policy Number Policy Martin Covered Member ID Martin Member ID Guarantor Name 08/18/2019 1 [employer] - DOS PRIOR TO 20 - [facility] [employer] Liliana Ruelas [id number] Liliana Ruelas 08/26/2019 1 [employer] - DOS PRIOR TO 20 - [facility] [employer] Liliana Ruelas [id number] Liliana Ruelas 09/03/2019 1 [employer] - DOS PRIOR TO 20 - [facility] [employer] Liliana Ruelas [id number] Liliana Ruelas Notes Date Note Type Note Provider Name and Address Organization Details Recorded Time 08/18/2019 text/html Vaginal/Vulvar ProblemReported bypatient.Location:v ulva; right labia; left labia Onset/Timing:started : (noticed pne week ago) Duration:present for 1-2 weeks Quality:tender Severity:mild Context:sexually active; postmenopausal Aggravating Factors:none Associated Symptoms:no vaginal itching; no vaginal irritation; no vaginal pain; no vulvar itching/irritation; no vulvar pain; no dyspareuniaNotes:The patient also reports some darkly colored areas around the inside of the labia. There is no pain in this area. There is no abnormal bleeding. Brian Cruz MD [address], [place], [address], [facility] 08/19/2019 17:34:12 08/26/2019 text/html This patient a 54-year-old female with 2 vulvar lesions that require biopsy Brian Cruz MD [address], [place], [address], [facility] 08/27/2019 15:15:50 09/03/2019 text/html This patient is a 54-year-old female presents for follow-up on excision of vulvar lesions. Incisions are clean dry and intact. The patient and I discussed her pathology results. She will follow-up as needed Brian Cruz MD [address], [place], [address], [facility] 09/04/2019 21:12:56 OBGyn Episode Ob Episode Information Episode Created Date Number of Fetuses Patient Bloodtype Patient rh Status Prepregnancy Weight lbs Domestic Partner Domestic Partner Phone Father Name Chemistry Technician Status 08/18/19 20 1 CLOSED Fetus Data First Name Last Name Admitted to NICU Weight (g) Sex Living Outcome Pediatric Complications Fetus ID Race Codes Race Delivery Type 2466.17 [id number] Full Term 2821 Vaginal Delivery Steve Calculation Initial Steve Date Initial Exam Date Initial Exam Provider Initial Ultrasound Date Last Menstrual Period Date Ultra Sound Weeks Gestation 0 Eighteen To Twenty Week Steve Update Ultra Sound Date Fundal Height At Umbil Quickening Date Ultra Sound Latest Weeks Gestation Final Steve Confirmed By Final Steve Confirmed Date Final Steve Date Ultra Sound Latest Days Gestation 0 0 Menstrual History Last Menstrual Date Menses Monthly On Bcp Conception Prior Menses Frequency Hcg Plus Date Menarche Onset Age Delivery Information Delivery Date Delivery Type Labor Anesthesia Weeks Gestation Incision Type Labor Labor Length Hrs Delivered By Post Complications Tubal Sterilization Discharge Date Comments 4 Discharge Information Feeding Method Contraceptive Method Maternal HG B and HCT Levels Ob Episode Information Episode Created Date Number of Fetuses Patient Bloodtype Patient rh Status Prepregnancy Weight lbs Domestic Partner Domestic Partner Phone Father Name Chemistry Technician Status 08/18/19 20 1 CLOSED Fetus Data First Name Last Name Admitted to NICU Weight (g) Sex Living Outcome Pediatric Complications Fetus ID Race Codes Race Delivery Type 2919.77 [id number] Primary Steve Calculation Initial Steve Date Initial Exam Date Initial Exam Provider Initial Ultrasound Date Last Menstrual Period Date Ultra Sound Weeks Gestation 0 Eighteen To Twenty Week Steve Update Ultra Sound Date Fundal Height At Umbil Quickening Date Ultra Sound Latest Weeks Gestation Final Steve Confirmed By Final Steve Confirmed Date Final Steve Date Ultra Sound Latest Days Gestation 0 0 Menstrual History Last Menstrual Date Menses Monthly On Bcp Conception Prior Menses Frequency Hcg Plus Date Menarche Onset Age Delivery Information Delivery Date Delivery Type Labor Anesthesia Weeks Gestation Incision Type Labor Labor Length Hrs Delivered By Post Complications Tubal Sterilization Discharge Date Comments 3 Discharge Information Feeding Method Contraceptive Method Maternal HG B and HCT Levels
--- OUTSIDE RECORDS SUMMARY | 2024-03-18 16:37 | XMS_ITS | Encounter Summary ---
Author Organization [facility] Address [address] [place] [address] Phone Care Team Providers Care Color Making Supervisor Name Role Phone Regina Calderon MD Unavailable Rosy Lyons MD Unavailable [phone] Cristela Lei NP Primary Care Provider [phone] Wayne Griffin MD Unavailable [phone] Venu Alejo MD PhD Unavailable [phone] Reason for Visit * Reason Onset Date Comments Bloating and swollen 03/18/2024 Encounter Details Date Type Department Care Team (Late st Contact Info) Description 03/18/2024 Telephone [facility] [address] [facility] [address] [place] [address] Tyesha Dan CMA Bloating and swollen Social History Tobacco Use Types Packs/Day Years Used Date Smoking Tobacco: Every Day Smokeless Tobacco: Never [facility] Utilities Answer Date Recorded In the past 12 months has e electric, gas, oil, or water company threatened [...] week 02/08/2024 How often do you attend chur ch or zoroastrian services? Patient declined 02/08/2024 Do you belong to any clubs o r organizations such as methodist groups, unions, fraternal or athletic groups, or [...] any time in the past 12 m [facility], were you homeless or living in a senior care (including now)? No 02/08/2024 Personal Safety Answer Date Recorded Have you ever been in or are you currently in a harmful physical or emotional relationship or is someone making you feel afraid or unsafe? Denies 02/09/2024 Comments No Sex and Gender Information Value Date Recorded Sex Assigned at Not on file Legal Sex Female 10:13 AM FINISHING AND SHIPPING SUPERVISOR Gender Identity Female 05/13/2023 6:07 AM CDT Sexual Orientation Straight 05/13/2023 6: 07 AM CDT documented as of this encounter Miscellaneous Notes * Telephone Encounter - Tyesha Dan CMA - 03/18/2024 1:59 PM FINISHING AND SHIPPING SUPERVISOR Patient reports that she has been having issues with high BP. She also reports her face is 2x bigger than usual due to swelling, now eyes are sunken in. She feels she looks 7/8mo due to bloating. Called for BP reads; Around 189/102 or 112 Should be in MyChart. She is thinking she isnt breathing well at night She feels like her mouth is smaller due to cheeks swelling She said she looked up [place] and she has every symptom Rashes - She says they're not bad, but they have been bad and popped up fast. Has sent pictures. She is taking her steroids as prescribed 20mg BID Prednisone Has seen her GI doctor. Patient advised that Dr Lyons suggests ER. Patient states she will consider, may go to Urgent care, SHING AND SHIPPING SUPERVISOR documented in this encounter Plan of Treatment Scheduled Procedures Name Priority Associated Diagnoses Date/Ti sc CRANIOTOMY EXCISION TUMOR Metastasis to brain (HCC) [...] on stairs Contact your local community or [facility] for information on exercise, fall prevention programs, or options for improving home safety. documented as of this encounter Visit Diagnoses Not on filedocumented in this encounter Care Teams Color Making Supervisor Relationship Specialty Start Date End Date WinterCristela NP [address] [place] [address] PCP - General Nurse Practitioner 05/15/23 [place] [address] [facility] [address] [place] [address] Rheumatology 11/05/16 Rosy Lyons MD [address] DIV MEDICAL ONCOLOGY, [facility] [address] [place] [address] Medical Oncologist/Outbound Sales Specialist Medical Oncology 05/11/23 Wayne Griffin MD [address] [place] [address] Consulting Physician Neurosurgery 09/04/23 Venu Alejo MD PhD [address] [facility] [address] [place] [address] Consulting Physician Radiation Oncology 09/04/23 documented as of this encounter
--- OUTSIDE RECORDS SUMMARY | 2024-03-18 16:37 | XMS_ITS | Clinical Summary ---
Author Organization [facility] [address] Address [address] [place] [address] Phone Care Team Providers Care [facility] Name Role Phone Regina Calderon MD Unavailable Rosy Lyons MD Unavailable Cristela Lei NP Primary Care Provider [phone] Wayne Griffin MD Unavailable [phone] Venu Alejo MD PhD Unavailable Allergies Active Allergy Reactions Criticality Noted Date [...] 02/07/2024 Assessment & Plan (02/09/2024 11:33 AM HEADING AND PRIMING OPERATOR): Presented in April 2023 after presenting with [...] brain Assessment & Plan (02/07/2024 5:39 PM HEADING AND PRIMING OPERATOR): Patient reports history of seizure that led [...] 10/31/2016 Assessment & Plan (02/07/2024 5:40 PM HEADING AND PRIMING OPERATOR): Continue home Lexapro 20 mg daily (recently [...] 09/11/2016 Assessment & Plan (02/07/2024 5:56 PM HEADING AND PRIMING OPERATOR): MRI with no evidence of metastases to [...] and frequent abx. Consider seeing ENT or cytogenetic technician for eval. We check IgG as part of our workup to look for low immune globulins. Dry eyes 09/11/2016 Assessment & Plan (10/03/2016 5:41 PM CDT): Neg serologies. Assessment & Plan (09/11/2016 2:50 PM CDT): Noted by eye doctor. Using otc drops. Resolved Problems Problem Noted Date Diagnosed Date Resolved Date Diarrhea 12/18/2023 03/08/2024 Assessment & Plan (02/09/2024 11:32 AM HEADING AND PRIMING OPERATOR): Concern for immune mediated colitis Had been [...] Lomotil PRN -Start solumedrol 2mg/kg -T-spot test Encounters Date Type Department Care Team Description 03/18/2024 Telephone [facility] Radiation Oncology [address] [place] [address] Lelo Chowdhury RN 03/18/2024 Telephone [facility] Oncology [address] [place] [address] [address] [place] [address] Tyesha Dan CMA Bloating and swollen 03/14/2024 Telephone [facility] Radiation Oncology [address] [facility] [place] [address] Darrel Hill MD 03/14/2024 Telephone [facility] Oncology [address] [place] [address] [address] [place] [address] Chloe Martin RN 03/08/2024 10:00 AM HEADING AND PRIMING OPERATOR Office Visit [facility] Gastroenterology [address] [facility] 2nd Floor [address] [place] [address] Ce Navarro MD Chronic diarrhea (Primary Dx); Abdominal cramping; Drug-induced constipation 03/03/2024 12:40 PM HEADING AND PRIMING OPERATOR - 03/03/2024 11:59 PM HEADING AND PRIMING OPERATOR Hospital Encounter [facility] Radiation Oncology [address] [facility] [place] [address] Venu Alejo MD PhD Discharge Disposition: Discharge to home or self care 03/03/2024 11:30 AM HEADING AND PRIMING OPERATOR Office Visit [facility] Radiation Oncology [address] [facility] [place] [address] Venu Alejo MD PhD Malignant neoplasm metastatic to left adrenal gland (HCC) (Primary Dx); Small cell lung cancer, right lower lobe (HCC) 02/22/2024 Telephone [facility] Gastroenterology [address] [place] [address] Advanced Medicine 12th [place] [address] [place] [address] Emil GarridoiceANGELA 02/22/2024 Telephone [facility] Oncology [address] [place] [address] [address] [place] [address] Bolivar Soares 02/22/2024 Telephone [facility] Advanced Medicine Radiation Oncology [facility] [place] [address] Jacque Garner RN 02/21/2024 Telephone [facility] Gastroenterology [address] [place] [address] Medicine 12th [place] [address] [place] [address] Sadie Frost CMA 02/19/2024 11:40 AM HEADING AND PRIMING OPERATOR Office Visit [facility] Oncology [address] [facility] [address] [place] [address] Rosy Lyons MD Malignant neoplasm metastatic to left adrenal gland (HCC) (Primary Dx); Small cell lung cancer, right lower lobe (HCC); Malignant neoplasm metastatic to brain (HCC); Diarrhea due to drug 02/19/2024 10:45 AM HEADING AND PRIMING OPERATOR Lab [facility] at [address] [place] [address] Small cell lung cancer, right lower lobe (HCC); Malignant neoplasm metastatic to brain (HCC); Diarrhea, unspecified type 02/19/2024 10:45 AM HEADING AND PRIMING OPERATOR Lab [facility] Oncology [address] [facility] [address] [place] [phone] Small cell lung cancer, right lower lobe (HCC); Malignant neoplasm metastatic to brain (HCC); Diarrhea, unspecified type 02/18/2024 Telephone [facility] Gastroenterology [address] [facility] Advanced Medicine 12th [place] [address] [place] [address] Allegra Mayers RN 02/16/2024 Orders Only [facility] Oncology [address] [facility] Floor 5 [place] [address] Janey Mendez NP Diarrhea, unspecified type (Primary Dx) 02/16/2024 Telephone [facility] Specialty Services [address] [place] [address] Catalina Hwang RN 02/09/2024 2:40 PM HEADING AND PRIMING OPERATOR - 02/09/2024 3:30 PM HEADING AND PRIMING OPERATOR Surgery [facility] Digestive Disease [address] [address] Julieth Giraldo MD COLON BIOPSY 02/09/2024 12:43 PM HEADING AND PRIMING OPERATOR Anesthesia Event [address] [address] Johnny Newton MD McCormick, Molly Ann, MD 02/07/2024 3:48 PM HEADING AND PRIMING OPERATOR - 02/09/2024 4:57 PM HEADING AND PRIMING OPERATOR Hospital Encounter [facility] [address] [place] [address] Rosy Lyons MD Tabagari, David, MD Patel, Rushin Mahesh, MD Ahmed, Marwa Mustafa Mohammed, MD Diarrhea, unspecified type (Primary Dx) Discharge Disposition: Left Against Medical Advice 02/07/2024 3:05 PM HEADING AND PRIMING OPERATOR - 02/07/2024 11:59 PM HEADING AND PRIMING OPERATOR Hospital Encounter [facility] [address] [place] [address] Elevated liver enzymes (Primary Dx); Small cell lung cancer, right lower lobe (HCC); Malignant neoplasm metastatic to left adrenal gland (HCC); Diarrhea, unspecified type Discharge Disposition: Discharge to home or self care 02/06/2024 8:38 AM HEADING AND PRIMING OPERATOR - 02/06/2024 11:59 PM HEADING AND PRIMING OPERATOR Hospital Encounter [facility] ([facility]) [address] [place] [address] Elevated liver enzymes (Primary Dx); Small cell lung cancer, right lower lobe (HCC); Malignant neoplasm metastatic to left adrenal gland (HCC); Diarrhea, unspecified type Discharge Disposition: Discharge to home or self care 02/05/2024 12:30 PM HEADING AND PRIMING OPERATOR Infusion [address] [place] [address] Elevated liver enzymes (Primary Dx); Small cell lung cancer, right lower lobe (HCC); Malignant neoplasm metastatic to brain (HCC); Diarrhea, unspecified type 02/05/2024 11:30 AM HEADING AND PRIMING OPERATOR Office Visit [facility] Oncology [address] [place] [address] [place] [address] Rosy Lyons MD Small cell lung cancer, right lower lobe (HCC) (Primary Dx); Malignant neoplasm metastatic to brain (HCC); Malignant neoplasm metastatic to left adrenal gland (HCC); Metastasis to brain (HCC); Diarrhea, unspecified type; Left adrenal mass (HCC) 02/05/2024 10:30 AM HEADING AND PRIMING OPERATOR Lab [address] [place] [address] Small cell lung cancer, right lower lobe (HCC); Metastasis to brain (HCC); Malignant neoplasm metastatic to left adrenal gland (HCC) 02/05/2024 10:30 AM HEADING AND PRIMING OPERATOR Lab [facility] Oncology [address] [place] [address] [place] [address] Small cell lung cancer, right lower lobe (HCC); Metastasis to brain (HCC); Malignant neoplasm metastatic to left adrenal gland (HCC) 02/05/2024 9:20 AM HEADING AND PRIMING OPERATOR - 02/05/2024 11:59 PM HEADING AND PRIMING OPERATOR Hospital Encounter [facility] Imaging [address] [place], [place] [address] Small cell lung cancer, right lower lobe (HCC); Metastasis to brain (HCC); Malignant neoplasm metastatic to left adrenal gland (HCC) Discharge Disposition: Discharge to home or self care 02/05/2024 Telephone [facility] Oncology [address] [place] [address] [address] [place], [place] [phone] Tyesha Dan CMA Admit Questions 02/05/2024 Telephone [facility] Oncology [address] [place] [address] [address] [place], [place] [phone] Chloe Martin RN 02/01/2024 Telephone [facility] Oncology [address] [place] [address] [address] [place], [place] [phone] Bolivar Soares 01/29/2024 2:00 PM HEADING AND PRIMING OPERATOR Office Visit [facility] Oncology [address] [place] [address] [address] [place] [phone] Rosy Lyons MD Small cell lung cancer, right lower lobe (HCC) (Primary Dx); Metastasis to brain (HCC); Malignant neoplasm metastatic to left adrenal gland (HCC); Diarrhea, unspecified type 01/29/2024 1:00 PM HEADING AND PRIMING OPERATOR Lab [facility] at [address] [place] [address] Small cell lung cancer, right lower lobe (HCC); Malignant neoplasm metastatic to brain (HCC) 01/29/2024 1:00 PM HEADING AND PRIMING OPERATOR Lab [facility] Oncology [address] [place] [address] [address] [place] [phone] Small cell lung cancer, right lower lobe (HCC); Malignant neoplasm metastatic to brain (HCC) 01/25/2024 12:56 PM HEADING AND PRIMING OPERATOR - 01/25/2024 11:59 PM HEADING AND PRIMING OPERATOR Hospital Encounter [facility] [address] [facility] 4, [address] [place] [phone] Other chronic pain (Primary Dx); Chronic use of opiate drug for therapeutic purpose Discharge Disposition: Discharge to home or self care 01/22/2024 Telephone [facility] Radiation Oncology [address] [place] [address] [place] [address] Nimco Torrez RN 01/22/2024 Telephone [facility] at [address], [address] [place] [phone] Julio Cesar Ocampo MD requesting a call back 01/21/2024 6:35 AM HEADING AND PRIMING OPERATOR - 01/21/2024 11:59 PM HEADING AND PRIMING OPERATOR Hospital Encounter [facility] Radiation Oncology [address] [place] [address] Venu Alejo MD PhD Discharge Disposition: Discharge to home or self care 01/21/2024 6:30 AM HEADING AND PRIMING OPERATOR Procedure visit [facility] Radiation Oncology [address] [place] [address] Venu Alejo MD PhD Rex Moura MD Malignant neoplasm metastatic to brain (HCC) (Primary Dx) 01/21/2024 6:29 AM HEADING AND PRIMING OPERATOR - 01/21/2024 11:59 PM HEADING AND PRIMING OPERATOR Hospital Encounter [facility] Radiation Oncology [address] [place] [address] Venu Alejo MD PhD Discharge Disposition: Discharge to home or self care 01/21/2024 Orders Only RAD ONC TREATMENTS Miscellaneous, Not In File 01/21/2024 Orders Only RAD ONC TREATMENTS Miscellaneous, Not In File 01/21/2024 Orders Only RAD ONC TREATMENTS Miscellaneous, Not In File 01/20/2024 Telephone [facility] at [address], [address] [place] [address] Julio Cesar Ocampo MD Med Management 01/20/2024 Telephone [facility] Radiation Oncology [address] [facility] Advanced [place] [address] Reina Coelho RN 01/18/2024 9:28 AM HEADING AND PRIMING OPERATOR - 01/18/2024 11:59 PM HEADING AND PRIMING OPERATOR Hospital Encounter [facility] [address] [place] [address], [address] [place] [phone] Julio Cesar Ocampo MD High risk medication use (Primary Dx); Chronic bilateral low back pain with right-sided sciatica Discharge Disposition: Discharge to home or self care 01/15/2024 1:40 PM HEADING AND PRIMING OPERATOR Office Visit [facility] Oncology [address] [place] [address] [address] [place] [phone] Janey Mendez NP Small cell lung cancer, right lower lobe (HCC) (Primary Dx); Malignant neoplasm metastatic to brain (HCC); Diarrhea, unspecified type; Metastasis to brain (HCC); Adjustment disorder with mixed anxiety and depressed mood 01/15/2024 12:45 PM HEADING AND PRIMING OPERATOR Lab [facility] at [address] [place] [phone] Diarrhea, unspecified type; Small cell lung cancer, right lower lobe (HCC) 01/15/2024 12:45 PM HEADING AND PRIMING OPERATOR Lab [facility] Oncology [address] [place] [address] [address] [place] [phone] Diarrhea, unspecified type; Small cell lung cancer, right lower lobe (HCC) 01/15/2024 Documentation [facility] Radiation Oncology [address] [facility] [place] [address] Reina Coelho, RN [employer] insurance pre-auth 01/15/2024 Telephone [facility] Neurosurgery [facility] Medicine 6th [place] [address] [place] [address] Rex Moura MD 01/15/2024 Orders Only [facility] Neurosurgery [facility] 6th [place] [address] [place] [phone] Jyoti Westbrook NP Brain mass (Primary Dx) 01/12/2024 1:30 PM HEADING AND PRIMING OPERATOR Office Visit [facility] Radiation Oncology [address] [facility] [place] [address] Venu Alejo MD PhD Malignant neoplasm metastatic to brain (HCC) (Primary Dx) 01/12/2024 10:15 AM HEADING AND PRIMING OPERATOR - 01/12/2024 11:59 PM HEADING AND PRIMING OPERATOR Hospital Encounter [facility] 1 [place] [address] Brain mass Discharge Disposition: Discharge to home or self care 01/11/2024 Telephone [facility] Oncology [address] [place] [address] [address] [place] [phone] Chloe Martin, JOCELYNN 01/11/2024 Telephone [facility] Oncology [address] [place] [address] [address] [place] [phone] Chloe Martin, RN 01/06/2024 Telephone [facility] Gastroenterology [address] [facility] 12th [place] [address] [place] [address] Frida Ruiz RN Gi Pre procedure assessment 01/06/2024 Telephone [facility] [address] [place] [address], [address] [place] [phone] Julio Cesar Ocampo MD 2 WEEK POST PROC CALL 12/29/2023 Telephone [facility] Oncology [address] [place] [address] [address] [place] [phone] Sowmya Ruiz CMA 12/29/2023 Telephone [facility] Oncology [facility] Floor 5 [place] [address] Chloe Martin, RN 12/29/2023 Orders Only [facility] Oncology [facility] Floor 5 [place] [phone] Chloe Martin, RN Diarrhea, unspecified type (Primary Dx); Small cell lung cancer, right lower lobe (HCC) 12/29/2023 Telephone [facility] Oncology [address] [place] [address] [place] [phone] Tyesha Dan CMA Diarrhea/Weight loss 12/25/2023 10:20 AM HEADING AND PRIMING OPERATOR Office Visit [facility] Oncology [address] [place] [address] [place] [phone] Rosy Lyons MD Small cell lung cancer, right lower lobe (HCC) (Primary Dx); Malignant neoplasm metastatic to left adrenal gland (HCC); Malignant neoplasm metastatic to brain (HCC); Diarrhea, unspecified type 12/25/2023 9:15 AM HEADING AND PRIMING OPERATOR Lab [facility] at [address] [place] [phone] Malignant neoplasm metastatic to left adrenal gland (HCC); Small cell lung cancer, right lower lobe (HCC) 12/24/2023 1:47 PM HEADING AND PRIMING OPERATOR - 12/24/2023 11:59 PM HEADING AND PRIMING OPERATOR Hospital Encounter [facility] [address] [place] [address], [address] [place] [phone] Julio Cesar Ocampo MD Lumbar radiculopathy Discharge Disposition: Discharge to home or self care 12/24/2023 1:45 PM HEADING AND PRIMING OPERATOR Lab [facility] at [address] [place] [address] Malignant neoplasm metastatic to left adrenal gland (HCC); Small cell lung cancer, right lower lobe (HCC) 12/21/2023 Telephone [facility] Oncology [address] [place] [address] [place] [phone] Chloe Martin RN 12/18/2023 11:20 AM HEADING AND PRIMING OPERATOR Office Visit [facility] Oncology [address] [place] [address] [place] [phone] oRsy Lyons MD Small cell lung cancer, right lower lobe (HCC) (Primary Dx); Malignant neoplasm metastatic to brain (HCC); Malignant neoplasm metastatic to left adrenal gland (HCC); Diarrhea, unspecified type; Opioid withdrawal (HCC) 12/18/2023 10:30 AM HEADING AND PRIMING OPERATOR [facility] [address] [facility] [place] [phone] Malignant neoplasm metastatic to left adrenal gland (HCC); Small cell lung cancer, right lower lobe (HCC) 12/18/2023 Telephone [facility] [address] [facility] 4, [address] [place] [phone] Julio Cesar Ocampo MD from Last 3 Months Immunizations Name Administration Dates Next Due Influenza, Trivalent, Preservative Free, Intramu scular 12/27/2015 Surgical History Surgery Date Site/Laterality Comments APPENDECTOMY CARPAL TUNNEL RELEASE Left SECTION Family History Medical History Relation Name Comments Cancer Paternal Grandfather Relation Name Status Comments Paternal Grandfather Social History Tobacco Use Types Packs/Day Years Used Date Smoking Tobacco: Every Day Smokeless Tobacco: Never Tobacco Cessation:Ready to Q uit: Not Asked; Counseling Given: Not Answered [facility] Utilities Answer Date Recorded In the past 12 months has [employer], gas, oil, or water [employer] threatened to shut off services in your [...] often do you attend chur ch or confucianism services? Patient declined 02/08/2024 Do you belong to any clubs o r organizations such as anabaptism groups, unions, fraternal or athletic groups, or [...] any time in the past 12 m [facility], were you homeless or living in a usp (including now)? No 02/08/2024 Personal Safety Answer Date Recorded Have you ever been in or are you currently in a harmful physical or emotional relationship or is someone making you feel afraid or unsafe? Denies 02/09/2024 Comments No Sex and Gender Information Value Date Recorded Sex Assigned at Not on file Legal Sex Female 10:13 AM HEADING AND PRIMING OPERATOR Gender Identity Female 05/13/2023 6:07 AM CDT Sexual Orientation Straight 05/13/2023 6: 07 AM CDT Obstetrics History Last Filed Vital Signs Vital Sign Reading Time Taken Comments Blood Pressure 169/101 03/08/2024 9:57 AM HEADING AND PRIMING OPERATOR Pulse 78 03/08/2024 9:57 AM HEADING AND PRIMING OPERATOR Temperature 36.7 C (98 F) 03/08/2024 9:57 AM HEADING AND PRIMING OPERATOR Respiratory Rate 16 02/19/2024 12:15 PM HEADING AND PRIMING OPERATOR Oxygen Saturation 98% 03/08/2024 9:57 AM HEADING AND PRIMING OPERATOR Inhaled Oxygen Concentration - - Weight 68 kg (150 lb) 03/08/2024 9:57 AM HEADING AND PRIMING OPERATOR Height 157.5 cm (5' 2 ) 03/08/2024 9:57 AM HEADING AND PRIMING OPERATOR Body Mass Index 27.44 03/08/2024 9:57 AM HEADING AND PRIMING OPERATOR Plan of Treatment Scheduled Procedures Name Priority Associated Diagnoses Date/Ti me CRANIOTOMY EXCISION TUMOR Metastasis to brain (HCC) SPINAL CORD MONITORING Metastasis to brain (HCC) Health Maintenance Due Date Last Done Comments Breast Cancer Screening-Mammogram 1965 Depression Screening 1965 Pneumococcal vaccine <65 (1 of 2 - PCV) 05/26/1971 DTaP/Tdap/Td Vaccine (1 - Tdap) 1976 Hepatitis B Screening 05/26/1983 Regular Well Visit/Exam 18-64 05/26/1983 Zoster Vaccine (1 of 2) 1984 Influenza Vaccine (#1) 2023 12/27/2015 Colon Cancer Screening-Colonoscopy 02/08/20342023 Colon Cancer Screening-CT Colonography Discontinued 02/09/2024 Colon Cancer Screening-DNA Stool Discontinued 02/09/20 Colon Cancer Screening-FIT Discontinued 02/09/2024 Colon Cancer Screening-Sigmoidoscopy Discontinued 01/11 Hepatitis C Screening Completed 02/09/2024 , 07/17/2023, 09/11/2016 Goals Goal Patient Goal Type Associated Problems [...] likelihood of falling Lifestyle No Lizz Danielson, RN Note: Below are four things you [...] Diagnosis Comments EGFR STAT 02/19/2024 10:49 AM HEADING AND PRIMING OPERATOR Small cell lung cancer, right lower lobe (HCC) Malignant neoplasm metastatic to brain (HCC) Diarrhea, unspecified type DIFFERENTIAL AUTO Routine 02/19/2024 10:49 AM HEADING AND PRIMING OPERATOR Small cell lung cancer, right lower lobe (HCC) Malignant neoplasm metastatic to brain (HCC) Diarrhea, unspecified type CBC WITH AUTO DIFFERENTIAL Routine 02/19/2024 10:49 AM HEADING AND PRIMING OPERATOR Small cell lung cancer, right lower lobe (HCC) Malignant neoplasm metastatic to brain (HCC) Diarrhea, unspecified type COMPREHENSIVE METABOLIC PANEL STAT 02/19/2024 10:49 AM HEADING AND PRIMING OPERATOR Small cell lung cancer, right lower lobe (HCC) Malignant neoplasm metastatic to brain (HCC) Diarrhea, unspecified type SURGICAL PATHOLOGY Routine 02/09/2024 12:58 PM HEADING AND PRIMING OPERATOR Diarrhea, unspecified type COLONOSCOPY 02/09/2024 12:48 PM HEADING AND PRIMING OPERATOR COLON BIOPSY 02/09/2024 12:44 PM HEADING AND PRIMING OPERATOR Diarrhea, unspecified type EGFR Routine 02/09/2024 1:23 AM HEADING AND PRIMING OPERATOR DIFFERENTIAL AUTO Routine 02/09/2024 1:2 3 AM HEADING AND PRIMING OPERATOR PHOSPHORUS Routine 02/09/2024 1:23 AM HEADING AND PRIMING OPERATOR COMPREHENSIVE METABOLIC PANEL Routine 02/09/2024 1:23 AM HEADING AND PRIMING OPERATOR MAGNESIUM Routine 02/09/2024 1:23 AM HEADING AND PRIMING OPERATOR CBC WITH AUTO DIFFERENTIAL Routine 02/09/2024 1:23 AM HEADING AND PRIMING OPERATOR RPR Routine 02/09/2024 1:23 AM HEADING AND PRIMING OPERATOR HEPATITIS C ANTIBODY Routine 02/09/2024 1:23 AM HEADING AND PRIMING OPERATOR HEPATITIS B SURFACE ANTIGEN Routine 02/09/2024 1:23 AM HEADING AND PRIMING OPERATOR HIV 1/2 ANTIBODY PLUS P24 ANTIGEN Routine 02/09/2024 1:23 AM HEADING AND PRIMING OPERATOR T-SPOT.TB Routine 02/08/2024 5:05 PM HEADING AND PRIMING OPERATOR MRI ABDOMEN ADRENALS W CONTRAST IP Routine 02/08/2024 4:04 PM HEADING AND PRIMING OPERATOR EGFR Routine 02/08/2024 12:47 AM HEADING AND PRIMING OPERATOR DIFFERENTIAL AUTO Routine 02/08/2024 12:47 AM HEADING AND PRIMING OPERATOR PROTIME-INR Routine 02/08/2024 12:47 AM HEADING AND PRIMING OPERATOR APTT Routine 02/08/2024 12:47 AM HEADING AND PRIMING OPERATOR LACTATE DEHYDROGENASE Routine 02/08/2024 12:47 AM HEADING AND PRIMING OPERATOR URIC ACID Routine 02/08/2024 12:47 AM HEADING AND PRIMING OPERATOR TYPE AND SCREEN Timed 02/08/2024 12:47 AM HEADING AND PRIMING OPERATOR PHOSPHORUS Routine 02/08/2024 12:47 AM HEADING AND PRIMING OPERATOR COMPREHENSIVE METABOLIC PANEL Routine 02/08/2024 12:47 AM HEADING AND PRIMING OPERATOR MAGNESIUM Routine 02/08/2024 12:47 AM HEADING AND PRIMING OPERATOR CBC WITH AUTO DIFFERENTIAL Routine 02/08/2024 12:47 AM HEADING AND PRIMING OPERATOR EGFR STAT 02/07/2024 5:49 PM HEADING AND PRIMING OPERATOR DIFFERENTIAL AUTO STAT 02/07/2024 5:4 9 PM HEADING AND PRIMING OPERATOR TYPE AND SCREEN STAT 02/07/2024 5:49 PM HEADING AND PRIMING OPERATOR PHOSPHORUS STAT 02/07/2024 5:49 PM HEADING AND PRIMING OPERATOR MAGNESIUM STAT 02/07/2024 5:49 PM HEADING AND PRIMING OPERATOR COMPREHENSIVE METABOLIC PANEL STAT 02/07/2024 5:49 PM HEADING AND PRIMING OPERATOR CBC WITH AUTO DIFFERENTIAL STAT 02/07/2024 5:49 PM HEADING AND PRIMING OPERATOR EGFR STAT 02/05/2024 10:14 AM HEADING AND PRIMING OPERATOR Small cell lung cancer, right lower lobe (HCC) Metastasis to brain (HCC) Malignant neoplasm metastatic to left adrenal gland (HCC) DIFFERENTIAL AUTO Routine 02/05/2024 10:14 AM HEADING AND PRIMING OPERATOR Small cell lung cancer, right lower lobe (HCC) Metastasis to brain (HCC) Malignant neoplasm metastatic to left adrenal gland (HCC) CBC WITH AUTO DIFFERENTIAL Routine 02/05/2024 10:14 AM HEADING AND PRIMING OPERATOR Small cell lung cancer, right lower lobe (HCC) Metastasis to brain (HCC) Malignant neoplasm metastatic to left adrenal gland (HCC) COMPREHENSIVE METABOLIC PANEL STAT 02/05/2024 10:14 AM HEADING AND PRIMING OPERATOR Small cell lung cancer, right lower lobe (HCC) Metastasis to brain (HCC) Malignant neoplasm metastatic to left adrenal gland (HCC) CT CHEST ABDOMEN PELVIS W CONTRAST Schedule MARY BETH, Read MARY BETH (Appt Today, Awaiting Results) 02/05/2024 9:52 AM HEADING AND PRIMING OPERATOR Small cell lung cancer, right lower lobe (HCC) Metastasis to brain (HCC) Malignant neoplasm metastatic to left adrenal gland (HCC) EGFR STAT 01/29/2024 1:04 PM HEADING AND PRIMING OPERATOR Small cell lung cancer, right lower lobe (HCC) Malignant neoplasm metastatic to brain (HCC) DIFFERENTIAL AUTO Routine 01/29/2024 1:0 4 PM HEADING AND PRIMING OPERATOR Small cell lung cancer, right lower lobe (HCC) Malignant neoplasm metastatic to brain (HCC) CBC WITH AUTO DIFFERENTIAL Routine 01/29/2024 1:04 PM HEADING AND PRIMING OPERATOR Small cell lung cancer, right lower lobe (HCC) Malignant neoplasm metastatic to brain (HCC) COMPREHENSIVE METABOLIC PANEL STAT 01/29/2024 1:04 PM HEADING AND PRIMING OPERATOR Small cell lung cancer, right lower lobe (HCC) Malignant neoplasm metastatic to brain (HCC) TARGET OPIOID SCREEN BY CTE TEACHER Routine 01/25/2024 10:07 AM HEADING AND PRIMING OPERATOR DRUGS OF ABUSE SCREEN, URINE WITH REFLEX CONFIRMATION Routine 01/25/2024 10:07 AM HEADING AND PRIMING OPERATOR RAD ONC ARIA COURSE SUMMARY 01/21/2024 11:58 AM HEADING AND PRIMING OPERATOR RAD ONC ARIA COURSE SUMMARY 01/21/2024 11:58 AM HEADING AND PRIMING OPERATOR RAD ONC ARIA COURSE SUMMARY 01/21/2024 11:58 AM HEADING AND PRIMING OPERATOR RAD ONC ARIA SESSION SUMMARY 01/21/2024 11:55 AM HEADING AND PRIMING OPERATOR TARGET OPIOID SCREEN BY CTE TEACHER Routine 01/18/2024 4:38 PM HEADING AND PRIMING OPERATOR High risk medication use DRUGS OF ABUSE SCREEN, URINE WITH REFLEX CONFIRMATION Routine 01/18/2024 4:38 PM HEADING AND PRIMING OPERATOR High risk medication use PAIN MANAGEMENT PROFILE Routine 01/18/2024 4:38 PM HEADING AND PRIMING OPERATOR High risk medication use EGFR STAT 01/15/2024 1:14 PM HEADING AND PRIMING OPERATOR Diarrhea, unspecified type Small cell lung cancer, right lower lobe (HCC) DIFFERENTIAL AUTO Routine 01/15/2024 1:1 4 PM HEADING AND PRIMING OPERATOR Diarrhea, unspecified type Small cell lung cancer, right lower lobe (HCC) COMPREHENSIVE METABOLIC PANEL STAT 01/15/2024 1:14 PM HEADING AND PRIMING OPERATOR Diarrhea, unspecified type Small cell lung cancer, right lower lobe (HCC) CBC WITH AUTO DIFFERENTIAL Routine 01/15/2024 1:14 PM HEADING AND PRIMING OPERATOR Diarrhea, unspecified type Small cell lung cancer, right lower lobe (HCC) MRI BRAIN TUMOR W WO CONTRAST Schedule Routine, Read Routine (OP Routine) 01/12/2024 11:06 AM HEADING AND PRIMING OPERATOR Brain mass EGFR STAT 12/25/2023 9:19 AM HEADING AND PRIMING OPERATOR Malignant neoplasm metastatic to left adrenal gland (HCC) Small cell lung cancer, right lower lobe (HCC) DIFFERENTIAL AUTO STAT 12/25/2023 9:1 9 AM HEADING AND PRIMING OPERATOR Malignant neoplasm metastatic to left adrenal gland (HCC) Small cell lung cancer, right lower lobe (HCC) CBC WITH AUTO DIFFERENTIAL STAT 12/25/2023 9:19 AM HEADING AND PRIMING OPERATOR Malignant neoplasm metastatic to left adrenal gland (HCC) Small cell lung cancer, right lower lobe (HCC) THYROID FUNCTION CASCADE Routine 12/25/2023 9:19 AM HEADING AND PRIMING OPERATOR Malignant neoplasm metastatic to left adrenal gland (HCC) Small cell lung cancer, right lower lobe (HCC) COMPREHENSIVE METABOLIC PANEL STAT 12/25/2023 9:19 AM HEADING AND PRIMING OPERATOR Malignant neoplasm metastatic to left adrenal gland (HCC) Small cell lung cancer, right lower lobe (HCC) PAIN MGMT IMAGING LUMBAR/CAUDAL EPIDURAL STEROID INJ Schedule Routine, Read Routine (OP Routine) 12/24/2023 3:03 PM HEADING AND PRIMING OPERATOR Lumbar radiculopathy C. DIFFICILE TESTING Routine 12/24/2023 2:01 PM HEADING AND PRIMING OPERATOR EGFR STAT 12/18/2023 10:40 AM HEADING AND PRIMING OPERATOR Malignant neoplasm metastatic to left adrenal gland (HCC) Small cell lung cancer, right lower lobe (HCC) DIFFERENTIAL AUTO STAT 12/18/2023 10:40 AM HEADING AND PRIMING OPERATOR Malignant neoplasm metastatic to left adrenal gland (HCC) Small cell lung cancer, right lower lobe (HCC) CBC WITH AUTO DIFFERENTIAL STAT 12/18/2023 10:40 AM HEADING AND PRIMING OPERATOR Malignant neoplasm metastatic to left adrenal gland (HCC) Small cell lung cancer, right lower lobe (HCC) COMPREHENSIVE METABOLIC PANEL STAT 12/18/2023 10:40 AM HEADING AND PRIMING OPERATOR Malignant neoplasm metastatic to left adrenal gland (HCC) Small cell lung cancer, right lower lobe (HCC) THYROID FUNCTION CASCADE Routine 12/18/2023 10:40 AM HEADING AND PRIMING OPERATOR Malignant neoplasm metastatic to left adrenal gland (HCC) Small cell lung cancer, right lower lobe (HCC) from Last 3 Months Results * eGFR (02/19/2024 10:49 AM HEADING AND PRIMING OPERATOR) eGFR 85 >=60 mL/min/1. 73 m2 Comment: [...] was last reviewed 2020. Testing performed by: [facility], [address] [place] [address] Blood 02/19/2024 10:4 9 AM HEADING AND PRIMING OPERATOR 02/19/2024 11:04 AM HEADING AND PRIMING OPERATOR Rosy Lyons MD LAB BLOOD ORDERABLES Maribell ribeiro Result [facility] [address] [facility]. Department of Laboratories [place], [place] [id number] * (ABNORMAL) Differential, auto (02/19/2024 10:49 AM HEADING AND PRIMING OPERATOR) Neutrophil abs 11.8(H) 1.5 - 6.5 K/cumm Comment:Testing performed by : [facility] 2, [address] [place] [address] Imm gran abs 0.6(H) 0.0 - 0.1 K/cumm [facility] Comment:Testing performed by : [place] [address], [address] [place] [address] Lymphocyte abs 1.7 0.8 - 3.3 K/cumm [facility] Comment:Testing performed by : [place] [address], [address] [place] [address] Monocyte abs 0.7 0.2 - 0.8 K/cumm [facility] Comment:Testing performed by : [place] [address], [place] [address] Eosinophil abs 0.0 0.0 - 0.5 K/cumm [facility] Comment:Testing performed by : [place] [address], [address] [place] [address] Basophil abs 0.1 0.0 - 0.1 K/cumm [facility] Comment:Testing performed by : [place] [address], [address] [place] [address] Neutrophil pct 79.7 % [facility] Comment: Interpretive Data Percent cell count reference ranges are not reported, since discordance with absolute values may lead to misinterpretation of CBC data. Current Interpretive Data was last revised on 2017. Testing performed by: [facility] 2, [address] [place] [address] Imm gran pct 4.2 % [facility] Comment: Interpretive Data Percent cell count reference ranges are not reported, since discordance with absolute values may lead to misinterpretation of CBC data. Current Interpretive Data was last revised on 2017. Testing performed by: [facility], [place] [facility], [address] [place] [address] Lymphocyte pct 11.3 % [facility] Comment: Interpretive Data Percent cell count reference ranges are not reported, since discordance with absolute values may lead to misinterpretation of CBC data. Current Interpretive Data was last revised on 2017. Testing performed by: [facility], [place] [facility] 2, [address] [place] [address] Monocyte pct 4.4 % [facility] Comment: Interpretive Data Percent cell count reference ranges are not reported, since discordance with absolute values may lead to misinterpretation of CBC data. Current Interpretive Data was last revised on 2017. Testing performed by: [facility], [place] [facility] 2, [address] [place] [address] Eosinophil pct 0.1 % [facility] Comment: Interpretive Data Percent cell count reference ranges are not reported, since discordance with absolute values may lead to misinterpretation of CBC data. Current Interpretive Data was last revised on 2017. Testing performed by: [facility], [place] [facility] 2, [address] [place] [address] Basophil pct 0.3 % [facility] Comment: Interpretive Data Percent cell count reference ranges are not reported, since discordance with absolute values may lead to misinterpretation of CBC data. Current Interpretive Data was last revised on 2017. Testing performed by: [facility], [place] [facility] [address], [address] [place] [address] Blood 02/19/2024 10:4 9 AM HEADING AND PRIMING OPERATOR 02/19/2024 10:49 AM HEADING AND PRIMING OPERATOR us Rosy Lyons MD LAB BLOOD ORDERABLES Maribell l Result [facility] [address] [facility] Department [place] [address] * (ABNORMAL) CBC with auto differential (02/19/2024 10:49 AM HEADING AND PRIMING OPERATOR) WBC 14.8(H) 3.8 - 9.9 K/cumm Comment:Testing performed by : [place] [address], [place] [address] Hgb 14.0 11.9 - 15.5 g/dL [facility] Comment:Testing performed by : [place] [address], [place] [address] Hct 40.4 35.6 - 45.5 % [facility] Comment:Testing performed by : [place] [address], [place] [address] Plt 246 150 - 400 K/cumm [facility] Comment:Testing performed by : [place] [address], [address] [place] [address] MPV 8.9(L) 9.1 - 12.3 fL [facility] Comment:Testing performed by : [place] [address], [address] [place] [address] RBC 4.32 3.90 - 5.20 M/cumm [facility] Comment:Testing performed by : [place] [address], [place] [address] MCV 94 81 - 96 fL [facility] Comment:Testing performed by : [place] [address], [address] [place] [address] MCH 32.4 27.1 - 33.3 pg [facility] Comment:Testing performed by : [facility] 2, [address] [place] [address] MCHC 34.7 32.3 - 35.7 g/dL [facility] Comment:Testing performed by : [place] [address], [address] [place] [address] RDW CV 15.0(H) 11.1 - 14.9 % [facility] Comment:Testing performed by : [facility], [place] [facility] 2, [address] [place] [address] RDW SD 52.1(H) 35.7 - 48.1 fL [facility] Comment:Testing performed by : [facility], [place] [facility] 2, [address] [place] [address] Blood 02/19/2024 10:4 9 AM HEADING AND PRIMING OPERATOR 02/19/2024 10:49 AM HEADING AND PRIMING OPERATOR Rosy Lyons MD LAB BLOOD ORDERABLES Maribell l Result [facility] [address] Department [place] [address] * (ABNORMAL) Comprehensive metabolic panel (02/19/2024 10:49 AM HEADING AND PRIMING OPERATOR) Sodium 136 135 - 145 mmol/L Comment:Testing performed by : [facility], [address], [place] [address] Potassium, pl 4.5 3.3 - 4.9 mmol/L [facility] Comment:Testing performed by : [facility], [address], [place] [address] Chloride 95(L) 97 - 110 mmol/L [facility] Comment:Testing performed by : [facility], [address] [place] [address] CO2 28 22 - 32 mmol/L [facility] Comment:Testing performed by : [facility], [address] [place] [address] Anion gap 13 2 - 15 mmol/L [facility] Comment:Testing performed by : [facility], [address], [place] [address] BUN 20 6 - 25 mg/dL [facility] Comment:Testing performed by : [facility], [address], [place] [address] Creatinine 0.80 0.60 - 1.10 mg/dL [facility] Comment:Testing performed by : [facility], [address], [place] [address] Glucose 123 70 - 199 mg/dL [facility] Comment: [...] was last revised 2022. Testing performed by: [facility], [address], [place] [address] Calcium 10.3 8.5 - 10.3 mg/dL [facility] Comment:Testing performed by : [facility], [address], [place] [address] Bilirubin, total 0.2 0.1 - 1.2 mg/dL [facility] Comment:Testing performed by : [facility], [address], [place] [address] Protein, pl 7.0 6.5 - 8.5 g/dL [facility] Comment:Testing performed by : [facility], [address], [place] [address] Albumin 4.5 3.5 - 5.0 g/dL [facility] Comment:Testing performed by : [facility], [address], [place] [address] Alk phos 59 40 - 130 Units/L [facility] Comment:Testing performed by : [facility], [address], [place] [address] ALT 23 7 - 45 Units/L [facility] Comment:Testing performed by : [facility], [address] [place] [address] AST 19 10 - 45 Units/L [facility] Comment:Testing performed by : [facility], [address] [place] [address] Blood 02/19/2024 10:4 9 AM HEADING AND PRIMING OPERATOR 02/19/2024 11:04 AM HEADING AND PRIMING OPERATOR Rosy Lyons MD LAB BLOOD ORDERABLES Maribell l Result [facility] [address] [address] Department [place] [address] * Surgical pathology (02/09/2024 12:58 PM HEADING AND PRIMING OPERATOR) Tissue (Ileum, Biopsy) 02/09/2024 12:58 PM HEADING AND PRIMING OPERATOR Tissue (Colon, Biopsy) 02/09/2024 1:01 PM HEADING AND PRIMING OPERATOR Tissue (Colon, Biopsy) 02/09/2024 1:01 PM HEADING AND PRIMING OPERATOR Narrative PATHOLOGY [facility] - 02/12/2024 9:36 AM HEADING AND PRIMING OPERATOR EPIC results best viewed via link to PDF [facility] [place] [address] Note to Patients: This report may contain [...] details. SURGICAL PATHOLOGY REPORT FINAL Patient Name: WINSOME SUAREZ Gender: F : 1965 (Age: 58) Address: [address] [address] Hospital #: [id number] Taken:02/09/2024 Received:02/09/2024 Reported: 02/12/2024 Patient Type: [facility] Inpatient Service: Oncology Location: [facility] [address] Physician(s): Julieth Giraldo M.D. Cristela Lei NP Diagnosis: A. Terminal ileum, biopsy - [...] cytopathic changes or infectious microorganisms identified (H&E) b/02/12/2024 09:36 By this signature, I attest that [...] Surgical Pathology and Flow Cytometry Departments at [facility] as part of an ongoing clinical quality analyst program and in compliance with federally mandated [...] Surgical Pathology and Flow Cytometry Departments of [facility]. It has not been cleared or approved by the U. S. Food and Drug Administration. IMAGES AND SCANNED DOCUMENTS, IF INCLUDED, ONLY VIEWABLE IN PDF VERSION OF REPORT us Julieth Giraldo MD LAB PATHOLOGY ORDERABLES Final Result PATHOLOGY [facility] 3rd Floor [place], [place] [phone] * Colonoscopy (02/09/2024 12:48 PM HEADING AND PRIMING OPERATOR) Anatomical Region Laterality Modality Other Narrative Procedure Note Julieth Giraldo MD - 02/09/2024 12:48 PM CST [facility] ENDOSCOPY [facility] Patient Name: Winsome Suarez Procedure Date: 02/09/2024 12:48PM Date of : 1965 Admit Type: Inpatient Age: 58 Gender: Female Attending MD: Julieth Giraldo M.D. Room: [facility] ENDOSCOPY ROOM 3 Note Status: Finalized [...] The scope was passed under direct vision.The [facility] [id number] endoscope was introducedthrough the anus and [...] Res ult * eGFR (02/09/2024 1:23 AM HEADING AND PRIMING OPERATOR) eGFR >90 >=60 mL/min/1. 73 m2 Comment: [...] last reviewed 2020. Blood 02/09/2024 1:23 AM HEADING AND PRIMING OPERATOR 02/09/2024 1:39 AM HEADING AND PRIMING OPERATOR us Monalisa eHrnandez MD LAB BLOOD ORDERA BLES Final Result [facility] Department [place] [address] * (ABNORMAL) Differential, auto (02/09/2024 1:23 AM HEADING AND PRIMING OPERATOR) Neutrophil abs 7.4(H) 1.5 - 6.5 K/cumm Imm gran abs 0.1 0.0 - 0.1 K/cumm [facility] Lymphocyte abs 1.5 0.8 - 3.3 K/cumm [facility] Monocyte abs 0.6 0.2 - 0.8 K/cumm [facility] Eosinophil abs 0.0 0.0 - 0.5 K/cumm [facility] Basophil abs 0.0 0.0 - 0.1 K/cumm [facility] Neutrophil pct 77.0 % [facility] Comment: Interpretive Data Percent cell count reference ranges are not reported, since discordance with absolute values may lead to misinterpretation of CBC data. Current Interpretive Data was last revised on 2017. Imm gran pct 1.0 % [facility] Comment: Interpretive Data Percent cell count reference ranges are not reported, since discordance with absolute values may lead to misinterpretation of CBC data. Current Interpretive Data was last revised on 2017. Lymphocyte pct 15.2 % [facility] Comment: Interpretive Data Percent cell count reference ranges are not reported, since discordance with absolute values may lead to misinterpretation of CBC data. Current Interpretive Data was last revised on 2017. Monocyte pct 6.6 % [facility] Comment: Interpretive Data Percent cell count reference ranges are not reported, since discordance with absolute values may lead to misinterpretation of CBC data. Current Interpretive Data was last revised on 2017. Eosinophil pct 0.0 % [facility] Comment: Interpretive Data Percent cell count reference ranges are not reported, since discordance with absolute values may lead to misinterpretation of CBC data. Current Interpretive Data was last revised on 2017. Basophil pct 0.2 % [facility] Comment: Interpretive Data Percent cell count reference ranges are not reported, since discordance with absolute values may lead to misinterpretation of CBC data. Current Interpretive Data was last revised on 2017. Blood 02/09/2024 1:23 AM HEADING AND PRIMING OPERATOR 02/09/2024 1:39 AM HEADING AND PRIMING OPERATOR us Monalisa Hernandez MD LAB BLOOD ORDERA BLES Final Result Performing Organization Address City/[facility] Co de Phone Number [facility] Department [place] [address] * HIV 1/2 Antibody plus p24 Antigen Blood (02/09/2024 1:23 AM HEADING AND PRIMING OPERATOR) Pathologist [facility] HIV 1/2 ab + p24 ag Nonreactive Nonreactive Comment:Nonreactive for HIV- 1 antigen and HIV-1/HIV-2 antibodies. No laboratory evidence of HIV infection. If acute HIV infection is suspected, consider testing for HIV-1 RNA. Current interpretive data was last revised on 21. Blood 02/09/2024 1:23 AM HEADING AND PRIMING OPERATOR 02/09/2024 1:40 AM HEADING AND PRIMING OPERATOR us Shaun Wilkins MD LAB MICROBIOLOGY - GENERAL ORD ERABLES Final Result Performing Organization Address City/[facility]/ZIP Co de Phone Number [facility] Department [place] [address] * (ABNORMAL) CBC with auto differential (02/09/2024 1:23 AM HEADING AND PRIMING OPERATOR) WBC 9.6 3.8 - 9.9 K/cumm Hgb 12.7 11.9 - 15.5 g/dL [facility] Hct 37.2 35.6 - 45.5 % [facility] Plt 259 150 - 400 K/cumm [facility] MPV 9.4 9.1 - 12.3 fL [facility] RBC 3.96 3.90 - 5.20 M/cumm [facility] MCV 93.9 81.3 - 96.4 fL [facility] MCH 32.1 27.1 - 33.3 pg [facility] MCHC 34.1 32.3 - 35.7 g/dL [facility] RDW CV 14.4 11.1 - 14.9 % [facility] RDW SD 50.1(H) 35.7 - 48.1 fL [facility] NRBC abs 0.00 0.00 - 0.01 K/cumm [facility] Blood 02/09/2024 1:23 AM HEADING AND PRIMING OPERATOR 02/09/2024 1:39 AM HEADING AND PRIMING OPERATOR us Monalisa Hernandez MD LAB BLOOD ORDERA BLES Final Result Performing Organization Address City/[facility]/ZIP Co de Phone Number [facility] Department [place] [address] * Hepatitis C antibody Blood (02/09/2024 1:23 AM HEADING AND PRIMING OPERATOR) [facility] Hep C Ab Nonreactive Nonreactive Comment:Antibodies to HCV no t detected. Does NOT exclude the possibility of recent exposure to HCV. Current interpretive data was last revised on 21 Blood 02/09/2024 1:23 AM HEADING AND PRIMING OPERATOR 02/09/2024 1:40 AM HEADING AND PRIMING OPERATOR us Shaun Wilkins MD LAB MICROBIOLOGY - GENERAL ORD ERABLES Final Result [facility] [place] [address] * RPR Blood (02/09/2024 1:23 AM HEADING AND PRIMING OPERATOR) RPR Nonreactive Nonreactive Blood 02/09/2024 1:23 AM HEADING AND PRIMING OPERATOR 02/09/2024 1:40 AM HEADING AND PRIMING OPERATOR Shaun Wilkins MD LAB MICROBIOLOGY - GENERAL ORD ERABLES Final Result Performing Organization Address City/[facility] Co de Phone Number [facility] Department [place] [address] * Hepatitis B Surface Antigen Blood (02/09/2024 1:23 AM HEADING AND PRIMING OPERATOR) HepBsAg Nonreactive Nonreactive Blood 02/09/2024 1:23 AM HEADING AND PRIMING OPERATOR 02/09/2024 1:40 AM HEADING AND PRIMING OPERATOR us Shaun Wilkins MD LAB MICROBIOLOGY - GENERAL ORD ERABLES Final Result Performing Organization Address City/[facility] Co de Phone Number [facility] Department [place] [address] * Phosphorus (02/09/2024 1:23 AM HEADING AND PRIMING OPERATOR) Phosphorus, pl 2.3 2.3 - 4.5 mg/dL Blood 02/09/2024 1:23 AM HEADING AND PRIMING OPERATOR 02/09/2024 1:39 AM HEADING AND PRIMING OPERATOR us Monalisa Hernandez MD LAB BLOOD ORDERA BLES Final Result Performing Organization Address City/[facility] Co de Phone Number [facility] [place] [address] * Magnesium (02/09/2024 1:23 AM HEADING AND PRIMING OPERATOR) Magnesium 2.2 1.4 - 2.5 mg/dL Blood 02/09/2024 1:23 AM HEADING AND PRIMING OPERATOR 02/09/2024 1:39 AM HEADING AND PRIMING OPERATOR Monalisa Hernandez MD LAB BLOOD ORDERA BLES Final Result [facility] Department [place] [address] * Comprehensive metabolic panel (02/09/2024 1:23 AM HEADING AND PRIMING OPERATOR) Sodium 138 135 - 145 mmol/L Potassium, pl 3.7 3.3 - 4.9 mmol/L [facility] Chloride 104 97 - 110 mmol/L [facility] CO2 23 22 - 32 mmol/L [facility] Anion gap 11 2 - 15 mmol/L [facility] BUN 16 6 - 25 mg/dL [facility] Creatinine 0.64 0.60 - 1.10 mg/dL [facility] Glucose 104 70 - 199 mg/dL [facility] Comment: Interpretive Data Fasting glucose >/= [...] Calcium 9.0 8.5 - 10.3 mg/dL [facility] Bilirubin, total 0.2 0.1 - 1.2 mg/dL [facility] Comment:Reviewed Protein, pl 6.8 6.5 - 8.5 g/dL [facility] Albumin 4.1 3.5 - 5.0 g/dL [facility] Alk phos 60 40 - 130 Units/L [facility] ALT 19 7 - 45 Units/L [facility] AST 19 10 - 45 Units/L [facility] Blood 02/09/2024 1:23 AM HEADING AND PRIMING OPERATOR 02/09/2024 1:39 AM HEADING AND PRIMING OPERATOR Monalisa Hernandez MD LAB BLOOD ORDERA BLES Final Result [facility] Department [place] [address] * T-SPOT.TB Blood (02/08/2024 5:05 PM HEADING AND PRIMING OPERATOR) [facility] T-SPOT.TB Negative SeeBelow Comment: Normal Value: [...] T-SPOT.TB Panel A Spot Count 0 [facility] T-SPOT.TB Panel B Spot Count 0 [facility] T-SPOT.TB Negative Control Passed [facility] T-SPOT.TB Positive Control Passed [facility] Comment: Test Performed at: [employer] [address] [place] [id number] KEYUR HARRIS,PHD Blood 02/08/2024 5:05 PM HEADING AND PRIMING OPERATOR 02/08/2024 7:17 PM HEADING AND PRIMING OPERATOR us Shaun Wilkins MD LAB MICROBIOLOGY - GENERAL ORD ERABLES Final Result [facility] Department [place] [address] * MRI Abdomen Adrenals W Contrast (02/08/2024 4:04 PM HEADING AND PRIMING OPERATOR) Anatomical Region Laterality Modality Body N/A Magnetic Resonan ce 02/09/2024 8:22 AM HEADING AND PRIMING OPERATOR Impressions 02/09/2024 9:18 AM HEADING AND PRIMING OPERATOR 1. Similar size of a left adrenal [...] Darrel Sarabia M.D. Narrative 02/09/2024 9:18 AM HEADING AND PRIMING OPERATOR EXAMINATION: MAGNETIC RESONANCE IMAGING OF THE ABDOMEN [...] it. Electronically signed by: Darrel Sarabia M.D. Shaun Wilkins MD IMG MRI PROCEDURES Final Resul t * eGFR (02/08/2024 12:47 AM HEADING AND PRIMING OPERATOR) eGFR >90 >=60 mL/min/1. 73 m2 Comment: [...] reviewed 2020. Blood 02/08/2024 12:4 7 AM HEADING AND PRIMING OPERATOR 02/08/2024 1:02 AM HEADING AND PRIMING OPERATOR Monalisa Hernandez MD LAB BLOOD ORDERA BLES Final Result [facility] Department [place] [address] * (ABNORMAL) Differential, auto (02/08/2024 12:47 AM HEADING AND PRIMING OPERATOR) Neutrophil abs 6.0 1.5 - 6.5 K/cumm Imm gran abs 0.1 0.0 - 0.1 K/cumm [facility] Lymphocyte abs 0.7(L) 0.8 - 3.3 K/cumm [facility] Monocyte abs 0.2 0.2 - 0.8 K/cumm [facility] Eosinophil abs 0.0 0.0 - 0.5 K/cumm [facility] Basophil abs 0.0 0.0 - 0.1 K/cumm [facility] Neutrophil pct 85.0 % [facility] Comment: Interpretive Data Percent cell count reference ranges are not reported, since discordance with absolute values may lead to misinterpretation of CBC data. Current Interpretive Data was last revised on 2017. Imm gran pct 1.3 % [facility] Comment: Interpretive Data Percent cell count reference ranges are not reported, since discordance with absolute values may lead to misinterpretation of CBC data. Current Interpretive Data was last revised on 2017. Lymphocyte pct 10.4 % [facility] Comment: Interpretive Data Percent cell count reference ranges are not reported, since discordance with absolute values may lead to misinterpretation of CBC data. Current Interpretive Data was last revised on 2017. Monocyte pct 3.0 % [facility] Comment: Interpretive Data Percent cell count reference ranges are not reported, since discordance with absolute values may lead to misinterpretation of CBC data. Current Interpretive Data was last revised on 2017. Eosinophil pct 0.0 % [facility] Comment: Interpretive Data Percent cell count reference ranges are not reported, since discordance with absolute values may lead to misinterpretation of CBC data. Current Interpretive Data was last revised on 2017. Basophil pct 0.3 % [facility] Comment: Interpretive Data Percent cell count reference ranges are not reported, since discordance with absolute values may lead to misinterpretation of CBC data. Current Interpretive Data was last revised on 2017. Blood 02/08/2024 12:4 7 AM HEADING AND PRIMING OPERATOR 02/08/2024 1:02 AM HEADING AND PRIMING OPERATOR us Monalisa Hernandez MD LAB BLOOD ORDERA BLES Final Result [facility] Department [place] [address] * (ABNORMAL) CBC with auto differential (02/08/2024 12:47 AM HEADING AND PRIMING OPERATOR) WBC 7.1 3.8 - 9.9 K/cumm Hgb 12.8 11.9 - 15.5 g/dL [facility] Hct 37.8 35.6 - 45.5 % [facility] Plt 257 150 - 400 K/cumm [facility] MPV 9.7 9.1 - 12.3 fL [facility] RBC 4.06 3.90 - 5.20 M/cumm [facility] MCV 93.1 81.3 - 96.4 fL [facility] MCH 31.5 27.1 - 33.3 pg [facility] MCHC 33.9 32.3 - 35.7 g/dL [facility] RDW CV 14.6 11.1 - 14.9 % [facility] RDW SD 50.1(H) 35.7 - 48.1 fL [facility] NRBC abs 0.00 0.00 - 0.01 K/cumm [facility] Blood 02/08/2024 12:4 7 AM HEADING AND PRIMING OPERATOR 02/08/2024 1:02 AM HEADING AND PRIMING OPERATOR Monalisa Hernandez MD LAB BLOOD ORDERA BLES Final Result Performing Organization Address [facility] Co de Phone Number [facility] [place] [address] * aPTT (02/08/2024 12:47 AM HEADING AND PRIMING OPERATOR) aPTT 29 28 - 38 sec Comment: Interpretive Data Heparin therapeutic range: 66.0 - 100.0 seconds. Range based on correlation with therapeutic heparin activity range of 0.3 - 0.7 Units/mL. Current interpretive data was last revised on 2022. Blood 02/08/2024 12:4 7 AM HEADING AND PRIMING OPERATOR 02/08/2024 1:12 AM HEADING AND PRIMING OPERATOR Monalisa Hernandez MD LAB BLOOD ORDERA BLES Final Result Performing Organization Address [facility] de Phone Number [facility] [place] [address] * Protime-INR (02/08/2024 12:47 AM HEADING AND PRIMING OPERATOR) PT 9.9 9.7 - 13.0 sec INR 0.92 0.90 - 1.20 [facility] Comment: Interpretive data Oral anticoagulant therapeutic ranges: Venous thromboembolism prophylaxis or treatment: 2.0-3.0 CARDIOLOGY Standard range: 2.0-3.0 High-intensity range: 2.5-3.5 Refer to indication-specific guidelines for appropriate target ranges for prosthetic heart valve replacement. Current interpretive data was last revised on 2019. Blood 02/08/2024 12:4 7 AM HEADING AND PRIMING OPERATOR 02/08/2024 1:12 AM HEADING AND PRIMING OPERATOR Monalisa Hernandez MD LAB BLOOD ORDERA BLES Final Result Performing Organization Address [facility] Co de Phone Number [facility] [place] [address] * Type and screen (02/08/2024 12:47 AM HEADING AND PRIMING OPERATOR) ABO Rh A Positive Rachel, indirect Negative [facility] Blood 02/08/2024 12:4 7 AM HEADING AND PRIMING OPERATOR 02/08/2024 1:03 AM HEADING AND PRIMING OPERATOR Narrative [facility] - 02/08/2024 2:02 AM HEADING AND PRIMING OPERATOR Has the patient had Daratumumab or Isatuximab in the past 6 months?->Unknown Monalisa Hernandez MD LAB BLOOD BANK T EST ORDERABLES Final Result Performing Organization Address [facility] [place] [address] * Uric acid (02/08/2024 12:47 AM HEADING AND PRIMING OPERATOR) Pathologist [facility] Uric acid 4.6 2.5 - 7.0 mg/dL Blood 02/08/2024 12:4 7 AM HEADING AND PRIMING OPERATOR 02/08/2024 1:02 AM HEADING AND PRIMING OPERATOR Narrative [facility] - 02/08/2024 2:09 AM HEADING AND PRIMING OPERATOR Thursday and only. Morning draw. . Monalisa Hernandez MD LAB BLOOD ORDERA BLES Final Result Performing Organization Address City/[facility]/ZIP Co de Phone Number [facility] [place] [address] * Phosphorus (02/08/2024 12:47 AM HEADING AND PRIMING OPERATOR) Phosphorus, pl 2.6 2.3 - 4.5 mg/dL Blood 02/08/2024 12:4 7 AM HEADING AND PRIMING OPERATOR 02/08/2024 1:02 AM HEADING AND PRIMING OPERATOR Monalisa Hernandez MD LAB BLOOD ORDERA BLES Final Result Performing Organization Address City/[facility] Co de Phone Number [facility] [place] [address] * Magnesium (02/08/2024 12:47 AM HEADING AND PRIMING OPERATOR) Pathologist [facility] Magnesium 2.4 1.4 - 2.5 mg/dL Blood 02/08/2024 12:4 7 AM HEADING AND PRIMING OPERATOR 02/08/2024 1:02 AM HEADING AND PRIMING OPERATOR Monalisa Hernandez MD LAB BLOOD ORDERA BLES Final Result Performing Organization Address [facility] de Phone Number [facility] [place] [address] * Lactate dehydrogenase (LD) (02/08/2024 12:47 AM HEADING AND PRIMING OPERATOR) [facility] Lactate dehydrogenase (LDH) 231 100 - 250 Units/L Blood 02/08/2024 12:4 7 AM HEADING AND PRIMING OPERATOR 02/08/2024 1:02 AM HEADING AND PRIMING OPERATOR Narrative [facility] - 02/08/2024 2:09 AM HEADING AND PRIMING OPERATOR Thursday and only. Morning draw. Monalisa Hernandez MD LAB BLOOD ORDERA BLES Final Result Performing Organization Address [facility] Co de Phone Number [facility] [place] [address] * Comprehensive metabolic panel (02/08/2024 12:47 AM HEADING AND PRIMING OPERATOR) [facility] Sodium 140 135 - 145 mmol/L Potassium, pl 4.5 3.3 - 4.9 mmol/L [facility] Chloride 104 97 - 110 mmol/L [facility] CO2 23 22 - 32 mmol/L [facility] Anion gap 13 2 - 15 mmol/L [facility] BUN 16 6 - 25 mg/dL [facility] Creatinine 0.68 0.60 - 1.10 mg/dL [facility] Glucose 125 70 - 199 mg/dL [facility] Comment: Interpretive Data Fasting glucose >/= [...] Calcium 8.8 8.5 - 10.3 mg/dL [facility] Bilirubin, total <0.2 0.1 - 1.2 mg/dL [facility] Comment:Reviewed Protein, pl 6.7 6.5 - 8.5 g/dL [facility] Albumin 4.3 3.5 - 5.0 g/dL [facility] Alk phos 65 40 - 130 Units/L [facility] ALT 14 7 - 45 Units/L [facility] AST 16 10 - 45 Units/L [facility] Blood 02/08/2024 12:4 7 AM HEADING AND PRIMING OPERATOR 02/08/2024 1:02 AM HEADING AND PRIMING OPERATOR Monalisa Hernandez MD LAB BLOOD ORDERA BLES Final Result [facility] Department [place] [address] * eGFR (02/07/2024 5:49 PM HEADING AND PRIMING OPERATOR) eGFR >90 >=60 mL/min/1. 73 m2 Comment: [...] last reviewed 2020. Blood 02/07/2024 5:49 PM HEADING AND PRIMING OPERATOR 02/07/2024 6:30 PM HEADING AND PRIMING OPERATOR us Monalisa Hernandez MD LAB BLOOD ORDERA BLES Final Result [facility] Department [place] [address] * (ABNORMAL) Differential, auto (02/07/2024 5:49 PM HEADING AND PRIMING OPERATOR) Neutrophil abs 9.0(H) 1.5 - 6.5 K/cumm Imm gran abs 0.1 0.0 - 0.1 K/cumm [facility] Lymphocyte abs 0.8 0.8 - 3.3 K/cumm [facility] Monocyte abs 0.3 0.2 - 0.8 K/cumm [facility] Eosinophil abs 0.0 0.0 - 0.5 K/cumm [facility] Basophil abs 0.1 0.0 - 0.1 K/cumm [facility] Neutrophil pct 87.4 % [facility] Comment: Interpretive Data Percent cell count reference ranges are not reported, since discordance with absolute values may lead to misinterpretation of CBC data. Current Interpretive Data was last revised on 2017. Imm gran pct 0.9 % [facility] Comment: Interpretive Data Percent cell count reference ranges are not reported, since discordance with absolute values may lead to misinterpretation of CBC data. Current Interpretive Data was last revised on 2017. Lymphocyte pct 7.9 % [facility] Comment: Interpretive Data Percent cell count reference ranges are not reported, since discordance with absolute values may lead to misinterpretation of CBC data. Current Interpretive Data was last revised on 2017. Monocyte pct 3.0 % [facility] Comment: Interpretive Data Percent cell count reference ranges are not reported, since discordance with absolute values may lead to misinterpretation of CBC data. Current Interpretive Data was last revised on 2017. Eosinophil pct 0.2 % [facility] Comment: Interpretive Data Percent cell count reference ranges are not reported, since discordance with absolute values may lead to misinterpretation of CBC data. Current Interpretive Data was last revised on 2017. Basophil pct 0.6 % [facility] Comment: Interpretive Data Percent cell count reference ranges are not reported, since discordance with absolute values may lead to misinterpretation of CBC data. Current Interpretive Data was last revised on 2017. Blood 02/07/2024 5:49 PM HEADING AND PRIMING OPERATOR 02/07/2024 6:30 PM HEADING AND PRIMING OPERATOR us Monalisa Hernandez MD LAB BLOOD ORDERA BLES Final Result [facility] Department [place] [address] * (ABNORMAL) CBC with auto differential (02/07/2024 5:49 PM HEADING AND PRIMING OPERATOR) WBC 10.3(H) 3.8 - 9.9 K/cumm Hgb 13.3 11.9 - 15.5 g/dL [facility] Hct 38.6 35.6 - 45.5 % [facility] Plt 242 150 - 400 K/cumm [facility] MPV 9.7 9.1 - 12.3 fL [facility] RBC 4.14 3.90 - 5.20 M/cumm [facility] MCV 93.2 81.3 - 96.4 fL [facility] MCH 32.1 27.1 - 33.3 pg [facility] MCHC 34.5 32.3 - 35.7 g/dL [facility] RDW CV 14.6 11.1 - 14.9 % [facility] RDW SD 50.3(H) 35.7 - 48.1 fL [facility] NRBC abs 0.00 0.00 - 0.01 K/cumm [facility] Blood 02/07/2024 5:49 PM HEADING AND PRIMING OPERATOR 02/07/2024 6:30 PM HEADING AND PRIMING OPERATOR Monalisa Hernandez MD LAB BLOOD ORDERA BLES Final Result Performing Organization Address City/[facility]/ZIP Co de Phone Number [facility] [place] [address] * Type and screen (02/07/2024 5:49 PM HEADING AND PRIMING OPERATOR) Pathologist [facility] Rachel, indirect Negative ABO Rh A Positive [facility] Blood 02/07/2024 5:49 PM HEADING AND PRIMING OPERATOR 02/07/2024 6:30 PM HEADING AND PRIMING OPERATOR Narrative [facility] - 02/07/2024 7:10 PM HEADING AND PRIMING OPERATOR Has the patient had Daratumumab or Isatuximab in the past 6 months?->Unknown Monalisa Hernandez MD LAB BLOOD BANK T EST ORDERABLES Final Result Performing Organization Address [facility] Co de Phone Number [facility] [place] [address] * (ABNORMAL) Phosphorus (02/07/2024 5:49 PM HEADING AND PRIMING OPERATOR) Pathologist [facility] Phosphorus, pl 1.7(L) 2.3 - 4.5 mg/dL Blood 02/07/2024 5:49 PM HEADING AND PRIMING OPERATOR 02/07/2024 6:30 PM HEADING AND PRIMING OPERATOR Monalisa Hernandez MD LAB BLOOD ORDERA BLES Final Result Performing Organization Address City/[facility]/ZIP Co de Phone Number [facility] [place] [address] * Magnesium (02/07/2024 5:49 PM HEADING AND PRIMING OPERATOR) Pathologist [facility] Magnesium 2.1 1.4 - 2.5 mg/dL Blood 02/07/2024 5:49 PM HEADING AND PRIMING OPERATOR 02/07/2024 6:30 PM HEADING AND PRIMING OPERATOR Monalisa Hernandez MD LAB BLOOD ORDERA BLES Final Result [facility] Department [place] [address] * Comprehensive metabolic panel (02/07/2024 5:49 PM HEADING AND PRIMING OPERATOR) Pathologist [facility] Sodium 140 135 - 145 mmol/L Potassium, pl 4.1 3.3 - 4.9 mmol/L [facility] Chloride 103 97 - 110 mmol/L [facility] CO2 23 22 - 32 mmol/L [facility] Anion gap 14 2 - 15 mmol/L [facility] BUN 16 6 - 25 mg/dL [facility] Creatinine 0.74 0.60 - 1.10 mg/dL [facility] Glucose 115 70 - 199 mg/dL [facility] Comment: Interpretive Data Fasting glucose >/= [...] Calcium 9.0 8.5 - 10.3 mg/dL [facility] Bilirubin, total 0.2 0.1 - 1.2 mg/dL [facility] Protein, pl 7.0 6.5 - 8.5 g/dL [facility] Albumin 4.3 3.5 - 5.0 g/dL [facility] Alk phos 65 40 - 130 Units/L [facility] ALT 20 7 - 45 Units/L [facility] AST 12 10 - 45 Units/L [facility] Blood 02/07/2024 5:49 PM HEADING AND PRIMING OPERATOR 02/07/2024 6:30 PM HEADING AND PRIMING OPERATOR Monalisa Hernandez MD LAB BLOOD ORDERA BLES Final Result Performing Organization Address [facility]/ZIP Co de Phone Number [facility] Department [place] [address] * eGFR (02/05/2024 10:14 AM HEADING AND PRIMING OPERATOR) eGFR >90 >=60 mL/min/1. 73 m2 Comment: [...] was last reviewed 2020. Testing performed by: [facility], [address] [employer] [facility] [employer], [place] [address] Blood 02/05/2024 10:1 4 AM HEADING AND PRIMING OPERATOR 02/05/2024 10:42 AM HEADING AND PRIMING OPERATOR us Rosy Lyons MD LAB BLOOD ORDERABLES Maribell l Result Performing Organization Address City/[facility]/ZIP Co de Phone Number [facility] [address] [employer] Department [place] [address] * (ABNORMAL) Differential, auto (02/05/2024 10:14 AM HEADING AND PRIMING OPERATOR) Neutrophil abs 7.9(H) 1.5 - 6.5 K/cumm Comment:Testing performed by : [facility] [address], [address] [place] [address] Imm gran abs 0.1 0.0 - 0.1 K/cumm [facility] Comment:Testing performed by : [place] [address], [address] [place] [address] Lymphocyte abs 2.2 0.8 - 3.3 K/cumm [facility] Comment:Testing performed by : [facility] [address], [address] [place] [address] Monocyte abs 0.8 0.2 - 0.8 K/cumm [facility] Comment:Testing performed by : [place] [address], [address] [place] [address] Eosinophil abs 0.1 0.0 - 0.5 K/cumm [facility] Comment:Testing performed by : [place] [address], [address] [place] [address] Basophil abs 0.1 0.0 - 0.1 K/cumm [facility] Comment:Testing performed by : [place] [address], [address] [place] [address] Neutrophil pct 71.1 % [facility] Comment: Interpretive Data Percent cell count reference ranges are not reported, since discordance with absolute values may lead to misinterpretation of CBC data. Current Interpretive Data was last revised on 2017. Testing performed by: [facility] [address], [address] [place] [address] Imm gran pct 1.0 % [facility] Comment: Interpretive Data Percent cell count reference ranges are not reported, since discordance with absolute values may lead to misinterpretation of CBC data. Current Interpretive Data was last revised on 2017. Testing performed by: [facility] [place] [facility], [address] [place] [address] Lymphocyte pct 19.5 % [facility] Comment: Interpretive Data Percent cell count reference ranges are not reported, since discordance with absolute values may lead to misinterpretation of CBC data. Current Interpretive Data was last revised on 2017. Testing performed by: [facility], [place] [facility] [address], [address] [place] [address] Monocyte pct 7.3 % [facility] Comment: Interpretive Data Percent cell count reference ranges are not reported, since discordance with absolute values may lead to misinterpretation of CBC data. Current Interpretive Data was last revised on 2017. Testing performed by: [facility], [place] [facility] [address], [address] [place] [address] Eosinophil pct 0.5 % [facility] Comment: Interpretive Data Percent cell count reference ranges are not reported, since discordance with absolute values may lead to misinterpretation of CBC data. Current Interpretive Data was last revised on 2017. Testing performed by: [facility], [place] [facility] [address], [address] [place] [address] Basophil pct 0.6 % [facility] Comment: Interpretive Data Percent cell count reference ranges are not reported, since discordance with absolute values may lead to misinterpretation of CBC data. Current Interpretive Data was last revised on 2017. Testing performed by: [facility], [place] [facility] [address], [address] [place] [address] Blood 02/05/2024 10:1 4 AM HEADING AND PRIMING OPERATOR 02/05/2024 10:15 AM HEADING AND PRIMING OPERATOR us Rosy Lyons MD LAB BLOOD ORDERABLES Maribell ribeiro Result [facility] [id number] [facility]. Department [place] [address] * (ABNORMAL) CBC with auto differential (02/05/2024 10:14 AM HEADING AND PRIMING OPERATOR) WBC 11.1(H) 3.8 - 9.9 K/cumm Comment:Testing performed by : [facility] [address], [address], [place] [address] Hgb 14.4 11.9 - 15.5 g/dL [facility] Comment:Testing performed by : [place] [address], [address], [place] [address] Hct 42.0 35.6 - 45.5 % [facility] BJWCH Comment:Testing performed by : [place] [address], [address] [place] [address] Plt 262 150 - 400 K/cumm CERNER BJWCH Comment:Testing performed by : [place] [address], [address] [place] [address] MPV 9.2 9.1 - 12.3 fL CERNER BJWCH Comment:Testing performed by : [place] [address], [address] [place] [address] RBC 4.47 3.90 - 5.20 M/cumm CERNER BJWCH Comment:Testing performed by : [place] [address], [address], [place] [address] MCV 94 81 - 96 fL CERCHEVY BJWCH Comment:Testing performed by : [place] [address], [address], [place] [address] MCH 32.2 27.1 - 33.3 pg CERNER BJWCH Comment:Testing performed by : [place] [address], [address], [place] [address] MCHC 34.3 32.3 - 35.7 g/dL CERNER BJWCH Comment:Testing performed by : [facility] 2, [address] [place] [address] RDW CV 14.2 11.1 - 14.9 % CERNER BJWCH Comment:Testing performed by : [facility], [facility] 2, [address] [place] [address] RDW SD 48.9(H) 35.7 - 48.1 fL CERCHEVY TREJOWCH Comment:Testing performed by : [facility], [facility] 2, [address] [place] [address] Blood 02/05/2024 10:1 4 AM HEADING AND PRIMING OPERATOR 02/05/2024 10:15 AM HEADING AND PRIMING OPERATOR us Rosy Lyons MD LAB BLOOD ORDERABLES Maribell l Result [facility] [address] [address] Department [place] [address] * Comprehensive metabolic panel (02/05/2024 10:14 AM HEADING AND PRIMING OPERATOR) Sodium 136 135 - 145 mmol/L Comment:Testing performed by : [facility], [address], [place] [address] Potassium, pl 4.2 3.3 - 4.9 mmol/L [facility] MANJARREZ Comment:Testing performed by : [facility], [address], [place] [address] Chloride 98 97 - 110 mmol/L AUTUMN LYONCH Comment:Testing performed by : [facility], [address] [place] [address] CO2 25 22 - 32 mmol/L [facility] TREJOWCH Comment:Testing performed by : [facility], [address], [place] [address] Anion gap 14 2 - 15 mmol/L [facility] LYONCH Comment:Testing performed by : [facility], [address], [place] [address] BUN 16 6 - 25 mg/dL [facility] TREJOWCH Comment:Testing performed by : [facility], [address] [place] [address] Creatinine 0.72 0.60 - 1.10 mg/dL [facility] TREJOWCH Comment:Testing performed by : [facility], [address], [place] [address] Glucose 91 70 - 199 mg/dL CERNER [...] was last revised 2022. Testing performed by: [facility], [address], [place] [address] Calcium 10.3 8.5 - 10.3 mg/dL CERNER BJWCH Comment:Testing performed by : [facility], [address], [place] [address] Bilirubin, total 0.3 0.1 - 1.2 mg/dL CERNER BJWCH Comment:Testing performed by : [facility], [address], [place] [address] Protein, pl 7.2 6.5 - 8.5 g/dL CERNER BJWCH Comment:Testing performed by : [facility], [address], [place] [address] Albumin 4.2 3.5 - 5.0 g/dL CERNER BJWCH Comment:Testing performed by : [facility], [address], [place] [address] Alk phos 69 40 - 130 Units/L CERNER BJWCH Comment:Testing performed by : [facility], [address], [place] [address] ALT 20 7 - 45 Units/L CERNER BJWCH Comment:Testing performed by : [facility], [address], [place] [address] AST 16 10 - 45 Units/L CERNER BJWCH Comment:Testing performed by : [facility], [address], [place] [address] Blood 02/05/2024 10:1 4 AM HEADING AND PRIMING OPERATOR 02/05/2024 10:42 AM HEADING AND PRIMING OPERATOR Narrative [facility] MANJARREZ - 02/05/2024 11:02 AM HEADING AND PRIMING OPERATOR Has the patient fasted?->No Rosy Lyons MD LAB BLOOD ORDERABLES Maribell l Result [facility] [address] [address]. Department [place] [address] * CT Chest Abdomen Pelvis W Contrast (02/05/2024 9:52 AM HEADING AND PRIMING OPERATOR) Anatomical Region Laterality Modality Body N/A Computed Tomogra phy 02/05/2024 10:1 3 AM HEADING AND PRIMING OPERATOR Addenda Addendum by Fredrick Coker MD PhD on 02/17/2024 6:54 AM HEADING AND PRIMING OPERATOR Follow up adrenal MRI completed 02/08/24. Pearl SWAIN RN. Edited by: Pearl Freeman Electronically signed by: Fredrick Coker M.D., Ph.D Impressions 02/05/2024 2:05 PM HEADING AND PRIMING OPERATOR 1. Interval increase in nodule involving the [...] Coker M.D., Ph.D Narrative 02/05/2024 2:05 PM HEADING AND PRIMING OPERATOR EXAMINATION: Computed tomography of the chest, abdomen [...] - Final * eGFR (01/29/2024 1:04 PM HEADING AND PRIMING OPERATOR) eGFR 85 >=60 mL/min/1. 73 m2 Comment: [...] was last reviewed 2020. Testing performed by: [facility], [address] [place] [address] Blood 01/29/2024 1:04 PM HEADING AND PRIMING OPERATOR 01/29/2024 1:46 PM HEADING AND PRIMING OPERATOR us Rosy Lyons MD LAB BLOOD ORDERABLES Maribell ribeiro Result [facility] [address] [address]. Department [place] [address] * (ABNORMAL) Differential, auto (01/29/2024 1:04 PM HEADING AND PRIMING OPERATOR) Neutrophil abs 11.9(H) 1.5 - 6.5 K/cumm Comment:Testing performed by : [facility], [place] [facility] 2, [address] [place] [address] Imm gran abs 0.3(H) 0.0 - 0.1 K/cumm [facility] BJWCH Comment:Testing performed by : [facility], [place] [facility] 2, [address] [place] [address] Lymphocyte abs 1.5 0.8 - 3.3 K/cumm [facility] BJWCH Comment:Testing performed by : [facility], [place] [facility] 2, [address] [place] [address] Monocyte abs 0.5 0.2 - 0.8 K/cumm [facility] BJW[facility] Comment:Testing performed by : [facility] 2, [address] [place] [address] Eosinophil abs 0.0 0.0 - 0.5 K/cumm [facility] BJWCH Comment:Testing performed by : [facility], [place] [facility] 2, [address] [place] [address] Basophil abs 0.1 0.0 - 0.1 K/cumm CERNER BJWCH Comment:Testing performed by : [facility], [place] [facility] 2, [address] [place] [address] Neutrophil pct 83.6 % CERNER BJWCH Comment: Interpretive Data Percent cell count reference ranges are not reported, since discordance with absolute values may lead to misinterpretation of CBC data. Current Interpretive Data was last revised on 2017. Testing performed by: [facility], [place] [facility] 2, [address] [place] [address] Imm gran pct 2.0 % CERNER BJWCH Comment: Interpretive Data Percent cell count reference ranges are not reported, since discordance with absolute values may lead to misinterpretation of CBC data. Current Interpretive Data was last revised on 2017. Testing performed by: [facility], [place] [facility] 2, [address] [place] [address] Lymphocyte pct 10.3 % CERNER BJWCH Comment: Interpretive Data Percent cell count reference ranges are not reported, since discordance with absolute values may lead to misinterpretation of CBC data. Current Interpretive Data was last revised on 2017. Testing performed by: [facility], [place] [facility] 2, [address] [place] [address] Monocyte pct 3.6 % CERNER BJWCH Comment: Interpretive Data Percent cell count reference ranges are not reported, since discordance with absolute values may lead to misinterpretation of CBC data. Current Interpretive Data was last revised on 2017. Testing performed by: [facility], [place] [facility] 2, [address] [place] [address] Eosinophil pct 0.1 % CERNER BJWCH Comment: Interpretive Data Percent cell count reference ranges are not reported, since discordance with absolute values may lead to misinterpretation of CBC data. Current Interpretive Data was last revised on 2017. Testing performed by: [facility], [place] [facility] 2, [address] [place] [address] Basophil pct 0.4 % CERNER BJWCH Comment: Interpretive Data Percent cell count reference ranges are not reported, since discordance with absolute values may lead to misinterpretation of CBC data. Current Interpretive Data was last revised on 2017. Testing performed by: [place] [address], [address] [place] [address] Blood 01/29/2024 1:04 PM HEADING AND PRIMING OPERATOR 01/29/2024 1:08 PM HEADING AND PRIMING OPERATOR Rosy Lyons MD LAB BLOOD ORDERABLES Maribell ribeiro Result [facility] [address] [facility] Department [place] [address] * (ABNORMAL) CBC with auto differential (01/29/2024 1:04 PM HEADING AND PRIMING OPERATOR) WBC 14.3(H) 3.8 - 9.9 K/cumm Comment:Testing performed by : [place] [address], [place] [address] Hgb 13.7 11.9 - 15.5 g/dL [facility] BJW Comment:Testing performed by : [place] [address] [place] [address] Hct 40.9 35.6 - 45.5 % [facility] Comment:Testing performed by : [place] [address] [place] [address] Plt 237 150 - 400 K/cumm AUT[facility]N TREJOWCH Comment:Testing performed by : [place] [address], [address] [place] [address] MPV 9.0(L) 9.1 - 12.3 fL [facility] TREJOW Comment:Testing performed by : [place] [address], [address] [place] [address] RBC 4.30 3.90 - 5.20 M/cumm [facility] BJWCH Comment:Testing performed by : [place] [address], [address] [place] [address] MCV 95 81 - 96 fL [facility] Comment:Testing performed by : [facility], [place] [facility] 2, [address] [place] [address] MCH 31.9 27.1 - 33.3 pg [facility] TREJOW Comment:Testing performed by : [facility], [place] [facility] 2, [address] [place] [address] MCHC 33.5 32.3 - 35.7 g/dL [facility] TREJOW Comment:Testing performed by : [facility], [place] [facility] 2, [address] [place] [address] RDW CV 14.4 11.1 - 14.9 % [facility] Comment:Testing performed by : [facility], [place] [facility] 2, [address] [place] [address] RDW SD 50.1(H) 35.7 - 48.1 fL [facility] Comment:Testing performed by : [facility], [place] [facility] 2, [address] [place] [address] Blood 01/29/2024 1:04 PM HEADING AND PRIMING OPERATOR 01/29/2024 1:08 PM HEADING AND PRIMING OPERATOR Rosy Lyons MD LAB BLOOD ORDERABLES Maribell l Result [facility] [address] [address]. Department of Laboratories [place], [place] [id number] * (ABNORMAL) Comprehensive metabolic panel (01/29/2024 1:04 PM HEADING AND PRIMING OPERATOR) Sodium 135 135 - 145 mmol/L Comment:Testing performed by : [facility], [address] [place] [address] Potassium, pl 4.6 3.3 - 4.9 mmol/L [facility] MANJARREZ Comment:Testing performed by : [facility], [address] [place] [address] Chloride 96(L) 97 - 110 mmol/L CERNER BJWCH Comment:Testing performed by : [facility], [address], [place] [address] CO2 26 22 - 32 mmol/L CERNER BJWCH Comment:Testing performed by : [facility], [address], [place] [address] Anion gap 13 2 - 15 mmol/L CERNER BJWCH Comment:Testing performed by : [facility], [address], [place] [address] BUN 15 6 - 25 mg/dL CERNER BJWCH Comment:Testing performed by : [facility], [address], [place] [address] Creatinine 0.80 0.60 - 1.10 mg/dL CERNER BJWCH Comment:Testing performed by : [facility], [address], [place] [address] Glucose 119 70 - 199 mg/dL CERNER [...] was last revised 2022. Testing performed by: [facility], [address], [place] [address] Calcium 10.3 8.5 - 10.3 mg/dL CERNER BJWCH Comment:Testing performed by : [facility], [address], [place] [address] Bilirubin, total <0.1 0.1 - 1.2 mg/dL CERNER BJWCH Comment:Testing performed by : [facility], [address], [place] [address] Protein, pl 7.2 6.5 - 8.5 g/dL CERNER BJWCH Comment:Testing performed by : [facility], [address], [place] [address] Albumin 4.5 3.5 - 5.0 g/dL CERNER BJWCH Comment:Testing performed by : [facility], [address], [place] [address] Alk phos 67 40 - 130 Units/L CERNER BJWCH Comment:Testing performed by : [facility], [address], [place] [address] ALT 20 7 - 45 Units/L CERNER BJWCH Comment:Testing performed by : [facility], [address], [place] [address] AST 21 10 - 45 Units/L CERNER BJWCH Comment: Hemolyzed; result may be falsely elevated. Testing performed by: [facility], [address], [place] [address] Blood 01/29/2024 1:04 PM HEADING AND PRIMING OPERATOR 01/29/2024 1:46 PM HEADING AND PRIMING OPERATOR Narrative [facility] MANJARREZ - 01/29/2024 2:08 PM HEADING AND PRIMING OPERATOR Has the patient fasted?->No Rosy Lyons MD LAB BLOOD ORDERABLES Maribell ribeiro Result [facility] [address] [address]. Department [place] [address] * Targeted Opioid Screen, Ur (01/25/2024 10:07 AM HEADING AND PRIMING OPERATOR) Pain mgt 6-Acetylmorphine, Ur Not Detected CutOff 10 ng/mL Comment:Testing performed by : [facility], [address] [place]., [address] Pain mgt Buprenorphine, Ur Not Detected CutOff 5 ng/mL [facility]UMN MANJARREZ Comment:Testing performed by : [facility], [address] [place]., [address] Pain mgt Buprenorphine metabolite (Norbuprenorphine), Ur Not Detected CutOff 5 ng/mL [facility] MANJARREZ Comment:Testing performed by : [facility], [address] [place]., [address] Pain mgt Codeine, Ur Not Detected CutOff 25 ng/mL CERNER BJWCH Comment:Testing performed by : [facility], [address] [facility], [address] Pain mgt Hydrocodone, Ur Not Detected CutOff 25 ng/mL CERNER BJWCH Comment:Testing performed by : [facility], [address] [facility], [address] Pain mgt Hydromorphone, Ur Not Detected CutOff 25 ng/mL CERNER BJWCH Comment:Testing performed by : [facility], [address] [facility], [address] Pain mgt Methadone, Ur Not Detected CutOff 25 ng/mL CERNER BJWCH Comment:Testing performed by : [facility], [address] [facility], [address] Pain mgt Methadone Metabolite (EDDP), Ur Not Detected CutOff 25 ng/mL CERNER BJWCH Comment:Testing performed by : [facility], [address] [facility], [address] Pain mgt Morphine, Ur Not Detected CutOff 25 ng/mL CERNER BJWCH Comment:Testing performed by : [facility], [address] [place] [address] Pain mgt Oxycodone, Ur Not Detected CutOff 25 ng/mL CERNER BJWCH Comment:Testing performed by : [facility], [address] [place]., [address] Pain mgt Oxymorphone, Ur Not Detected CutOff 25 ng/mL CERNER BJWCH Comment:Testing performed by : [facility], [address] [facility], [address] Pain mgt Tapentadol, Ur Not Detected CutOff 25 ng/mL CERNER BJWCH Comment:Testing performed by : [facility], [address] [place] [address], [address] Pain mgt Tramadol, Ur Not Detected CutOff 25 ng/mL [facility]N MANJARREZ Comment:Testing performed by : [facility], [address] [place]., [address] Pain mgt Tramadol metabolite (O-desmethyltramado l), Ur Not Detected CutOff 25 ng/mL [facility] MANJARREZ Comment: Interpretive Data This test only detects [...] developed and its performance characteristics determined by [facility]. It has not been cleared or approved by the U.S. Food and Drug Administration. Current interpretive data was last revised 18. Testing performed by: [facility], [address] [place] [address] Pain mgt Naloxone, ur Not Detected cutoff 20 ng/ml AUTUMN MANJARREZ Comment:Testing performed by : [facility], [address] [place]., [address] Urine 01/25/2024 10:0 7 AM HEADING AND PRIMING OPERATOR 01/25/2024 6:55 PM HEADING AND PRIMING OPERATOR us Notinfile Unknown LAB URINE ORDERABLES Final Res ult [facility] [address] [facility] Department of [employer] [place], [place] [id number] * (ABNORMAL) Drugs of Abuse Screen, Urine with Reflex Confirmation (01/25/2024 10:07 AM HEADING AND PRIMING OPERATOR) [facility] Amphetamine, ur Not Detected CutOff 500ng/mL Comment: Interpretive Data - Amphetamines: Samples containing greater than 500 ng/mL d-methamphetamine or other cross-reacting amphetamine compounds are reported as positive. Amphetamine immunoassays are subject to significant false positive rates due to cross-reactivity of non-amphetamine drugs. Confirmatory testing required for definitive results. Current Interpretive Data was last reviewed 2022. Barbiturates, ur Not Detected CutOff 200ng/mL CERCHEVY MANJARREZ Comment: Interpretive Data - Barbiturates: Samples containing greater than 200 ng/mL secobarbital or other cross-reacting barbiturate compounds are reported as positive. False positive and false negative results are possible. Confirmatory testing required for definitive results. Current Interpretive Data was last reviewed 2022. Benzodiazepines, ur Screen Positive, presumptive (A) CutOff 100ng/mL CERCHEVY MANJARREZ Comment: Interpretive Data - Benzodiazepines: Samples containing greater than 100 ng/mL nordiazepam or other cross-reacting compounds are reported as positive. False positive and false negative results are possible. Confirmatory testing required for definitive results. Current Interpretive Data was last reviewed 2022. Cannabinoids, ur Not Detected CutOff 50 ng/mL CERCHEVY MANJARREZ Comment: Interpretive Data - Cannabinoids: Samples [...] 2022. Opiates, ur Not Detected CutOff 300ng/mL [facility] MANJARREZ Comment: Interpretive Data - Opiates: Samples [...] on 2017. Urine 01/25/2024 10:0 7 AM HEADING AND PRIMING OPERATOR 01/25/2024 4:47 PM HEADING AND PRIMING OPERATOR Narrative [facility] MANJARREZ - 01/25/2024 5:59 PM HEADING AND PRIMING OPERATOR Drug of Abuse screening is performed by immunoassay for medical purposes only. This is not to be used for Pain Management purposes. If Detected, confirmation testing will be performed for Amphetamines, Cocaine, Fentanyl, Methadone, Opiates, Oxycodone or Phencyclidine. us Notinfile Unknown LAB URINE ORDERABLES Final Res ult [facility] [address] [facility]. Department [place] [address] * RAD ONC ARIA COURSE SUMMARY (01/21/2024 11:58 AM HEADING AND PRIMING OPERATOR) Pathologist [facility] Course Name C2 09/2023 ARIA Course Plan Date 10/08/2023 7:21 [...] (cGy) 2,000 ARIA 01/21/2024 11:5 8 AM HEADING AND PRIMING OPERATOR us Not In File Miscellaneous RADIATION ONCOLOGY ORD ERABLES Edited Result - Final ARIA * RAD ONC ARIA COURSE SUMMARY (01/21/2024 11:58 AM HEADING AND PRIMING OPERATOR) Course Name C1 GK 05/2023 ARIA Course [...] (cGy) 1,600 ARIA 01/21/2024 11:5 8 AM HEADING AND PRIMING OPERATOR us Not In File Miscellaneous RADIATION ONCOLOGY ORD ERABLES Final Result Performing Organization Address [facility] Co de Phone Number ARIA * RAD ONC ARIA COURSE SUMMARY (01/21/2024 11:58 AM HEADING AND PRIMING OPERATOR) Course Name C3 01/2024 ARIA Course Plan [...] (cGy) 2,000 ARIA 01/21/2024 11:5 8 AM HEADING AND PRIMING OPERATOR us Not In File Miscellaneous RADIATION ONCOLOGY ORD ERABLES Final Result Performing Organization Address [facility] de Phone Number ARIA * RAD ONC ARIA SESSION SUMMARY (01/21/2024 11:55 AM HEADING AND PRIMING OPERATOR) Course Name C3 01/2024 ARIA Course Plan [...] (cGy) 2,000 ARIA 01/21/2024 11:5 5 AM HEADING AND PRIMING OPERATOR us Not In File Miscellaneous RADIATION ONCOLOGY ORD ERABLES Final Result Performing Organization Address City/State/[facility] Co de Phone Number ARIA * Targeted Opioid Screen, Ur (01/18/2024 4:38 PM HEADING AND PRIMING OPERATOR) Pain mgt 6-Acetylmorphine, Ur Not Detected CutOff 10 ng/mL Comment:Testing performed by : [facility], [address] [place] [address] Pain mgt Buprenorphine, Ur Not Detected CutOff 5 ng/mL CERNER BJWCH Comment:Testing performed by : [facility], [address] [facility], [address] Pain mgt Buprenorphine metabolite (Norbuprenorphine), Ur Not Detected CutOff 5 ng/mL CERNER BJWCH Comment:Testing performed by : [facility], [address] [facility], [address] Pain mgt Codeine, Ur Not Detected CutOff 25 ng/mL CERNER BJWCH Comment:Testing performed by : [facility], [address] [place] [address], [address] Pain mgt Hydrocodone, Ur Not Detected CutOff 25 ng/mL CERNER BJWCH Comment:Testing performed by : [facility], [address] [facility], [address] Pain mgt Hydromorphone, Ur Not Detected CutOff 25 ng/mL CERNER BJWCH Comment:Testing performed by : [facility], [address] [place] [address] Pain mgt Methadone, Ur Not Detected CutOff 25 ng/mL CERNER BJWCH Comment:Testing performed by : [facility], [address] [place] [address]., [address] Pain mgt Methadone Metabolite (EDDP), Ur Not Detected CutOff 25 ng/mL CERNER BJWCH Comment:Testing performed by : [facility], [address] [place] [address], [address] Pain mgt Morphine, Ur Not Detected CutOff 25 ng/mL CERNER BJWCH Comment:Testing performed by : [facility], 1 [facility], [place]., [address] Pain mgt Oxycodone, Ur Not Detected CutOff 25 ng/mL CERNER BJCH Comment:Testing performed by : [facility], [address] [place] [address] Pain mgt Oxymorphone, Ur Not Detected CutOff 25 ng/mL CERNER BJWCH Comment:Testing performed by : [facility], [address] [place] [address] Pain mgt Tapentadol, Ur Not Detected CutOff 25 ng/mL CERNER BJWCH Comment:Testing performed by : [facility], [address] [place] [address] Pain mgt Tramadol, Ur Not Detected CutOff 25 ng/mL CERNER BJWCH Comment:Testing performed by : [facility], [address] [place] [address] Pain mgt Tramadol metabolite (O-desmethyltramado l), Ur [...] developed and its performance characteristics determined by [facility]. It has not been cleared or approved by the U.S. Food and Drug Administration. Current interpretive data was last revised 18. Testing performed by: [facility], [address] [place] [address] Pain mgt Naloxone, ur Not Detected cutoff 20 ng/ml CERNER BJWCH Comment:Testing performed by : [facility], [address] [place] [address] Urine 01/18/2024 4:38 PM HEADING AND PRIMING OPERATOR 01/18/2024 6:32 PM HEADING AND PRIMING OPERATOR us Julio Cesar Ocampo MD LAB URINE YAN DERAS Final Result [facility] [address] [address]. Department [place] [address] * (ABNORMAL) Drugs of Abuse Screen, Urine with Reflex Confirmation (01/18/2024 4:38 PM HEADING AND PRIMING OPERATOR) Pathologist [facility] Amphetamine, ur Not [...] 2022. Cocaine, ur Not Detected CutOff 150ng/mL AUTUMN MANJARREZ Comment: Interpretive Data - Cocaine: Samples containing greater than 150 ng/mL benzoylecgonine or other cross- reacting compounds are reported as positive. False positive and false negative results are possible. Confirmatory testing required for definitive results. Current Interpretive Data was last reviewed 2022. Fentanyl, Ur Not Detected Cutoff 1 ng/mL AUTUMN MANJARREZ Comment: Interpretive Data - Fentanyl: Samples containing greater than 1 ng/mL fentanyl or other cross-reacting fentanyl compounds are reported as positive. False positive and false negative results are possible. Confirmatory testing required for definitive results. Current Interpretive Data was last reviewed 2022. Methadone, ur Not Detected CutOff 300ng/mL AUTUMN MANJARREZ Comment: Interpretive Data - Methadone: Samples containing greater than 300 ng/mL d,l-methadone or other cross-reacting compounds are reported as positive. False positive and false negative results are possible. Confirmatory testing required for definitive results. Current Interpretive Data was last reviewed 2022. Opiates, ur Not Detected CutOff 300ng/mL AUTUMN MANJARREZ Comment: Interpretive Data - Opiates: Samples [...] revised on 2017. Urine 01/18/2024 4:38 PM HEADING AND PRIMING OPERATOR 01/18/2024 4:47 PM HEADING AND PRIMING OPERATOR Narrative AUTUMN [facility] - 01/18/2024 5:52 PM HEADING AND PRIMING OPERATOR Drug of Abuse screening is performed by immunoassay for medical purposes only. This is not to be used for Pain Management purposes. If Detected, confirmation testing will be performed for Amphetamines, Cocaine, Fentanyl, Methadone, Opiates, Oxycodone or Phencyclidine. Julio Cesar Ocampo MD LAB URINE ORDE [place] Final Result Performing Organization Address [facility] Co de Phone Number [facility] [address] [employer]. [employer] [place], [place] [id number] * eGFR (01/15/2024 1:14 PM HEADING AND PRIMING OPERATOR) eGFR 67 >=60 mL/min/1. 73 m2 Comment: [...] was last reviewed 2020. Testing performed by: [facility], [address] [employer], [place] [address] Blood 01/15/2024 1:14 PM HEADING AND PRIMING OPERATOR 01/15/2024 1:34 PM HEADING AND PRIMING OPERATOR Rosy Lyons MD LAB BLOOD ORDERABLES Maribell l Result Performing Organization Address [facility]/ZIP Co de Phone Number [facility] [address] [employer]. Department [place] [address] * (ABNORMAL) Differential, auto (01/15/2024 1:14 PM HEADING AND PRIMING OPERATOR) Neutrophil abs 11.3(H) 1.5 - 6.5 K/cumm Comment:Testing performed by : [facility] 2, [address] [place] [address] Imm gran abs 0.2(H) 0.0 - 0.1 K/cumm CERNER [facility] Comment:Testing performed by : [facility], [facility], [address] [place] [address] Lymphocyte abs 0.8 0.8 - 3.3 K/cumm CERNER [facility] Comment:Testing performed by : [facility] 2, [address] [place] [address] Monocyte abs 0.4 0.2 - 0.8 K/cumm CERNER [facility] Comment:Testing performed by : [place] [address], [address] [place] [address] Eosinophil abs 0.0 0.0 - 0.5 K/cumm CERNER [facility] Comment:Testing performed by : [place] [address], [address] [place] [address] Basophil abs 0.0 0.0 - 0.1 K/cumm CERNER [facility] Comment:Testing performed by : [place] [address], [address] [place] [address] Neutrophil pct 88.7 % CERNER [facility] Comment: Interpretive Data Percent cell count reference ranges are not reported, since discordance with absolute values may lead to misinterpretation of CBC data. Current Interpretive Data was last revised on 2017. Testing performed by: [facility] 2, [address] [place] [address] Imm gran pct 1.2 % CERNER [facility] Comment: Interpretive Data Percent cell count reference ranges are not reported, since discordance with absolute values may lead to misinterpretation of CBC data. Current Interpretive Data was last revised on 2017. Testing performed by: [facility], [facility], [address] [place] [address] Lymphocyte pct 6.4 % [facility] Comment: Interpretive Data Percent cell count reference ranges are not reported, since discordance with absolute values may lead to misinterpretation of CBC data. Current Interpretive Data was last revised on 2017. Testing performed by: [facility], [facility] 2, [address] [place] [address] Monocyte pct 3.3 % CERCHEVY TREJOW Comment: Interpretive Data Percent cell count reference ranges are not reported, since discordance with absolute values may lead to misinterpretation of CBC data. Current Interpretive Data was last revised on 2017. Testing performed by: [facility], [facility] 2, [address] [place] [address] Eosinophil pct 0.2 % [facility] Comment: Interpretive Data Percent cell count reference ranges are not reported, since discordance with absolute values may lead to misinterpretation of CBC data. Current Interpretive Data was last revised on 2017. Testing performed by: [facility], [facility] 2, [address] [place] [address] Basophil pct 0.2 % [facility] Comment: Interpretive Data Percent cell count reference ranges are not reported, since discordance with absolute values may lead to misinterpretation of CBC data. Current Interpretive Data was last revised on 2017. Testing performed by: [facility], [place] [facility] 2, [address] [place] [address] Blood 01/15/2024 1:14 PM HEADING AND PRIMING OPERATOR 01/15/2024 1:14 PM HEADING AND PRIMING OPERATOR us Rosy Lyons MD LAB BLOOD ORDERABLES Maribell ribeiro Result AUTUMN TREJOW[facility] [address] [facility]. Department [place] [employer] [address] * (ABNORMAL) CBC with auto differential (01/15/2024 1:14 PM HEADING AND PRIMING OPERATOR) WBC 12.7(H) 3.8 - 9.9 K/cumm Comment:Testing performed by : [facility], [place] [facility] 2, [address], [place] [address] Hgb 13.4 11.9 - 15.5 g/dL C[facility]ER [facility] Comment:Testing performed by : [place] [address], [address], [place] [address] Hct 40.1 35.6 - 45.5 % C[facility]ER [facility] Comment:Testing performed by : [place] [address], [address] [place] [address] Plt 219 150 - 400 K/cumm CERNER [facility] Comment:Testing performed by : [place] [address], [address] [place] [address] MPV 9.1 9.1 - 12.3 fL CERNER [facility] Comment:Testing performed by : [place] [address], [address], [place] [address] RBC 4.22 3.90 - 5.20 M/cumm CERNER [facility] Comment:Testing performed by : [facility] 2, [address], [place] [address] MCV 95 81 - 96 fL CERNER [facility] Comment:Testing performed by : [place] [address], [address], [place] [address] MCH 31.8 27.1 - 33.3 pg CERNER [facility] Comment:Testing performed by : [place] [address], [address], [place] [address] MCHC 33.4 32.3 - 35.7 g/dL CERNER [facility] Comment:Testing performed by : [facility] 2, [address] [place] [address] RDW CV 13.5 11.1 - 14.9 % CERNER [facility] Comment:Testing performed by : [facility], [facility], [address] [place] [address] RDW SD 47.1 35.7 - 48.1 fL C[facility]ER [facility] Comment:Testing performed by : [facility], [facility], [address] [place] [address] Blood 01/15/2024 1:14 PM HEADING AND PRIMING OPERATOR 01/15/2024 1:14 PM HEADING AND PRIMING OPERATOR Rosy Lyons MD LAB BLOOD ORDERABLES Maribell l Result [facility] [address] [address]. Department [place] [address] * (ABNORMAL) Comprehensive metabolic panel (01/15/2024 1:14 PM HEADING AND PRIMING OPERATOR) Sodium 140 135 - 145 mmol/L Comment:Testing performed by : [facility], [address] [place] [address] Potassium, pl 4.9 3.3 - 4.9 mmol/L [facility]Y [facility] Comment:Testing performed by : [facility], [address] [place] [address] Chloride 99 97 - 110 mmol/L [facility]ERCHEVY [facility] Comment:Testing performed by : [facility], [address] [place] [address] CO2 30 22 - 32 mmol/L [facility]Y [facility] Comment:Testing performed by : [facility], [address] [place] [address] Anion gap 11 2 - 15 mmol/L AUTUMN B[facility] Comment:Testing performed by : [facility], [address], [place] [address] BUN 19 6 - 25 mg/dL [facility]ERCHEVY [facility] Comment:Testing performed by : [facility], [address], [place] [address] Creatinine 0.98 0.60 - 1.10 mg/dL [facility]ERCHEVY [facility] Comment:Testing performed by : [facility], [address], [place] [address] Glucose 135 70 - 199 mg/dL CERNER [...] was last revised 2022. Testing performed by: [facility], [address], [place] [address] Calcium 10.4(H) 8.5 - 10.3 mg/dL C[facility]ER [facility] Comment:Testing performed by : [facility], [address], [place] [address] Bilirubin, total 0.2 0.1 - 1.2 mg/dL CERNER [facility] Comment:Testing performed by : [facility], [address], [place] [address] Protein, pl 7.1 6.5 - 8.5 g/dL C[facility]ER [facility] Comment:Testing performed by : [facility], [address], [place] [address] Albumin 4.1 3.5 - 5.0 g/dL C[facility]ER [facility] Comment:Testing performed by : [facility], [address], [place] [address] Alk phos 60 40 - 130 Units/L C[facility]ER [facility] Comment:Testing performed by : [facility], [address], [place] [address] ALT 21 7 - 45 Units/L C[facility]ER [facility] Comment:Testing performed by : [facility], [address], [place] [address] AST 13 10 - 45 Units/L CERNER [facility] Comment:Testing performed by : [facility], [address], [place] [address] Blood 01/15/2024 1:1 4 PM HEADING AND PRIMING OPERATOR 01/15/2024 1:34 PM HEADING AND PRIMING OPERATOR Narrative AUTUMN MANJARREZ - 01/15/2024 2:04 PM HEADING AND PRIMING OPERATOR Has the patient fasted?->No Rosy Lyons MD LAB BLOOD ORDERABLES Maribell l Result [facility] [address] [facility]. Department [place] [address] * MRI Brain Tumor W WO Contrast (01/12/2024 11:06 AM HEADING AND PRIMING OPERATOR) Anatomical Region Laterality Modality Head and Neck N/A Magnetic Resonan ce 01/12/2024 12:3 0 PM HEADING AND PRIMING OPERATOR Addenda Addendum by Sedrick Alaniz MD PhD on 01/20/2024 9:28 AM HEADING AND PRIMING OPERATOR Upon further review, there is a focus of enhancement along the right cerebral convexity measuring 6 mm (series 01060, image 137). There is superimposed intrinsic T1 hyperintensity and susceptibility artifact. 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 Dictated by: Abe Pagan D.O. The radiology attending physician has personally reviewed this study, and had reviewed and/or edited this written report and agrees with it. Electronically signed by: Sedrick Alaniz M.D. Impressions 01/12/2024 1:20 PM HEADING AND PRIMING OPERATOR 1. Left paramedian frontal lobe intraparenchymal hemorrhage [...] Sedrick Alaniz M.D. Narrative 01/12/2024 1:20 PM HEADING AND PRIMING OPERATOR EXAMINATION: Magnetic resonance imaging (MRI) of the [...] x 16 mm in transaxial dimension (series 19065, image 17). Central enhancement is suggested. There [...] x 16 mm in transaxial dimension (series 70414, image 17). Central enhancement is suggested. There [...] - Final * eGFR (12/25/2023 9:19 AM HEADING AND PRIMING OPERATOR) eGFR >90 >=60 mL/min/1. 73 m2 Comment: [...] was last reviewed 2020. Testing performed by: [facility], [address] [place] [address] Blood 12/25/2023 9:19 AM HEADING AND PRIMING OPERATOR 12/25/2023 9:36 AM HEADING AND PRIMING OPERATOR us Janey Mendez [employer] LAB BLOOD ORDERABLES Final Result [facility]UMN MANJARREZ [address] [facility]. Department [place] [address] * (ABNORMAL) Differential, auto (12/25/2023 9:19 AM HEADING AND PRIMING OPERATOR) Neutrophil abs 8.1(H) 1.5 - 6.5 K/cumm Comment:Testing performed by : [facility] 2, [address] [place] [address] Imm gran abs 0.1 0.0 - 0.1 K/cumm CERNER [facility] Comment:Testing performed by : [facility] 2, [address] [place] [address] Lymphocyte abs 1.8 0.8 - 3.3 K/cumm CERNER [facility] Comment:Testing performed by : [facility] 2, [address] [place] [address] Monocyte abs 0.9(H) 0.2 - 0.8 K/cumm CERNER [facility] Comment:Testing performed by : [facility] 2, [address] [place] [address] Eosinophil abs 0.0 0.0 - 0.5 K/cumm CERNER [facility] Comment:Testing performed by : [facility] 2, [address] [place] [address] Basophil abs 0.0 0.0 - 0.1 K/cumm CERNER [facility] Comment:Testing performed by : [facility] 2, [address] [place] [address] Neutrophil pct 74.4 % CERNER [facility] Comment: Interpretive Data Percent cell count reference ranges are not reported, since discordance with absolute values may lead to misinterpretation of CBC data. Current Interpretive Data was last revised on 2017. Testing performed by: [facility], [place] [facility] 2, [address] [place] [address] Imm gran pct 0.5 % CERNER [facility] Comment: Interpretive Data Percent cell count reference ranges are not reported, since discordance with absolute values may lead to misinterpretation of CBC data. Current Interpretive Data was last revised on 2017. Testing performed by: [facility], [place] [facility] 2, [address] [place] [address] Lymphocyte pct 16.1 % CERNER [facility] Comment: Interpretive Data Percent cell count reference ranges are not reported, since discordance with absolute values may lead to misinterpretation of CBC data. Current Interpretive Data was last revised on 2017. Testing performed by: [facility], [facility] 2, [address] [place] [address] Monocyte pct 8.5 % CERNER [facility] Comment: Interpretive Data Percent cell count reference ranges are not reported, since discordance with absolute values may lead to misinterpretation of CBC data. Current Interpretive Data was last revised on 2017. Testing performed by: [facility], [place] [facility] 2, [address] [place] [address] Eosinophil pct 0.2 % CERNER [facility] Comment: Interpretive Data Percent cell count reference ranges are not reported, since discordance with absolute values may lead to misinterpretation of CBC data. Current Interpretive Data was last revised on 2017. Testing performed by: [facility], [place] [facility] 2, [address] [place] [address] Basophil pct 0.3 % CERNER [facility] Comment: Interpretive Data Percent cell count reference ranges are not reported, since discordance with absolute values may lead to misinterpretation of CBC data. Current Interpretive Data was last revised on 2017. Testing performed by: [facility], [place] [facility] 2, [address] [place] [address] Blood 12/25/2023 9:19 AM HEADING AND PRIMING OPERATOR 12/25/2023 9:20 AM HEADING AND PRIMING OPERATOR Janey Mendez [employer] LAB BLOOD ORDERABLES Final Result Performing Organization Address City/[facility]/ZIP Co de Phone Number AUTUMN MANJARREZ [address] [employer] [facility] [place] [address] * Thyroid Function [place] (12/25/2023 9:19 AM HEADING AND PRIMING OPERATOR) TSH 0.63 0.30 - 4.20 mcIUnit/mL Comment:Testing performed by : [facility], [address] [place] [address] Blood 12/25/2023 9:19 AM HEADING AND PRIMING OPERATOR 12/25/2023 9:36 AM HEADING AND PRIMING OPERATOR Janey Mendez [employer] LAB BLOOD ORDERABLES Final Result Performing Organization Address [facility] de Phone Number AUTUMN MANJARREZ [address] [employer]. Department [place] [address] * (ABNORMAL) CBC with auto differential (12/25/2023 9:19 AM HEADING AND PRIMING OPERATOR) Pathologist [facility] WBC 10.9(H) 3.8 - 9.9 K/cumm Comment:Testing performed by : [facility], [facility] 2, [address] [place] [address] Hgb 12.7 11.9 - 15.5 g/dL AUTUMN MANJARREZ Comment:Testing performed by : [facility], [facility] 2, [address] [place] [address] Hct 37.6 35.6 - 45.5 % AUTUMN MANJARREZ Comment:Testing performed by : [facility], [facility] 2, [address] [place] [address] Plt 243 150 - 400 K/cumm AUTUMN MANJARREZ Comment:Testing performed by : [facility], [facility] 2, [address] [place] [address] MPV 9.6 9.1 - 12.3 fL AUTUMN MANJARREZ Comment:Testing performed by : [facility], [facility] 2, [address] [place] [address] RBC 4.02 3.90 - 5.20 M/cumm AUTUMN LYONCH Comment:Testing performed by : [facility], [facility] 2, [address] [place] [address] MCV 94 81 - 96 fL AUTUMN LYONCH Comment:Testing performed by : [facility], [facility] 2, [address] [place] [address] MCH 31.6 27.1 - 33.3 pg AUTUMN TREJOWCH Comment:Testing performed by : [facility], [facility] 2, [address] [place] [address] MCHC 33.8 32.3 - 35.7 g/dL AUTUMN LYONCH Comment:Testing performed by : [facility], [facility] 2, [address] [place] [address] RDW CV 12.6 11.1 - 14.9 % AUTUMN MANJARREZ Comment:Testing performed by : [facility], [facility] 2, [address] [place] [address] RDW SD 43.6 35.7 - 48.1 fL AUTUMN TREJOWCH Comment:Testing performed by : [facility] 2, [address] [place] [address] Blood 12/25/2023 9:19 AM HEADING AND PRIMING OPERATOR 12/25/2023 9:20 AM HEADING AND PRIMING OPERATOR us Janey Mendez [employer] LAB BLOOD ORDERABLES Final Result [facility] [address] [address]. Department of Laboratories [place], [place] [id number] * Comprehensive metabolic panel (12/25/2023 9:19 AM HEADING AND PRIMING OPERATOR) Sodium 138 135 - 145 mmol/L Comment:Testing performed by : [facility], [address] [place] [address] Potassium, pl 4.3 3.3 - 4.9 mmol/L CERNER BJW[facility] Comment:Testing performed by : [facility], [address], [place] [address] Chloride 103 97 - 110 mmol/L CERNER B[facility] Comment:Testing performed by : [facility], [address], [place] [address] CO2 26 22 - 32 mmol/L CERNER B[facility] Comment:Testing performed by : [facility], [address], [place] [address] Anion gap 10 2 - 15 mmol/L CERNER [facility] Comment:Testing performed by : [facility], [address], [place] [address] BUN 19 6 - 25 mg/dL CERNER B[facility] Comment:Testing performed by : [facility], [address], [place] [address] Creatinine 0.75 0.60 - 1.10 mg/dL CERNER BJW[facility] Comment:Testing performed by : [facility], [address], [place] [address] Glucose 98 70 - 199 mg/dL CERNER [...] classification and Diagnosis of Diabetes Diabetes Care 202; 46: S19-S40. Current interpretive data was last revised 2022. Testing performed by: [facility], [address], [place] [address] Calcium 9.4 8.5 - 10.3 mg/dL CERNER BJWCH Comment:Testing performed by : [facility], [address], [place] [address] Bilirubin, total 0.2 0.1 - 1.2 mg/dL CERNER BJW[facility] Comment:Testing performed by : [facility], [address], [place] [address] Protein, pl 7.1 6.5 - 8.5 g/dL CERNER BJW[facility] Comment:Testing performed by : [facility], [address], [place] [address] Albumin 4.4 3.5 - 5.0 g/dL CERNER BJWCH Comment:Testing performed by : [facility], [address], [place] [address] Alk phos 64 40 - 130 Units/L CERNER BJW[facility] Comment:Testing performed by : [facility], [address], [place] [address] ALT 13 7 - 45 Units/L CERNER BJW[facility] Comment:Testing performed by : [facility], [address], [place] [address] AST 14 10 - 45 Units/L CERNER BJW[facility] Comment:Testing performed by : [facility], [address], [place] [address] Blood 12/25/2023 9:19 AM HEADING AND PRIMING OPERATOR 12/25/2023 9:36 AM HEADING AND PRIMING OPERATOR us Janey Mendez [employer] LAB BLOOD ORDERABLES Final Result Performing Organization Address [facility] Co de Phone Number [facility] [address] Department [place] [address] * Imaging Lumbar/Caudal Epidural Steroid INJ (85901) (12/24/2023 3:03 PM HEADING AND PRIMING OPERATOR) Narrative RAD_PACS_BJWCH - 12/24/2023 3:03 PM HEADING AND PRIMING OPERATOR The images from this study are not interpreted by Radiology. Please refer to the physician's procedure / OR operative note. us Julio Cesar Ocampo MD IMG PAIN MGMT PROCEDURES Final Result Performing Organization Address City/[facility]/ZIP Co de Phone Number RAD_PACS_BJW[facility] * C. difficile testing Stool (12/24/2023 2:01 PM HEADING AND PRIMING OPERATOR) GDH Result Negative Negative Comment:Testing performed by : [facility], [address] [place] [address]., [address] Toxin Result Negative Negative AUTUMN MANJARREZ Comment:Testing performed by : [facility], [address] [place] [address]., [address] C. diff result Negative, free toxin Negative, free toxin AUTUMN MANJARREZ Comment:Testing performed by : [facility], [address] [place] [address]., [address] C. diff interp Negative for toxigenic Clostridioides (Clostridium) difficile. Analysis was performed using a glutamate dehydrogenase antigen detection assay combined with a C. difficile toxin detection assay. AUTUMN MANJARREZ Comment:Testing performed by : [facility], [address] [place] [address]., [id number] Stool 12/24/2023 2:01 PM HEADING AND PRIMING OPERATOR 12/24/2023 5:16 PM HEADING AND PRIMING OPERATOR Rosy Lyons MD LAB MICROBIOLOGY - GENERA L ORDERABLES Final Result AUTUMN TREJOWCH [address] [facility] Department [place] [address] * eGFR (12/18/2023 10:40 AM HEADING AND PRIMING OPERATOR) Pathologist [facility] eGFR 83 >=60 mL/min/1. 73 m2 Comment: [...] was last reviewed 2020. Testing performed by: [facility], [address] [place] [address] Blood 12/18/2023 10:4 0 AM HEADING AND PRIMING OPERATOR 12/18/2023 11:03 AM HEADING AND PRIMING OPERATOR us Janey Mendez [facility] LAB BLOOD ORDERABLES Final Result [facility] [address] [address] Department [place] [address] * Differential, auto (12/18/2023 10:40 AM HEADING AND PRIMING OPERATOR) Neutrophil abs 6.1 1.5 - 6.5 K/cumm Comment:Testing performed by : [facility], [place] [facility], [address] [place] [address] Imm gran abs 0.0 0.0 - 0.1 K/cumm CERNER BJWCH Comment:Testing performed by : [facility], [place] [facility], [address] [place] [address] Lymphocyte abs 1.5 0.8 - 3.3 K/cumm CERNER BJWCH Comment:Testing performed by : [facility], [place] [facility] [place] [place] 2, [address] [place] [address] Monocyte abs 0.7 0.2 - 0.8 K/cumm CERNER BJWCH Comment:Testing performed by : [facility], [place] [facility] [place] 2, [address] [place] [address] Eosinophil abs 0.1 0.0 - 0.5 K/cumm CERNER BJWCH Comment:Testing performed by : [facility], [place] [facility] [place] [facility] 2, [address] [place] [address] Basophil abs 0.1 0.0 - 0.1 K/cumm CERNER BJWCH Comment:Testing performed by : [facility], [place] [facility] [place] [facility], [address] [place] [address] Neutrophil pct 71.2 % CERNER BJWCH Comment: Interpretive Data Percent cell count reference ranges are not reported, since discordance with absolute values may lead to misinterpretation of CBC data. Current Interpretive Data was last revised on 2017. Testing performed by: [facility], [place] [facility] [place], [address] [place] [address] Imm gran pct 0.5 % CERNER BJWCH Comment: Interpretive Data Percent cell count reference ranges are not reported, since discordance with absolute values may lead to misinterpretation of CBC data. Current Interpretive Data was last revised on 2017. Testing performed by: [facility], [place] [facility] [place] 2, [address] [place] [address] Lymphocyte pct 18.1 % CERNER BJWCH Comment: Interpretive Data Percent cell count reference ranges are not reported, since discordance with absolute values may lead to misinterpretation of CBC data. Current Interpretive Data was last revised on 2017. Testing performed by: [facility], [place] [facility] [place] 2, [address] [place] [address] Monocyte pct 7.7 % CERNER BJWCH Comment: Interpretive Data Percent cell count reference ranges are not reported, since discordance with absolute values may lead to misinterpretation of CBC data. Current Interpretive Data was last revised on 2017. Testing performed by: [facility], [place] [facility] [place], [address] [place] [address] Eosinophil pct 1.6 % CERNER BJWCH Comment: Interpretive Data Percent cell count reference ranges are not reported, since discordance with absolute values may lead to misinterpretation of CBC data. Current Interpretive Data was last revised on 2017. Testing performed by: [facility], [place] [facility], [address] [place] [address] Basophil pct 0.9 % CERNER BJWCH Comment: Interpretive Data Percent cell count reference ranges are not reported, since discordance with absolute values may lead to misinterpretation of CBC data. Current Interpretive Data was last revised on 2017. Testing performed by: [facility], [facility], [address] [place] [address] Blood 12/18/2023 10:4 0 AM HEADING AND PRIMING OPERATOR 12/18/2023 10:42 AM HEADING AND PRIMING OPERATOR Janey Mendez [facility] LAB BLOOD ORDERABLES Final Result Performing Organization Address City/[facility] Co de Phone Number AUTUMN LYONCH [address] [facility]. [facility] [place] [address] * Thyroid Function [place] (12/18/2023 10:40 AM HEADING AND PRIMING OPERATOR) Pathologist [facility] TSH 2.77 0.30 - 4.20 mcIUnit/mL Comment:Testing performed by : [facility], [address] [facility] [address] Blood 12/18/2023 10:4 0 AM HEADING AND PRIMING OPERATOR 12/18/2023 11:03 AM HEADING AND PRIMING OPERATOR Janey Mendez [facility] LAB BLOOD ORDERABLES Final Result Performing Organization Address [facility] de Phone Number AUTUMN LYONCH [address] [facility]. [facility] [place] [address] * CBC with auto differential (12/18/2023 10:40 AM HEADING AND PRIMING OPERATOR) WBC 8.5 3.8 - 9.9 K/cumm Comment:Testing performed by : [facility], [facility], [address] [place] [address] Hgb 13.4 11.9 - 15.5 g/dL AUTUMN MANJARREZ Comment:Testing performed by : [facility], [facility], [address] [place] [address] Hct 39.9 35.6 - 45.5 % AUTUMN MANJARREZ Comment:Testing performed by : [facility], [facility], [address] [place] [address] Plt 269 150 - 400 K/cumm [facility] Comment:Testing performed by : [facility], [place] [facility], [address] [place] [address] MPV 9.5 9.1 - 12.3 fL [facility] Comment:Testing performed by : [facility] 2, [address] [place] [address] RBC 4.21 3.90 - 5.20 M/cumm CERCHEVY BJCH Comment:Testing performed by : [facility], [place] [facility], [address] [place] [address] MCV 95 81 - 96 fL [facility] Comment:Testing performed by : [facility] 2, [address] [place] [address] MCH 31.8 27.1 - 33.3 pg [facility] Comment:Testing performed by : [place] [address], [address] [place] [address] MCHC 33.6 32.3 - 35.7 g/dL [facility] Comment:Testing performed by : [facility], [place] [facility], [address] [place] [address] RDW CV 12.7 11.1 - 14.9 % [facility] Comment:Testing performed by : [place] [address], [address] [place] [address] RDW SD 43.8 35.7 - 48.1 fL [facility] Comment:Testing performed by : [facility] 2, [address] [place] [address] Blood 12/18/2023 10:4 0 AM HEADING AND PRIMING OPERATOR 12/18/2023 10:42 AM HEADING AND PRIMING OPERATOR us Janey Mendez NP LAB BLOOD ORDERABLES Final Result [facility] [address] [facility] [place] [address] * Comprehensive metabolic panel (12/18/2023 10:40 AM HEADING AND PRIMING OPERATOR) Sodium 138 135 - 145 mmol/L Comment:Testing performed by : [facility], [address], [place] [address] Potassium, pl 4.2 3.3 - 4.9 mmol/L CERNER BJWCH Comment:Testing performed by : [facility], [address], [place] [address] Chloride 101 97 - 110 mmol/L CERNER BJWCH Comment:Testing performed by : [facility], [address], [place] [address] CO2 28 22 - 32 mmol/L CERNER BJWCH Comment:Testing performed by : [facility], [address], [place] [address] Anion gap 9 2 - 15 mmol/L CERNER BJWCH Comment:Testing performed by : [facility], [address], [place] [address] BUN 14 6 - 25 mg/dL CERNER BJWCH Comment:Testing performed by : [facility], [address], [place] [address] Creatinine 0.82 0.60 - 1.10 mg/dL CERNER BJWCH Comment:Testing performed by : [facility], [address], [place] [address] Glucose 93 70 - 199 mg/dL CERNER [...] classification and Diagnosis of Diabetes Diabetes Care 202; 46: S19-S40. Current interpretive data was last revised 2022. Testing performed by: [facility], [address], [place] [address] Calcium 9.3 8.5 - 10.3 mg/dL CERNER BJWCH Comment:Testing performed by : [facility], [address], [place] [address] Bilirubin, total 0.2 0.1 - 1.2 mg/dL CERNER BJWCH Comment:Testing performed by : [facility], [address], [place] [address] Protein, pl 7.0 6.5 - 8.5 g/dL CERNER BJWCH Comment:Testing performed by : [facility], [address], [place] [address] Albumin 4.3 3.5 - 5.0 g/dL CERNER BJWCH Comment:Testing performed by : [facility], [address], [place] [address] Alk phos 73 40 - 130 Units/L CERNER BJWCH Comment:Testing performed by : [facility], [address], [place] [address] ALT 15 7 - 45 Units/L CERNER BJWCH Comment:Testing performed by : [facility], [address], [place] [address] AST 15 10 - 45 Units/L CERNER BJWCH Comment:Testing performed by : [facility], [address], [place] [address] Blood 12/18/2023 10:4 0 AM HEADING AND PRIMING OPERATOR 12/18/2023 11:03 AM HEADING AND PRIMING OPERATOR Janey Mendez NP LAB BLOOD ORDERABLES Final Result [facility] [address] Department [place] [address] from Last 3 Months Insurance [employer] PPO POS [employer] OPEN ACCESS Advance Directives For more information, please contact: [phone] * Full Code (Latest Code Status on File) Date Activated Date Inactivated Comments 02/09/2024 11:28 AM 02/09/2024 9:03 PM * Full Code Date Activated Date Inactivated Comments 02/07/2024 5:19 PM 02/09/2024 11:28 AM * Full Code Date Activated Date Inactivated Comments 05/05/2023 6:30 AM 05/05/2023 6:26 PM Care Teams [employer] Hand Relationship Specialty Start Date End Date Cristela Lei NP [address] [place] [address] PCP - General Nurse Practitioner 05/15/23 [place] [address] [facility] [address] [place] [address] Rheumatology 11/05/16 Rosy Lyons MD [address] DIV MEDICAL ONCOLOGY, [facility] [address] [place] [address] Medical Oncologist/Consumer Sales Representative Medical Oncology 05/11/23 Wayne Griffin MD [address] [place] [address] Consulting Physician Neurosurgery 09/04/23 Venu Alejo MD PhD [address] [place] [address] Consulting Physician Radiation Oncology 09/04/23
--- OUTSIDE RECORDS SUMMARY | 2024-03-18 16:37 | XMS_ITS | Continuity of Care Document ---
Author Organization [facility] Address [address] [place] [address] [place] [address] Phone Care Team Providers Care Postdoctoral Research Fellow Name Role Phone Rich Castillo MD Unavailable Unavailable Allergies, Adverse Reactions, Alerts Substance Reaction Status Criticality Cephalosporins Active No Informatio n Medications Medication Instructions Dosage Effective Dates (start - stop) Status Comments propranolol ER 120 mg capsule,24 hr,extended release take 1 capsule by oral route every day 120 MG - Active Effexor XR 150 mg capsule,extended release take 1 capsule by oral route every day 150 MG - Active buspirone 10 mg tablet take 1 tablet by oral route 2 times every day 10 MG - Active avoid driving or operate machines Zetia 10 mg tablet take 1 tablet by oral route every day 10 MG - Active Crestor 10 mg tablet take 1 tablet by oral route every day 10 MG - Active Procedures Procedure Date OFFICE/OUTPATIENT VISIT, EST OFFICE/OUTPATIENT VISIT, EST OFFICE/OUTPATIENT VISIT, EST OFFICE/OUTPATIENT VISIT, EST OFFICE/OUTPATIENT VISIT, EST OFFICE/OUTPATIENT VISIT, EST PREV VISIT, NEW, AGE 40-64 OFFICE/OUTPATIENT VISIT, NEW Advance Directives Directive Yes / No Effective Date File Name No Information Encounters Encounter Description Practice Location Reason(s) For Visit Diagnoses Date Provider Providers Copied on Encounter [facility], [address] [place], [id number], tel:[phone] [facility] No Information 0 Jonathan Villanueva. [address], [place], [place], [address] , [place]. tel:[phone] Referring Provider: Pro Napoles [address], [place], [place], [id number]. tel:[phone] OFFICE/OUTPA TIENT VISIT, [facility], [address], [place], [place], [address], [place] tel:[phone] [facility] HLP (chief complaint) tremor1 (chief complaint) anxiety1 (chief complaint) glucose1 (chief complaint) headache1 (chief complaint) HyperlipidemiaTremo rChest painEssential (primary) hypertensionGeneral ized Anxiety DisorderHeadacheHyp erglycemia 0 Jonathan Villanueva. [address], [place], [place], [address] , [place]. tel:[phone] [facility] [place], [address]. tel:[phone] OFFICE/OUTPA TIENT VISIT, [facility], [address] [place], [address], [place] tel:[phone] [facility] syncope1 (chief complaint) chest pain1 (chief complaint) HLP (chief complaint) anxiety1 (chief complaint) tremor1 (chief complaint) Syncope and collapseChest painAlcohol abuse, uncomplicatedHyperl ipidemiaEssential (primary) hypertension 0 Jonathan Villanueva. [address], [place], [place], [address] , [place]. tel:[phone] Referring [facility]: [facility] [place], [address]. tel:[phone] OFFICE/OUTPA TIENT VISIT, [facility], [address], [place], [place], [address], [place] tel:[phone] [facility] anxiety1 (chief complaint) HTN (chief complaint) pain (chief complaint) HLP (chief complaint) Essential (primary) hypertensionGeneral ized Anxiety DisorderHyperlipide miaChronic pain syndromeTremor 9 Jonathan Villanueva. [address], [place], [place], [address] , [place]. tel:[phone] Referring Provider: Pro Napoles [address], [place], [place], [address]. tel:[phone] OFFICE/OUTPA TIENT VISIT, [facility], [address], [place], [place], [address], [place] tel:[phone] [facility] HTN (chief complaint) HLP (chief complaint) anxiety1 (chief complaint) chronic pain1 (chief complaint) sick1 (chief complaint) hot flush1 (chief complaint) Generalized Anxiety DisorderHyperlipide miaEssential (primary) hypertensionChronic pain syndromeFlushingAcu te upper respiratory infection, unspecified 9 Jonathan Villanueva. [address], [address], [place], [place], [address] , [place]. tel:[phone] Referring Provider: Pro Napoles [address], [place], [place], [address]. tel:[phone] OFFICE/OUTPA TIENT VISIT, [facility], [address], [place], [place], [address], [place] tel:[phone] [facility] HLP (chief complaint) anxiety1 (chief complaint) pain1 (chief complaint) finger pain1 (chief complaint) Generalized Anxiety DisorderChronic pain syndromeHyperlipide miaEssential (primary) hypertensionPain in lt finger 9 Jonathan Villanueva. [address], [place], [place], [address] , [place]. tel:[phone] Referring Provider: Pro Napoles [address], [place], [place], [address]. tel:[phone] OFFICE/OUTPA TIENT VISIT, [facility], [address], [place], [place], [address], [place] tel:[phone] [facility] HLP (chief complaint) glucose1 (chief complaint) anxiety1 (chief complaint) chronic pain (chief complaint) HyperlipidemiaHyper glycemiaGeneralized Anxiety DisorderChronic pain syndromeEncounter for oth screening for malignant neoplasm of breast 9 Jonathan Villanueva. [address], [place], [place], [address] , [place]. tel:[phone] Referring Provider: Pro Napoles [address] [facility], [place], [place], [address]. tel:[phone] PREV VISIT, NEW, AGE 40-64 [facility], [address], [place], [place], [address], [place] tel:[phone] [facility] Physical (chief complaint) Encounter for general adult medical exam w abnormal findingsEssential (primary) hypertensionGeneral ized Anxiety DisorderChronic pain syndromeTobacco use 9 Jonathan Linn [address], [place], [place], [address] , [place]. tel:[phone] Referring Provider: Pro Napoles [address], [place], [place], [address]. tel:[phone] Family History Family Member Type Diagnosis Age At Onset Brother Problem (finding) drugs Father Problem (finding) Alive and well Mother Problem (finding) Alive and well Payers Payer name Insurance type Covered alliance party ID Authoriza tion(s) No Information Social History Type Description Quantity Date Captured Comments Sex Female Smoking Status No Information Chief Complaint And Reason For Visit No Information Plan Of Treatment Date Type Action Status Goal Tobacco cessation counseling completed Goal Tobacco cessation counseling completed Goal Tobacco cessation counseling completed Goal Special diet education compl eted Goal Tobacco cessation counseling completed Goal Prescribed dietary intake co mpleted Goal Tobacco cessation counseling completed Goal Special diet education compl eted Goal Special diet education compl eted Goal Tobacco cessation counseling completed Referral Ordered: Cardiology (related to Chest pain) ordered Referral Ordered: Referrals: Cardiology. Evaluate and treat ordered Referral Ordered: CHEST X-RAY PA/LAT TWO-VIEWS ordered Referral Ordered: ELECTROCARDIOGRAM, COMPLETE ordered Referral Ordered: [facility] Cal[facility] : Surgery (related to Chronic pain syndrome) ordered Referral Ordered: FINGER XRAY Left ordered Referral Referred To: Alejo Caldwell [facility] [address] [place], [place] [id number] Ordered: Referrals: [facility] Phys[facility] : Surgery. Alejo Caldwell. Evaluate and treat ordered Referral Ordered: MAMMOGRAM, SCREENING ordered History Of Present Illness Encounter Date Complaint History Of Prese nt Illness anxiety1 Pt has anxiety a nd depression Pt takes effexor and buspar Pt needs refill. Pt doing ok with current meds pt denies any suicidal or homicidal thought tremor1 Pt has resting t remor. Pt takes propranolol and her tremor is well controlled HLP Pt has HLP Pt is seeing Dr. Mckinnon and she had cardiac stress test which is negative this morning ,Pt does have HLP still. Pt is on crestor and zetia now by cardiology headache1 Pt states that h e she has chronic stress headache. Pt states that she has tension type and migraine type pt denies any worsening headache Pt denies any head injury or waking up at night with headache Pt states that propranolol dose help. Pt had MRi of brain done which was normal in the past. Pt has headache 1-2 per week. Pt denies any acute headache glucose1 Pt states that h er glucose is 126 this morning. Pt denies any polyuria, polydipsia. chest pain1 Pt c/o dull and pressure chest pain left midsternal area since new year nicole pt states that any movement hurts Pt has been out of breath very easily also pt states that exertion causes worsening chest pain. Pt denies any acute pain. Pt denies any recent travel or bedrest .Pt denies any calf pain HLP Pt has HLP. pt h as been taking crestor Her lipid profile is better. syncope1 Pt states that s he had some alcohol the new year nicole and she then passed out and she does not remember anything. Pt woke up with lip abrasions, told me she fell off bed and was unconsciousness and not breathing well Pt drinks two bottles of wine nightly with 4-5 beers also Pt states that she has not had anything to drink since . Pt wants to quit. states that she did wake up but was incoherent and she refused to go to ER however, pt does not remember anything about talking to the EMT. pt was incontinent and also has some irregular breathing tremor1 Pt has HTn and c hronic tremor. Pt notices slightly improvement of her tremor with higher dose of propranolol . Her BP is still elevated Pt denies any acute chest pian or headache anxiety1 Pt has chronic a nxiety and depression Pt takes Effexor and buspar. Pt does not think buspar is helping much for her anxiety Pt denies any suicidal or homicidal thought anxiety1 Pt has chronic a nxiety and depression pt feels severe anxiety all the time pt denies any suicidal or homicidal thought Pt has some hand tremor. Pt has a lot of stress at home. HLP Pt takes crestor Pt denies any myalgia pain Pt has chronic l ow back and shoulder pain Pt denies any loss of bladder control. Pt denies any worsening pain. Pt failed NSAID and ultram. Pt takes norco for pain PRN HTN Pt has HTN, Pt t akes propranolol but her bP is still borderline high. Pt denies any chest pain or headache hot flush1 Pt has hot flush with sweats all the time, day and night for several years Pt has been postmenopausal for two years sick1 Pt c/o productiv e coughing with green phlegm, subjective fever, sinus congestion, sore throat for one week. Pt has sick contact Pt denies any sob Pt denies any headache chronic pain1 Pt has chronic l ow back and shoulder pain Pt denies any loss of bladder control. Pt denies any worsening pain. Pt failed NSAID and ultram. Pt has finger fx and she is seeing hand specialist and will do PT anxiety1 Pt has chronic a nxiety and depression Pt has been taking effexor XR 150 mg daily but she still feels depressed and anxious Pt denies any suicidal or homicidal thought, Pt denies any crying spells HLP Pt has HLP Pt ta jac crestor Pt denies any myalgia. HTN Pt has borderlin e HTn Pt is not on any meds pt denies any chest yan or headache anxiety1 Pt has anxiety a nd depression Pt takes effexor and her anxiety and depression are getting better. Pt still feels some anxiety but overall better Pt denies any suicidal or homicidal thought finger pain1 Pt accidently cl osed the door on left middle finger about 6 weeks ago. pt notices swelling and decreased ROm left PIP joint Pt denies any numbness or tingling. Pt c/o pain left middle finger especially around PIP joint pain1 Pt has chronic l ow back pain pt has shoulder and elbow pain. Pt has hip pain. Pt denies any injury Pt has arthritis. Pt states that norco really helps her with the pain and taking care of her son. Pt denies any loss of bladder control. Pt has mild sciatica and leg numbness but not bad HLP Pt has HLP. Pt t [facility]. Pt denies any myalgia. Pt tolerating crestor ok HLP Pt has HLP pt di d lab fasting pt is not on any diet glucose1 Pt has mildly hi gh glucose Pt denies any polyuria polydipsia. Pt denies any neuropathy anxiety1 Pt has chronic a nxiety and depression Pt states that effexor is helping slightly. Pt marte have a lot of stress and anxiety at home. Pt denies any suicidal or homicidal thought chronic pain Pt has chronic l ow back pain pt has shoulder and elbow pain. Pt has hip pain. Pt denies any injury Pt has arthritis. Pt states that norco really helps her with the pain and taking care of her son. Pt denies any loss of bladder control. Pt has mild sciatica and leg numbness but not bad. PT failed NSAID and ultram Pt has 6/10 pain Physical Pt needs annual physical pt is postmeno Pt has chronic anxiety and depression. Pt has crying spells Pt used to use HRT but has not had it for over one year Pt feels very stressed and she feels depressed and anxious with crying spells. Pt denies any suicidal or homicidal thought Pt has chronic rather severe shoulder and elbow and back pain Pt has arthritis and also DDD. Pt notices mild sciatica without any numbness. her son has cerebral palsy and is wheel chair bound. Pt has to lift him all by herself all the time. Pt has daily and constant joint pain. Pt has 7/10 pain. Pt has tried NSIAD, neurontin, flexeril, ultram, codeine and none worked. Pt states that her daily pain is debilitating which is making her more depressed Instructions Date Instruction Additional Infor mation Quit smoking Related to Gener alized Anxiety Disorder Special diet education Related t o Body mass index (BMI) 26.0-26.9, adult Prescribed dietary intake Relate d to Body mass index (BMI) 26.0- 26.9, adult Special diet education Related t o Body mass index (BMI) 26.0-26.9, adult Increase activity. Related to Hy perlipidemia Stop smoking. Related to Hyper lipidemia Follow a low sodium diet. Relate d to Hyperlipidemia Weight management Related to Enc ounter for general adult medical exam w abnormal findings Quit smoking Related to Encou nter for general adult medical exam w abnormal findings Increase physical activity Relat ed to Encounter for general adult medical exam w abnormal findings Special diet education Related t o Body mass index (BMI) 27.0-27.9, adult Assessments Type Assessment Date No Information
--- OUTSIDE RECORDS SUMMARY | 2024-03-18 16:37 | XMS_ITS ---
Author Organization [facility] [address] Address [address] [place] [address] Phone Care Team Providers Care Administrative Assistant Coordinator Name Role Phone Regina Calderon MD Unavailable Rosy Lyons MD Unavailable [phone] Cristela Lei NP Primary Care Provider [phone] Wayne Griffin MD Unavailable [phone] Venu Alejo MD PhD Unavailable Active Problems Problem Noted Date Diagnosed Date Chronic diarrhea 03/08/2024 Small cell lung cancer in adult 02/07/2024 Assessment & Plan (02/09/2024 11:33 AM OPTICAL DISPENSER): Presented in April 2023 after presenting with [...] brain Assessment & Plan (02/07/2024 5:39 PM OPTICAL DISPENSER): Patient reports history of seizure that led [...] 10/31/2016 Assessment & Plan (02/07/2024 5:40 PM OPTICAL DISPENSER): Continue home Lexapro 20 mg daily (recently [...] 09/11/2016 Assessment & Plan (02/07/2024 5:56 PM OPTICAL DISPENSER): MRI with no evidence of metastases to [...] and frequent abx. Consider seeing ENT or slot floorperson for eval. We check IgG as part of our workup to look for low immune globulins. Dry eyes 09/11/2016 Assessment & Plan (10/03/2016 5:41 PM CDT): Neg serologies. Assessment & Plan (09/11/2016 2:50 PM CDT): Noted by eye doctor. Using otc drops. Current Oncology Plans Atezolizumab / CARBOplatin / Etoposide 21 Day Cycles - Small Cell Lung* Plan Start Date:05/12/2023 Plan Provider:Rosy Lyons MD Linked Problems Malignant neoplasm metastati c to left adrenal gland (HCC)Small cell lung cancer, right lower lobe (HCC) Treatment Medications Current Day (Day 1 , Cycle 11 - Planned for 12/25/2023) Next Day (Day 1, Cycle 12 - Planned for 01/15/2024) atezolizumab (TECENTRIQ)atezolizumab (TECENTRIQ) IVPBCARBOplatin (PARAPLATIN)CARBOplatin (PARAPLATIN) IVPB in 250 mLetoposide (TOPOSAR)etoposide (TOPOSAR;VEPESID)etoposide (VEPESID) IVPB in 500 mL atezolizumab (TECENTRIQ) 1,200 mg in sodium chloride 0.9% 250 mL IVPB atezolizumab (TECENTRIQ) 1,200 mg in sodium chloride 0.9% 250 mL IVPB Hydration Therapy Plan* Plan Start Date:02/05/2024 Plan Provider:Rosy Lyons MD Linked Problems Small cell lung cancer, righ t lower lobe (HCC)Elevated liver enzymes Treatment Medications No medications scheduled. Past Plans No past plan information found. Radiation Treatments * Plan Last Treated On Elapsed Days Fractions Treated Prescribed Fraction Dose Prescribed Total Dose A:GTV2_RtCe re 01/21/2024 0 1 2,000 cGy 2,000 cGy B:GTV1_RtFr on 01/21/2024 0 1 1,600 cGy 1,600 cGy A: GTV3_LtCer 01/21/2024 0 1 2,000 cGy 2,000 cGy B: GTV4_LtPar 01/21/2024 0 1 2,000 cGy 2,000 cGy GTV 5-6 01/21/2024 0 1 2,000 cGy 2,000 cGy A:GTV2_RtCe re 05/13/2023 0 1 2,000 cGy 2,000 cGy B:GTV1_RtFr on 05/13/2023 0 1 1,600 cGy 1,600 cGy Reference Point Last Treated On Elapsed Days Session Dose Total Dose A:GTV2_RtCereb 01/21/2024 0 0 cGy 2,000 cGy B:GTV1_RtFrontal 01/21/2024 0 0 cGy 1,600 cG y A: GTV3_LtCerebe 01/21/2024 0 0 cGy 2,000 cG y B: GTV4_LtPariet 01/21/2024 0 0 cGy 2,000 cG y A:GTV5_LtFrontal 01/21/2024 0 0 cGy 2,000 cG y A:GTV2_RtCereb 05/13/2023 0 0 cGy 2,000 cGy B:GTV1_RtFrontal 05/13/2023 0 0 cGy 1,600 cG y Lifetime Dose Tracking * Chemical Lifetime Dose Automatic Entry Manual Entr y Fluoro Time 0.172 minutes 0.172 minutes 0 minutes etoposide 1,133.984 mg/m2 (1,8 24 mg) 1,133.984 mg/m2 (1,824 mg) 0 mg/m2 (0 mg) Air kerma at the reference point (Ka,r) 2.43 mGy 2.43 mGy 0 mGy DLP 5,081 mGycm 5,081 mGycm 0 mGycm Resolved Problems Problem Noted Date Diagnosed Date Resolved Date Diarrhea 12/18/2023 03/08/2024 Assessment & Plan (02/09/2024 11:32 AM OPTICAL DISPENSER): Concern for immune mediated colitis Had been [...]
--- OUTSIDE RECORDS SUMMARY | 2024-03-18 16:40 | XMS_ITS | Continuity of Care Document ---
Author Organization [facility] Address [address] [place] [address] Phone Care Team Providers Care Hr Coordinator Name Role Phone Rich Castillo MD Unavailable Unavailable Allergies, Adverse Reactions, Alerts Substance Reaction Status Criticality Cephalosporins Active No Informatio n Medications Medication Instructions Dosage Effective Dates (start - stop) Status Comments Zetia 10 mg tablet take 1 tablet by oral route every day 10 MG - Active buspirone 10 mg tablet take 1 tablet by oral route 2 times every day 10 MG - Active avoid driving or operate machines Effexor XR 150 mg capsule,extended release take 1 capsule by oral route every day 150 MG - Active propranolol ER 120 mg capsule,24 hr,extended release take 1 capsule by oral route every day 120 MG - Active Crestor 10 mg tablet [...] Diagnoses Date Provider Providers Copied on Encounter [facility], [address] [place], [id number], tel:[phone] [facility] No Information 0 Jonathan Villanueva. [address], [place], [place], [address] , [place]. tel:[phone] Referring Provider: Pro Napoles [address], [place], [place], [id number]. tel:[phone] OFFICE/OUTPA TIENT VISIT, [facility], [address], [place], [place], [id number], [place] tel:[phone] [facility] HLP (chief complaint) tremor1 (chief complaint) anxiety1 (chief complaint) glucose1 (chief complaint) headache1 (chief complaint) HyperlipidemiaTremo rChest painEssential (primary) hypertensionGeneral ized Anxiety DisorderHeadacheHyp erglycemia 0 Jonathan Villanueva. [address], [place], [place], [address] , [place]. tel:[phone] Referring Provider: [facility] [place], [place], [id number]. tel:[phone] OFFICE/OUTPA TIENT VISIT, [facility], [address] [place], [place], [address], [place] tel:[phone] [facility] syncope1 (chief complaint) chest pain1 (chief complaint) HLP (chief complaint) anxiety1 (chief complaint) tremor1 (chief complaint) Syncope and collapseChest painAlcohol abuse, uncomplicatedHyperl ipidemiaEssential (primary) hypertension 0 Jonathan Villanueva. [address], [place], [place], [address] , [place]. tel:[phone] Referring Provider: [facility] [place], [place], [address]. tel:[phone] OFFICE/OUTPA TIENT VISIT, [facility], [address], [place], [place], [address], [place] tel:[phone] [facility] anxiety1 (chief complaint) HTN (chief complaint) pain (chief complaint) HLP (chief complaint) Essential (primary) hypertensionGeneral ized Anxiety DisorderHyperlipide miaChronic pain syndromeTremor 9 Jonathan Villanueva. [address], [place], [place], [address] , [place]. tel:[phone] Referring Provider: [address], [place], [place], [address]. tel:[phone] OFFICE/OUTPA TIENT VISIT, [facility], [address], [place], [place], [address], [place] tel:[phone] [facility] HTN (chief complaint) HLP (chief complaint) anxiety1 (chief complaint) chronic pain1 (chief complaint) sick1 (chief complaint) hot flush1 (chief complaint) Generalized Anxiety DisorderHyperlipide miaEssential (primary) hypertensionChronic pain syndromeFlushingAcu te upper respiratory infection, unspecified 9 Jonathan Villanueva. [address], [place], [place], [address] , [place]. tel:[phone] Referring Provider: [address], [place], [place], [address]. tel:[phone] OFFICE/OUTPA TIENT VISIT, [facility], [address], [place], [place], [address], [place] tel:[phone] [facility] HLP (chief complaint) anxiety1 (chief complaint) pain1 (chief complaint) finger pain1 (chief complaint) Generalized Anxiety DisorderChronic pain syndromeHyperlipide miaEssential (primary) hypertensionPain in lt finger 9 Jonathan Villanueva. [address], [place], [place], [address] , [place]. tel:[phone] Referring Provider: Pro [address], [place], [place], [address]. tel:[phone] OFFICE/OUTPA TIENT VISIT, [facility], [address], [place], [place], [address], [place] tel:[phone] [facility] HLP (chief complaint) glucose1 (chief complaint) anxiety1 (chief complaint) chronic pain (chief complaint) HyperlipidemiaHyper glycemiaGeneralized Anxiety DisorderChronic pain syndromeEncounter for oth screening for malignant neoplasm of breast 9 Jonathan Villanueva. [address], [place], [place], [address] , [place]. tel:[phone] Referring Provider: Pro Nap[address], [place], [place], [address]. tel:[phone] PREV VISIT, NEW, AGE 40-64 [facility], [address], [place], [place], [address], [place] tel:[phone] [facility] Physical (chief complaint) Encounter for general adult medical exam w abnormal findingsEssential (primary) hypertensionGeneral ized Anxiety DisorderChronic pain syndromeTobacco use 9 Jonathan Linn [address], [place], [place], [address] , [place]. tel:[phone] Referring Provider: [address], [place], [place], [address]. tel:[phone] Family History Family Member Type Diagnosis Age At Onset Brother Problem (finding) drugs Father Problem (finding) Alive and well Mother Problem (finding) Alive and well Payers Payer name Insurance type Covered democrat ID Authoriza tion(s) No Information Social History Type Description Quantity Date Captured Comments Sex Female Smoking Status No Information Chief Complaint And Reason For Visit No Information Plan Of Treatment Date Type Action Status Goal Tobacco cessation counseling completed Goal Tobacco cessation counseling completed Goal Special diet education compl eted Goal Tobacco cessation counseling completed Goal Tobacco cessation counseling completed Goal Prescribed [...] (related to Chronic pain syndrome) ordered Referral Referred To: Alejo Caldwell [facility] [id number] [place] [id number] Ordered: Referrals: Allopathic & Osteopathic Physicians : Surgery. Alejo Caldwell. Evaluate and treat ordered Referral Ordered: FINGER XRAY Left ordered Referral Ordered: MAMMOGRAM, SCREENING ordered History Of Present Illness Encounter Date Complaint History Of Prese nt Illness glucose1 Pt states that h er glucose is 126 this morning. Pt denies any polyuria, polydipsia. headache1 Pt states that h e she [...] per week. Pt denies any acute headache HLP Pt has HLP Pt is seeing Dr. Mckinnon and she had cardiac stress test which is negative this morning ,Pt does have HLP still. Pt is on crestor and zetia now by cardiology tremor1 Pt has resting t remor. Pt takes propranolol and her tremor is well controlled anxiety1 Pt has anxiety a nd depression Pt takes effexor and buspar Pt needs refill. Pt doing ok with current meds pt denies any suicidal or homicidal thought syncope1 Pt states that s he had some alcohol the and she then passed out and she [...] incontinent and also has some irregular breathing HLP Pt has HLP. pt h as been taking crestor Her lipid profile is better. anxiety1 Pt has chronic a nxiety and depression Pt takes Effexor and buspar. Pt does not think buspar is helping much for her anxiety Pt denies any suicidal or homicidal thought tremor1 Pt has HTn and c hronic tremor. Pt notices slightly improvement of her tremor with higher dose of propranolol . Her BP is still elevated Pt denies any acute chest pian or headache chest pain1 Pt c/o dull and pressure chest pain left midsternal area since new year nicole pt states that any movement hurts Pt has been out of breath very easily also pt states that exertion causes worsening chest pain. Pt denies any acute pain. Pt denies any recent travel or bedrest .Pt denies any calf pain anxiety1 Pt has chronic a nxiety and depression pt feels severe anxiety all the time pt denies any suicidal or homicidal thought Pt has some hand tremor. Pt has a lot of stress at home. HTN Pt has HTN, Pt t akes propranolol but her bP is still borderline high. Pt denies any chest pain or headache pain Pt has chronic l ow back and shoulder pain Pt denies any loss of bladder control. Pt denies any worsening pain. Pt failed NSAID and ultram. Pt takes norco for pain PRN HLP Pt takes crestor Pt denies any myalgia HTN Pt has borderlin e HTn Pt is not on any meds pt denies any chest yan or headache HLP Pt has HLP Pt ta kes crestor Pt denies any myalgia. anxiety1 Pt has chronic a nxiety and depression Pt has been taking effexor XR 150 mg daily but she still feels depressed and anxious Pt denies any suicidal or homicidal thought, Pt denies any crying spells chronic pain1 Pt has chronic l ow back and shoulder pain Pt denies any loss of bladder control. Pt denies any worsening pain. Pt failed NSAID and ultram. Pt has finger fx and she is seeing hand specialist and will do PT sick1 Pt c/o productiv e coughing with green phlegm, subjective fever, sinus congestion, sore throat for one week. Pt has sick contact Pt denies any sob Pt denies any headache hot flush1 Pt has hot flush with sweats all the time, day and night for several years Pt has been postmenopausal for two years HLP Pt has HLP. Pt t akes crestor. Pt denies any myalgia. Pt tolerating crestor ok pain1 Pt has chronic l ow back pain pt has shoulder and elbow pain. Pt has hip pain. Pt denies any injury Pt has arthritis. Pt states that norco really helps her with the pain and taking care of her son. Pt denies any loss of bladder control. Pt has mild sciatica and leg numbness but not bad finger pain1 Pt accidently cl osed the door on left middle finger about 6 weeks ago. pt notices swelling and decreased ROm left PIP joint Pt denies any numbness or tingling. Pt c/o pain left middle finger especially around PIP joint anxiety1 Pt has anxiety a nd depression Pt takes effexor and her anxiety and depression are getting better. Pt still feels some anxiety but overall better Pt denies any suicidal or homicidal thought HLP Pt has HLP pt di d [...] depressed Instructions Date Instruction Additional Infor mation Special diet education Related t o Body mass index (BMI) 26.0-26.9, adult Quit smoking Related to Gener alized Anxiety Disorder Prescribed dietary intake Relate d to Body mass index (BMI) 26.0- 26.9, adult Special diet education Related t o Body mass index (BMI) 26.0-26.9, adult Increase activity. Related to Hy perlipidemia Stop smoking. Related to Hyper lipidemia Follow a low sodium diet. Relate d to Hyperlipidemia Special diet education Related t o Body mass index (BMI) 27.0-27.9, adult Increase physical activity Relat ed to Encounter for general adult medical exam w abnormal findings Quit smoking Related to Encou nter for general adult medical exam w abnormal findings Weight management Related to Enc ounter for general adult medical exam w abnormal findings Assessments Type Assessment Date No Information
[2024-03-18 16:42] VITALS: BP 167/92; PULSE 83; RESP 18; TEMP 36.2; O2SAT 100
--- NOTE | 2024-03-18 17:34 | ED_ITS ---
HPI - General Adult General Chief complaint: Unspecified Stated complaint: blood pressure check Source: patient Mode of arrival: ambulatory Limitations: no limitations History of Present Illness HPI narrative: Patient presents for evaluation of an increase in facial and abdominal swelling within the past few days. She has a history of small cell lung cancer with metastasis and is currently on prednisone 20 mg p.o. b.i.d.. She indicates she has a mass on her adrenal gland. Her oncologist is Dr. Lyons at [facility]. She is getting ready to start in a clinical trial next Thursday. She states her blood pressure has been running high as of late. She has had readings in the 160s over 100s. She denies any chest pain or shortness of breath. She was concerned that she may need to start on BP medication. She came in today for further evaluation of the facial and abdominal swelling and for a recheck of her BP. Related Data Home Medications ?Medication ?Instructions ?Recorded ?Confirmed ?Last Taken ?Type levetiracetam 1,000 mg tablet 1,000 mg PO Q12H 05/07/23 01/27/24 Unknown History (Ran) Allergies Allergy/AdvReac Type Severity Reaction Status Date / Time cephalexin AdvReac Severe vomiting Verified 03/18/24 16:42 and diarrhea [id number] Reductase AdvReac Severe Anxiety Verified 03/18/24 16:42 Inhibitor Review of Systems Review of Systems: CONSTITUTIONAL: Denies fever, chills, or sweats. EYES: Denies visual changes, redness, or discharge. ENT: Reports facial swelling. Denies rhinorrhea, congestion, sore throat, or otalgia. CARDIOVASCULAR: Denies chest pain, palpitations, or edema. RESPIRATORY: Denies cough or dyspnea. GASTROINTESTINAL: Reports diarrhea which is chronic. Reports swelling in the abdomen. Denies abdominal pain, nausea, vomiting GENITOURINARY: Denies dysuria or hematuria. SKIN: Denies rash or itching. MUSCULOSKELETAL: Denies back pain, joint pain, or myalgia. NEUROLOGIC: Denies headache, numbness, dizziness, or weakness. PSYCHIATRIC:Reports anxiety. 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 FHx: migraine headaches Essential hypertension Acute bronchitis, unspecified Mixed hyperlipidemia Tobacco use disorder Surgical History Surgical History History of hysterectomy History of History of carpal tunnel release History of appendectomy Family History Family History Mother Family history of diabetes mellitus in first degree relative Sibling Family history of diabetes mellitus in first degree relative Father Alcoholism Grandparent Cancer Social History Social History Smoking packs per day: 1 Smoking cigarettes per day: 20.0 Years smoked: 40 Smoking pack-years: 40.00 Smoking status: Current every day smoker Tobacco type: cigarettes Alcohol intake: never Alcohol use details: Alcoholic. No alcohol in 13 months Substance use: never Substance use type: does not use Living arrangements: with family Gender identity (if verbalized by the patient): Female Spiritual care concerns: No Exam Narrative: GENERAL: Well-appearing, well-nourished, and in no acute distress. HEAD: Facial swelling noted. Atraumatic. EYES: PERRLA and EOMI. ENT: Nares clear, no rhinorrhea or epistaxis. Mucous membranes moist. Oropharynx without tonsillar hypertrophy exudate or other lesions. Bilateral TMs pearly devine nonbulging NECK: Supple. No adenopathy or masses. No carotid bruits or JVD CHEST: Clear to auscultation. No respiratory distress. No wheezes rales or rhonchi HEART: Regular rate and rhythm. No murmur heard. Normal peripheral pulses. ABDOMEN: Soft, round, normal active bowel sounds. EXTREMITIES: Normal range of motion. No edema. SKIN: Warm, dry, no rash. NEURO: No focal deficits. Alert and oriented x3. PSYCH: Normal mood and affect. Course Course Emergency Course: This is a 58-year-old female who presented for evaluation of facial swelling and abdominal swelling after being on prednisone 20 mg by mouth twice daily. I contacted on-call oncology at [facility] and spoke with RNVesta. she indicates patient had already called their office today and was advised to go to the emergency department at that time. She recommended patient go to the emergency department now. I showed those recommendations with patient. She declined transfer. She states she needs to make arrangements for her child to have supervision at home as her child has cerebral palsy. Educate patient about potential for decline in clinical condition and . She verbalized understanding. She elected to leave against medical advice. She will consider going to the hospital later tonight or tomorrow. Level of Care: Express Care Visit Vital Signs Vital signs: Vital Signs Temperature 36.2 C L 03/18/24 16:42 Pulse Rate 83 03/18/24 16:42 Respiratory Rate 18 03/18/24 16:42 Blood Pressure 167/92 H 03/18/24 16:42 Pulse Oximetry 100 03/18/24 16:42 Oxygen Delivery Room Air 03/18/24 16:42 Temperature 36.2 C L 03/18/24 16:42 Pulse Rate 83 03/18/24 16:42 Respiratory Rate 18 03/18/24 16:42 Blood Pressure 167/92 H 03/18/24 16:42 Pulse Oximetry 100 03/18/24 16:42 Oxygen Delivery Room Air 03/18/24 16:42 Medical Decision Making Vital Signs Vital Signs: Vital Signs Temperature 36.2 C L 03/18/24 16:42 Pulse Rate 83 03/18/24 16:42 Respiratory Rate 18 03/18/24 16:42 Blood Pressure 167/92 H 03/18/24 16:42 Pulse Oximetry 100 03/18/24 16:42 Oxygen Delivery Room Air 03/18/24 16:42 Temperature 36.2 C L 03/18/24 16:42 Pulse Rate 83 03/18/24 16:42 Respiratory Rate 18 03/18/24 16:42 Blood Pressure 167/92 H 03/18/24 16:42 Pulse Oximetry 100 03/18/24 16:42 Oxygen Delivery Room Air 03/18/24 16:42 Discharge Plan Discharge Clinical Impression: Left against medical advice, Accelerated hypertension Patient Disposition: Left Against Medical Advice Condition: Guarded Prognosis Patient Language: Hebrew Prescriptions: No Action levetiracetam [Keppra] 1,000 mg tablet 1,000 mg PO Q12H Wegovy 0.5 mg/0.5 mL pen injector 0.5 mg subcut WEEKLY Qty: 2 2RF buspirone 5 mg tablet 5 mg PO BID Qty: 60 1RF naloxone [Narcan] 4 mg/actuation spray,non-aerosol 4 mg intranasal Q2M PRN (Reason: opioid overdose) Qty: 2 0RF Rx Instructions: spray 1 dose into ONE nostril; alternate nostrils w each dose until help arrives oxycodone 20 mg tablet,oral only,ext.rel.12 hr 20 mg PO Q12H Qty: 14 0RF oxycodone 10 mg tablet 10 mg PO Q4H PRN (Reason: pain) Qty: 180 0RF Follow-up/Referrals: Cristela Lei APRN [Primary Care Provider] - Time of Disposition: 17:50
== END 2024-03-18 17:47 | disposition left against medical advice (07) ==
PROVIDERS: Emergency Provider Nurse Practitioner; PCP Nurse Practitioner Family
DX: I10 Essential (primary) hypertension (principal); C34.90 Malignant neoplasm of unspecified part of unspecified bronchus or lung; C79.9 Secondary malignant neoplasm of unspecified site; F17.210 Nicotine dependence, cigarettes, uncomplicated; M19.90 Unspecified osteoarthritis, unspecified site; E78.2 Mixed hyperlipidemia
CPT/HCPCS: 99211; G0463